=== PATIENT | female | born 1945 | race Caucasian/White ===

== ENCOUNTER 2020-04-05 12:11 | Outpatient (REF) | payer MEDICARE, SELFPAY ==
--- NOTE | 2020-04-05 12:19 | MM_ITS ---
EXAMINATION: MM SCREENING DIGITAL BREAST TOMOSYNTHESIS, BILATERAL CLINICAL INFORMATION: Screening. Asymptomatic. The lifetime risk of breast cancer based on the Tyrer-Cuzick Model is under 2%. COMPARISON: Mammography: 12/02/2018, 11/19/2017, 10/31/2016 TECHNIQUE: Digital breast tomosynthesis is performed in both the craniocaudal and mediolateral oblique views along with computer-aided detection (CAD). Synthesized 2D images are generated from the tomosynthesis. FINDINGS: There are scattered areas of fibroglandular density (ACR BI-RADS breast composition Category b). There are no significant masses, abnormal calcifications, or other abnormalities. Parenchymal pattern is similar to prior exams. The axilla and skin contours are unremarkable. MM/MM tomosynthesis screening BI IMPRESSION: No mammographic evidence of malignancy. ASSESSMENT: BI-RADS 1: Negative RECOMMENDATION: Routine annual mammography screening. This patient's information was entered into a reminder system with a target due date for their next mammogram.
== END 2020-04-05 12:12 | disposition home or self-care (01) ==
LOC: HO.MAMMO 12:11
PROVIDERS: Visit Provider Internal Medicine
DX: Z12.31 Encounter for screening mammogram for malignant neoplasm of breast (principal)
CPT/HCPCS: 77063; 77067

== ENCOUNTER 2021-04-10 08:57 | Outpatient (REF) | payer MEDICARE, SELFPAY ==
--- NOTE | ~2021-04-10 | MM_ITS ---
EXAMINATION: BONE DENSITOMETRY CLINICAL INDICATION: Osteopenia. COMPARISON: Previous BD dated 12/02/2018 and baseline BD dated 06/20/2010. TECHNIQUE: Using a [employer] DXA System (software version: 13.1) manufactured by [employer], dual-energy x-ray absorptiometry was performed of the lumbar spine and left hip. The images are of good technical quality. Summary results are attached. FINDINGS: AP SPINE L1-L3 (excluding L4): The data of L1-L4 has been changed to exclude the L4 vertebral body, because degenerative changes at this level may cause overestimation of lumbar spine density. Current: BMD 0.936 g/cm2, Z-score 0.3, T-score -1.9, osteopenia, 2.3% decrease from previous, 1.2% increase from baseline (<5% change is not significant). Prior: BMD 0.958 g/cm2. Baseline: BMD 0.925 g/cm2. LEFT FEMUR, NECK: Current: BMD 0.775 g/cm2, Z-score 0.4, T-score -1.9, osteopenia. Prior: BMD 0.808 g/cm2. Baseline: BMD 0.897 g/cm2. LEFT FEMUR, TOTAL: Current: BMD 0.759 g/cm2, Z-score 0.2, T-score -2.0, osteopenia, 9.0% decrease from previous, 16.1% decrease from baseline (<5% change is not significant). Prior: BMD 0.834 g/cm2. Baseline: BMD 0.905 g/cm2. IDENTIFIED RISK FACTORS: Early menopause, secondary osteoporosis, rheumatoid arthritis, glucocorticoids (chronic), thiazide. HISTORY OF FRACTURE: None listed. MEDICATIONS: Vitamin D, bisphosphonates. MM/XR DEXA axial skeleton IMPRESSION: 1. DIAGNOSIS: Osteopenia based on the lowest T-score value of -2.0 in the total femur applying World Health Organization criteria. 2. 10-YEAR FRACTURE RISK PREDICTION, FRAX: Major osteoporotic fracture (clinical spine, forearm, hip or shoulder) 24.4%. Hip fracture 8.6%. 3. Treatment Recommendations: NOF guidelines recommend consideration for treatment in postmenopausal women and men age 50 and older presenting with the following: -A hip or vertebral (clinical or morphometric) fracture. -T-score less than or equal to -2.5 at the femoral neck or spine after appropriate evaluation to exclude secondary causes. -Low bone mass at the hip or spine and a 10-year fracture probability by FRAX of greater than or equal to 3% for hip fracture or greater than or equal to 20% for major osteoporotic fracture based on the [place] adapted WHO algorithm. 4. Other Recommendations: All treatment decisions require clinical judgment and consideration of individual patient factors, including patient preferences, comorbidities, previous drug use, risk factors not captured in the FRAX model (e.g. frailty, falls, vitamin D deficiency, increased bone turnover, interval significant decline in bone density) and possible under or overestimation of fracture risk by FRAX. Additional medical evaluation for secondary cause of low bone mineral density may be appropriate. FUTURE SCAN RECOMMENDATION: People with diagnosed cases of osteoporosis or at high risk for fracture should have regular bone mineral density tests. For patients eligible for Medicare, routine testing is allowed once every 2 years. The testing frequency can be increased to one year for patients who have rapidly progressing disease, those who are receiving or discontinuing medical therapy to restore bone mass, or have additional risk factors.
--- NOTE | ~2021-04-10 | MM_ITS ---
EXAMINATION: MM SCREENING DIGITAL BREAST TOMOSYNTHESIS, BILATERAL CLINICAL INFORMATION: Screening. Asymptomatic. The lifetime risk of breast cancer based on the Tyrer-Cuzick Model is 1%. COMPARISON: Mammography: 04/05/2020, 12/02/2018, 11/19/2017 TECHNIQUE: Digital breast tomosynthesis is performed in both the craniocaudal and mediolateral oblique views along with computer-aided detection (CAD). Synthesized 2D images are generated from the tomosynthesis. FINDINGS: There are scattered areas of fibroglandular density (ACR BI-RADS breast composition Category b). There are no significant masses, abnormal calcifications, or other abnormalities. Parenchymal pattern is similar to prior studies. There is no developing density or architectural abnormality. The axilla and skin contours are unremarkable. No significant changes. MM/MM tomosynthesis screening BI IMPRESSION: No mammographic evidence of malignancy. ASSESSMENT: BI-RADS 1: Negative RECOMMENDATION: Routine annual mammography screening. This patient's information was entered into a reminder system with a target due date for their next mammogram.
== END 2021-04-10 08:58 | disposition home or self-care (01) ==
LOC: HO.MAMMO 08:57
PROVIDERS: Visit Provider Obstetrics & Gynecology
DX: Z12.31 Encounter for screening mammogram for malignant neoplasm of breast (principal); Z13.820 Encounter for screening for osteoporosis; M85.80 Other specified disorders of bone density and structure, unspecified site; Z78.0 Asymptomatic menopausal state; M06.9 Rheumatoid arthritis, unspecified; E27.49 Other adrenocortical insufficiency; Z79.899 Other long term (current) drug therapy
CPT/HCPCS: 77063; 77067; 77080

== ENCOUNTER 2022-04-14 08:55 | Outpatient (REF) | payer MEDICARE, SELFPAY ==
--- NOTE | ~2022-04-14 | MM_ITS ---
EXAMINATION: MM SCREENING DIGITAL BREAST TOMOSYNTHESIS, BILATERAL CLINICAL INFORMATION: Screening. Asymptomatic. The lifetime risk of breast cancer based on the Tyrer-Cuzick Model is 2%. COMPARISON: Mammography: 04/10/2021, 04/05/2020, 12/02/2018 TECHNIQUE: Digital breast tomosynthesis is performed in both the craniocaudal and mediolateral oblique views along with computer-aided detection (CAD). Synthesized 2D images are generated from the tomosynthesis. FINDINGS: There are scattered areas of fibroglandular density (ACR BI-RADS breast composition Category b). Breast tissue composition borders on predominantly fatty. Background stromal and fibroglandular densities are stable. There are no significant masses, abnormal calcifications, or other abnormalities. No architectural abnormality or developing density. The axilla are unremarkable. MM/MM tomosynthesis screening BI IMPRESSION: No mammographic evidence of malignancy. ASSESSMENT: BI-RADS 1: Negative RECOMMENDATION: Routine annual mammography screening. This patient's information was entered into a reminder system with a target due date for their next mammogram.
== END 2022-04-14 08:56 | disposition home or self-care (01) ==
LOC: HO.MAMMO 08:55
PROVIDERS: Absent Provider Obstetrics & Gynecology; PCP Internal Medicine; Visit Provider Internal Medicine
DX: Z12.31 Encounter for screening mammogram for malignant neoplasm of breast (principal)
CPT/HCPCS: 77063; 77067

== ENCOUNTER 2023-01-16 07:27 | Outpatient (AMB) | payer MEDICARE, SELFPAY ==
[2023-01-16 07:47] VITALS: BP 122/64; PULSE 67; O2SAT 98; BMI 20.5
--- NOTE | 2023-01-16 07:47 | A.OFFPC_ITS ---
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 Intake Note: Pt is here today as a New Patient, HTN and request PE Allergies codeine Adverse Reaction (Unknown, Verified 01/16/23 07:54) Hives sulfamethoxazole Adverse Reaction (Unknown, Verified 01/16/23 07:54) Unknown trimethoprim Adverse Reaction (Unknown, Verified 01/16/23 07:54) Unknown lisinopril Adverse Reaction (Unverified 01/16/23 07:54) cough Penicillins Adverse Reaction (Verified 01/16/23 07:54) rash Medication List - Last Reconciled 01/16/23 by Johanna Palencia MD alendronate 70 mg PO QWEEK cholecalciferol (vitamin D3) 50 mcg PO DAILY fluticasone propionate 50 mcg/actuation 1 spray intranasal DAILY losartan 25 mg PO DAILY simvastatin 20 mg PO BEDTIME triamterene-hydrochlorothiazid 37.5-25 mg 1 tab PO DAILY Tobacco use date assessed: 01/16/23 Fall risk assessment: No Falls in past year Last assessed Fall Risk: 01/16/23 Dental Screening Dental Screen Date: 01/16/23 Did you have a dental visit in the last 12 months?: Yes Did you have a dental problem in the last 6 months where you did not have access to dental care?: Yes Was dental information given to patient?: Patient has dentist HPI SENIOR PROJECT MANAGER/HTN /med/Req PE HPI Details Pt presents for SENIOR PROJECT MANAGER visit. Past medical history includes hypertension hyperlipidemia controlled current medications. Patient has been taking alendronate for urine a half for osteopenia. She has a history of osteoporosis and took alendronate in the past many years ago. Patient denies history of fracture PFSH Family History (Updated 01/16/23 @ 07:49 by Mary Beth Thompson CMA) Son Substance use disorder Social History (Updated 01/16/23 @ 08:10 by Johanna Palencia MD) Household Members Other:: , 6 adult sons, grandchildren in [place], [facility] Housing: House Patient Tobacco Use Status: Never used Tobacco e-Cigarette/Vaping Use: Never Used service: No Current occupational status: retired Cognitive needs: No Hearing needs: No Vision needs: Yes Questionnaire PHQ-9 Over the last 2 weeks, how often have you been bothered by any of the following problems? 1. Little interest or pleasure in doing things: not at all 2. Feeling down, depressed, or hopeless: not at all 3. Trouble falling or staying asleep, or sleeping too much: not at all 4. Feeling tired or having little energy: not at all 5. Poor appetite or overeating: not at all 6. Feeling bad about yourself - or that you are a failure or have let yourself or your family down: not at all 7. Trouble concentrating on things, such as reading the newspaper or watching television: not at all 8. Moving or speaking so slowly that other people could have noticed. Or the opposite - being so fidgety or restless that you have been moving around a lot more than usual: not at all 9. Thoughts that you would be better off or of hurting yourself in some way: not at all Total score: 0 Depression Screening Interpretation: Negative Depression Screening Done: Yes Source: Developed by Drs. Lowell Hinton, Annmarie Hooker, Nicola Ballard and colleagues, with an educational betty from [employer]. Thrive Questionnaire Date Thrive assessed: 01/16/23 I am a: Patient What is your living situation today?: I have a steady place to live Within the past 12 months, did the food you bought not last and you didn't have the money to get more?: Never true Within the past 12 months, did you worry whether your food would run out before you got money to buy more?: Never true Do you have trouble paying for medicines?: No Do you have trouble getting transportation to medical appointments?: No Do you have trouble paying your heating and electricity bill?: No Do you have trouble taking care of your child, family member or friend?: No Do you have trouble with day-to-day activities such as bathing, preparing meals, shopping, managing finances, etc.?: No Are you currently unemployed and looking for a job?: No Are you interested in more education?: No AUDIT C Alcohol Use Questionnaire (AUDIT-C) 1. How often do you have a drink containing alcohol?: Never Total Score: 0 STEPHANIE-7 AMB Questionnaire STEPHANIE-7 Date STEPHANIE - 7 assessed: 01/16/23 Feeling nervous, anxious, or on edge: 0 = Not at all Not being able to stop or control worryin = Not at all Worrying too much about different things: 0 = Not at all Trouble relaxin = Not at all Being so restless that it is hard to sit still: 0 = Not at all Becoming easily annoyed or irritable: 0 = Not at all Feeling afraid as if something awful might happen: 0 = Not at all Total STEPHANIE-7 score (0-4 normal; 5-9 mild; 10-14 moderate; 15-21 severe): 0 Source: Developed by Drs. Lowell Hinton, Annmarie Hooker, Nicola Ballard and colleagues, with an educational betty from [employer]. Review of Systems Const All systems reviewed & are unremarkable except as noted in HPI and below Reports no additional complaints Eyes Reports no additional complaints ENT Reports no additional complaints Card Reports no additional complaints Resp Reports no additional complaints GI Reports no additional complaints Reports no additional complaints Physical exam (Primary Care) Vital Signs: Last Vital Signs Pulse 67 01/16/23 07:47 BP 122/64 01/16/23 07:47 Pulse Ox 98 01/16/23 07:47 Oxygen Delivery Method Room Air 01/16/23 07:47 BMI result Body Mass Index 20.5 Tobacco/Smoking Status: Tobacco use Status Tobacco use date assessed 01/16/23 01/16/23 08:03 Patient Tobacco Use Status Never used Tobacco 01/16/23 08:10 e-Cigarette/Vaping Use Never Used 01/16/23 08:10 PHQ-9: PHQ-9 Score PHQ-9: Total score 0 01/16/23 08:10 Depression Screening Interpretation: Negative Thrive Assessment: Date of Thrive Assessment Date Thrive assessed 01/16/23 01/16/23 08:03 Const General: no acute distress HENMT Head: Yes normal to inspection Ears: hearing grossly normal bilaterally Face and sinus: Yes normal facial exam Throat: Yes posterior oropharynx normal Resp Effort & Inspection: normal respiratory effort Auscultation: clear to auscultation bilaterally Cardio Rhythm: regular rhythm Heart sounds: S1 normal heart sound present and S2 normal heart sound present GI Inspection: Yes normal to inspection Palpation (GI): Soft to palpation Percussion: Yes normal to percussion Assessment and Plan Assessment & Plan (1) Postmenopausal: Code(s): Z78.0 - Asymptomatic menopausal state Plan: Check DEXA continue alendronate and vitamin-D 3 (2) Annual physical exam: Code(s): Z00.00 - Encounter for general adult medical examination without abnormal findings Plan: Well-balanced diet and regular physical activity discussed with the patient (3) Hyperlipidemia: Code(s): E78.5 - Hyperlipidemia, unspecified Plan: Continue statin obtain fasting blood work (4) HTN (hypertension): Code(s): I10 - Essential (primary) hypertension Plan: Continue current medications, return in 6 months Orders: Orders MM screening mammo BI Today Z12.31 - Encounter for screening mammogram for malignant neoplasm of breast XR DEXA axial skeleton Today M85.80 - Other specified disorders of bone density and structure, unspecified site, Z00.00 - Encounter for general adult medical examination without abnormal findings, Z78.0 - Asymptomatic menopausal state Comprehensive [place]. Panel Fast Today E78.5 - Hyperlipidemia, unspecified, I10 - Essential (primary) hypertension Lipid Panel Today E78.5 - Hyperlipidemia, unspecified, I10 - Essential (primary) hypertension Complete Blood Count Auto Diff Today E78.5 - Hyperlipidemia, unspecified, I10 - Essential (primary) hypertension Vitamin D 25-OH Total Today E78.5 - Hyperlipidemia, unspecified, I10 - Essential (primary) hypertension Medications: New alendronate 70 mg PO QWEEK 14 tabs 3RF losartan 25 mg PO DAILY 90 tabs 3RF triamterene-hydrochlorothiazid 37.5-25 mg 1 tab PO DAILY 90 tabs 3RF simvastatin 20 mg PO BEDTIME 90 tabs 3RF Coding Level of Care Code New Pt Level 4 (65655) Diagnoses Postmenopausal Z78.0 Annual physical exam Z00.00 Hyperlipidemia E78.5 HTN (hypertension) I10
== END 2023-01-16 08:25 | disposition home or self-care (01) ==
PROVIDERS: PCP Internal Medicine; Visit Provider Internal Medicine
DX: Z78.0 Asymptomatic menopausal state (principal); Z00.00 Encounter for general adult medical examination without abnormal findings; E78.5 Hyperlipidemia, unspecified; I10 Essential (primary) hypertension
CPT/HCPCS: 99204

== ENCOUNTER 2023-01-16 08:27 | Outpatient (REF) | payer MEDICARE, SELFPAY ==
[2023-01-16 11:19] LABS: MANUAL DIFF FLAG NO
[2023-01-16 12:02] LABS: Basophils Absolute Auto 0.1 X10*3/uL (0.0-0.2); Basophils Percent Auto 1.1 % (0-2); Eosinophils Absolute Auto 0.2 X10*3/uL (0.0-0.4); Eosinophils Percent Auto 3.6 % (0-4); Hematocrit 36.6 % (37.0-47.0); Hemoglobin 12.8 g/dl (12.0-16.0); Imm Gran Abs Auto 0.02 X10*3/uL (0.00-0.03); Imm Gran Pct Auto 0.4 % (0.0-0.4); Lymphocytes Absolute Auto 1.1 X10*3/uL (1.2-4.9); Lymphocytes Percent Auto 22.6 % (20-40); Mean Corpuscular Hemoglobin 30.5 pg (27.0-33.0); Mean Corpuscular Volume 87.4 fL (80.0-98.0); Mean Platelet Volume 10.7 fL (9.4-12.3); Monocytes Absolute Auto 0.7 X10*3/uL (0.1-1.2); Monocytes Percent Auto 14.8 % (2-11); Neutrophils Absolute Auto 2.7 x10*3/uL (2.0-8.3); Neutrophils Percent Auto 57.5 % (45-73); Platelet Count 240 X10*3/uL (160-400); Red Blood Count 4.19 X10*6/uL (4.20-5.50); Red Cell Distribution Width 13.2 % (11.0-16.0); White Blood Count 4.7 X10*3/uL (4.8-10.8)
[2023-01-16 12:10] LABS: Alanine Aminotransferase 28 U/L (0-31); Albumin Level 4.7 g/dL (3.5-5.0); Alkaline Phosphatase 41 U/L (39-117); Anion Gap 13 (12-20); Aspartate Amino Transferase 25 U/L (5-31); Bilirubin Total 0.8 mg/dL (0.0-1.0); Blood Urea Nitrogen 13 mg/dL (9-16); Calcium 9.6 mg/dL (8.4-10.2); Carbon Dioxide 23 mmol/L (22-29); Chloride 102 mmol/L (96-108); Cholesterol 180 mg/dL (<200); Estimated Glomerular Filt Rate > 60; Glucose Fasting 99 mg/dL (60-99); HDL Cholesterol 70 mg/dL (>40); LDL Cholesterol Calculated 92 mg/dL (<100); Sodium 135 mmol/L (135-145); Triglycerides 94 mg/dL (<150); Vitamin D 25-OH Total 59.8 ng/mL (>30)
== END 2023-01-16 08:28 | disposition home or self-care (01) ==
LOC: HO.HMGCLDS 08:27
PROVIDERS: PCP Internal Medicine; Visit Provider Internal Medicine
DX: I10 Essential (primary) hypertension (principal); E78.5 Hyperlipidemia, unspecified
CPT/HCPCS: 36415; 80053; 80061; 82306; 85025

== ENCOUNTER 2023-01-28 09:27 | Outpatient (REF) | payer MEDICARE, SELFPAY ==
[2023-01-28 11:46] LABS: Potassium 3.8 mmol/L (3.3-5.1)
== END 2023-01-28 09:28 | disposition home or self-care (01) ==
LOC: HO.HMGCLDS 09:27
PROVIDERS: PCP Internal Medicine; Visit Provider Internal Medicine
DX: E87.6 Hypokalemia (principal)
CPT/HCPCS: 36415; 84132

== ENCOUNTER 2023-02-13 13:28 | Outpatient (AMB) | payer MEDICARE, SELFPAY ==
--- NOTE | 2023-02-13 13:35 | A.OFFPC_ITS ---
Vital Signs 02/13/23 13:36 Height 5 ft 2 in Weight 115 lb BMI 21.0 BP 134/68 Blood Pressure Location Rt brachial Position Sitting Pulse 79 Pulse Source Pulse Oximeter Pulse Oximetry (%) 98 Oxygen Delivery Method Room Air Intake Visit Reasons: LT Knee pain and back of knee Intake Note: Pt is here today c/o Rt knee pain and back of Rt knee Allergies codeine Adverse Reaction (Unknown, Verified 01/16/23 07:54) Hives sulfamethoxazole Adverse Reaction (Unknown, Verified 01/16/23 07:54) Unknown trimethoprim Adverse Reaction (Unknown, Verified 01/16/23 07:54) Unknown lisinopril Adverse Reaction (Unverified 01/16/23 07:54) cough Penicillins Adverse Reaction (Verified 01/16/23 07:54) rash Tobacco use date assessed: 02/13/23 Fall risk assessment: No Falls in past year Last assessed Fall Risk: 02/13/23 Dental Screening Did you have a dental visit in the last 12 months?: Yes Did you have a dental problem in the last 6 months where you did not have access to dental care?: No Was dental information given to patient?: Patient has dentist HPI LT Knee pain and back of knee HPI Details Pt c/o L knee pain and stiffness for 3 weeks worse when walking. Pt has a hx of PMR and took Prednisone for 9 months, completed a year ago. She follows up by rheumatology every 3 months and has an appointment in February. Patient reports blood pressure between 130 to 140/70 at home PFSH Family History Son Substance use disorder Social History Household Members Other:: , 6 adult sons, grandchildren in [place]/[facility] Housing: House Patient Tobacco Use Status: Never used Tobacco e-Cigarette/Vaping Use: Never Used service: No Current occupational status: retired Cognitive needs: No Hearing needs: No Vision needs: Yes Questionnaire Thrive Questionnaire Date Thrive assessed: 01/16/23 STEPHANIE-7 AMB Questionnaire STEPHANIE-7 Date STEPHANIE - 7 assessed: 01/16/23 Source: Developed by Drs. Lowell Hinton, Annmarie Hooker, Nicola Ballard and colleagues, with an educational betty from [employer]. Review of Systems Const All systems reviewed & are unremarkable except as noted in HPI and below Reports no additional complaints Eyes Reports no additional complaints Card Reports no additional complaints Resp Reports no additional complaints GI Reports no additional complaints Reports no additional complaints Physical exam (Primary Care) Vital Signs: Last Vital Signs Pulse 79 02/13/23 13:36 BP 134/68 02/13/23 13:36 Pulse Ox 98 02/13/23 13:36 Oxygen Delivery Method Room Air 02/13/23 13:36 BMI result Body Mass Index 21.0 Tobacco/Smoking Status: Tobacco use Status Tobacco use date assessed 02/13/23 02/13/23 13:38 Patient Tobacco Use Status Never used Tobacco 02/13/23 13:36 e-Cigarette/Vaping Use Never Used 02/13/23 13:36 Thrive Assessment: Date of Thrive Assessment Date Thrive assessed 01/16/23 02/13/23 13:36 Const General: no acute distress HENMT Face and sinus: Yes normal facial exam Resp Effort & Inspection: normal respiratory effort Auscultation: clear to auscultation bilaterally Cardio Rhythm: regular rhythm Heart sounds: S1 normal heart sound present and S2 normal heart sound present GI Inspection: Yes normal to inspection Palpation (GI): Soft to palpation Extrem Other: Left knee with crepitus and decreased range of motion, there is soft tissue swelling in the medial aspect no erythema or warmth Assessment and Plan Assessment & Plan (1) Knee pain, left: Code(s): M25.562 - Pain in left knee Plan: Check x-rays and sed rate with CRP. Prednisone 15 mg daily is prescribed for 1 week if sed rate is normal (2) PMR (polymyalgia rheumatica): Code(s): M35.3 - Polymyalgia rheumatica Plan: Check CRP and sed rate, start 15 mg of prednisone (3) HTN (hypertension): Code(s): I10 - Essential (primary) hypertension Plan: Continue 50 mg of losartan triamterene and follow-up in 3 weeks Orders: Orders Basic Metabolic Panel Today M25.562 - Pain in left knee Erythrocyte Sedimentation Rate Today M25.562 - Pain in left knee Magnesium Today M25.562 - Pain in left knee XR knee LT 2V Today I10 - Essential (primary) hypertension, M25.562 - Pain in left knee, M35.3 - Polymyalgia rheumatica C Reactive Protein Today M25.562 - Pain in left knee Medications: New prednisone 5 mg PO TID 60 tabs 0RF Coding Level of Care Code Est Pt Level 4 (40563) Diagnoses Knee pain, left M25.562 PMR (polymyalgia rheumatica) M35.3 HTN (hypertension) I10
[2023-02-13 13:36] VITALS: BP 134/68; PULSE 79; O2SAT 98; BMI 21.0
== END 2023-02-13 14:26 | disposition home or self-care (01) ==
PROVIDERS: PCP Internal Medicine; Visit Provider Internal Medicine
DX: M25.562 Pain in left knee (principal); M35.3 Polymyalgia rheumatica; I10 Essential (primary) hypertension
CPT/HCPCS: 99214

== ENCOUNTER 2023-02-13 14:27 | Outpatient (REF) | payer MEDICARE, SELFPAY ==
--- NOTE | ~2023-02-13 | XR_ITS ---
EXAMINATION: XR KNEE, LEFT CLINICAL INFORMATION: Pain in left knee COMPARISON: None available. TECHNIQUE: Four views of the left knee. FINDINGS: No significant joint effusion. Bones are in normal anatomic alignment with no acute fracture or dislocation. Mild degenerative changes with small osteophyte formation.. Surrounding soft tissues unremarkable XR/XR knee LT 4V IMPRESSION: Normal left knee.
[2023-02-13 16:36] LABS: Anion Gap 10 (12-20); Blood Urea Nitrogen 11 mg/dL (9-16); C Reactive Protein < 0.04 mg/dL (< or = 0.50); Calcium 9.3 mg/dL (8.4-10.2); Carbon Dioxide 28 mmol/L (22-29); Chloride 107 mmol/L (96-108); Estimated Glomerular Filt Rate > 60; Glucose Random 75 mg/dL (60-115); Magnesium 2.1 mg/dL (1.6-2.6); Potassium 3.6 mmol/L (3.3-5.1); Sodium 141 mmol/L (135-145)
[2023-02-13 17:01] LABS: Erythrocyte Sedimentation Rate 5 MM/HR (0-20)
== END 2023-02-13 14:28 | disposition home or self-care (01) ==
LOC: HO.HMGCX 14:27
PROVIDERS: PCP Internal Medicine; Visit Provider Internal Medicine
DX: M25.562 Pain in left knee (principal)
CPT/HCPCS: 36415; 73564; 80048; 83735; 85652; 86140

== ENCOUNTER 2023-03-06 13:52 | Outpatient (AMB) | payer MEDICARE, SELFPAY ==
--- NOTE | 2023-03-06 13:53 | A.OFFPC_ITS ---
Vital Signs 03/06/23 13:54 Height 5 ft 2 in Weight 114 lb BMI 20.8 BP 138/72 Blood Pressure Location Lt brachial Position Sitting Pulse 79 Pulse Source Pulse Oximeter Pulse Oximetry (%) 96 Oxygen Delivery Method Room Air Intake Visit Reasons: 3 week fu Intake Note: Pt is here today for 3 weeks follow up visit. Allergies codeine Adverse Reaction (Unknown, Verified 03/06/23 13:59) Hives sulfamethoxazole Adverse Reaction (Unknown, Verified 03/06/23 13:59) Unknown trimethoprim Adverse Reaction (Unknown, Verified 03/06/23 13:59) Unknown lisinopril Adverse Reaction (Unverified 03/06/23 13:59) cough Penicillins Adverse Reaction (Verified 03/06/23 13:59) rash Medication List - Last Reconciled 03/06/23 by Johanna Palencia MD alendronate 70 mg PO QWEEK cholecalciferol (vitamin D3) 50 mcg PO DAILY fluticasone propionate 50 mcg/actuation 1 spray intranasal DAILY losartan 50 mg (2 x 25 mg) PO DAILY losartan 75 mg (3 x 25 mg) PO DAILY simvastatin 20 mg PO BEDTIME triamterene 50 mg PO DAILY Tobacco use date assessed: 02/13/23 HPI 3 week fu HPI Details PATIENT PRESENTS FOR THE FOLLOW-UP ON HYPERTENSION. She reports blood pressure elevated occasionally up to 150/90 at [facility]. Patient denies chest pain shortness of breath or palpitations. Left knee and left hip pain resolved after cortisone injection by trimming cutter machine. PFSH Family History Son Substance use disorder Social History Household Members Other:: , 6 adult sons, grandchildren in [place]/[facility] Housing: House Patient Tobacco Use Status: Never used Tobacco e-Cigarette/Vaping Use: Never Used service: No Current occupational status: retired Cognitive needs: No Hearing needs: No Vision needs: Yes Questionnaire Thrive Questionnaire Date Thrive assessed: 01/16/23 STEPAHNIE-7 AMB Questionnaire STEPHANIE-7 Date STEPHANIE - 7 assessed: 01/16/23 Source: Developed by Drs. Lowell Hinton, Annmarie Hooker, Nicola Ballard and colleagues, with an educational betty from [employer]. Physical exam (Primary Care) Vital Signs: Last Vital Signs Pulse 79 03/06/23 13:54 BP 138/72 03/06/23 13:54 Pulse Ox 96 03/06/23 13:54 Oxygen Delivery Method Room Air 03/06/23 13:54 BMI result Body Mass Index 20.8 Tobacco/Smoking Status: Tobacco use Status Tobacco use date assessed 02/13/23 03/06/23 13:54 Patient Tobacco Use Status Never used Tobacco 03/06/23 13:54 e-Cigarette/Vaping Use Never Used 03/06/23 13:54 Thrive Assessment: Date of Thrive Assessment Date Thrive assessed 01/16/23 03/06/23 13:54 Const General: no acute distress HENMT Throat: Yes posterior oropharynx normal Resp Effort & Inspection: normal respiratory effort Auscultation: clear to auscultation bilaterally Cardio Rhythm: regular rhythm Heart sounds: S1 normal heart sound present and S2 normal heart sound present Assessment and Plan Assessment & Plan (1) Hyperlipidemia: Code(s): E78.5 - Hyperlipidemia, unspecified Plan: Continue statin (2) HTN (hypertension): Code(s): I10 - Essential (primary) hypertension Plan: Increase losartan to 75 mg a day and continue triamterene. check BMP IN 2 WEEKS, F/U 6 WEEKS Orders: Orders Basic Metabolic Panel 2 Weeks I10 - Essential (primary) hypertension Medications: New losartan 75 mg (3 x 25 mg) PO DAILY 90 tabs 3RF Discontinued losartan Discontinued Reason: Doctor's Order 50 mg (2 x 25 mg) PO DAILY 180 tabs 3RF prednisone Discontinued Reason: Doctor's Order 5 mg PO TID 60 tabs 0RF Coding Level of Care Code Est Pt Level 3 (43639) Diagnoses Hyperlipidemia E78.5 HTN (hypertension) I10
[2023-03-06 13:54] VITALS: BP 138/72; PULSE 79; O2SAT 96; BMI 20.8
== END 2023-03-06 14:28 | disposition home or self-care (01) ==
PROVIDERS: PCP Internal Medicine; Visit Provider Internal Medicine
DX: E78.5 Hyperlipidemia, unspecified (principal); I10 Essential (primary) hypertension
CPT/HCPCS: 99213

== ENCOUNTER 2023-03-20 07:38 | Outpatient (REF) | payer MEDICARE, SELFPAY ==
[2023-03-20 11:41] LABS: Anion Gap 10 (12-20); Blood Urea Nitrogen 14 mg/dL (9-16); Calcium 9.2 mg/dL (8.4-10.2); Carbon Dioxide 29 mmol/L (22-29); Chloride 107 mmol/L (96-108); Estimated Glomerular Filt Rate > 60; Glucose Random 89 mg/dL (60-115); Potassium 4.1 mmol/L (3.3-5.1); Sodium 142 mmol/L (135-145)
== END 2023-03-20 07:39 | disposition home or self-care (01) ==
LOC: HO.HMGCLDS 07:38
PROVIDERS: PCP Internal Medicine; Visit Provider Internal Medicine
DX: I10 Essential (primary) hypertension (principal)
CPT/HCPCS: 36415; 80048

== ENCOUNTER 2023-04-13 10:53 | Outpatient (AMB) | payer MEDICARE, SELFPAY ==
[2023-04-13 11:04] VITALS: BP 144/80; PULSE 76; O2SAT 98; BMI 20.7
--- NOTE | 2023-04-13 11:04 | MHC.PC.OV ---
Vital Signs 04/13/23 11:04 Height 5 ft 2 in Weight 113 lb BMI 20.7 BP 144/80 H Blood Pressure Location Lt brachial Position Sitting Pulse 76 Pulse Source Pulse Oximeter Pulse Oximetry (%) 98 Oxygen Delivery Method Room Air Intake Visit Reasons: 6 Week F/U Intake Note: Pt is here today for 6 weeks follow up visit. Allergies codeine Adverse Reaction (Unknown, Verified 03/06/23 13:59) Hives sulfamethoxazole Adverse Reaction (Unknown, Verified 03/06/23 13:59) Unknown trimethoprim Adverse Reaction (Unknown, Verified 03/06/23 13:59) Unknown lisinopril Adverse Reaction (Unverified 03/06/23 13:59) cough Penicillins Adverse Reaction (Verified 03/06/23 13:59) rash Medication List - Last Reconciled 04/13/23 by Johanna Palencia MD alendronate 70 mg PO QWEEK cholecalciferol (vitamin D3) 50 mcg PO DAILY fluticasone propionate 50 mcg/actuation 1 spray intranasal DAILY losartan 75 mg (3 x 25 mg) PO DAILY simvastatin 20 mg PO BEDTIME triamterene 50 mg PO DAILY Tobacco use date assessed: 04/13/23 Fall risk assessment: No Falls in past year Last assessed Fall Risk: 04/13/23 Dental Screening Dental Screen Date: 04/13/23 Did you have a dental visit in the last 12 months?: Yes Did you have a dental problem in the last 6 months where you did not have access to dental care?: No Was dental information given to patient?: Patient has dentist HPI 6 Week F/U HPI Details Pt c/o chest pressure almost daily, not related to physical activity. Patient denies nausea vomiting radiation of the pain to jaw or shoulder back. Patient denies nocturnal symptoms. She has been under stress related to her 13-year-old grandson diagnosed with alopecia. Patient has alopecia for the last 40 years and thinks that she gave it to him . Patient reports her home blood pressure readings elevated up to 150/75 and she reports intermittent headache at night. [facility] Family History Son Substance use disorder Father No problems noted. Mother Hypertension Social History Household Members Other:: , 6 adult sons, grandchildren in [place], [facility] Housing: House Patient Tobacco Use Status: Never used Tobacco e-Cigarette/Vaping Use: Never Used service: No Current occupational status: retired Cognitive needs: No Hearing needs: No Vision needs: Yes Questionnaire PHQ-9 Over the last 2 weeks, how often have you been bothered by any of the following problems? 1. Little interest or pleasure in doing things: not at all 2. Feeling down, depressed, or hopeless: not at all 3. Trouble falling or staying asleep, or sleeping too much: not at all 4. Feeling tired or having little energy: not at all 5. Poor appetite or overeating: not at all 6. Feeling bad about yourself - or that you are a failure or have let yourself or your family down: not at all 7. Trouble concentrating on things, such as reading the newspaper or watching television: not at all 8. Moving or speaking so slowly that other people could have noticed. Or the opposite - being so fidgety or restless that you have been moving around a lot more than usual: not at all 9. Thoughts that you would be better off or of hurting yourself in some way: not at all Total score: 0 Depression Screening Interpretation: Negative Depression Screening Done: Yes Source: Developed by Drs. Lowell Hinton, Annmarie Hooker, Nicola Ballard and colleagues, with an educational betty from [employer]. Thrive Questionnaire Date Thrive assessed: 04/13/23 I am a: Patient What is your living situation today?: I have a steady place to live Within the past 12 months, did the food you bought not last and you didn't have the money to get more?: Never true Within the past 12 months, did you worry whether your food would run out before you got money to buy more?: Never true Do you have trouble paying for medicines?: No Do you have trouble getting transportation to medical appointments?: No Do you have trouble paying your heating and electricity bill?: No Do you have trouble taking care of your child, family member or friend?: No Do you have trouble with day-to-day activities such as bathing, preparing meals, shopping, managing finances, etc.?: No Are you currently unemployed and looking for a job?: No Are you interested in more education?: No Please select the resources that you would like help with: None AUDIT C Alcohol Use Questionnaire (AUDIT-C) 1. How often do you have a drink containing alcohol?: Never 3. How often do you have six or more drinks on one occasion?: Never Total Score: 0 STEPHANIE-7 AMB Questionnaire STEPHANIE-7 Date STEPHANIE - 7 assessed: 04/13/23 Feeling nervous, anxious, or on edge: 1 = Several days Not being able to stop or control worryin = Several days Worrying too much about different things: 1 = Several days Trouble relaxin = Several days Being so restless that it is hard to sit still: 0 = Not at all Becoming easily annoyed or irritable: 0 = Not at all Feeling afraid as if something awful might happen: 1 = Several days Total STEPHANIE-7 score (0-4 normal; 5-9 mild; 10-14 moderate; 15-21 severe): 5 Source: Developed by Drs. Lowell Hinton, Annmarie Hooker, Nicola Ballard and colleagues, with an educational betty from [employer]. Review of Systems Const All systems reviewed & are unremarkable except as noted in HPI and below Reports no additional complaints Eyes Reports no additional complaints ENT Reports no additional complaints Card Reports no additional complaints Resp Reports no additional complaints GI Reports no additional complaints Reports no additional complaints Physical exam (Primary Care) Vital Signs: Last Vital Signs Pulse 76 04/13/23 11:04 BP 144/80 H 04/13/23 11:04 Pulse Ox 98 04/13/23 11:04 Oxygen Delivery Method Room Air 04/13/23 11:04 BMI result Body Mass Index 20.7 Tobacco/Smoking Status: Tobacco use Status Tobacco use date assessed 04/13/23 04/13/23 11:16 Patient Tobacco Use Status Never used Tobacco 04/13/23 11:16 e-Cigarette/Vaping Use Never Used 04/13/23 11:04 PHQ-9: PHQ-9 Score PHQ-9: Total score 0 04/13/23 11:21 Depression Screening Interpretation: Negative Thrive Assessment: Date of Thrive Assessment Date Thrive assessed 04/13/23 04/13/23 11:21 Const General: no acute distress HENMT Head: Yes normal to inspection Ears: hearing grossly normal bilaterally Neck Neck: Yes supple Resp Effort & Inspection: normal respiratory effort Auscultation: clear to auscultation bilaterally Cardio Rhythm: regular rhythm Heart sounds: S1 normal heart sound present and S2 normal heart sound present GI Inspection: Yes normal to inspection Palpation (GI): Soft to palpation Percussion: Yes normal to percussion Assessment and Plan Assessment & Plan (1) Chest pain: Code(s): R07.9 - Chest pain, unspecified Plan: EKG showed normal sinus LVH no acute ST-T changes, obtain nuclear stress to rule out ischemia, patient was advised to stop taking Fosamax. DEXA next week (2) Alopecia: Code(s): L65.9 - Nonscarring hair loss, unspecified (3) HTN (hypertension): Code(s): I10 - Essential (primary) hypertension Plan: Patient will increase losartan to 100 mg from 75 and continue triamterene, follow-up in 1 month (4) Anxiety: Code(s): F41.9 - Anxiety disorder, unspecified Plan: Stress management discussed with the patient. She will start 12.5 mg of sertraline Orders: Orders CA stress test Today I10 - Essential (primary) hypertension, R07.9 - Chest pain, unspecified NM cardiolite stress test Today R07.9 - Chest pain, unspecified Medications: New sertraline 1/2 tabl QD 25 mg PO DAILY 30 tabs 1RF Coding Level of Care Code Est Pt Level 4 (33321) Diagnoses Chest pain R07.9 Alopecia L65.9 HTN (hypertension) I10 Anxiety F41.9
== END 2023-04-13 12:17 | disposition home or self-care (01) ==
PROVIDERS: PCP Internal Medicine; Visit Provider Internal Medicine
DX: R07.9 Chest pain, unspecified (principal); L65.9 Nonscarring hair loss, unspecified; I10 Essential (primary) hypertension; F41.9 Anxiety disorder, unspecified
CPT/HCPCS: 99214

== ENCOUNTER 2023-04-16 08:02 | Outpatient (REF) | payer MEDICARE, SELFPAY ==
--- NOTE | ~2023-04-16 | MM_ITS ---
EXAMINATION: BONE DENSITOMETRY CLINICAL INDICATION: Asymptomatic menopausal state. COMPARISON: Previous BD dated 04/10/2021 and baseline BD dated 06/20/2010. TECHNIQUE: Using a [employer] DXA System (software version: 13.1) manufactured by [employer], dual-energy x-ray absorptiometry was performed of the lumbar spine and left hip. The images are of good technical quality. Summary results are attached. FINDINGS: LEFT FEMUR, NECK: Current: BMD 0.698 g/cm2, Z-score 0.0, T-score -2.4, osteopenia. Prior: BMD 0.775 g/cm2. Baseline: BMD 0.897 g/cm2. LEFT FEMUR, TOTAL: Current: BMD 0.663 g/cm2, Z-score -0.4, T-score -2.7, osteoporosis, 12.6% decrease from previous, 26.7% decrease from baseline (<5% change is not significant). Prior: BMD 0.759 g/cm2. Baseline: BMD 0.905 g/cm2. AP SPINE L1-L3 (excluding L4): The data of L1-L4 has been changed to exclude the L4 vertebral body, because degenerative sclerosis at this level may cause overestimation of lumbar spine density. Current: BMD 0.890 g/cm2, Z-score 0.0, T-score -2.3, osteopenia, 4.9% decrease from previous, 3.8% decrease from baseline (<5% change is not significant). Prior: BMD 0.936 g/cm2. Baseline: BMD 0.925 g/cm2. IDENTIFIED RISK FACTORS: Early menopause, glucocorticoids (chronic), osteoporosis, secondary osteoporosis. HISTORY OF FRACTURE: None listed. MEDICATIONS: Vitamin D, bisphosphonate. MM/XR DEXA axial skeleton IMPRESSION: 1. DIAGNOSIS: Osteoporosis based on the lowest T-score value of -2.7 in the total femur applying World Health Organization criteria. 2. 10-YEAR FRACTURE RISK PREDICTION, FRAX: According to the guidelines, FRAX calculation should only be performed on patients in the osteopenia bone density category. Therefore, FRAX was not performed on this patient. 3. Treatment Recommendations: NOF guidelines recommend consideration for treatment in postmenopausal women and men age 50 and older presenting with the following: -A hip or vertebral (clinical or morphometric) fracture. -T-score less than or equal to -2.5 at the femoral neck or spine after appropriate evaluation to exclude secondary causes. -Low bone mass at the hip or spine and a 10-year fracture probability by FRAX of greater than or equal to 3% for hip fracture or greater than or equal to 20% for major osteoporotic fracture based on the [place] adapted WHO algorithm. 4. Other Recommendations: All treatment decisions require clinical judgment and consideration of individual patient factors, including patient preferences, comorbidities, previous drug use, risk factors not captured in the FRAX model (e.g. frailty, falls, vitamin D deficiency, increased bone turnover, interval significant decline in bone density) and possible under or overestimation of fracture risk by FRAX. Additional medical evaluation for secondary cause of low bone mineral density may be appropriate. FUTURE SCAN RECOMMENDATION: People with diagnosed cases of osteoporosis or at high risk for fracture should have regular bone mineral density tests. For patients eligible for Medicare, routine testing is allowed once every 2 years. The testing frequency can be increased to one year for patients who have rapidly progressing disease, those who are receiving or discontinuing medical therapy to restore bone mass, or have additional risk factors.
== END 2023-04-16 08:03 | disposition home or self-care (01) ==
LOC: HO.MAMMO 08:02
PROVIDERS: PCP Internal Medicine; Visit Provider Internal Medicine
DX: Z12.31 Encounter for screening mammogram for malignant neoplasm of breast (principal); Z13.820 Encounter for screening for osteoporosis; Z78.0 Asymptomatic menopausal state; M85.80 Other specified disorders of bone density and structure, unspecified site
CPT/HCPCS: 77063; 77067; 77080

== ENCOUNTER → 2023-04-16 08:30 | Outpatient (BNV) | payer MEDICARE, SELFPAY | PROVIDERS: PCP Internal Medicine; Visit Provider Radiology Diagnostic Radiology | DX: Z12.31 Encounter for screening mammogram for malignant neoplasm of breast (principal) | CPT/HCPCS: 77063; 77067 ==

== ENCOUNTER 2023-05-14 10:00 | Outpatient (AMB) | payer MEDICARE, SELFPAY ==
[2023-05-14 10:04] VITALS: BP 134/74; PULSE 76; O2SAT 95; BMI 20.7
--- NOTE | 2023-05-14 10:04 | MHC.PC.OV ---
Vital Signs 05/14/23 10:04 Height 5 ft 2 in Weight 113 lb BMI 20.7 BP 134/74 Blood Pressure Location Lt brachial Position Sitting Pulse 76 Pulse Source Pulse Oximeter Pulse Oximetry (%) 95 Oxygen Delivery Method Room Air Intake Visit Reasons: 4 Week F/U New Meds/BP Intake Note: Pt is here today for 4 weeks follow up on new med for BP. Allergies codeine Adverse Reaction (Unknown, Verified 05/14/23 10:07) Hives sulfamethoxazole Adverse Reaction (Unknown, Verified 05/14/23 10:07) Unknown trimethoprim Adverse Reaction (Unknown, Verified 05/14/23 10:07) Unknown lisinopril Adverse Reaction (Unverified 05/14/23 10:07) cough Penicillins Adverse Reaction (Verified 05/14/23 10:07) rash Medication List - Last Reconciled 05/14/23 by Johanna Palencia MD alendronate 70 mg PO QWEEK cholecalciferol (vitamin D3) 50 mcg PO DAILY fluticasone propionate 50 mcg/actuation 1 spray intranasal DAILY losartan 75 mg (3 x 25 mg) PO DAILY sertraline 12.5 mg (1/2 x 25 mg) PO DAILY simvastatin 20 mg PO BEDTIME triamterene 50 mg PO DAILY Tobacco use date assessed: 04/13/23 HPI 4 Week F/U New Meds/BP HPI Details Patient presents for the follow-up on hypertension better controlled on 100 mg of losartan and triamterene. Anxiety it has improved on half a tablet of sertraline. Patient still feels upset about her grandson diagnosed with alopecia but feels better and crying less. DEXA results discussed with the patient. it showed worsening T-score in total femur to 2.7 (12.6 % decrease in 2 years, despite patient taking Fosamax. [facility] Family History Son Substance use disorder Father No problems noted. Mother Hypertension Social History Household Members Other:: , 6 adult sons, grandchildren in [place], [facility] Housing: House Patient Tobacco Use Status: Never used Tobacco e-Cigarette/Vaping Use: Never Used service: No Current occupational status: retired Cognitive needs: No Hearing needs: No Vision needs: Yes Questionnaire Thrive Questionnaire Date Thrive assessed: 04/13/23 STEPHANIE-7 AMB Questionnaire STEPHANIE-7 Date STEPHANIE - 7 assessed: 04/13/23 Source: Developed by Drs. Lowell Hinton, Annmarie Hooker, Nicola Ballard and colleagues, with an educational betty from [employer]. Review of Systems Const All systems reviewed & are unremarkable except as noted in HPI and below Reports no additional complaints Eyes Reports no additional complaints ENT Reports no additional complaints Card Reports no additional complaints Resp Reports no additional complaints GI Reports no additional complaints Reports no additional complaints Physical exam (Primary Care) Vital Signs: Last Vital Signs Pulse 76 05/14/23 10:04 BP 134/74 05/14/23 10:04 Pulse Ox 95 05/14/23 10:04 Oxygen Delivery Method Room Air 05/14/23 10:04 BMI result Body Mass Index 20.7 Tobacco/Smoking Status: Tobacco use Status Tobacco use date assessed 04/13/23 05/14/23 10:04 Patient Tobacco Use Status Never used Tobacco 05/14/23 10:04 e-Cigarette/Vaping Use Never Used 05/14/23 10:04 Thrive Assessment: Date of Thrive Assessment Date Thrive assessed 04/13/23 05/14/23 10:04 Const General: no acute distress HENMT Head: Yes normal to inspection Eyes General: appearance normal, both eyes and all related structures Neck Neck: Yes no lymphadenopathy Resp Effort & Inspection: normal respiratory effort Auscultation: clear to auscultation bilaterally Cardio Rhythm: regular rhythm Heart sounds: S1 normal heart sound present and S2 normal heart sound present GI Inspection: Yes normal to inspection Assessment and Plan Assessment & Plan (1) HTN (hypertension): Code(s): I10 - Essential (primary) hypertension Plan: Continue current medications check comprehensive panel today (2) Vitamin D deficiency: Code(s): E55.9 - Vitamin D deficiency, unspecified Plan: Continue vitamin-D check the level (3) Osteopenia: Comment: DEXA 04/2023, T -score 2.7 total femur, (down by 12.6% from 2021 despite Fosamax Code(s): M85.80 - Other specified disorders of bone density and structure, unspecified site Plan: Patient agreed to have Reclast infusion but would like to wait until she is finished with her dental work, getting partial and teeth extractions, weight-bearing exercises discussed with the patient. Follow-up in (4) Anxiety: Code(s): F41.9 - Anxiety disorder, unspecified Plan: Increase Zoloft to 25 mg, mindfulness and stress management discussed with the patient. Follow-up in 2 months Orders: Orders Comprehensive Met. Panel Today E55.9 - Vitamin D deficiency, unspecified, I10 - Essential (primary) hypertension Vitamin D 25-OH Total Today E55.9 - Vitamin D deficiency, unspecified, I10 - Essential (primary) hypertension Medications: New losartan 100 mg PO DAILY 90 tabs 1RF Changed From sertraline 12.5 mg (1/2 x 25 mg) PO DAILY 15 tabs 1RF To sertraline 25 mg PO DAILY 90 tabs 1RF Discontinued losartan Discontinued Reason: Doctor's Order 75 mg (3 x 25 mg) PO DAILY 90 tabs 3RF On Hold alendronate Hold Comment: Doctor's Order 70 mg PO QWEEK 14 tabs 3RF Coding Level of Care Code Est Pt Level 4 (15124) Diagnoses HTN (hypertension) I10 Vitamin D deficiency E55.9 Osteopenia M85.80 Anxiety F41.9
== END 2023-05-14 11:08 | disposition home or self-care (01) ==
PROVIDERS: PCP Internal Medicine; Visit Provider Internal Medicine
DX: I10 Essential (primary) hypertension (principal); E55.9 Vitamin D deficiency, unspecified; M85.80 Other specified disorders of bone density and structure, unspecified site; F41.9 Anxiety disorder, unspecified
CPT/HCPCS: 99214

== ENCOUNTER 2023-05-14 10:46 | Outpatient (REF) | payer MEDICARE, SELFPAY ==
[2023-05-14 14:03] LABS: Alanine Aminotransferase 21 U/L (0-31); Albumin Level 4.6 g/dL (3.5-5.0); Alkaline Phosphatase 45 U/L (39-117); Anion Gap 12 (12-20); Aspartate Amino Transferase 23 U/L (5-31); Bilirubin Total 0.9 mg/dL (0.0-1.0); Blood Urea Nitrogen 12 mg/dL (9-16); Carbon Dioxide 27 mmol/L (22-29); Chloride 101 mmol/L (96-108); Estimated Glomerular Filt Rate > 60; Glucose Random 91 mg/dL (60-115); Potassium 4.1 mmol/L (3.3-5.1); Sodium 136 mmol/L (135-145); Total Protein 6.9 g/dL (6.5-8.0)
[2023-05-14 14:04] LABS: Vitamin D 25-OH Total 61.1 ng/mL (>30)
== END 2023-05-14 10:47 | disposition home or self-care (01) ==
LOC: HO.HMGCLDS 10:46
PROVIDERS: PCP Internal Medicine; Visit Provider Internal Medicine
DX: I10 Essential (primary) hypertension (principal); E55.9 Vitamin D deficiency, unspecified
CPT/HCPCS: 36415; 80053; 82306

== ENCOUNTER → 2023-06-02 08:21 | Outpatient (REF) | payer MEDICARE, SELFPAY ==
--- NOTE | ~2023-06-02 | NM_ITS ---
EXERCISE MYOCARDIAL PERFUSION STUDY INDICATION: Chest pain, assess for coronary disease and ischemia TECHNIQUE: The patient was brought in for an exercise perfusion study on 06/02/2023. Patient performed exercise as per Nam protocol and was injected 25 mCi of sestamibi once target heart rate was achieved. Images were obtained using the SPECT gamma camera interlaced with the gating device. Images were obtained in supine position. Resting perfusion study was performed on 06/03/2023. Patient was administered 25 mCi of sestamibi intravenously at rest. Images were then obtained in supine position. Images were processed with the software and compared side to side in short axis, horizontal long axis and vertical long axis views. Total DLP 72mGy-cm. FINDINGS: Raw images were reviewed. The stress perfusion study showed mildly diminished tracer uptake along the inferior wall. With CT attenuation correction, there is improvement suggestive of diaphragmatic attenuation artifact. The gated study shows normal LV systolic function with calculated LVEF of 60%. LV cavity is normal in size. The gated study shows normal wall thickening and contraction of segments. Resting study shows no significant perfusion abnormality. Gating at rest reveals normal wall motion with ejection fraction at 61%. The findings are consistent with no clear reversible or fixed perfusion defects. NM/NM cardiolite stress test IMPRESSION: 1. Myocardial perfusion imaging study shows likely normal myocardial perfusion. 2. Gated LVEF is 60% during stress and 61% during rest. 3. Transient ischemic dilatation not present. EKG component of the test reported separately.
--- NOTE | 2023-06-02 08:25 | CA_ITS ---
Acquisition Time: 2023-06-02 08:35:39 Total Exercise Time: 00:05:34 Test Indications: CP Medications: SEE H Protocol: GEORGIE Max HR: 148 BPM 104% of Pred: 141 BPM Max BP: 158/078 mmHG Max Work Load: 5.3 METS ERxercise stress test exercise 5 min 34 sec of Georgie protocol achieving 98% MPHR, without anginal symptoms, with isolated PVCs, and short run of atrail tach, with normotensive response to exercise, without EKG changes. Nuclear images pending., Test reviewed with Dr. Goodson. Referred By: Johanna Palencia Overread By: Cheyenne Peralta
== END ==
LOC: HO.CARD 08:21
PROVIDERS: PCP Internal Medicine; Visit Provider Internal Medicine
DX: R07.9 Chest pain, unspecified (principal); I10 Essential (primary) hypertension
CPT/HCPCS: 78452; 93017; A9500

== ENCOUNTER → 2023-06-02 08:25 | Outpatient (BNV) | payer MEDICARE, SELFPAY | PROVIDERS: PCP Internal Medicine; Visit Provider Nurse Practitioner | DX: R07.9 Chest pain, unspecified (principal); I49.3 Ventricular premature depolarization | CPT/HCPCS: 78452; 93016; 93018 ==

== ENCOUNTER 2023-07-20 09:50 | Outpatient (AMB) | payer MEDICARE, SELFPAY ==
--- NOTE | 2023-07-20 10:21 | MHC.PC.OV ---
Vital Signs 07/20/23 10:22 Height 5 ft 2 in Weight 114 lb BMI 20.8 BP 120/74 Blood Pressure Location Rt brachial Position Sitting Pulse 70 Pulse Source Pulse Oximeter Pulse Oximetry (%) 97 Oxygen Delivery Method Room Air Intake Visit Reasons: 6 month follow up Intake Note: Pt is here today for 6 months follow up visit. Allergies codeine Adverse Reaction (Unknown, Verified 07/20/23 10:22) Hives sulfamethoxazole Adverse Reaction (Unknown, Verified 07/20/23 10:22) Unknown trimethoprim Adverse Reaction (Unknown, Verified 07/20/23 10:22) Unknown lisinopril Adverse Reaction (Unverified 07/20/23 10:22) cough Penicillins Adverse Reaction (Verified 07/20/23 10:22) rash Medication List - Last Reconciled 07/20/23 by Johanna Palencia MD alendronate 70 mg PO QWEEK cholecalciferol (vitamin D3) 50 mcg PO DAILY fluticasone propionate 50 mcg/actuation 1 spray intranasal DAILY losartan 100 mg PO DAILY sertraline 25 mg PO DAILY simvastatin 20 mg PO BEDTIME triamterene 50 mg PO DAILY Tobacco use date assessed: 07/20/23 Dental Screening Dental Screen Date: 04/13/23 HPI 6 month follow up HPI Details Pt presents for f/u HTN and hyperlipid stable on meds. Pt c/o intermittent watery diarrhea generally after meals up to 4 times a week for the last 6 months. Patient did noticed any relationship to type of food that she has been eating. Patient denies hematochezia melena weight loss abdominal pain nausea vomiting. Anxiety is better on sertraline and patient would like to taper down the medication. She reports elevated blood pressure at home with the readings up to 140 over 80. She denies headache chest pain palpitations or shortness of breath. [facility] Surgical History History of bunionectomy Hx of appendectomy Family History Son Substance use disorder Father No problems noted. Mother Hypertension Social History Household Members Other:: , 6 adult sons, grandchildren in [place], [employer] Housing: House Patient Tobacco Use Status: Never used Tobacco e-Cigarette/Vaping Use: Never Used service: No Current occupational status: retired Cognitive needs: No Hearing needs: No Vision needs: Yes Questionnaire Thrive Questionnaire Date Thrive assessed: 04/13/23 STEPHANIE-7 AMB Questionnaire STEPHANIE-7 Date STEPHANIE - 7 assessed: 04/13/23 Source: Developed by Drs. Lowell Hinton, Annmarie Hooker, Nicola Ballard and colleagues, with an educational betty from [employer]. Review of Systems Const All systems reviewed & are unremarkable except as noted in HPI and below Eyes Reports no additional complaints Card Reports no additional complaints Resp Reports no additional complaints GI Reports no additional complaints Reports no additional complaints Physical exam (Primary Care) Vital Signs: Last Vital Signs Pulse 70 07/20/23 10:22 BP 120/74 07/20/23 10:22 Pulse Ox 97 07/20/23 10:22 Oxygen Delivery Method Room Air 07/20/23 10:22 BMI result Body Mass Index 20.8 Tobacco/Smoking Status: Tobacco use Status Tobacco use date assessed 07/20/23 07/20/23 10:23 Patient Tobacco Use Status Never used Tobacco 07/20/23 10:23 e-Cigarette/Vaping Use Never Used 07/20/23 10:23 Thrive Assessment: Date of Thrive Assessment Date Thrive assessed 04/13/23 07/20/23 10:23 Const General: no acute distress HENMT Head: Yes normal to inspection Face and sinus: Yes normal facial exam Eyes General: appearance normal, both eyes and all related structures Resp Effort & Inspection: normal respiratory effort Auscultation: clear to auscultation bilaterally Cardio Rhythm: regular rhythm Heart sounds: S1 normal heart sound present and S2 normal heart sound present GI Inspection: Yes normal to inspection Palpation (GI): Soft to palpation Percussion: Yes normal to percussion Auscultation: normal bowel sounds Assessment and Plan Assessment & Plan (1) HTN (hypertension): Code(s): I10 - Essential (primary) hypertension Plan: Continue current medications. Patient will return in 1 month and bring her blood pressure cuff to compare the readings (2) Hyperlipidemia: Code(s): E78.5 - Hyperlipidemia, unspecified Plan: Continue statin (3) Diarrhea: Code(s): R19.7 - Diarrhea, unspecified Plan: For chronic intermittent diarrhea stool studies will be obtained. Patient was advised to start Citrucel daily, stop eating fresh vegetables of fruits and dairy for 1 week and then slowly introduce recording in food diary. (4) Anxiety: Code(s): F41.9 - Anxiety disorder, unspecified Plan: Patient will start half a tablet of sertraline and monitor for anxiety symptoms Orders: Orders H pylori Ag Stool Today E78.5 - Hyperlipidemia, unspecified, I10 - Essential (primary) hypertension, R19.7 - Diarrhea, unspecified GI Panel Today E78.5 - Hyperlipidemia, unspecified, I10 - Essential (primary) hypertension, R19.7 - Diarrhea, unspecified Complete Blood Count Man Dif Today E78.5 - Hyperlipidemia, unspecified, I10 - Essential (primary) hypertension, R19.7 - Diarrhea, unspecified Comprehensive Met. Panel Today E78.5 - Hyperlipidemia, unspecified, I10 - Essential (primary) hypertension, R19.7 - Diarrhea, unspecified Leukocytes Stool Qualitative Today E78.5 - Hyperlipidemia, unspecified, I10 - Essential (primary) hypertension, R19.7 - Diarrhea, unspecified Referrals Cologuard Test Z12.11 - Encounter for screening for malignant neoplasm of colon, Z12.12 - Encounter for screening for malignant neoplasm of rectum Coding Level of Care Code Est Pt Level 4 (21523) Diagnoses HTN (hypertension) I10 Hyperlipidemia E78.5 Diarrhea R19.7 Anxiety F41.9
[2023-07-20 10:22] VITALS: BP 120/74; PULSE 70; O2SAT 97; BMI 20.8
== END 2023-07-20 11:07 | disposition home or self-care (01) ==
PROVIDERS: PCP Internal Medicine; Visit Provider Internal Medicine
DX: I10 Essential (primary) hypertension (principal); E78.5 Hyperlipidemia, unspecified; R19.7 Diarrhea, unspecified; F41.9 Anxiety disorder, unspecified
CPT/HCPCS: 99214

== ENCOUNTER 2023-07-20 10:56 | Outpatient (REF) | payer MEDICARE, SELFPAY ==
[2023-07-20 14:01] LABS: Baso%MD 0.8 %; Eos%MD 2.5 %; Hematocrit 40.2 % (37.0-47.0); Hemoglobin 13.5 g/dl (12.0-16.0); IG%MD 0.2 %; Lymph%MD 25.2 %; Mean Corpuscular HGB Conc 33.6 g/dl (31.0-35.0); Mean Corpuscular Hemoglobin 30.3 pg (27.0-33.0); Mean Corpuscular Volume 90.3 fL (80.0-98.0); Mean Platelet Volume 11.3 fL (9.4-12.3); Mono%MD 12.3 %; Platelet Count 189 X10*3/uL (160-400); Red Blood Count 4.45 X10*6/uL (4.20-5.50); Red Cell Distribution Width 12.7 % (11.0-16.0); White Blood Count 5.2 X10*3/uL (4.8-10.8)
[2023-07-20 14:13] LABS: Alanine Aminotransferase 21 U/L (0-31); Albumin Level 4.7 g/dL (3.5-5.0); Alkaline Phosphatase 49 U/L (39-117); Anion Gap 12 (12-20); Aspartate Amino Transferase 23 U/L (5-31); Bilirubin Total 0.8 mg/dL (0.0-1.0); Blood Urea Nitrogen 13 mg/dL (9-16); Calcium 9.8 mg/dL (8.4-10.2); Carbon Dioxide 26 mmol/L (22-29); Chloride 107 mmol/L (96-108); Estimated Glomerular Filt Rate > 60; Glucose Random 94 mg/dL (60-115); Sodium 141 mmol/L (135-145); Total Protein 7.1 g/dL (6.5-8.0)
[2023-07-20 14:48] LABS: Basophils Abs Manual 0.1 X10*3/uL (0.0-0.2); Basophils Percent Manual 1 % (0-2); Eosinophils Absolute Manual 0.1 X10*3/uL (0.0-0.4); Eosinophils Percent Manual 1 % (0-4); Lymphocytes Absolute Manual 1.3 X10*3/uL (1.2-4.9); Lymphocytes Percent Manual 25 % (20-40); Monocytes Absolute Manual 0.5 X10*3/uL (0.1-1.2); Monocytes Percent Manual 10 % (2-11); Neutrophils Percent Manual 63 % (45-73)
[2023-07-20 14:49] LABS: Band Neutrophils Percent 0 % (3-5); Neutrophils Absolute Manual 3.3 X10*3/uL (2.0-8.3); Platelet Estimate NORMAL (NORMAL); Platelet Morphology Comment NORMAL; RBC Morphology NORMAL
[2023-07-20 17:56] LABS: Leukocytes Stool Qualitative NEGATIVE (NEGATIVE)
[2023-07-21 10:46] LABS: Adenovirus F 40/41 Not Detected (Not Detect.); Astrovirus Not Detected (Not Detect.); Campylobacter Not Detected (Not Detect.); Cryptosporidium Not Detected (Not Detect.); Cyclospora cayetanensis Not Detected (Not Detect.); E. coli EAEC Not Detected (Not Detect.); E. coli EPEC Not Detected (Not Detect.); E. coli ETEC Not Detected (Not Detect.); E. coli STEC Not Detected (Not Detect.); Entamoeba histolytica Not Detected (Not Detect.); Giardia lamblia Not Detected (Not Detect.); Norovirus GI/GII Not Detected (Not Detect.); Plesiomonas shigelloides Not Detected (Not Detect.); Rotavirus A Not Detected (Not Detect.); Salmonella Not Detected (Not Detect.); Sapovirus Not Detected (Not Detect.); Shigella sp./EIEC Not Detected (Not Detect.); Vibrio Not Detected (Not Detect.); Vibrio Cholerae Not Detected (Not Detect.); Yersinia enterocolitica Not Detected (Not Detect.)
== END 2023-07-20 10:57 | disposition home or self-care (01) ==
LOC: HO.HMGCLDS 10:56
PROVIDERS: PCP Internal Medicine; Visit Provider Internal Medicine
DX: R19.7 Diarrhea, unspecified (principal); I10 Essential (primary) hypertension; E78.5 Hyperlipidemia, unspecified
CPT/HCPCS: 36415; 80053; 85007; 85027; 87338; 87507; 89055

== ENCOUNTER 2023-08-19 11:03 | Outpatient (AMB) | payer MEDICARE, SELFPAY ==
[2023-08-19 11:15] VITALS: BP 124/78; PULSE 64; O2SAT 95; BMI 20.7
--- NOTE | 2023-08-19 11:15 | MHC.PC.OV ---
Vital Signs 08/19/23 11:15 Height 5 ft 2 in Weight 113 lb BMI 20.7 BP 124/78 Blood Pressure Location Lt brachial Position Sitting Pulse 64 Pulse Source Pulse Oximeter Pulse Oximetry (%) 95 Oxygen Delivery Method Room Air Intake Visit Reasons: 1 month follow up Intake Note: Pt is here today for 1 month follow up visit. Allergies codeine Adverse Reaction (Unknown, Verified 08/19/23 11:30) Hives sulfamethoxazole Adverse Reaction (Unknown, Verified 08/19/23 11:30) Unknown trimethoprim Adverse Reaction (Unknown, Verified 08/19/23 11:30) Unknown lisinopril Adverse Reaction (Unverified 08/19/23 11:30) cough Penicillins Adverse Reaction (Verified 08/19/23 11:30) rash Medication List - Last Reconciled 08/19/23 by Johanna Palencia MD alendronate 70 mg PO QWEEK cholecalciferol (vitamin D3) 50 mcg PO DAILY fluticasone propionate 50 mcg/actuation 1 spray intranasal DAILY losartan 100 mg PO DAILY simvastatin 20 mg PO BEDTIME triamterene 50 mg PO DAILY Tobacco use date assessed: 08/19/23 Dental Screening Dental Screen Date: 08/19/23 Did you have a dental visit in the last 12 months?: Yes Did you have a dental problem in the last 6 months where you did not have access to dental care?: No Was dental information given to patient?: Patient has dentist HPI 1 month follow up HPI Details Pt presents for f/u HTN, hyperlipid, stable on meds. WORKUP for chronic diarrhea was negative and her symptoms are most likely related to IBS. [facility] Surgical History History of bunionectomy Hx of appendectomy Family History Son Substance use disorder Father No problems noted. Mother Hypertension Social History Household Members Other:: , 6 adult sons, grandchildren in [place], [facility] Housing: House Patient Tobacco Use Status: Never used Tobacco e-Cigarette/Vaping Use: Never Used service: No Current occupational status: retired Cognitive needs: No Hearing needs: No Vision needs: Yes Questionnaire Thrive Questionnaire Date Thrive assessed: 04/13/23 STEPHANIE-7 AMB Questionnaire STEPHANIE-7 Date STEPHANIE - 7 assessed: 04/13/23 Source: Developed by Drs. Lowell Hinton, Annmarie Hooker, Nicola Ballard and colleagues, with an educational betty from [employer]. Review of Systems Const All systems reviewed & are unremarkable except as noted in HPI and below Eyes Reports no additional complaints ENT Reports no additional complaints Card Reports no additional complaints Resp Reports no additional complaints GI Reports no additional complaints Reports no additional complaints Physical exam (Primary Care) Vital Signs: Last Vital Signs Pulse 64 08/19/23 11:15 BP 124/78 08/19/23 11:15 Pulse Ox 95 08/19/23 11:15 Oxygen Delivery Method Room Air 08/19/23 11:15 BMI result Body Mass Index 20.7 Tobacco/Smoking Status: Tobacco use Status Tobacco use date assessed 08/19/23 08/19/23 11:31 Patient Tobacco Use Status Never used Tobacco 08/19/23 11:31 e-Cigarette/Vaping Use Never Used 08/19/23 11:16 Thrive Assessment: Date of Thrive Assessment Date Thrive assessed 04/13/23 08/19/23 11:16 Const General: no acute distress HENMT Head: Yes normal to inspection Face and sinus: Yes normal facial exam Throat: Yes posterior oropharynx normal Eyes General: appearance normal, both eyes and all related structures Neck Neck: Yes supple Resp Effort & Inspection: normal respiratory effort Auscultation: clear to auscultation bilaterally Cardio Rhythm: regular rhythm Heart sounds: S1 normal heart sound present and S2 normal heart sound present GI Inspection: Yes normal to inspection Palpation (GI): Soft to palpation Percussion: Yes normal to percussion Auscultation: normal bowel sounds Assessment and Plan Assessment & Plan (1) Diarrhea: Comment: IBS, normal stool studies, no better with fiber supplement Code(s): R19.7 - Diarrhea, unspecified Plan: Patient will try dicyclomine (2) Hyperlipidemia: Code(s): E78.5 - Hyperlipidemia, unspecified Plan: Continue statin (3) HTN (hypertension): Code(s): I10 - Essential (primary) hypertension Plan: Continue current medications (4) PMR (polymyalgia rheumatica): Comment: f/u with rheumatology Code(s): M35.3 - Polymyalgia rheumatica Plan: In remission follow-up with rheumatology Medications: New zoledronic ldpq-ztkahsnv-kwzhc 5 mg/100 mL (Reclast) 1 ea IV ONCE 100 mL 0RF zoledronic sjwy-ihwttnte-lvfmw 5 mg/100 mL (Reclast) 1 ea IV ONCE 100 mL 0RF dicyclomine 10 mg PO TID 90 caps 0RF Discontinued alendronate Discontinued Reason: Doctor's Order 70 mg PO QWEEK 14 tabs 3RF sertraline Discontinued Reason: Doctor's Order 25 mg PO DAILY 90 tabs 1RF Coding Level of Care Code Est Pt Level 4 (24449) Diagnoses Diarrhea R19.7 Hyperlipidemia E78.5 HTN (hypertension) I10 PMR (polymyalgia rheumatica) M35.3
== END 2023-08-19 12:30 | disposition home or self-care (01) ==
PROVIDERS: PCP Internal Medicine; Visit Provider Internal Medicine
DX: R19.7 Diarrhea, unspecified (principal); E78.5 Hyperlipidemia, unspecified; I10 Essential (primary) hypertension; M35.3 Polymyalgia rheumatica
CPT/HCPCS: 99214

== ENCOUNTER 2024-01-07 12:32 | Outpatient (AMB) | payer MEDICARE, SELFPAY ==
[2024-01-07 12:50] VITALS: BP 126/80; PULSE 78; O2SAT 98; BMI 21.4
--- NOTE | 2024-01-07 12:50 | A.OFFPC_ITS ---
Vital Signs 01/07/24 12:50 Height 5 ft 2 in Weight 117 lb BMI 21.4 BP 126/80 Blood Pressure Location Lt brachial Position Sitting Pulse 78 Pulse Source Pulse Oximeter Pulse Oximetry (%) 98 Oxygen Delivery Method Room Air Intake Visit Reasons: Back Pain Intake Note: Pt is here today for a sick visit. Pt c/o back pain.Pt states that she has not received the Reclast as of yet. Allergies codeine Adverse Reaction (Unknown, Verified 01/07/24 13:00) Hives sulfamethoxazole Adverse Reaction (Unknown, Verified 01/07/24 13:00) Unknown trimethoprim Adverse Reaction (Unknown, Verified 01/07/24 13:00) Unknown lisinopril Adverse Reaction (Unverified 01/07/24 13:00) cough Penicillins Adverse Reaction (Verified 01/07/24 13:00) rash Medication List - Last Reconciled 01/07/24 by Johanna Palencia MD cholecalciferol (vitamin D3) 50 mcg PO DAILY dicyclomine 10 mg PO TID fluticasone propionate 50 mcg/actuation 1 spray intranasal DAILY losartan 100 mg PO DAILY simvastatin 20 mg PO BEDTIME triamterene 50 mg PO DAILY zoledronic mwam-mcbcwhlk-nfgtd 5 mg/100 mL (Reclast) 1 ea IV ONCE Tobacco use date assessed: 01/07/24 Dental Screening Dental Screen Date: 08/19/23 HPI Back Pain HPI Details Pt presents for f/u HTN, hyperlipid. Patient complains of lower back pain radiating to both lower extremities worse when sitting for long time on and off getting worse over last month. She denies weakness or numbness in extremities , change in bowel or bladder function. Patient took Fosamax for 2 years for osteoporosis with worsening DEXA. She has been taking vitamin-D regularly. [facility] Surgical History History of bunionectomy Hx of appendectomy Family History Son Substance use disorder Father No problems noted. Mother Hypertension Social History Household Members Other:: , 6 adult sons, grandchildren in [place], [facility] Housing: House Patient Tobacco Use Status: Never used Tobacco e-Cigarette/Vaping Use: Never Used service: No Current occupational status: retired Cognitive needs: No Hearing needs: No Vision needs: Yes Questionnaire PHQ-9 Over the last 2 weeks, how often have you been bothered by any of the following problems? 1. Little interest or pleasure in doing things: nearly every day 2. Feeling down, depressed, or hopeless: nearly every day 3. Trouble falling or staying asleep, or sleeping too much: nearly every day 4. Feeling tired or having little energy: nearly every day 5. Poor appetite or overeating: not at all 6. Feeling bad about yourself - or that you are a failure or have let yourself or your family down: not at all 7. Trouble concentrating on things, such as reading the newspaper or watching television: not at all 8. Moving or speaking so slowly that other people could have noticed. Or the opposite - being so fidgety or restless that you have been moving around a lot more than usual: not at all 9. Thoughts that you would be better off or of hurting yourself in some way: not at all Total score: 12 Depression Screening Interpretation: Negative Depression Screening Done: Yes [id number] - PHQ-9 Billing: Yes Source: Developed by Drs. Lowell Hinton, Annmarie Hooker, Nicola Ballard and colleagues, with an educational betty from [employer]. Thrive Questionnaire Date Thrive assessed: 12/31/23 I am a: Patient What is your living situation today?: I have a steady place to live Within the past 12 months, did the food you bought not last and you didn't have the money to get more?: Never true Within the past 12 months, did you worry whether your food would run out before you got money to buy more?: Never true Do you have trouble getting transportation to medical appointments?: No Do you have trouble paying your heating and electricity bill?: No Do you have trouble with day-to-day activities such as bathing, preparing meals, shopping, managing finances, etc.?: No Are you interested in more education?: No Please select the resources that you would like help with: None Currently or been in a relationship where the following occur: No concerns reported THRIVE Score: 0 AUDIT C Alcohol Use Questionnaire (AUDIT-C) 1. How often do you have a drink containing alcohol?: Never Total Score: 0 STEPHANIE-7 AMB Questionnaire STEPHANIE-7 Date STEPHANIE - 7 assessed: 04/13/23 Feeling nervous, anxious, or on edge: 0 = Not at all Not being able to stop or control worryin = Not at all Worrying too much about different things: 0 = Not at all Trouble relaxin = Not at all Being so restless that it is hard to sit still: 0 = Not at all Becoming easily annoyed or irritable: 0 = Not at all Feeling afraid as if something awful might happen: 0 = Not at all Total STEPHANIE-7 score (0-4 normal; 5-9 mild; 10-14 moderate; 15-21 severe): 0 Source: Developed by Drs. Lowell Hinton, Annmarie Hooker, Nicola Ballard and colleagues, with an educational betty from [employer]. Review of Systems Const All systems reviewed & are unremarkable except as noted in HPI and below Eyes Reports no additional complaints ENT Reports no additional complaints Reports no additional complaints Physical exam (Primary Care) Vital Signs: Last Vital Signs Pulse 78 01/07/24 12:50 BP 126/80 01/07/24 12:50 Pulse Ox 98 01/07/24 12:50 Oxygen Delivery Method Room Air 01/07/24 12:50 BMI result Body Mass Index 21.4 Tobacco/Smoking Status: Tobacco use Status Tobacco use date assessed 01/07/24 01/07/24 13:04 Patient Tobacco Use Status Never used Tobacco 01/07/24 13:04 e-Cigarette/Vaping Use Never Used 01/07/24 12:51 PHQ-9: PHQ-9 Score PHQ-9: Total score 12 01/07/24 12:51 Depression Screening Interpretation: Negative Thrive Assessment: Date of Thrive Assessment Date Thrive assessed 12/31/23 01/07/24 12:51 Currently or been in a relationship where the following occur: No concerns reported Const General: no acute distress HENMT Throat: Yes posterior oropharynx normal Resp Effort & Inspection: normal respiratory effort Auscultation: clear to auscultation bilaterally Cardio Rhythm: regular rhythm Heart sounds: S1 normal heart sound present and S2 normal heart sound present GI Palpation (GI): Soft to palpation Percussion: Yes normal to percussion Back/Spine/Pelvis Other: There is decreased range of motion lumbar spine paraspinal tenderness in lower lumbar region, straight leg rising 90 degrees bilaterally. Deep tendon reflexes 2+ bilaterally motor strength 5/5 bilaterally Coding Level of Care Code Est Pt Level 4 (41572) Diagnoses HTN (hypertension) I10 Hyperlipidemia E78.5 Vitamin D deficiency E55.9 Osteoporosis M81.0 Chronic low back pain with bilateral sciatica M54.41; M54.42; G89.29 Assessment & Plan Assessment & Plan (1) HTN (hypertension): Code(s): I10 - Essential (primary) hypertension Category: Medical Plan: Continue losartan (2) Hyperlipidemia: Code(s): E78.5 - Hyperlipidemia, unspecified Category: Medical Plan: Continue statin (3) Vitamin D deficiency: Code(s): E55.9 - Vitamin D deficiency, unspecified Category: Medical Plan: Continue vitamin-D check the level (4) Osteoporosis: Comment: Worsened after 2 years of Fosamax, Prolia started 12/2023 Code(s): M81.0 - Age-related osteoporosis without current pathological fracture Category: Medical Plan: Start Prolia injections for 2 years then repeat DEXA. Continue weight-bearing exercises and vitamin-D supplement (5) Chronic low back pain with bilateral sciatica: Code(s): M54.41 - Lumbago with sciatica, right side; M54.42 - Lumbago with sciatica, left side; G89.29 - Other chronic pain Category: Medical Plan: Check x-ray of lumbar spine referred to physical therapy baclofen for 10 days is prescribed Orders: Orders Comprehensive [place]. Panel Fast Today E55.9 - Vitamin D deficiency, unspecified, E78.5 - Hyperlipidemia, unspecified, I10 - Essential (primary) hypertension Vitamin D 25-OH Total Today E55.9 - Vitamin D deficiency, unspecified, E78.5 - Hyperlipidemia, unspecified, I10 - Essential (primary) hypertension Complete Blood Count Auto Diff Today E55.9 - Vitamin D deficiency, unspecified, E78.5 - Hyperlipidemia, unspecified, I10 - Essential (primary) hypertension XR lumbar spine 2-3V Today E55.9 - Vitamin D deficiency, unspecified, E78.5 - Hyperlipidemia, unspecified, I10 - Essential (primary) hypertension PT Evaluation and Treatment Today E55.9 - Vitamin D deficiency, unspecified, E78.5 - Hyperlipidemia, unspecified, I10 - Essential (primary) hypertension Medications: New Prolia (denosumab) 60 mg subcut [id number] 1 mL 1RF NS baclofen 10 mg PO BEDTIME 10 tabs 0RF
== END 2024-01-07 13:32 | disposition home or self-care (01) ==
PROVIDERS: PCP Internal Medicine; Visit Provider Internal Medicine
DX: I10 Essential (primary) hypertension (principal); E78.5 Hyperlipidemia, unspecified; E55.9 Vitamin D deficiency, unspecified; M81.0 Age-related osteoporosis without current pathological fracture; M54.41 Lumbago with sciatica, right side; M54.42 Lumbago with sciatica, left side; G89.29 Other chronic pain

== ENCOUNTER → 2024-01-07 12:32 | Outpatient (BNVA) | payer MEDICARE, SELFPAY | PROVIDERS: PCP Internal Medicine; Visit Provider Internal Medicine ==

== ENCOUNTER 2024-01-07 13:28 | Outpatient (REF) | payer MEDICARE, SELFPAY ==
--- NOTE | ~2024-01-07 | XR_ITS ---
EXAMINATION: XR LUMBAR SPINE 3 VIEWS CLINICAL INFORMATION: Essential (primary) hypertension, PT states arthritis I10. COMPARISON: None available. TECHNIQUE: Three views of the lumbosacral spine. FINDINGS: There is mild to moderate anterolisthesis of L3 on L4 and mild anterolisthesis of L4 on L5. Alignment is otherwise unremarkable. Lumbar vertebral body heights are maintained. There is moderate to severe narrowing of the L4/5 and L5/S1 disc space heights. There are degenerative changes of the posterior elements of the lower lumbar spine. Vascular calcifications noted. Calcified densities in the right upper abdomen are most suggestive of gallstones. XR/XR lumbar spine 2-3V IMPRESSION: Moderate to severe degenerative changes of the lower lumbar spine. No compression deformity. Electronically signed by: Ramakrishna Collins MD 03/15/2024 01:23 PM JAKOB PATTERSON
== END 2024-01-07 13:29 | disposition home or self-care (01) ==
LOC: HO.HMGCX 13:28
PROVIDERS: PCP Internal Medicine; Visit Provider Internal Medicine
DX: I10 Essential (primary) hypertension (principal); E78.5 Hyperlipidemia, unspecified; E55.9 Vitamin D deficiency, unspecified
CPT/HCPCS: 72100; 99212

== ENCOUNTER 2024-01-08 08:50 | Outpatient (REF) | payer MEDICARE, SELFPAY ==
[2024-01-08 10:15] LABS: MANUAL DIFF FLAG NO
[2024-01-08 10:28] LABS: Basophils Absolute Auto 0.1 X10*3/uL (0.0-0.2); Basophils Percent Auto 1.1 % (0-2); Eosinophils Absolute Auto 0.3 X10*3/uL (0.0-0.4); Eosinophils Percent Auto 6.3 % (0-4); Hematocrit 37.4 % (37.0-47.0); Hemoglobin 12.4 g/dl (12.0-16.0); Imm Gran Abs Auto 0.02 X10*3/uL (0.00-0.03); Imm Gran Pct Auto 0.5 % (0.0-0.4); Lymphocytes Absolute Auto 1.1 X10*3/uL (1.2-4.9); Lymphocytes Percent Auto 25.1 % (20-40); Mean Corpuscular HGB Conc 33.2 g/dl (31.0-35.0); Mean Corpuscular Hemoglobin 30.5 pg (27.0-33.0); Mean Corpuscular Volume 92.1 fL (80.0-98.0); Mean Platelet Volume 10.9 fL (9.4-12.3); Monocytes Absolute Auto 0.5 X10*3/uL (0.1-1.2); Monocytes Percent Auto 12.2 % (2-11); Neutrophils Absolute Auto 2.4 x10*3/uL (2.0-8.3); Neutrophils Percent Auto 54.8 % (45-73); Platelet Count 194 X10*3/uL (160-400); Red Blood Count 4.06 X10*6/uL (4.20-5.50); Red Cell Distribution Width 13.8 % (11.0-16.0); White Blood Count 4.4 X10*3/uL (4.8-10.8)
[2024-01-08 11:16] LABS: Alanine Aminotransferase 19 U/L (0-31); Albumin Level 4.6 g/dL (3.5-5.0); Alkaline Phosphatase 63 U/L (39-117); Anion Gap 12 (12-20); Aspartate Amino Transferase 20 U/L (5-31); Bilirubin Total 0.7 mg/dL (0.0-1.0); Blood Urea Nitrogen 20 mg/dL (9-16); Carbon Dioxide 27 mmol/L (22-29); Chloride 108 mmol/L (96-108); Estimated Glomerular Filt Rate > 60; Glucose Fasting 93 mg/dL (60-99); Potassium 4.1 mmol/L (3.3-5.1); Sodium 143 mmol/L (135-145); Total Protein 6.7 g/dL (6.5-8.0)
== END 2024-01-08 08:51 | disposition home or self-care (01) ==
LOC: HO.HMGCLDS 08:50
PROVIDERS: PCP Internal Medicine; Visit Provider Internal Medicine
DX: I10 Essential (primary) hypertension (principal); E55.9 Vitamin D deficiency, unspecified; E78.5 Hyperlipidemia, unspecified
CPT/HCPCS: 36415; 80053; 82306; 85025

== ENCOUNTER 2024-02-02 11:20 | Outpatient (AMB) | payer MEDICARE, SELFPAY ==
--- NOTE | 2024-02-02 11:42 | MHC.PC.OV ---
Vital Signs 02/02/24 11:43 Height 5 ft 2 in Weight 115 lb BMI 21.0 BP 122/78 Blood Pressure Location Lt brachial Position Sitting Pulse 83 Pulse Source Pulse Oximeter Pulse Oximetry (%) 95 Oxygen Delivery Method Room Air Intake Visit Reasons: Annual PE Intake Note: Pt is here today for PE. Pt states that she would like to get a referral to Pain clinic. Allergies codeine Adverse Reaction (Unknown, Verified 02/02/24 11:45) Hives sulfamethoxazole Adverse Reaction (Unknown, Verified 02/02/24 11:45) Unknown trimethoprim Adverse Reaction (Unknown, Verified 02/02/24 11:45) Unknown lisinopril Adverse Reaction (Unverified 02/02/24 11:45) cough Penicillins Adverse Reaction (Verified 02/02/24 11:45) rash Medication List - Last Reconciled 02/02/24 by Johanna Palencia MD cholecalciferol (vitamin D3) 50 mcg PO DAILY dicyclomine 10 mg PO TID fluticasone propionate 50 mcg/actuation 1 spray intranasal DAILY losartan 100 mg PO DAILY Prolia (denosumab) 60 mg subcut [id number] NS simvastatin 20 mg PO BEDTIME triamterene 50 mg PO DAILY Tobacco use date assessed: 02/02/24 Dental Screening Dental Screen Date: 08/19/23 HPI Annual PE HPI Details Pt presents for PE. Patient decided not to take Prolia because she read about side effects. She will continue vitamin-D supplement and regular exercises [facility] Surgical History History of bunionectomy Hx of appendectomy Family History Son Substance use disorder Father No problems noted. Mother Hypertension Social History Household Members Other:: , 6 adult sons, grandchildren in [place], [facility] Housing: House Patient Tobacco Use Status: Never used Tobacco e-Cigarette/Vaping Use: Never Used service: No Current occupational status: retired Cognitive needs: No Hearing needs: No Vision needs: Yes Questionnaire Thrive Questionnaire Date Thrive assessed: 12/31/23 I am a: Patient What is your living situation today?: I have a steady place to live Within the past 12 months, did the food you bought not last and you didn't have the money to get more?: Never true Within the past 12 months, did you worry whether your food would run out before you got money to buy more?: Never true Do you have trouble paying for medicines?: No Do you have trouble getting transportation to medical appointments?: No Do you have trouble paying your heating and electricity bill?: No Do you have trouble taking care of your child, family member or friend?: No Do you have trouble with day-to-day activities such as bathing, preparing meals, shopping, managing finances, etc.?: No Are you currently unemployed and looking for a job?: No Are you interested in more education?: No Please select the resources that you would like help with: None Currently or been in a relationship where the following occur: No concerns reported THRIVE Score: 0 STEPHANIE-7 AMB Questionnaire STEPHANIE-7 Date STEPHANIE - 7 assessed: 04/13/23 Source: Developed by Drs. Lowell Hinton, Annmarie Hooker, Nicola Ballard and colleagues, with an educational betty from [employer]. Review of Systems Const All systems reviewed & are unremarkable except as noted in HPI and below Reports no additional complaints Eyes Reports no additional complaints ENT Reports no additional complaints Card Reports no additional complaints Resp Reports no additional complaints GI Reports no additional complaints Reports no additional complaints Physical exam (Primary Care) Vital Signs: Last Vital Signs Pulse 83 02/02/24 11:43 BP 122/78 02/02/24 11:43 Pulse Ox 95 02/02/24 11:43 Oxygen Delivery Method Room Air 02/02/24 11:43 BMI result Body Mass Index 21.0 Tobacco/Smoking Status: Tobacco use Status Tobacco use date assessed 02/02/24 02/02/24 11:47 Patient Tobacco Use Status Never used Tobacco 02/02/24 11:47 e-Cigarette/Vaping Use Never Used 02/02/24 11:47 Thrive Assessment: Date of Thrive Assessment Date Thrive assessed 12/31/23 02/02/24 11:47 Currently or been in a relationship where the following occur: No concerns reported Const General: no acute distress HENMT Head: Yes normal to inspection Ears: hearing grossly normal bilaterally Face and sinus: Yes normal facial exam Eyes General: appearance normal, both eyes and all related structures Neck Neck: Yes no lymphadenopathy and Yes supple Resp Effort & Inspection: normal respiratory effort Auscultation: clear to auscultation bilaterally Cardio Rhythm: regular rhythm Heart sounds: S1 normal heart sound present and S2 normal heart sound present GI Inspection: Yes normal to inspection Palpation (GI): Soft to palpation Percussion: Yes normal to percussion Auscultation: normal bowel sounds Coding Level of Care Code Est Pt Prev Care >65y(50125) Diagnoses Chronic low back pain with bilateral sciatica M54.41; M54.42; G89.29 Osteoporosis M81.0 Hyperlipidemia E78.5 Annual physical exam Z00.00 HTN (hypertension) I10 Assessment & Plan Assessment & Plan (1) Chronic low back pain with bilateral sciatica: Code(s): M54.41 - Lumbago with sciatica, right side; M54.42 - Lumbago with sciatica, left side; G89.29 - Other chronic pain Category: Medical Plan: Referred to physical therapy (2) Osteoporosis: Comment: Worsened after 2 years of Fosamax, patient has stopped Fosamax 2023, she declined taking Prolia, she will continue vitamin-D and regular exercise Code(s): M81.0 - Age-related osteoporosis without current pathological fracture Category: Medical Plan: Continue vitamin-D and weight-bearing exercises (3) Hyperlipidemia: Code(s): E78.5 - Hyperlipidemia, unspecified Category: Medical Plan: Continue statin (4) Annual physical exam: Code(s): Z00.00 - Encounter for general adult medical examination without abnormal findings Category: Medical Plan: Well-balanced diet regular physical activity discussed with the patient (5) HTN (hypertension): Code(s): I10 - Essential (primary) hypertension Category: Medical Plan: Continue current medications and follow-up in 6 months Medications: Discontinued Prolia (denosumab) Discontinued Reason: Doctor's Order 60 mg subcut [id number] 1 mL 1RF NS
[2024-02-02 11:43] VITALS: BP 122/78; PULSE 83; O2SAT 95; BMI 21.0
== END 2024-02-02 13:01 | disposition home or self-care (01) ==
LOC: HO.HMCC 11:21
PROVIDERS: PCP Internal Medicine; Visit Provider Internal Medicine
DX: M54.41 Lumbago with sciatica, right side (principal); M54.42 Lumbago with sciatica, left side; G89.29 Other chronic pain; M81.0 Age-related osteoporosis without current pathological fracture; E78.5 Hyperlipidemia, unspecified; Z00.00 Encounter for general adult medical examination without abnormal findings; I10 Essential (primary) hypertension

== ENCOUNTER → 2024-02-02 11:20 | Outpatient (BNVA) | payer MEDICARE, SELFPAY | PROVIDERS: PCP Internal Medicine; Visit Provider Internal Medicine | DX: Z00.00 Encounter for general adult medical examination without abnormal findings (principal); M54.41 Lumbago with sciatica, right side; M54.42 Lumbago with sciatica, left side; G89.29 Other chronic pain; M81.0 Age-related osteoporosis without current pathological fracture; E78.5 Hyperlipidemia, unspecified; I10 Essential (primary) hypertension | CPT/HCPCS: 99397 ==

== ENCOUNTER 2024-04-21 08:12 | Outpatient (REF) | payer MEDICARE, SELFPAY | END 2024-04-21 08:13 | disposition home or self-care (01) | LOC: HO.MAMMO 08:12 | PROVIDERS: PCP Internal Medicine; Visit Provider Internal Medicine | DX: Z12.31 Encounter for screening mammogram for malignant neoplasm of breast (principal) | CPT/HCPCS: 77063; 77067 ==

== ENCOUNTER → 2024-04-21 08:30 | Outpatient (BNV) | payer MEDICARE, SELFPAY | PROVIDERS: PCP Internal Medicine; Visit Provider Internal Medicine | DX: Z12.31 Encounter for screening mammogram for malignant neoplasm of breast (principal) | CPT/HCPCS: 77063; 77067 ==

== ENCOUNTER 2024-06-23 09:11 | Outpatient (REF) | payer MEDICARE, SELFPAY ==
--- NOTE | ~2024-06-23 | XR_ITS ---
EXAMINATION: XR BILATERAL HIPS WITH AP PELVIS CLINICAL INFORMATION: M53.3 - Sacrococcygeal disorders, not elsewhere classified COMPARISON: None available. TECHNIQUE: AP view of the pelvis and single views of each hip were obtained. FINDINGS: Bony pelvis is intact. Sclerosis and the sacroiliac joints, bilaterally. Spondylosis L4-5 and L5-S1. No acute cortical disruption or malalignment in either hip. No lytic or blastic lesions. Osteopenia versus osteoporosis. XR/XR hip BI w PEL1V IMPRESSION: No acute fracture or dislocation. Osteopenia versus osteoporosis. Multilevel lower lumbar spondylosis. Electronically signed by: Orlin Villatoro MD 06/23/2024 12:33 PM EDT
--- NOTE | ~2024-06-23 | XR_ITS ---
EXAMINATION: XR SACRUM AND COCCYX CLINICAL INFORMATION: M81.0 - Age-related osteoporosis without current pathological fracture COMPARISON: Correlation made with lumbar spine x-ray 01/07/2024. TECHNIQUE: 2 views of the sacrum and 2 views of the coccyx were obtained. FINDINGS: There is a cortical step-off seen at the S5 level, just above the coccyx, suggestive of fracture. This may be acute. No additional fractures seen. Normal-appearing coccyx. Extensive degenerative changes of the lower lumbar spine with partial sacralization of the L5 vertebral body. Moderate arthritis seen in both SI joints. Sacral arches appear intact. Mild hip joint arthritis noted bilaterally. Soft tissues appear normal aside from vascular calcifications. XR/XR sacrum coccyx min 2V IMPRESSION: 1. Possibly acute mildly displaced fracture at the S5 level, just above the coccyx. 2. Chronic degenerative changes as discussed. Electronically signed by: Fan Peralta MD 06/23/2024 03:03 PM EDT
== END 2024-06-23 09:12 | disposition home or self-care (01) ==
LOC: HO.XRAY 09:11
PROVIDERS: PCP Internal Medicine; Referring Provider Internal Medicine; Visit Provider Nurse Practitioner Family
DX: M81.0 Age-related osteoporosis without current pathological fracture (principal); M53.3 Sacrococcygeal disorders, not elsewhere classified; M54.41 Lumbago with sciatica, right side; M54.42 Lumbago with sciatica, left side; G89.29 Other chronic pain; M43.16 Spondylolisthesis, lumbar region; M51.369 Other intervertebral disc degeneration, lumbar region without mention of lumbar back pain or lower extremity pain; M25.562 Pain in left knee
CPT/HCPCS: 72220; 73521; 99202

== ENCOUNTER 2024-06-23 09:11 | Outpatient (AMB) | payer MEDICARE, SELFPAY ==
--- NOTE | 2024-06-23 09:15 | A.OFFVIS_ITS ---
Vital Signs 06/23/24 09:21 06/23/24 10:04 Height 5 ft 2 in Weight 117 lb 2 oz BMI 21.4 BP 194/90 H 164/75 H Blood Pressure Location Rt brachial Rt brachial Position Sitting Sitting Pulse 79 Pulse Source Pulse Oximeter Pulse Oximetry (%) 99 Oxygen Delivery Method Room Air Intake Visit Reasons: Lumbago with sciatica, right side Custom Wood Stair Builder Required: No Accompanied by: Self / Same As Patient Allergies codeine Adverse Reaction (Unknown, Verified 06/23/24 09:22) Hives sulfamethoxazole Adverse Reaction (Unknown, Verified 06/23/24 09:22) Unknown trimethoprim Adverse Reaction (Unknown, Verified 06/23/24 09:22) Unknown lisinopril Adverse Reaction (Verified 06/23/24 09:22) cough Penicillins Adverse Reaction (Verified 06/23/24 09:22) rash Medication List - Last Reconciled 06/23/24 by JACK Ventura acetaminophen ER 1,300 mg PO Q12H cholecalciferol (vitamin D3) 50 mcg PO DAILY dicyclomine 10 mg PO TID fluticasone propionate 50 mcg/actuation 1 spray intranasal DAILY losartan 100 mg PO DAILY simvastatin 20 mg PO BEDTIME triamterene 50 mg PO DAILY HPI HPI Lumbago with sciatica, right side: Details: The patient is a very pleasant 79-year-old female presenting with chronic lower back and bilateral buttock pain. Denies any trauma, injury or falls. The pain has been persistent for several years, primarily localized in the lower back and medial buttocks. This discomfort intensifies with prolonged standing or walking, necessitating the use of cushioning support for pain mitigation. Her condition is complicated by osteoporosis, which contributes to the ongoing pain issues and limits the use of cortisone injections for back and joint pain. She was on Fosamax for 2 years and recently was prescribed Prolia injections which patient declined due to potential side effects. Patient reports she takes Vitamin D3, performs regular home exercise and eats daily yogurt but is interested to trial another medication for osteoporosis with minimal side effects. Will consider Endocrinology evaluation for further management of osteoporosis. Patient reports yolanda was diagnosed with Polymyalgia Rheumatica in 2020 and underwent prednisone treatment for eight months. Despite discontinuation of Fosamax and Prolia injections, osteoporosis persists, prominently affecting her left hip with prior imaging indicating significant bone density reduction. Her osteoarthritis and a history of knee bursitis have required cortisone interventions, especially on the left side, which has provided transient pain relief. Patient is interested in gel injections and plans to follow up with her provider at [facility] for this. - Onset: Several years ago, starting around 2020 - Location: Chronic lower back and bilateral buttocks pain, predominantly left - Radiation: Occasionally to the left calf, rarely to heel or toes - Quality: Sharp, burning, tingling, aching, dull, heavy, sore, pulling - Severity: Significant, worsens with standing, walking, climbing stairs and incline exercises like squats - Aggravating Factors: Prolonged standing, sitting on hard surfaces, walking, squatting exercises, climbing stairs - Alleviating Factors: Using a cushioning support pillow while sitting, gel inj ections planned for knee pain relief - Interference: Daily living activities, especially sitting or sustained physical exertion like standing in line or maintaining exercise routines. Affects her sleep when changing positioning from side to side. - Affect: Pain impacts mood, sleep, ADLs, causing distress when engaging in physical activity or sitting - Analgesia: Currently using Tylenol 650 mg as needed; pain remains significant when performing activities - Adverse Effects: None reported from current regimen. - Activities of Daily Living: Pain mainly inhibits lengthy standing, sitting, walking, and squat exercises; uses cushion for sitting - Aberrant Drug Related Behaviors: None reported [facility] Medical History (Updated 06/23/24 @ 10:54 by JACK Ventura) Lumbar degenerative disc disease Surgical History History of bunionectomy Hx of appendectomy Family History Son Substance use disorder Father No problems noted. Mother Hypertension Social History Household Members Other:: , 6 adult sons, [place] in [place], [facility] Housing: House Patient Tobacco Use Status: Never used Tobacco e-Cigarette/Vaping Use: Never Used service: No Current occupational status: retired Cognitive needs: No Hearing needs: No Vision needs: Yes Review of Systems Const Details: - Musculoskeletal: Reports bilateral buttock pain, left-sided knee pain - Neurological: Denies any falls, reports history of ulnar neuropathy, left - Genitourinary: Denies bladder pain, bladder or bowel dysfunction or saddle anesthesia. All systems reviewed & are unremarkable except as noted in HPI and below Physical Exam Vital Signs: Last Vital Signs Pulse 79 06/23/24 09:21 BP 194/90 H 06/23/24 09:21 Pulse Ox 99 06/23/24 09:21 Oxygen Delivery Method Room Air 06/23/24 09:21 BMI result Body Mass Index 21.4 General: Appears afebrile. Alert and oriented. Mood and affect appropriate. Follows and participates in conversation appropriately. Respiratory effort is unlabored. No cough. Able to transition from sit to stand unassisted. Denies gait disturbance or instability. Ambulates with bilaterally normal heel strike and toe off. General: Yes no CVA tenderness Back/Spine/Pelvis Other: Limited lumbar ROM due to pain. Lumbar extension and flexion forward reproduce mild to moderate pain. Demonstrates 5/5 strength of quadriceps bilaterally as well as flexion/dorsiflexion of bilateral feet against resistance. 2+ pedal pulses bilaterally. Straight leg rise with dorsiflexion negative bilaterally. Diminished patellar and achilles reflexes bilaterally. Facet loading test positive bilaterally. Jhony sign, Ramakrishna?s, Pelvic compression and Stinchfield tests are negative bilaterally. No groin pain with I/E hip rotations. Valsalva maneuver negative. Back: no CVA tenderness Cervical Spine: cervical ROM normal, loss of normal cervical lordosis and No Cervical spine tenderness Thoracic/Lumbar Spine: thoracic and lumbar spine normal to inspection, No Thoracic/lumbar spine scar(s), Lasegue's sign negative, straight leg raise negative bilaterally, pain with thoraco-lumbar ROM, No thoracic spinal tenderness and No lumbar spinal tenderness Pelvis: buttock tenderness bilaterally Sacroiliac joints: bilaterally nontender Sacrum: tenderness bilaterally Coccyx: no tenderness Results Reviewed Results Reviewed: XR LUMBAR SPINE 3 VIEWS 01/07/24 CLINICAL INFORMATION: Essential (primary) hypertension, PT states arthritis I10. FINDINGS: There is mild to moderate anterolisthesis of L3 on L4 and mild anterolisthesis of L4 on L5. Alignment is otherwise unremarkable. Lumbar vertebral body heights are maintained. There is moderate to severe narrowing of the L4/5 and L5/S1 disc space heights. There are degenerative changes of the posterior elements of the lower lumbar spine. Vascular calcifications noted. Calcified densities in the right upper abdomen are most suggestive of gallstones. IMPRESSION: Moderate to severe degenerative changes of the lower lumbar spine. No compression deformity. DEXA axial skeleton 04/16/23 IMPRESSION: 1. DIAGNOSIS: Osteoporosis based on the lowest T-score value of -2.7 in the total femur applying World Health Organization criteria. Assessment & Plan Assessment & Plan (1) Osteoporosis: Comment: Worsened after 2 years of Fosamax, patient has stopped Fosamax 2023, she declined taking Prolia, she will continue vitamin-D and regular exercise Code(s): M81.0 - Age-related osteoporosis without current pathological fracture Category: Medical (2) Coccydynia: Code(s): M53.3 - Sacrococcygeal disorders, not elsewhere classified Category: Medical (3) Osteoporosis: Comment: Worsened after 2 years of Fosamax, patient has stopped Fosamax 2023, she declined taking Prolia, she will continue vitamin-D and regular exercise Code(s): M81.0 - Age-related osteoporosis without current pathological fracture Category: Medical (4) Chronic low back pain with bilateral sciatica: Code(s): M54.41 - Lumbago with sciatica, right side; M54.42 - Lumbago with sciatica, left side; G89.29 - Other chronic pain Category: Medical (5) Spondylolisthesis, lumbar region: Code(s): M43.16 - Spondylolisthesis, lumbar region Category: Medical (6) Lumbar degenerative disc disease: Code(s): M51.369 - Other intervertebral disc degeneration, lumbar region without mention of lumbar back pain or lower extremity pain Category: Medical (7) Knee pain, left: Code(s): M25.562 - Pain in left knee Category: Medical Plan The patient's chronic lower back and buttock pain will be managed with non- invasive interventions to mitigate the risk associated with her osteoporosis. X- rays of the pelvis and coccyx will be obtained to rule out any fractures or dislocations and degenerative changes. Gel knee injections have been recommended to alleviate arthritic left knee pain since cortisone poses potential adverse effects. Referral to endocrinology will be facilitated for a comprehensive osteoporosis management plan. It is imperative to maintain adherence to cushion support for consistent pain relief during daily activities and re-evaluate pain modulation techniques in follow-up appointments. All questions and concerns have been answered and patient agreed with the treatment plan. Follow up for x-ray results and sooner as needed. Patient was informed and verbally consented to the use of an ambient scribe for clinic note documentation during this visit. Orders: Orders XR sacrum coccyx min 2V Today M53.3 - Sacrococcygeal disorders, not elsewhere classified, M81.0 - Age-related osteoporosis without current pathological fracture XR hip BI w PEL1V Today M53.3 - Sacrococcygeal disorders, not elsewhere classified, M81.0 - Age-related osteoporosis without current pathological fracture Referrals Endocrinology Referral M81.0 - Age-related osteoporosis without current pathological fracture Patient Instructions: I discussed with the patient the risks and benefits of different pain management strategies, particularly focusing on gel injections for her left knee instead of cortisone and diagnostic nerve blocks for potential radiofrequency ablation or Sprint PNS trial as a long-term relief option if initial nerve block effectiveness is demonstrated. Patient has declined any temporary or permanent implantable devices. We collectively concluded that a referral to an Director Of Teaching And Learning for expertise in osteoporosis treatment with newer medication options is optimal. I detailed the importance of continued use with supportive cushioning to reduce pain during her activities, emphasized the benefits and consented to the plan, acknowledging that all options align with her preferences and insurance constraints. - Obtain x-rays of the pelvis and coccyx to assess for fractures, dislocation, and degenerative changes - Schedule a follow-up appointment for gel knee injections, patient prefers to discuss this with provider at [facility] - Use supportive cushioning for sitting to alleviate pain - Ensure referral follow-up with Endocrinology for osteoporosis management - Monitor blood pressure at home due to potential stress impacts - Stay hydrated and maintain a balanced diet with adequate vitamin D and calcium through dietary intake - Return to the clinic or hospital if severe pain develops or any unusual symptoms arise Coding Level of Care Code New Pt Level 4 (36665) Complex EM visit Add On G2211 Diagnoses Osteoporosis M81.0 Coccydynia M53.3 Chronic low back pain with bilateral sciatica M54.41; M54.42; G89.29 Spondylolisthesis, lumbar region M43.16 Lumbar degenerative disc disease M51.369 Knee pain, left M25.562
[2024-06-23 09:21] VITALS: BP 194/90; PULSE 79; O2SAT 99; BMI 21.4
[2024-06-23 10:04] VITALS: BP 164/75
--- OUTSIDE RECORDS SUMMARY | 2024-06-23 10:46 | XMS_ITS ---
Author Organization [facility] Address [address] [place] [address] Care Team Providers Care Manager Of Investigations Name Role Phone Johanna Palencia MD Primary Care Provider UnavailMichaela Melendez [phone] Encounters Encounter Location Date Provider Diagnosis [facility] [address] [place] [address] 06/20/2024 Michaela Acosta Plan Of Treatment Next Appt Details Provider Name:Michaela Acosta , 09/19/2024 08:00:00 AM, [address] [place], [address], Progress Notes * RHIANNALUNAVinod Julissa PDOB:[birth year] (79 yo F)Acc No.[id number]:06/20/2024 Progress Note Patient:?Julissa BLACKMAN Provider:?Michaela Acosta DPM :1945???Age:79 Y???Sex:Female D ate:06/20/2024 Address:[address] [place] Pcp:Johanna Palencia MD Subjective: * Chief Complaints: * ??? * Medical History:? Objective: * Vitals:? Assessment: Plan: * Treatment: * Images: * The named appointment provid er may or may not be the originator of this progress note, and it is not deemed complete until electronically signed by the appointment provider. Sign off status: Pending * Provider:?Michaela Acosta DPM Date:?2024 Generated for Sera hi/Lucas/Yancismitting on:?06/23/2024 10:46 AM EDT
--- OUTSIDE RECORDS SUMMARY | 2024-06-23 10:46 | XMS_ITS ---
Author Organization [facility] Address [address] [place] [address] Care Team Providers Care Electromechanical Technologist Name Role Phone Johanna Palencia MD Primary Care Provider Unavaila Michaela Buenrostro Unavailable [phone] Allergies Allergen (clinical drug ingredient) Drug/Non Drug Allergy documented on EMR Reaction Allergy Type Onset Date Status codeine Codeine Unknown Drug Allergy Active Penicillin rash Drug Allergy Active REASON FOR VISIT Painful nail(s) aggravated by shoes causing difficulty standing/walking, Skin Problem Medications Medication SIG (Take, Route, Frequency, Duration) Notes Start Date End Date Status Ciclopirox Olamine 0.77 % 1 application Externally Once a day for 30 days 12/16/2021 Not-Taking Triamterene-HCTZ 37.5-25 MG TAKE ONE TABLET BY MOUTH EVERY MORNING Oral for 90 Not-Taking Vitamin D3 50 MCG (1999 UT) 1 capsule Orally Once a day for 30 day(s) Active Ciclopirox 8 % 1 application Externally Once a day for 30 10/22/2023 Active Ciclopirox Olamine 0.77 % 1 application Externally Twice a day for 30 days Active Fluticasone Propionate 50 MCG/ACT Nasal for 30 Active Fish Oil Active Simvastatin 20 MG Oral for 90 Active Losartan Potassium 25 MG Oral for 90 Active Acetaminophen PRN Active Social History Tobacco Use: Social History Observation Description Date Details (start date - stop date) Never Smoker NA - NA Tobacco Use/Smoking Question Answer Notes Are you a: nonsmoker Additional Findings: Tobacco Non-User Current no n-smoker Alcohol Screen Question Answer Notes Did you have a drink containing alcohol in the p ast year? No Points 0 Interpretation Negative Tobacco use other than smoking: Question Answer Notes Are you an other tobacco user? No Vital Signs Height 5ft 2'' in 02/22/2024 Weight 115 lbs 02/22/2024 BMI 21.03 kg/m2 02/22/2024 Blood pressure systolic 138 mm Hg 02/22/20 24 Blood pressure diastolic 70 mm Hg 024 Procedures Procedure Date Ordered Date Performed Result Body Sit e 27086-LFLUGUH NAIL, 6 OR MORE 02/22/2024 N/A Encounters Encounter Location Date Provider Diagnosis [facility] [place] [address] [place] [address] 02/22/2024 Michaela Acosta Tinea unguium B35.1 ; Pain in right toe(s) M79.674 ; Pain in left toe(s) M79.675 and Tinea pedis of both feet B35.3 Assessments Encounter Date Diagnosis (ICD Code) Assessment Notes Treatment Notes Treatment Clinical Notes Section Notes 02/22/2024 Tinea unguium (ICD-10 - B35.1) 02/22/2024 Pain in right toe(s) (ICD-10 - M79.674) 02/22/2024 Pain in left toe(s) (ICD-10 - M79.675) 02/22/2024 Tinea pedis of both feet (ICD-10 - B35.3) Plan Of Treatment Pending Test Test Name Order Date 88538-BJULROS NAIL, 6 OR MORE 02/22/2024 Next Appt Details Follow Up: prn, Reason: Provider Name:Michaela Acosta , 09/19/2024 08:00:00 AM, [address] [place], [address], Procedure Notes * Category Sub-Category Detail Notes Debride Nail 6-10 Nail debridement Performance o f this nail treatment by a nonprofessional would put this patients foot and overall health at risk. Therefore, debridement to affected nail(s), as described in exam, was performed extensively to reduce/remove overall nail length, girth, thickness, subungual debris, and necrotic tissue, by manual and/or electrical means through the use of a nail nipper and/or dremel-type grinder and honer operator automatic, to a more viable healthy nail plate or bed tissue 6-10 nails in total. Silver nitrate was used for any petechial bleeding as necessary. Definitive antifungal treatment options, both pharmaceutical and surgical, have been reviewed and discussed with the patient. The patient solely prefers the use of intermittent/as needed professional debridement services for their nail condition and understands the need for additional periodic treatments to maintain effectiveness in symptomatic relief - 85317 Progress Notes * Julissa BLACKMAN PDOB:[birth year] (78 yo F)Acc No.[id number]:02/22/2024 Progress Note Patient:?Julissa BLACKMAN Provider:?Michaela Acosta DPM :1945???Age:78 Y???Sex:Female D ate:02/22/2024 Address:[address] [place], [place] [address] [place], [place] Pcp:Johanna Palencia MD Subjective: * Chief Complaints: * ???Painful nail(s) aggravate d by shoes causing difficulty standing/walkingSkin Problem * HPI: ???Painful Nails:?Pt States Last PCP Visit:?Date:?01/20/2024 ?Treatments:?Ciclopirox topical gel, relates non-adherence to recom tx.?Skin problems:?Nature:?scaling , redness.?Location:?B/L .?Duration:?, several months.?Course:?improved, at _90 %.?Treatments:?Medication (Ciclopirox Olamine 0.77 Cream), states adherence to recommended treatment application.? * ROS:?General/Constitutional:?Nausea?denies.?Vomiting?denies.?Hunger Thirst?denies.?Loss appetite?denies, denies.?Chills?denies, denies.?Fatigue?denies.?Fever?denies, denies.?Night Sweats?denies.?Unexplained weight loss?denies.?Unexplained weight gain?denies.?Ophthalmologic:?Blurred vision?denies.?Red eye?denies.?HEENTM:?Dentures?denies.?Dizziness?denies.?Glasses/contacts?denies.?Retinopathy?de nies.?Blurred/double vision?denies.?TMJ?denies.?Discharge/drainage?denies.?Implants?denies.?Sore throat?denies.?Dental implants?denies.?Hard of hearing ?denies.?Difficulty chewing/swallowing/speaking?denies.?Nose bleeds?denies.?Sore mouth?denies, denies.?Swollen glands?denies.?Respiratory:?On Oxygen?denies.?Pneumonia/pleurisy?denies.?Bronchitis?denies.?Emphysema?denies.?C oughing?denies, denies.?Cough blood?denies.?Shortness of breath?denies, denies.?Wheezing?denies, denies.?Cardiovascular:?Pacemaker?denies.?MVP?denies.?WPW?denies.?CHF?denies.?Heart attack?denies.?Septal defect?denies.?Rapid beat?denies.?Chest pain ?denies, denies.?Atrial Fib.?denies, denies.?Murmur/Palpitations?denies.?Gastrointestinal:?Hemorrhoids?denies.?Stomach/Abdominal pain?denies, denies.?Dark blood stool?denies.?Irritable bowel ?denies.?Constipation?denies.?Diarrhea?denies, denies.?Vomiting?denies.?Hematology:?Swelling?denies.?Clots?denies.?Varicose Veins?admits.?Bruising?denies.?Bleeding problem?denies.?Genitourinary:?Blood urine?denies, denies.?Frequent/Painfu/urination/bladder control?denies, denies.?Kidney stones?denies.?Infection (UTI)?denies.?Nephropathy?denies.?sex trans dis (STD)?denies.?Prostate?denies.?Musculoskeletal:?Hammertoes?denies.?Bunions?admits.?Back Pain?admits.?Muscle Cramps/ Resting?denies.?Muscle cramps / walking?denies.?Generalized aches and pains?denies.?Painful joints?denies.?Swollen joints?denies.?Weakness?denies.?Podiatric:?Comments?See HPI for comments.?Integ.:?Bhandari?denies.?Scars?denies.?Corns/calluses?denies.?Ingrown nails?denies.?Painful nails?,admits.?Open Sores?denies.?Itching?denies.?Rashes?denies, denies.?Neurologic:?Difficulty sleeping?denies.?Brain disorder?denies.?Numbness?denies.?Balance trouble?denies.?Confusion?denies, denies.?Fainting/blackouts?denies.?Headache?denies.?Tingling?denies.?Tremors?den ies.? * Medical History:? * Surgical History:?bunsushil 03/04/2021 * Hospitalization/Major Diagno stic Procedure:?Denies Past Hospitalization * Family History:?Mother: dece ased, cancer, diagnosed with Unspecified essential hypertension.?Father: .? * Social History:?Tobacco Use:?Tobacco Use/Smoking?Are you a:?nonsmoker ?Additional Findings: Tobacco Non-User?Current non-smoker ?Tobacco use other than smoking?Are you an other tobacco user??No ???Drugs/Alcohol:?Drugs?Have you used drugs other than those for medical reasons in the past 12 months??No ?Alcohol Screen?Did you have a drink containing alcohol in the past year??No ?Points?0 ?Interpretation?Negative ???Miscellaneous:?Caffeine: yes, frequency:, 2-3 decaff tea cups per day. ?Children: yes, 6. ?Exercise: yes, walking, stationary bike. ?Marital status: . ?Occupation: Retired. * Medications:?TakingAcetamino phen , Notes to Pharmacist: PRNFish Oil Fluticasone Propionate 50 MCG/ACT Suspension Nasal Losartan Potassium 25 MG Tablet Oral Simvastatin 20 MG Tablet Oral Vitamin D3 50 MCG (1999 UT) Capsule 1 capsule Orally Once a day Ciclopirox Olamine 0.77 % Cream 1 application Externally Twice a day Ciclopirox 8 % Solution 1 application Externally Once a day Taking Acetaminophen , Notes to Pharmacist: PRNTaking Fish Oil Taking Fluticasone Propionate 50 MCG/ACT Suspension Nasal Taking Losartan Potassium 25 MG Tablet Oral Taking Simvastatin 20 MG Tablet Oral Taking Vitamin D3 50 MCG (1999 UT) Capsule 1 capsule Orally Once a day Taking Ciclopirox Olamine 0.77 % Cream 1 application Externally Twice a day Taking Ciclopirox 8 % Solution 1 application Externally Once a day Not-Taking/PRNTriamterene-HCTZ 37.5-25 MG Tablet TAKE ONE TABLET BY MOUTH EVERY MORNING Oral Ciclopirox Olamine 0.77 % Cream 1 application Externally Once a day Medication List reviewed and reconciled with the patientNot-Taking/PRN Triamterene-HCTZ 37.5-25 MG Tablet TAKE ONE TABLET BY MOUTH EVERY MORNING Oral Not-Taking/PRN Ciclopirox Olamine 0.77 % Cream 1 application Externally Once a day Medication List reviewed and reconciled with the patient * Allergies:?Penicillin: rash - AllergyCodeine: Allergyyes[Allergies Verified] Objective: * Vitals:?Ht: 5ft 2'', Wt: 115 , BMI: 21.03, Shoe size: 9-9.5, BP: 138/70 mm Hg, Wt-k.16 kg. * Examination: ???General Examination: ?GENERAL APPEARANCE:?Reveals a pleasant, alert, well nourished, well- developed, well hydrated individual, who demonstrates proper attention to hygiene/body habitus, and is in no acute distress, Pt serves as own historian for office visit today.?ORIENTED:?person, place, and time.?Nails: ?NAILS are:?Elongated, overgrown, dystrophic, lytic, greater than 3mm thick, discolored and friable with crumbly malodorous subungual debris, with pain on palpation , 1-5 Right foot , TA , T1.?Dermatologic: ?SKIN FINDINGS:? Skin shows sign(s) of, erythema, scaling, in a moccasin fashion, no fissure(s) present, B/L, approximately 90_ percent LESS.?Neurological: ?SENSORY:?Neurological exam reveals intact sensorium, pain sensation normal, vibration sensation intact, pinprick sensation is normal in the lower extremities, Pt denies, anesthesia, burning, paresthesia, tingling, B/L.?TINEL'S COMPRESSION:?Negative tarsal tunnel, valeria pedis, and medial calcaneal nerves.?Vascular: ?DP PULSES(B):?2/4, B/L.?PT PULSES(B):?2/4, B/L.?CAPILLARY FILL TIME:?immediate, all digits, B/L.?TROPHIC CONDITION-TEXTURE/ELASTICITY/TURGOR/HAIR GROWTH(B):?normal, B/L.?TEMPERTURE GRADIENT(C):?normal, warm to cool, proximal to distal, B/L, B/L.? Assessment: * Assessment: 1.?Tinea unguium - B35.1 (Pr imary)???2.?Pain in right toe(s) - M79.674???3.?Pain in left toe(s) - M79.675???4.?Tinea pedis of both feet - B35.3???Specify :Acute problem, Uncomplicated (3),Rx drug management (4)??? Plan: * Treatment: * Procedures:?Debride Nail 6-10:?Nail debridement?Performance of this nail treatment by a nonprofessional would put this patients foot and overall health at risk. Therefore, debridement to affected nail(s), as described in exam, was performed extensively to reduce/remove overall nail length, girth, thickness, subungual debris, and necrotic tissue, by manual and/or electrical means through the use of a nail nipper and/or dremel-type grinder and honer operator automatic, to a more viable healthy nail plate or bed tissue 6-10 nails in total. Silver nitrate was used for any petechial bleeding as necessary. Definitive antifungal treatment options, both pharmaceutical and surgical, have been reviewed and discussed with the patient. The patient solely prefers the use of intermittent/as needed professional debridement services for their nail condition and understands the need for additional periodic treatments to maintain effectiveness in symptomatic relief - 20169.? * Procedure Codes:?18931 DEBRI DE NAIL, 6 OR MORE, Modifiers: XS * Preventive Medicine:? ??Counseling:?Discussion:?-12: Office or other outpatient visit for the evaluation and management of an established patient, which required a medically appropriate history and/or examination and STRAIGHTFORWARD level of MEDICAL DECISION MAKING, 1 SELF-LIMITED OR MINOR PROBLEM, MINIMAL- NO AMOUNT/COMPLEXITY OF DATA TO BE REVIEWED/ANALYZED, AND MINIMAL RISK OF COMPLICATION/MORBIDITY. The visit on the day of the encounter encompassed interpreting the data and educating the patient as to the nature of their condition, treatment options available according to their individual PMH, meds, allergies, and overall health/living conditions, as well as any potential risks or complications that may occur from a failure to adhere to, and participate in, the recommended course of therapy. The discussion included a complete verbal, and/or written explanation of the examination results, any x-rays taken, the proposed diagnosis, and outline of the treatment plan. A schedule for future care needs was also explained. The patient verbalized an understanding of the instructions at this time and agreed to be an active participant in their treatment. If the patient should think of any questions or concerns after the visit, I have encouraged the patient to call the office.?Tinea Pedis:?Given recent successful results to treatment, The patient is to cont the rx cream as directed, PREVENTIVE STRATEGIES were reviewed with the patient to avoid recurrent issues ..? * Follow Up:?prn * Images: * Sign off status: Completed true * Provider:?Michaela Acosta DPM Date:?2023 Generated for Sera ih/Lucas/Mac on:?06/23/2024 10:46 AM EDT History and Physical Notes * HPI (History of Present Illness) Category Sub-Category Detail Notes Category Not es Painful Nails Treatments: Ciclopirox topic al gel, relates non-adherence to recom tx Pt States Last PCP Visit: Date:: 01/20/2024 Skin problems Nature: scaling , redness Location: B/L Duration: , several months Course: improved, at _90 % Treatments: Medication (Ciclopir ox Olamine 0.77 Cream), states adherence to recommended treatment application Examination Category Sub-Category Detail Notes Category Not es Neurological SENSORY: Neurological exa m reveals intact sensorium, pain sensation normal, vibration sensation intact, pinprick sensation is normal in the lower extremities, Pt denies, anesthesia, burning, paresthesia, tingling, B/L TINEL'S COMPRESSION: Negative tarsal dorene nori, valeria pedis, and medial calcaneal nerves Dermatologic SKIN FINDINGS: Skin shows sign( s) of, erythema, scaling, in a moccasin fashion, no fissure(s) present, B/L, approximately 90_ percent LESS General Examination GENERAL APPEARANCE: Reveals a pleasant, alert, well nourished, well-developed, well hydrated individual, who demonstrates proper attention to hygiene/body habitus, and is in no acute distress, Pt serves as own historian for office visit today ORIENTED: person, place, and t colin Vascular DP PULSES (B): 2/4, B/L PT PULSES (B): 2/4, B/L CAPILLARY FILL TIME: immediate, all digi ts, B/L TEMPERTURE GRADIENT (C): normal, warm to cool, proximal to distal, B/L, B/L TROPHIC CONDITION-TEXTURE/ELASTICITY/TURGOR/HAIR GROWTH (B): normal, B/L Nails NAILS are: Elongated, overg rown, dystrophic, lytic, greater than 3mm thick, discolored and friable with crumbly malodorous subungual debris, with pain on palpation , 1-5 Right foot , TA , T1
--- OUTSIDE RECORDS SUMMARY | 2024-06-23 10:46 | XMS_ITS | Patient Health Record ---
Author Organization [facility] Address [address] [place] [address] Care Team Providers Care Cnc Set Up Operator Name Role Phone Johanna Palencia MD Primary Care Provider Unavaila Michaela Buenrostro Unavailable [phone] Allergies Allergen (clinical drug ingredient) Drug/Non Drug Allergy documented on EMR Reaction Allergy Type Onset Date Status codeine Codeine Unknown Drug Allergy Active Penicillin rash Drug Allergy Active Reason For Referral Diagnosis 1 Hallux valgus (acqui red), right foot (M20.11) Diagnosis 2 Hallux valgus (acqui red), left foot (M20.12) Diagnosis 3 Primary osteoarthrit is, left ankle and foot (M19.072) Diagnosis 4 Pain in left toe(s) (M79.675) Diagnosis 5 Neuralgia and neurit is, unspecified (M79.2) Diagnosis 6 Pain in right toe(s) (M79.674) Diagnosis 7 Tinea unguium (B35.1 ) Referring Provider First Name Johanna Referring Provider Last Name Talha Vazquez [facility] Kayode Referred Provider Michaela Acosta Referred Address [address] [facility],[place], [place],[address], Referred Provider Specialty Podiatry Referral Priority Routine Medications Medication SIG (Take, Route, Frequency, Duration) Notes Start Date End Date Status Fluticasone Propionate 50 MCG/ACT Nasal for 30 Active Fish Oil Active Simvastatin 20 MG Oral for 90 Active Losartan Potassium 25 MG Oral for 90 Active Ciclopirox Olamine 0.77 % 1 application Externally Once a day for 30 days 12/16/2021 Not-Taking Triamterene-HCTZ 37.5-25 MG TAKE ONE TABLET BY MOUTH EVERY MORNING Oral for 90 Not-Taking Acetaminophen PRN Active Vitamin D3 50 MCG (2000 UT) 1 capsule Orally Once a day for 30 day(s) Active Ciclopirox 8 % 1 application Externally Once a day for 30 10/22/2023 Active Ciclopirox Olamine 0.77 % 1 application Externally Twice a day for 30 days Active Social History Tobacco Use: Social History [...] Are you an other tobacco user? No Problems Problem Type SNOMED Code ICD Code Onset Dates Problem Status W/U Status Risk Notes Problem Acquired hallux valgus (82397891) Hallux valgus (acquired), left foot (M20.12) Active confirmed Problem Localized, primary osteoarthritis of the ankle and/or foot (456532651) Primary osteoarthrit is, left ankle and foot (M19.072) Active confirmed Problem Acquired hallux valgus (66961449) Hallux valgus (acquired), right foot (M20.11) Active confirmed Vital Signs Blood pressure diastolic 70 mm Hg 02/22/2024 Height 5ft 2'' in 02/22/2024 Blood pressure systolic 138 mm Hg 02/22/2024 Weight 115 lbs 02/22/2024 BMI 21.03 kg/m2 02/22/2024 Procedures Procedure Date Ordered Date Performed Result Body Sit e 98517-YTKQHWP NAIL, 6 OR MORE 10/22/2023 N/A 71506- Removal of Foreign Body, Subcut 10/22/2023 N/A 65288-SYODMEU NAIL, 6 OR MORE 02/22/2024 N/A Encounters Encounter Location Date Provider Diagnosis [facility] [place] [address] [place] [address] 10/22/2023 Michaela Black Tinea unguium B35.1 ; Puncture wound with foreign body of left great toe without damage to nail, initial encounter S91.142A ; Pain in right toe(s) M79.674 ; Pain in left toe(s) M79.675 and Tinea pedis of both feet B35.3 [facility] [place] [address] [place] [address] 02/22/2024 Michaela Acosta Tinea unguium B35.1 ; Pain in right toe(s) M79.674 ; Pain in left toe(s) M79.675 and Tinea pedis of both feet B35.3 Assessments Encounter Date Diagnosis (ICD Code) Assessment Notes Treatment Notes Treatment Clinical Notes Section Notes 10/22/2023 Puncture wound with foreign body of left great toe without damage to nail, initial encounter (ICD-10 - S91.142A) 10/22/2023 Tinea unguium (ICD-10 - B35.1) 02/22/2024 Tinea unguium (ICD-10 - B35.1) 02/22/2024 Pain in right toe(s) (ICD-10 - M79.674) 02/22/2024 Pain in left toe(s) (ICD-10 - M79.675) 10/22/2023 Pain in right toe(s) (ICD-10 - M79.674) 10/22/2023 Pain in left toe(s) (ICD-10 - M79.675) 02/22/2024 Tinea pedis of both feet (ICD-10 - B35.3) 10/22/2023 Tinea pedis of both feet (ICD-10 - B35.3) Plan Of Treatment Pending Test Test Name Order Date [id number]-PNLHWDS NAIL, 6 OR MORE 12/16/2021 36147-YQSTOOL NAIL, 6 OR MORE 10/22/2023 70693-SNPDBFB NAIL, 6 OR MORE 02/22/2024 12407, [id number]-LBSWW/INJECT, JOINT/BURSA 1 05/06/2022 24614- Removal of Foreign Body, Subcut 0 10/22/2023 Next Appt Details Provider Name:Michaela Acosta , 09/19/2024 08:00:00 AM, [address] [place], [address], Insurance Providers Payer Name Payer Address Payer Phone Subscriber Number Group Number Insured Name Patient Relationship to Insured Coverage Start Date Coverage End Date [facility] [address] [place]ris [phone] [id number] Julissa Blackman Self - patient is the insured 2 Medical (General) History Medical History History ICD Code Arthritis Back,Hip,and Knee pain High blood pressure Osteoporosis Chicken pox Joint implants/screws Surgical History Surgery Date(Month/Year) bunion 03/04/2021
--- OUTSIDE RECORDS SUMMARY | 2024-06-23 10:46 | XMS_ITS | Patient Health Record ---
Author Organization [facility] Address [address] [facility] [address] [facility] [place] [address] Care Team Providers Care Purse Seiner Name Role Phone Maddy Suazo Primary Care Provider Unavailabl e Allergies Allergen (clinical drug ingredient) Drug/Non Drug Allergy documented on EMR Reaction Allergy Type Onset Date Status sulfamethoxazole / trimethoprim Bactrim nausea and vomiting Drug Allergy Active penicillin G Penicillin G Potassium hives Drug Allergy Active codeine Codeine nausea and vomiting Drug Allergy Active lisinopril Lisinopril Cough Drug Allergy Activ e sulfamethoxazole Sulfamethoxazole Unknown Drug Allergy Active trimethoprim Trimethoprim Unknown Drug Allergy A ctive Reason For Referral No Information Medications Medication SIG (Take, Route, Frequency, Duration) Notes Start Date End Date Status Triamterene-HCTZ 37.5-25 MG 1 tablet in the morning Orally Once a day Active Vitamin D (Cholecalciferol) Take 1 tablet by mouth daily Active Zocor 20 MG 1 tablet in the evening Orally Once a day Not-Taking Lidocaine 5 % 1 patch remove after 12 hours Externally Once a day for 30 days 05/09/2021 Active Acetaminophen 500 MG 1 tablet as needed Orally every 4 hrs for 30 days 03/01/2021 Not-Taking hydrOXYzine HCl 25 MG 1 tablet as needed Orally every 8 hrs for nausea/itching for 10 days 03/01/2021 Not-Taking Lidocaine 5 % as directed Externally Three times a day for 30 days 05/09/2021 Active Simvastatin 20 MG 1 tablet in the evening Orally Once a day Active Fosamax Not-Taking traMADol HCl 50 MG 1 tablet as needed Orally every 6 hours for 6 days 03/01/2021 Not-Taking predniSONE 2.5 MG 1 tablet Orally BID 3mg Active Cozaar 25 MG 1 tablet Orally Once a day Not-Taking Losartan Potassium 25 MG 1 tablet Orally Once a day Active Fish Oil 1 Cap daily Not-Taki ng Ibuprofen 600 MG 1 tablet with food or milk as needed Orally every 6 hrs for 30 days 03/01/2021 Not-Taking Maxzide-25 37.5-25 MG 1 tablet in the morning Orally Once a day Not-Taking Problems Problem Type SNOMED Code ICD Code Onset Dates Problem Status W/U Status Risk Notes Problem [id number] Hallux valgus (acquired), right foot (M20.11) Active confirmed Problem [id number] Hallux valgus (acquired), left foot (M20.12) Active confirmed Problem [id number] Neuritis of left foot (G57.92) Active confirmed Plan Of Treatment Pending Test Test Name Order Date X ray : Foot, left 3v 12/31/2020 X ray : Foot, left 3v 04/08/2021 X ray : Foot, left 3v 05/09/2021 X ray : Foot, left 3v 05/30/2021 X ray : Foot, right 3v 12/31/2020 Insurance Providers Payer Name Payer Address Payer Phone Subscriber Number Group Number Insured Name Patient Relationship to Insured Coverage Start Date Coverage End Date [facility] [address] [place] [address] [id number] Julissa Blackman Self - patient is the insured Medical (General) History Medical History History ICD Code History of actinic keratoses Cervical Spondylosis Ulnar neuropathy CTS (carpal tunnel syndrome) Bunion Onychomycosis GERD Actinic keratosis nodular thyroid hypertension hypercholesterolemia osteopenia occlusion and stenosis of carotid atery varicose veins Surgical History Surgery Date(Month/Year) Colonoscopy stoma Dx including collj spe c spx Historical colonoscopy mammogram removal of appendix
--- OUTSIDE RECORDS SUMMARY | 2024-06-23 10:47 | XMS_ITS | Data Portability ---
Author Organization [place] [facility], Allergy Address [address] [place] [id number] Care Team Providers Care Distribution Engineering Technologist Name Role Phone AVIVA CHAVEZ Primary Care Provider Assessment No assessment recorded. Plan of Treatment Reminders Order Date Submit Date Provider Last Modified By Organization Details Last Modified Time Details Appointments Establish ed 15 2024 10:00A M JUS CASANOVA MD Not available Not available Not available Lab None recorded. Referral None recorded. Procedures None recorded. Surgeries None recorded. Imaging None recorded. Medication Orders ipratropi um bromide 21 mcg (0.03 %) nasal spray 2023 024 [id number], [address], [place], [address], 01/15/2024 16:26:57 Patient TargetsNo targets recorded. Patient InstructionsNo instructions recorded. Reason for Referral None Reported. Problems Name Problem SNOMED Code Status Onset Date Resolution Date Notes Provider Name and Address Organization Details Recorded Time Generali zed enlarged lymph nodes 386179825 Active 2021 Lymphade nopathy NOS; Note: Date Diagnose d: 12:44 PM (R59.1) Not Available [facility] 4 02:36:15 Chronic cough 59608732 Completed 202110/30/2023 Chronic cough; Note: Date Diagnose d: 08/05/2021 9:43 AM (R05.3) Not Available [facility] 4 02:36:10 Non-toxi c uninodul ar goiter 009953056 Active 2021 Nontoxic single thyroid nodule; Note: Date Diagnose d: 08/05/2021 9:43 AM (E04.1) Not Available [facility] 4 02:36:15 Chronic rhinitis 39349224 Active 2021 Chronic rhinitis ; Note: Date Diagnose d: 08/05/2021 9:43 AM (J30.89) Not Available [facility] 4 02:36:07 Thyroid nodule 114589867 Active 2023 JUS CASANOVA MD [address] [place] [address], [place] [place], [address] , [place] [facility] 14:02:16 Problem Notes None recorded. Procedures Surgical History Date Name Laterality Status Provider Name and Address Organization Details Recorded Time Appendectomy completed Sarah Pinon [place] [facility] 01/15/2024 16:00:00 excision of bunion completed Sarah Pinon [place] [facility] 01/15/2024 16:00:05 Imaging Results None recorded. Procedure Notes None recorded. Medical Equipment None Reported. Allergies Allergen ID Allergen Name Allergen Category Reaction Reaction Severity Criticality Documentation Date Start Date Code Code System Note Provider Name and Address Organization Details Recorded Time 05058 Product containin g penicilli n (product) medicatio n other Not available Not available 08/11/2023 32131 8001 SNOMED React ion: other react ion, Unkno wn; Not Available [facility] 4 00:58:45 74885 lisinopri l medicatio n other Not available Not available 08/11/2023 46913 RxNorm React ion: other react ion, Unkno wn; Not Available [facility] 4 00:58:52 71815 codeine medicatio n other Not available Not available 08/11/2023 2670 RxNorm React ion: other react ion, Unkno wn; Not Available [facility] 4 00:58:53 Medications Name Sig Start Date Stop Date Status Note LastModified by Organization Details LastModified Time alendrona te 70 mg tablet TAKE 1 TABLET BY MOUTH ONCE EVERY WEEK 01/14 completed Not Available Not Available Not Available prednison e 5 mg tablet TAKE ONE TABLET BY MOUTH THREE TIMES A DAY 01/14 completed Not Available Not Available Not Available clindamyc in HCl 150 mg capsule TAKE 1 CAPSULE BY MOUTH EVERY 8 HOURS UNTIL FINISHED 01/14 completed Not Available Not Available Not Available ciclopiro x 8 % topical solution APPLY TOPICALL Y ONCE DAILY active Not Available Not Available No t Available baclofen 10 mg tablet TAKE ONE TABLET BY MOUTH DAILY AT BEDTIME active Not Available Not Available No t Available simvastat in 20 mg tablet TAKE ONE TABLET BY MOUTH AT BEDTIME active Not Available Not Available No t Available prednison e 50 mg tablet TAKE ONE TABLET BY MOUTH EVERY DAY FOR 5 DAYS 01/14 completed Not Available Not Available Not Available naproxen 500 mg tablet,de layed release TAKE ONE TABLET BY MOUTH TWICE A DAY FOR 10 DAYS active Not Available Not Available No t Available losartan 25 mg tablet TAKE THREE TABLETS 75MG) BY MOUTH EVERY DAY 01/14 completed Not Available Not Available Not Available triamtere ne 50 mg capsule TAKE ONE CAPSULE BY MOUTH EVERY DAY active Not Available Not Available No t Available sertralin e 25 mg tablet TAKE ONE TABLET BY MOUTH EVERY DAY 01/14 completed Not Available Not Available Not Available triamtere ne 37.5 mg-hydroc hlorothia zide 25 mg tablet 01/14 completed Medicati on ID: [id number] B rand Name: triamter darshana-hydr ochlorot hiazid S end Method: E-Prescr ibed Sub s Allowed: subs OK Speci al Instruct ion: TAKE ONE TABLET BY MOUTH EVERY DAY Medi cationGe nericNam e: triamter darshana-hydr ochlorot hiazid Not Available Not Available Not Available losartan 100 mg tablet TAKE ONE TABLET BY MOUTH EVERY DAY active Not Available Not Available No t Available fluticaso ne propionat e 50 mcg/actua tion nasal spray,batsheva pension 2 puff 2021 active Medicati on ID: [id number] D uration Value: 30 Prescri bed By Name: Jus davial MD Brand Name: fluticas one propiona te Send Method: E-Prescr ibed Sub s Allowed: subs OK Medic ationGen ericName : fluticas one propiona te Not Available Not Available Not Available dicyclomi ne 10 mg capsule TAKE ONE CAPSULE BY MOUTH THREE TIMES A DAY 01/14 completed Not Available Not Available Not Available ipratropi um bromide 21 mcg (0.03 %) nasal spray INSTILL TWO SPRAYS IN THE NOSTRIL TWO TIMES A DAY active Not Available Not Available No t Available neomycin 3.5 mg/g-poly myxin B 10,000 unit/g-de xameth 0.1 % eye oint APPLY ALONG THE LOWER EYELIDS OF BOTH EYES AT BEDTIME EVERY OTHER NIGHT 01/14 completed Not Available Not Available Not Available ciclopiro x 0.77 % topical cream APPLY TOPICALL Y TWICE A DAY 01/14 completed Not Available Not Available Not Available Vitals Date Recorded Body height Body weight Provider Name and Address Organization Details Last Updated DateTime 01/15/2024 157.48 cm 46973.16 g Sarah Pinon [place] [facility] 01/15/2024 15:58:42 Social History None recorded. Functional Status None recorded. Mental Status None recorded. Family History Nothing Reported. Medical History Condition Response Hypertension Y High Cholesterol Y Gynecological HistoryNo gynecological history recorded. Obstetrics History GPAL:G 0 P 0 0 0 0 Past Encounters Encounter ID Performer Location Encounter Start Date Encounter Closed Date Diagnosis/Indication Diagnosis SNOMED-CT Code Diagnosis ICD10 Code Diagnosis Note [id number] JUS CASANOVA MD [facility] [address] [address] 01/15/2024 15:43:20 01/15/2024 16:31:45 Chronic rhinitis 97167358 J31.0 Ipratropiu m has been renewed. For the dryness, I recommende d some saline gel to the anterior nares at bedtime and saline as needed. Non-toxic uninodular goiter [id number] E04.1 We reviewed ultrasound findings. Follow-up in a year. Health Concerns Section Related Observation LastModified by Organization Detai ls LastModified Time None Recorded Concern Status LastModified by Organization Details LastModified Time None Recorded Advance Directives Directive None Recorded Payers Encounter Date Sequence Insurance Name Policy Number Policy Baer Covered Member ID Baer Member ID Guarantor Name 01/15/2024 1 [facility] (O) Julissa Blackman [id number] Julissa Blackman Notes Date Note Type Note Provider Name and Address Organization Details Recorded Time 01/15/2024 text/html 78-year-old femayden le here for routine follow-up. She has chronic rhinitis for which she uses ipratropium which has been helpful. She feels that her nose has been dry lately.She gets routine ultrasounds for multiple nodules. Most recent thyroid ultrasound in August showed right upper lobe nodule 0.8 cm TR 5, right isthmus nodule 0.6 cm TR 5, and 1.3 cm left mid lobe TR 4. These are all fairly stable JUS CASANOVA MD [address] [place] [address], [place], [address], [place] [facility] 01/16/2024 07:17:16 OBGyn Episode No OBEpisode recorded.
--- OUTSIDE RECORDS SUMMARY | 2024-06-23 10:48 | XMS_ITS ---
Author Organization [facility] Address [address] [place] [address] Care Team Providers Care Housing Counselor Name Role Phone Johanna Palencia MD Primary Care Provider Unavaila Michaela Buenrostro Unavailable [phone] Allergies Allergen (clinical drug ingredient) Drug/Non Drug Allergy documented on EMR Reaction Allergy Type Onset Date Status codeine Codeine Unknown Drug Allergy Active Penicillin rash Drug Allergy Active REASON FOR VISIT Painful nail(s) aggravated by shoes causing difficulty standing/walking, Skin Problem, ? Foreign body Medications Medication SIG (Take, Route, Frequency, Duration) Notes Start Date End Date Status Acetaminophen PRN Active Fish Oil Active Ciclopirox Olamine 0.77 % 1 application Externally Twice a day for 30 days Active Fluticasone Propionate 50 MCG/ACT Nasal for 30 Active Ciclopirox Olamine 0.77 % 1 application Externally Once a day for 30 days 12/16/2021 Not-Taking Simvastatin 20 MG Oral for 90 Active Ciclopirox 8 % 1 application Externally Once a day for 30 10/22/2023 Active Triamterene-HCTZ 37.5-25 MG TAKE ONE TABLET BY MOUTH EVERY MORNING Oral for 90 Not-Taking Losartan Potassium 25 MG Oral for 90 Active Vitamin D3 50 MCG (1999 UT) 1 capsule Orally Once a day for 30 day(s) Active Social History Tobacco Use: Social History [...] No Vital Signs Height 5ft 2'' in 10/22/2023 Weight 115 lbs 10/22/2023 BMI 21.03 kg/m2 10/22/2023 Blood pressure systolic 145 mm Hg 10/22/19 24 Blood pressure diastolic 70 mm Hg 024 Procedures Procedure Date Ordered Date Performed Result Body Sit e 62982-DLZKJDG NAIL, 6 OR MORE 10/22/2023 N/A 77957- Removal of Foreign Body, Subcut 10/22/2023 N/A Encounters Encounter Location Date Provider Diagnosis [facility] [place] [address] [place] [address] 10/22/2023 Michaela Acosta Tinea unguium B35.1 ; Puncture wound with foreign body of left great toe without damage to nail, initial encounter S91.142A ; Pain in right toe(s) M79.674 ; Pain in left toe(s) M79.675 and Tinea pedis of both feet B35.3 Assessments Encounter Date Diagnosis (ICD Code) Assessment Notes Treatment Notes Treatment Clinical Notes Section Notes 10/22/2023 Tinea unguium (ICD-10 - B35.1) 10/22/2023 Puncture wound with foreign body of left great toe without damage to nail, initial encounter (ICD-10 - S91.142A) 10/22/2023 Pain in right toe(s) (ICD-10 - M79.674) 10/22/2023 Pain in left toe(s) (ICD-10 - M79.675) 10/22/2023 Tinea pedis of both feet (ICD-10 - B35.3) Plan Of Treatment Medication Medication Name Sig Start Date Stop Date Notes Ciclopirox Olamine 0.77 % 1 application Externally Twice a day for 30 days Ciclopirox 8 % 1 application Trade Marker ally Once a day for 30 10/22/2023 Pending Test Test Name Order Date [id number]-GPWMSOE NAIL, 6 OR MORE 10/22/2023 62491- Removal of Foreign Body, Subcut 0 10/22/2023 Next Appt Details Follow Up: 2 Weeks, Reason: Provider Name:Michaela Ebony Dave , 09/19/2024 08:00:00 AM, [address] [place], [address], Procedure Notes * Category Sub-Category Detail Notes Foreign Body Removal Anesthesia 3 cc of 1 p ercent Lidocaine Plain local anesthesic utilizing aseptic technique Procedure The wound was explor ed and the foreign body ( 10mm nylon/prolene suture form surgery 3 years ago ) was removed along with devitalized tissue, thru skin and subcutaneous tissue, using sterile 15 blade sharp dissection. A sterile antibiotic ointment dressing was applied and wound care instructions were discussed and dispensed, Patient tolerated procedure well (62218) Location of foreign body As per exam Skin area prepped with al cohol or betadine , procedure performed under aseptic conditions Debride Nail 6-10 Nail debridement Nail debridem ent performed extensively to reduce/remove overall nail length, girth, thickness, subungual debris, and necrotic tissue, by manual and electrical means through the use of a nail nipper and/or dremel, to more viable healthy nail plate or bed tissue 1-5. Silver nitrate used for any petechial bleeding as necessary. Patient chooses, no pharmaceutical tx (90471) Progress Notes * Julissa BLACKMAN PDOB:[birth year] (78 yo F)Acc No.[id number]:10/22/2023 Progress Note Patient:?Julissa Blackman Provider:?Michaela Acosta DPM :1945???Age:78 Y???Sex:Female D ate:10/22/2023 Address:[address] [place] [address] [address] [id number] Pcp:Johanna Palencia MD Subjective: * Chief Complaints: * ???Painful nail(s) aggravate d by shoes causing difficulty standing/walkingSkin Problem? Foreign body * HPI: ???Painful Nails:?Pt States Last PCP Visit:?Date:?03/31/2023 ???Skin problems:?Nature:?scaling , redness.?Location:?B/L .?Duration:?several days.?Course:?worse.? * Medical History:? * Surgical History:?bunion 03/04/2021 * Hospitalization/Major Diagno stic Procedure:?Denies Past [...] . ?Occupation: Retired. * Medications:?TakingAcetamino phen , Notes: PRNFish Oil Fluticasone Propionate 50 MCG/ACT Suspension Nasal Losartan Potassium 25 MG Tablet Oral Simvastatin 20 MG Tablet Oral Vitamin D3 50 MCG (2000 UT) Capsule 1 capsule Orally Once a dayTaking Acetaminophen , Notes: PRNTaking Fish Oil Taking Fluticasone Propionate 50 MCG/ACT Suspension Nasal Taking Losartan Potassium 25 MG Tablet Oral Taking Simvastatin 20 MG Tablet Oral Taking Vitamin D3 50 MCG (2000 UT) Capsule 1 capsule Orally Once a dayNot-Taking/PRNTriamterene-HCTZ 37.5-25 MG Tablet TAKE ONE TABLET BY MOUTH EVERY MORNING Oral Ciclopirox Olamine 0.77 % Cream 1 application Externally Once a dayMedication List reviewed and reconciled with the patientNot-Taking/PRN Triamterene-HCTZ 37.5-25 MG Tablet TAKE ONE TABLET BY MOUTH EVERY MORNING Oral Not-Taking/PRN Ciclopirox Olamine 0.77 % Cream 1 application Externally Once a dayMedication List reviewed and reconciled with the patient * Allergies:?Penicillin: rash - AllergyCodeine: Allergyyes[Allergies Verified] Objective: * Vitals:?Ht: 5ft 2'', Wt: 115 , BMI: 21.03, Shoe size: 9-9.5, BP: 145/70 mm Hg, Wt-k.16 kg. * Examination: ???Nails: ?NAILS are:?Elongated, overgrown, dystrophic, lytic, greater than 3mm thick, discolored and friable with crumbly malodorous subungual debris, with pain on palpation , 1-5 Right foot , TA , T1.?Dermatologic: ?SKIN FINDINGS:? Skin shows sign(s) of, erythema, scaling, in a moccasin fashion, no fissure(s) present, B/L , Skin shows sign(s) of, Puncture Wound extending into the Sub Q WITH evidence of FOREIGN BODY, but without any sign(s) of infection, dorsal left foot 1st mtpj?.? Assessment: * Assessment: 1.?Puncture wound with forei gn body of left great toe without damage to nail, initial encounter - S91.142A (Primary)?2.?Tinea unguium - B35.1?3.?Pain in right toe(s) - M79.674?4.?Pain in left toe(s) - M79.675?5.?Tinea pedis of both feet - B35.3, Acute problem, Uncomplicated (3),Rx drug management (4)? Plan: * Treatment: 2.?Tinea unguium? Start Ciclopirox Solution, 8 %, 1 application, Externally, Once a day, 30, 6.6 Milliliter, Refills 3.?Procedure: 26712-[id number] NAIL, 6 OR MORE 3.?Tinea pedis of both feet? Start Ciclopirox Olamine Cream, 0.77 %, 1 application, Externally, Twice a day, 30 days, 60, Refills 2.?? * Procedures:?Debride Nail 6-10:?Nail debridement?Nail debridement performed extensively to reduce/remove overall nail length, girth, thickness, subungual debris, and necrotic tissue, by manual and electrical means through the use of a nail nipper and/or dremel, to more viable healthy nail plate or bed tissue 1-5. Silver nitrate used for any petechial bleeding as necessary. Patient chooses, no pharmaceutical tx (36374).?Foreign Body Removal:?Anesthesia?3 cc of 1 percent Lidocaine Plain local anesthesic utilizing aseptic technique.?Skin?area prepped with alcohol or betadine , procedure performed under aseptic conditions.?Location of foreign body?As per exam.?Procedure?The wound was explored and the foreign body ( 10mm nylon/prolene suture form surgery 3 years ago?) was removed along with devitalized tissue, thru skin and subcutaneous tissue, using sterile 15 blade sharp dissection. A sterile antibiotic ointment dressing was applied and wound care instructions were discussed and dispensed, Patient tolerated procedure well (98740).? * Procedure Codes:?99064 DEBRI DE NAIL, 6 OR MORE, Modifiers: XS 70833 REMOVAL OF FOOT FOREIGN BODY, Modifiers: XS * Preventive Medicine:? ??Counseling:?Discussion:?-13: Office or other outpatient visit for the evaluation and management of an established patient, which required a medically appropriate history and/or examination and LOW level of DECISION MAKING for: 1 STABLE ACUTE UNCOMPLICATED PROBLEM, 2 OR MORE MINOR PROBLEMS, OR 1 STABLE CHRONIC PROBLEM, THAT POSE(S) A LOW RISK FOR MORBIDITY/MORTALITY. The visit on the day of the [...] encouraged the patient to call the office.?Tinea Pedis:?The patient was counseled on the diagnosis, potential etiologies, and treatment options for their skin condition. We discussed the risks and benefits of each option from performing no treatment, to utilizing OTC topical skin creams, prescription topical creams, customized compounded topical medications, and, if necessary, to utilize oral antifungal therapy. We discussed the advantages and disadvantages of each possible treatment and importance for adherence to all the recommended therapies for optimum success and avoid potential complications such as open sore/infection/possible hospitalization. We discussed the potential effectiveness of each topical preparation as well as each ones possible side effects and/or patient medication interactions if oral therapy is selected. Patient questions re: the advantages and disadvantages of each treatment choice, medication use/dosage, successful outcomes, and application consistency were reviewed and the patient verbalized that all answers were clearly understood. The patient was told they can help alleviate symptoms by utilizing moisture absorbant innersoles with activated charcoal and baking soda, applying antifungal sprays daily, aerating toe web spaces at night by putting cotton or lambs wool between the toes, alternating shoe gear daily if possible so they can dry out, changing socks at least once during the day, wearing well-ventilated shoes or sandals. The patient has decided to apply antifungal skin creams to their feet as directed. Rx was sent to their pharmacy at the time of visit.? * Follow Up:?2 Weeks * Images: * Sign off status: Completed true * Provider:?Michaela Acosta DPM Date:?2023 Generated for Sera hi/Lucas/Mac on:?06/23/2024 10:47 AM EDT History and Physical Notes * HPI (History of Present Illness) Category Sub-Category Detail Notes Category Not es Painful Nails Pt States Last PCP Visit: Date:: 03/31/2023 Skin problems Nature: scaling , redness Location: B/L Duration: several days Course: worse Examination Category Sub-Category Detail Notes Category Not es Dermatologic SKIN FINDINGS: Skin shows sign( s) of, erythema, scaling, in a moccasin fashion, no fissure(s) present, B/L , Skin shows sign(s) of, Puncture Wound extending into the Sub Q WITH evidence of FOREIGN BODY, but without any sign(s) of infection, dorsal left foot 1st mtpj Nails NAILS are: Elongated, overg rown, dystrophic, lytic, greater than 3mm thick, discolored and friable with crumbly malodorous subungual debris, with pain on palpation , 1-5 Right foot , TA , T1
== END 2024-06-23 10:06 | disposition home or self-care (01) ==
LOC: HO.PMC 09:11
PROVIDERS: PCP Internal Medicine; Referring Provider Internal Medicine; Visit Provider Nurse Practitioner Family
DX: M81.0 Age-related osteoporosis without current pathological fracture (principal); M53.3 Sacrococcygeal disorders, not elsewhere classified; M54.41 Lumbago with sciatica, right side; M54.42 Lumbago with sciatica, left side; G89.29 Other chronic pain; M43.16 Spondylolisthesis, lumbar region; M51.369 Other intervertebral disc degeneration, lumbar region without mention of lumbar back pain or lower extremity pain; M25.562 Pain in left knee
CPT/HCPCS: 99204; G2211

== ENCOUNTER → 2024-06-23 10:21 | Outpatient (BNV) | payer MEDICARE, SELFPAY | PROVIDERS: PCP Internal Medicine; Referring Provider Internal Medicine; Visit Provider Radiology Diagnostic Radiology | DX: M53.3 Sacrococcygeal disorders, not elsewhere classified (principal); M81.0 Age-related osteoporosis without current pathological fracture | CPT/HCPCS: 72220; 73521 ==

== ENCOUNTER 2024-07-10 09:40 | Outpatient (REF) | payer MEDICARE, SELFPAY ==
--- NOTE | ~2024-07-10 | MR_ITS ---
CLINICAL HISTORY: M53.3 - Sacrococcygeal disorders, not elsewhere classified Examination: MRI pelvis without intravenous contrast Comparison: None Findings: Incidental Tarlov cysts S2 measuring 3 x 2.3 cm. Mild degenerative spondylolisthesis grade 1 L4-5 suspect a rudimentary S1 /2 disc. No bone marrow edema or bony destructive processes. No sacroiliitis or ankylosis. No avascular necrosis. Normal congruence E of the femoroacetabular joints. Symphysis pubis and pubic rami intact. Postmenopausal uterine atrophy cyst with a equivocal septations left ovary measuring 2.8 x 2.6 x 2.0 cm. No endometrial thickening. Normal distention of the urinary bladder. Impression: 1. SI joints and sacrococcygeal joint intact 2. Tarlov cyst S2 on the right]. Degenerative spondylo listhesis L4-5. Significant spinal stenosis at this level correlate with a dedicated MRI lumbar spine. Suspect rudimentary disc S1-S2 3. Cyst with probable septations right ovary correlate with pelvic sonogram in a postmenopausal female This document has been electronically signed by: Pato Vargas MD on 07/10/2024 10:46:25
== END 2024-07-10 09:41 | disposition home or self-care (01) ==
LOC: HO.MRI 09:40
PROVIDERS: PCP Internal Medicine; Visit Provider Nurse Practitioner Family
DX: M53.3 Sacrococcygeal disorders, not elsewhere classified (principal); S32.10XA Unspecified fracture of sacrum, initial encounter for closed fracture; S32.2XXA Fracture of coccyx, initial encounter for closed fracture
CPT/HCPCS: 72195

== ENCOUNTER → 2024-07-10 09:47 | Outpatient (BNV) | payer MEDICARE, SELFPAY | PROVIDERS: PCP Internal Medicine; Visit Provider Radiology Diagnostic Radiology | DX: G96.191 Perineural cyst (principal); M43.16 Spondylolisthesis, lumbar region; M53.3 Sacrococcygeal disorders, not elsewhere classified | CPT/HCPCS: 72195 ==

== ENCOUNTER 2024-08-03 08:34 | Outpatient (AMB) | payer MEDICARE, SELFPAY ==
--- NOTE | 2024-08-03 08:43 | A.OFFPC_ITS ---
Vital Signs 08/03/24 08:44 Height 5 ft 2 in Weight 118 lb BMI 21.6 BP 130/80 Blood Pressure Location Lt brachial Position Sitting Respiration 20 Pulse 83 Pulse Source Pulse Oximeter Temp 98.0 F Temp Source Oral Pulse Oximetry (%) 96 Oxygen Delivery Method Room Air Intake Visit Reasons: 6m follow up Intake Note: Pt is here today for 6 months follow up visit. Allergies codeine Adverse Reaction (Unknown, Verified 08/03/24 08:44) Hives sulfamethoxazole Adverse Reaction (Unknown, Verified 08/03/24 08:44) Unknown trimethoprim Adverse Reaction (Unknown, Verified 08/03/24 08:44) Unknown lisinopril Adverse Reaction (Verified 08/03/24 08:44) cough Penicillins Adverse Reaction (Verified 08/03/24 08:44) rash Medication List - Last Reconciled 08/03/24 by Johanna Palencia MD acetaminophen ER 1,300 mg PO Q12H cholecalciferol (vitamin D3) 50 mcg PO DAILY dicyclomine 10 mg PO TID fluticasone propionate 50 mcg/actuation 1 spray intranasal DAILY losartan 100 mg PO DAILY simvastatin 20 mg PO BEDTIME triamterene 50 mg PO DAILY Tobacco use date assessed: 08/03/24 Fall risk assessment: No Falls in past year Last assessed Fall Risk: 08/03/24 Dental Screening Dental Screen Date: 08/03/24 Did you have a dental visit in the last 12 months?: Yes Did you have a dental problem in the last 6 months where you did not have access to dental care?: No Was dental information given to patient?: Patient has dentist HPI 6m follow up HPI Details Patient presents for the follow-up of hypertension hyperlipidemia stable on current medications. She complains of persistent left buttock pain radiating to left posterior leg for 6 months, worse when sitting for awhile and starting to walk. Patient denies any weakness or numbness in extremities, change in bowel or bladder function. The pain is improved when lying down. Patient had x-ray and MRI of lumbar spine consistent with spinal stenosis. She was referred to physical therapy but but does not want to have physical therapy. Patient has been seen by pain management and was referred to spinal surgeon. [facility] Medical History (Updated 08/03/24 @ 09:51 by Johanna Palencia MD) Left ovarian cyst PMR (polymyalgia rheumatica) Osteoporosis HTN (hypertension) Hyperlipidemia Lumbar spinal stenosis Piriformis syndrome of left side Lumbar degenerative disc disease Surgical History History of bunionectomy Hx of appendectomy Family History Son Substance use disorder Father No problems noted. Mother Hypertension Social History Household Members Other:: , 6 adult sons, grandchildren in [place], [facility] Housing: House Patient Tobacco Use Status: Never used Tobacco e-Cigarette/Vaping Use: Never Used service: No Current occupational status: retired Cognitive needs: No Hearing needs: No Vision needs: Yes Questionnaire PHQ-9 Over the last 2 weeks, how often have you been bothered by any of the following problems? 1. Little interest or pleasure in doing things: nearly every day 2. Feeling down, depressed, or hopeless: not at all 3. Trouble falling or staying asleep, or sleeping too much: not at all 4. Feeling tired or having little energy: not at all 5. Poor appetite or overeating: not at all 6. Feeling bad about yourself - or that you are a failure or have let yourself or your family down: not at all 7. Trouble concentrating on things, such as reading the newspaper or watching television: not at all 8. Moving or speaking so slowly that other people could have noticed. Or the opposite - being so fidgety or restless that you have been moving around a lot more than usual: not at all 9. Thoughts that you would be better off or of hurting yourself in some way: not at all Total score: 3 Depression Screening Interpretation: Negative Depression Screening Done: Yes 08783 - PHQ-9 Billing: Yes Source: Developed by Drs. Lowell Hinton, Annmarie Hooker, Nicola Ballard and colleagues, with an educational betty from [employer]. Thrive Questionnaire Date Thrive assessed: 08/03/24 I am a: Patient What is your living situation today?: I have a steady place to live Within the past 12 months, did the food you bought not last and you didn't have the money to get more?: Never true Within the past 12 months, did you worry whether your food would run out before you got money to buy more?: Never true Do you have trouble paying for medicines?: No Do you have trouble getting transportation to medical appointments?: No Do you have trouble paying your heating and electricity bill?: No Do you have trouble taking care of your child, family member or friend?: No Do you have trouble with day-to-day activities such as bathing, preparing meals, shopping, managing finances, etc.?: No Are you currently unemployed and looking for a job?: No Are you interested in more education?: No Please select the resources that you would like help with: None Currently or been in a relationship where the following occur: No concerns reported THRIVE Score: 0 AUDIT C Alcohol Use Questionnaire (AUDIT-C) 1. How often do you have a drink containing alcohol?: Never 3. How often do you have six or more drinks on one occasion?: Never Total Score: 0 STEPHANIE-7 AMB Questionnaire STEPHANIE-7 Date STEPHANIE - 7 assessed: 08/03/24 Feeling nervous, anxious, or on edge: 0 = Not at all Not being able to stop or control worryin = Not at all Worrying too much about different things: 0 = Not at all Trouble relaxin = Not at all Being so restless that it is hard to sit still: 0 = Not at all Becoming easily annoyed or irritable: 0 = Not at all Feeling afraid as if something awful might happen: 0 = Not at all Total STEPHANIE-7 score (0-4 normal; 5-9 mild; 10-14 moderate; 15-21 severe): 0 Source: Developed by Drs. Lowell Hinton, Annmarie Hooker, Nicola Ballard and colleagues, with an educational betty from [employer]. STEPHANIE-7 Assessment Billing STEPHANIE-7 Assessment Tool: STEPHANIE-7 Assessment 91983 Review of Systems Const All systems reviewed & are unremarkable except as noted in HPI and below Eyes Reports no additional complaints ENT Reports no additional complaints Card Reports no additional complaints Resp Reports no additional complaints GI Reports no additional complaints Physical exam (Primary Care) Vital Signs: Last Vital Signs Temp 98.0 F 08/03/24 08:44 Pulse 83 08/03/24 08:44 Resp 20 08/03/24 08:44 BP 130/80 08/03/24 08:44 Pulse Ox 96 08/03/24 08:44 Oxygen Delivery Method Room Air 08/03/24 08:44 BMI result Body Mass Index 21.6 Tobacco/Smoking Status: Tobacco use Status Tobacco use date assessed 08/03/24 08/03/24 08:46 Patient Tobacco Use Status Never used Tobacco 08/03/24 08:46 e-Cigarette/Vaping Use Never Used 08/03/24 08:46 PHQ-9: PHQ-9 Score PHQ-9: Total score 3 08/03/24 08:53 Depression Screening Interpretation: Negative Thrive Assessment: Date of Thrive Assessment Date Thrive assessed 08/03/24 08/03/24 08:53 Currently or been in a relationship where the following occur: No concerns reported Const General: no acute distress HENMT Head: Yes normal to inspection Neck Neck: Yes supple Resp Effort & Inspection: normal respiratory effort Auscultation: clear to auscultation bilaterally Cardio Rhythm: regular rhythm Heart sounds: S1 normal heart sound present and S2 normal heart sound present GI Inspection: Yes normal to inspection Palpation (GI): Soft to palpation Back/Spine/Pelvis Other: There is a tenderness over left SI joint, straight leg rising 90 degrees bilaterally. There is the reproducible tenderness in left posterior buttock. Deep tendon reflexes are 1+ bilaterally, motor strength 5/5 bilaterally Coding Level of Care Code Est Pt Level 4 (93316) Diagnoses Osteoporosis M81.0 HTN (hypertension) I10 Hyperlipidemia E78.5 Lumbar spinal stenosis M48.061 Left ovarian cyst N83.202 Piriformis syndrome of left side G57.02 Additional Codes STEPHANIE-7 Assessment Billing - STEPHANIE-7 Assessment Tool: STEPHANIE-7 Assessment 95123 ([id number]) PHQ-9 - 77193 - PHQ-9 Billing: Yes ([id number]) Assessment & Plan Assessment & Plan (1) Osteoporosis: Comment: DEXA 03/2023, total femur T score -2.7 worsened(12.6 %) after 2 years of Fosamax, patient stopped Fosamax 12/2023, Reclast was prescribed but patient's insurance did not cover it, she declined taking Prolia because of possible side of effects, referred to Endo Code(s): M81.0 - Age-related osteoporosis without current pathological fracture Category: Medical Plan: Continue vitamin-D weight-bearing exercises and patient is waiting for an ap pointment with services rep to discuss the treatment of osteoporosis (2) HTN (hypertension): Code(s): I10 - Essential (primary) hypertension Category: Medical Plan: Continue current medications (3) Hyperlipidemia: Code(s): E78.5 - Hyperlipidemia, unspecified Category: Medical Plan: Continue statin (4) Lumbar spinal stenosis: Comment: L spine XR 12/2023 consistent with lumbar spinal and pelvic MRI 05/2024 normal SI joints degenerative spondylolisthesis at the L4-5 level, established with [facility] pain management and referred to spinal surgeon 07/2024 Code(s): M48.061 - Spinal stenosis, lumbar region without neurogenic claudication Category: Medical Plan: Follow-up with pain management and spinal surgeon (5) Left ovarian cyst: Comment: MR pelvis 2.8x2.6x2.0 cm 06/2024, chronic, pt is aware Code(s): N83.202 - Unspecified ovarian cyst, left side Category: Medical Plan: Patient declined obtaining pelvic ultrasound (6) Piriformis syndrome of left side: Code(s): G57.02 - Lesion of sciatic nerve, left lower limb Category: Medical Plan: Left-sided piriformis syndrome patient was advised to have physical therapy but she declined. Baclofen 10 mg p.r.n. is prescribed Orders: Orders Complete Blood Count Auto Diff 6 Months E55.9 - Vitamin D deficiency, unspecified, E78.5 - Hyperlipidemia, unspecified, I10 - Essential (primary) hypertension Vitamin D 25-OH Total 6 Months E55.9 - Vitamin D deficiency, unspecified, E78.5 - Hyperlipidemia, unspecified, G57.02 - Lesion of sciatic nerve, left lower limb, I10 - Essential (primary) hypertension Lipid Panel 6 Months E55.9 - Vitamin D deficiency, unspecified, E78.5 - Hyperlipidemia, unspecified, I10 - Essential (primary) hypertension Comprehensive Maidens. Panel Fast 6 Months E55.9 - Vitamin D deficiency, unspecified, E78.5 - Hyperlipidemia, unspecified, I10 - Essential (primary) hypertension Referrals Endocrinology Referral M81.0 - Age-related osteoporosis without current pathological fracture Medications: New baclofen 10 mg PO BEDTIME 10 tabs 0RF Discontinued dicyclomine Discontinued Reason: Doctor's Order 10 mg PO TID 90 caps 0RF
[2024-08-03 08:44] VITALS: BP 130/80; PULSE 83; RESP 20; TEMP 36.7; O2SAT 96; BMI 21.6
--- OUTSIDE RECORDS SUMMARY | 2024-08-03 08:51 | XMS_ITS | Encounter Summary ---
Author Organization [facility] Address [address] [place] [address] Care Team Providers Care Application Design Engineer Name Role Phone Maddy Suazo MD Primary Care Provider [phone] [facility], Pcp Primary Care Provider Unavailabl e Encounter Details Date Type Department Care Team Description 03/26/2012 Senior Ux Designer Report Medical Records [address] [place] [id number] Sheng Kate Social History Tobacco Use Types Packs/Day Years Used Date Smoking Tobacco: Never Smokeless Tobacco: Never Alcohol Use Standard Drinks/Week Comments No 0 (1 standard drink = 0.6 oz pur e alcohol) Sex Assigned at Date Recorded Not on file Job Start Date Occupation Industry Not on file Not on file Not on file documented as of this encounter Plan of Treatment Not on file documented as of this encounter Visit Diagnoses Not on filedocumented in this encounter Care Teams Application Design Engineer Relationship Specialty Start Date End Date Maddy Suazo MD [address] [place] [address] [phone] PCP - General 10/19/00 08/01/21 [facility], Pcp [address] [place] [phone] PCP - General Internal Medicine 08/02/21 documented as of this encounter
--- OUTSIDE RECORDS SUMMARY | 2024-08-03 08:51 | XMS_ITS | Encounter Summary ---
Author Organization [facility] Address [address] [place] [address] Care Team Providers Care Auditor Tax Name Role Phone Maddy Suazo MD Primary Care Provider [phone] [facility], Pcp Primary Care Provider Unavailabl e Reason for Referral * Non WENDY (Urgent) - Authorized/Booked Specialty Diagnoses / Procedures Referred By Contac t Referred To Contact Rheumatology Diagnoses PMR (polymyalgia rheumatica) (HCC) Procedures REFERRAL TO RHEUMATOLOGY Fiona Araujo PA-C [address] [place] [id number] Joseph Dumont MD [address] [place] [phone] Referral ID Status Reason Start Date Expiration Date V isits Requested Visits Authorized [id number] Authorized/ Booked 12/10/2020 12/10/2021 12 12 Encounter Details Date Type Department Care Team Description 12/07/2020 Orders Only Adult Medicine [address] [address] Fiona Araujo PA-C [address] [place] [id number] PMR (polymyalgia rheumatica) (HCC) (Primary Dx) Social History Tobacco Use Types Packs/Day Years Used Date Smoking Tobacco: Never Smokeless Tobacco: Never Alcohol Use Standard Drinks/Week Comments No 0 (1 standard drink = 0.6 oz pur e alcohol) Sex Assigned at Date Recorded Not on file Job Start Date Occupation Industry Not on file Not on file Not on file COVID-19 Exposure Response Date Recorded In the last month, have you been in contact with someone who was confirmed or suspected to have Coronavirus / COVID-19? No / Unsure 12/06/2020 2:09 PM EDT documented as of this encounter Plan of Treatment Not on file documented as of this encounter Visit Diagnoses Diagnosis PMR (polymyalgia rheumatica) ([facility])- Primary Polymyalgia rheumatica documented in this encounter Care Teams Auditor Tax Relationship Specialty Start Date End Date Maddy Suazo MD [address] [place] [phone] PCP - General 10/19/00 08/01/21 [facility], Pcp [address] [place] [phone] PCP - General Internal Medicine 08/02/21 documented as of this encounter
--- OUTSIDE RECORDS SUMMARY | 2024-08-03 08:51 | XMS_ITS | Encounter Summary ---
Author Organization [facility] Address [address] [place] [address] Care Team Providers Care Claim Trainee Name Role Phone Maddy Suazo MD Primary Care Provider [phone] [facility], Pcp Primary Care Provider Unavailabl e Encounter Details Date Type Department Care Team Description 04/08/2021 Electrician Apprentice Powerhouse Report Medical Records [address] [place] [phone] Judith Wheeler DPM Social History Tobacco Use Types Packs/Day Years [...] on filedocumented in this encounter Care Teams Claim Trainee Relationship Specialty Start Date End Date Maddy Suazo MD [address] [place] [address] [phone] PCP - General 10/19/00 08/01/21 [facility], Pcp [address] [place] [phone] PCP - General Internal Medicine 08/02/21 documented as of this encounter
--- OUTSIDE RECORDS SUMMARY | 2024-08-03 08:51 | XMS_ITS | Encounter Summary ---
Author Organization [facility] Address [address] [place] [address] Care Team Providers Care Pickling Drum Operator Name Role Phone Maddy Suazo MD Primary Care Provider [phone] [facility], Pcp Primary Care Provider Unavailabl e Encounter Details Date Type Department Care Team Description 09/01/2018 Heel Reducer Report Medical Records [address] [place] [id number] Stanislaw Estrada MD Social History Tobacco Use Types Packs/Day Years [...] on filedocumented in this encounter Care Teams Pickling Drum Operator Relationship Specialty Start Date End Date Maddy Suazo MD [address] [place] [address] [phone] PCP - General 10/19/00 08/01/21 [facility], Pcp [address] [place] [phone] PCP - General Internal Medicine 08/02/21 documented as of this encounter
--- OUTSIDE RECORDS SUMMARY | 2024-08-03 08:51 | XMS_ITS | Encounter Summary ---
Author Organization [facility] Address [address] [place] [address] Care Team Providers Care Mandarin Teacher Name Role Phone Maddy Suazo MD Primary Care Provider [phone] [facility], Pcp Primary Care Provider Unavailabl e Reason for Visit * Reason Comments E-prescribe Rx Request Encounter Details Date Type Department Care Team Description 02/11/2016 Refill Adult Medicine [facility] [address] [place] [address] [phone] Maddy Suazo MD [address] [place] [address] [phone] E-prescribe Rx Request Social History Tobacco Use Types Packs/Day Years Used Date Smoking Tobacco: Never Smokeless Tobacco: Never Alcohol Use Standard Drinks/Week Comments No 0 (1 standard drink = 0.6 oz pur e alcohol) Sex Assigned at Date Recorded Not on file Job Start Date Occupation Industry Not on file Not on file Not on file documented as of this encounter Miscellaneous Notes * Telephone Encounter - Hemanth Wolf - 02/11/2016 12:12 PM EST Patient would like script to be: E-PRESCRIBED/FAXED TO PHARMACY WHEN WAS THE PATIENT'S LAST APPOINTMENT IN ADULT MEDICINE? 16 WHEN WAS THE LAST TIME THE PATIENT SAW THEIR PCP? Same as above Does patient have an upcoming appointment? Yes 17.16 (THE MEDICATION REQUESTED IS ON THE MED LIST ABOVE) All of the medications requested were on the CURRENT MEDS list Did you check the Pharmacy information above?: YES Patient wants: 30 -day supply Is this a mail order prescription request ? NO Patients current insurance carrier is: Payor: [employer] / Plan: [employer] $10/$15 BETHEL/ Product Type: OTHER documented in this encounter Plan of Treatment Not on file documented as of this encounter Visit Diagnoses Not on filedocumented in this encounter Care Teams Mandarin Teacher Relationship Specialty Start Date End Date Maddy Suazo MD [address] [place] [phone] PCP - General 10/19/00 08/01/[address] [address] PCP - General Internal Medicine 08/02/21 documented as of this encounter
--- OUTSIDE RECORDS SUMMARY | 2024-08-03 08:51 | XMS_ITS | Encounter Summary ---
Author Organization [facility] Address [address] [place] [address] Care Team Providers Care County Assessor Name Role Phone Maddy Suazo MD Primary Care Provider [phone] [facility], Pcp Primary Care Provider Unavailabl e Encounter Details Date Type Department Care Team Description 01/02/2014 Orders Only Adult Medicine [facility] [address] [place] [address] [phone] Maddy Suazo MD [address] [place] [address] [phone] HYPERCHOLESTEROLEMIA; HYPERTENSION Social History Tobacco Use Types Packs/Day Years [...] on file documented as of this encounter Results * (ABNORMAL) BASIC METABOLIC PANEL (01/02/2014 9:53 AM EDT) [facility] GLUCOSE 102(H) 70 - 100 mg/dL 01/02/2014 11:15 AM EDT [facility] Comment: Reference range applicable to fasting specimens only Based on recommendations from the ADA and AACE, the fasting glucose reference range has been changed to 70-100 mg/dL. ??This change is effective August 13, 2009 BUN 11 5 - 25 mg/dL 01/02/2014 11:15 AM EDT [facility] CREAT 0.9 0.7 - 1.5 mg/dL 01/02/2014 11:15 AM EDT [facility] GFR > 60 >60 01/02/2014 11:15 AM EDT [facility] Comment: If patient is -Citizen Of The [place], multiply result by 1.21 Chronic Kidney Disease: < 60 ml/min/1.73 square meters Kidney Failure: < 15 ml/min/1.73 square meters Sodium 142 133 - 145 mEq/L 01/02/2014 11:15 AM EDT [facility] Potassium 4.6 3.5 - 5.2 mEq/L 01/02/2014 11:15 AM EDT [facility] Chloride 102 96 - 108 mEq/L 01/02/2014 11:15 AM EDT [facility] CO2 26.6 21.0 - 32.0 mEq/L 01/02/2014 11:15 AM EDT [facility] CALCIUM 10.0 8.5 - 10.5 mg/dL 01/02/2014 11:15 AM EDT [facility] 01/02/2014 9:53 AM EDT 01/02/2014 9:53 AM EDT Maddy Suazo MD LAB Performing Organization Address [facility] Co de Phone Number [address] * TRANSAMINASE (SGPT)(ALT) UV- (01/02/2014 9:53 AM EDT) ALT( SGPT) 15 10 - 60 U/L 01/02/2014 11:15 AM EDT [facility] 01/02/2014 9:53 AM EDT 01/02/2014 9:53 AM EDT Maddy Suazo MD LAB Performing Organization Address [facility] de Phone Number [address] * TRANSAMINASE (SGOT)(AST) UV- (01/02/2014 9:53 AM EDT) AST (SGOT) 18 10 - 42 U/L 01/02/2014 11:15 AM EDT [facility] 01/02/2014 9:53 AM EDT 01/02/2014 9:53 AM EDT Maddy Suazo MD LAB Performing Organization Address [facility] Co de Phone Number [address] * LIPID PROFILE (01/02/2014 9:53 AM EDT) Cholesterol 164 0 - 200 mg/dL 01/02/2014 11:15 AM EDT [facility] TRIGLYCERIDES 81 0 - 150 mg/dL 01/02/2014 11:15 AM EDT [facility] HDL CHOLESTEROL 59 >40 mg/dL 4 11:15 AM EDT [facility] LDL CALCULATED 89 0 - 100 mg/dL 01/02/2014 11:15 AM EDT [facility] TC-HDLC RATIO 3 0.0 - 4.4 mg/dL 01/02/2014 11:15 AM EDT [facility] 01/02/2014 9:53 AM EDT 01/02/2014 9:53 AM EDT Maddy Suazo MD LAB Performing Organization Address [facility] Co de Phone Number [address] documented in this encounter Visit Diagnoses Diagnosis HYPERCHOLESTEROLEMIA Pure hypercholesterolemia HYPERTENSION Essential hypertension, benign documented in this encounter Care Teams County Assessor Relationship Specialty Start Date End Date Maddy Suazo MD [address] [place] [phone] PCP - General 10/19/00 08/01/21 [facility], Pcp [address] [place] [phone] PCP - General Internal Medicine 08/02/21 documented as of this encounter
--- OUTSIDE RECORDS SUMMARY | 2024-08-03 08:51 | XMS_ITS | Patient Health Record ---
Author Organization [facility] Address [address] [place] [address] Care Team Providers Care Charity Fundraiser Name Role Phone Johanna Palencia MD Primary Care Provider Unavaila Michaela Buenrostro Unavailable [phone] Allergies Allergen (clinical drug ingredient) Drug/Non Drug [...] Johanna Referring Provider Last Name Talha Vazquez [facility] Kayode Referred Provider Michaela Acosta Referred Address [address] [facility],[place],[address], Referred Provider Specialty Podiatry Referral Priority Routine [...] Status Risk Notes Problem Acquired hallux valgus (87159837) Hallux valgus (acquired), left foot (M20.12) Active confirmed Problem Localized, primary osteoarthritis of the ankle and/or foot (454748728) Primary osteoarthrit is, left ankle and foot (M19.072) Active confirmed Problem Acquired hallux valgus (92152772) Hallux valgus (acquired), right foot (M20.11) Active confirmed Vital Signs Blood pressure diastolic 70 mm Hg 02/22/2024 Height 5ft 2'' in 02/22/2024 Blood pressure systolic 138 mm Hg 02/22/2024 Weight 115 lbs 02/22/2024 BMI 21.03 kg/m2 02/22/2024 Procedures Procedure Date Ordered Date Performed Result Body Sit e [id number] NAIL, 6 OR MORE 10/22/2023 N/A 55965- Removal of Foreign Body, Subcut 10/22/2023 N/A [id number] NAIL, 6 OR MORE 02/22/2024 N/A Encounters Encounter Location Date Provider Diagnosis [facility] [place] [address] 10/22/2023 Michaela Black Tinea unguium B35.1 ; Puncture wound with foreign body of left great toe without damage to nail, initial encounter S91.142A ; Pain in right toe(s) M79.674 ; Pain in left toe(s) M79.675 and Tinea pedis of both feet B35.3 [facility] [address] [place] [address] 02/22/2024 Michaela Acosta Tinea unguium B35.1 ; [...] Treatment Pending Test Test Name Order Date [id number] NAIL, 6 OR MORE 12/16/2021 86402-VEROPMD NAIL, 6 OR MORE 10/22/2023 [id number] NAIL, 6 OR MORE 02/22/2024 97284, [id number]-TVMUH/INJECT, JOINT/BURSA 1 05/06/2022 08273- Removal of Foreign Body, Subcut 0 10/22/2023 Next Appt Details Provider Name:Michaela Acosta , 09/19/2024 08:00:00 AM, [address] [place], [address], Insurance Providers Payer Name Payer Address Payer Phone Subscriber Number Group Number Insured Name Patient Relationship to Insured Coverage Start Date Coverage End Date [facility] [address] Maria [place] burris [phone] [id number] Julissa Blackman Self - patient is the insured 2 Medical (General) History Medical History History ICD Code Arthritis Back,Hip,and Knee pain High blood pressure Osteoporosis Chicken pox Joint implants/screws Surgical History Surgery Date(Month/Year) bunion 03/04/2021
--- OUTSIDE RECORDS SUMMARY | 2024-08-03 08:51 | XMS_ITS | Encounter Summary ---
Author Organization [facility] Address [address] [facility] [place] [address] Care Team Providers Care Payroll And Benefits Assistant Name Role Phone Maddy Suazo MD Primary Care Provider [phone] [facility], Pcp Primary Care Provider Unavailabl e Encounter Details Date Type Department Care Team Description 06/03/2019 Pt. Referral Request [facility] MyChart [address] [place] [address] Md Candice Social History Tobacco Use Types Packs/Day Years [...] on filedocumented in this encounter Care Teams Payroll And Benefits Assistant Relationship Specialty Start Date End Date Maddy Suazo MD [address] [place] [address] [phone] PCP - General 10/19/00 08/01/21 [facility], Pcp [address] [place] [address] PCP - General Internal Medicine 08/02/21 documented as of this encounter
--- OUTSIDE RECORDS SUMMARY | 2024-08-03 08:51 | XMS_ITS | Encounter Summary ---
Author Organization [facility] Address [address] [place] [address] Care Team Providers Care Boring Machine Set Up Operator Name Role Phone Community, Pcp Primary Care Provider Unavailabl e Encounter Details Date Type Department Care Team Description 03/19/2022 Textile Slitting Machine Operator Report Medical Records [address] [place] [address] Judith Wheeler DPM Social History Tobacco Use [...] on filedocumented in this encounter Care Teams Boring Machine Set Up Operator Relationship Specialty Start Date End Date Community, Pcp PCP - General Internal Medicine 08/02/21 documented as of this encounter
--- OUTSIDE RECORDS SUMMARY | 2024-08-03 08:51 | XMS_ITS | Patient Health Record ---
Author Organization [facility] Address [address] [facility] [address] [facility] [place] [address] Care Team Providers Care Solar Photovoltaic Crew Lead Name Role Phone Maddy Suazo Primary Care [...] Problem Status W/U Status Risk Notes Problem [id number] Hallux valgus (acquired), right foot (M20.11) Active confirmed Problem [id number] Hallux valgus (acquired), left foot (M20.12) Active confirmed Problem [id number] Neuritis of left foot (G57.92) Active confirmed [...] Insured Coverage Start Date Coverage End Date [facility] [address] [place] [address] [id number] Julissa Blackman Self - patient is the [...]
--- OUTSIDE RECORDS SUMMARY | 2024-08-03 08:51 | XMS_ITS | Encounter Summary ---
Author Organization [facility] Address [address] [place] [address] Care Team Providers Care Drapery Estimator Name Role Phone Maddy Suazo MD Primary Care Provider [phone] [facility], Pcp Primary Care Provider Unavailabl e Encounter Details Date Type Department Care Team Description 11/07/2016 Orders Only Adult Medicine [address] [phone] Maddy Suazo MD [address] [place] [address] [phone] osteopenia Social History Tobacco Use Types Packs/Day Years [...] on file documented as of this encounter Procedures Procedure Name Priority Date/Time Associated Diagnosis Comments DXA BONE DENSITY STUDY 1+ SI TS AXIAL SKEL Routine 10/31/2016 osteopenia documented in this encounter Results * DXA BONE DENSITY STUDY 1+ SITS AXIAL SKEL (10/31/2016) Maddy Suazo MD DEXA documented in this encounter Visit Diagnoses Diagnosis osteopenia Disorder of bone and cartilage, unspecified documented in this encounter Care Teams Drapery Estimator Relationship Specialty Start Date End Date Maddy Suazo MD [address] [place] [address] PCP - General 10/19/00 08/01/21 [facility], Pcp [address] [place] [address] PCP - General Internal Medicine 08/02/21 documented as of this encounter
--- OUTSIDE RECORDS SUMMARY | 2024-08-03 08:51 | XMS_ITS | Encounter Summary ---
Author Organization [facility] Address [address] [facility] [place] [address] Care Team Providers Care Ice Cream Dispenser Name Role Phone Maddy Suazo MD Primary Care Provider [phone] [facility], Pcp Primary Care Provider Unavailabl e Encounter Details Date Type Department Care Team Description 02/20/2021 Director Clinical Information Services Report Medical Records [address] [place] [address] Judith Wheeler DPM Social History Tobacco Use [...] have Coronavirus / COVID-19? No / Unsure 02/19/2021 9:53 AM EST documented as of this encounter Plan of Treatment Not on file documented as of this encounter Visit Diagnoses Not on filedocumented in this encounter Care Teams Ice Cream Dispenser Relationship Specialty Start Date End Date Maddy Suazo MD [address] [place] [address] PCP - General 10/19/00 08/01/21 [facility], Pcp [address] [place] [address] PCP - General Internal Medicine 08/02/21 documented as of this encounter
--- OUTSIDE RECORDS SUMMARY | 2024-08-03 08:51 | XMS_ITS | Clinical Summary ---
Author Organization [facility] Address [address] [facility] [place] [address] Care Team Providers Care Pail Bailer Name Role Phone Community, Pcp Primary Care Provider Unavailabl e Allergies Active Allergy Reactions Severity Noted Date Comments Sulfamethoxazole W/Trimethoprim Nausea and Vomiting 07/06/2014 Codeine 12/17/2005 nausea Lisinopril 01/18/2007 cough Penicillin G Potassium Hives/Urticaria 12/18/19 06 Medications Medication Sig Dispensed Refills Start Date End Date Status FISH OIL 1 Cap daily. 0 Active VITAMIN D, CHOLECALCIFEROL, OR Take 1 tablet by mouth daily. 0 Active triamterene-hydroch lorothiazide (MAXZIDE-25) 37.5-25 MG per tablet Take 1 tablet by mouth daily. 90 tablet 1 01/24/2021 Active predniSONE (DELTASONE) 2.5 MG tablet Take 2 tab in the morning and 1 tab in the afternoon (lunchtime) for 1 month, then take 1 tab twice daily for 1 month. 150 tablet 1 01/24/2021 Active losartan (COZAAR) 25 MG tablet Take 1 tablet by mouth daily. 90 tablet 1 02/19/2021 Active simvastatin (ZOCOR) 20 MG tablet Take 1 tablet by mouth at bedtime. 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 Overview: 09/15 left CTS (carpal tunnel syndrome) 09/01/2018 Overview: 09/15 left Bunion 06/29/2013 Onychomycosis 06/29/2013 GERD (gastroesophageal reflux disease) 0 11/28/2010 Actinic keratosis 07/14/2008 NODULAR THYROID 09/09/2006 HYPERTENSION 09/08/2006 HYPERCHOLESTEROLEMIA 12/17/2005 osteopenia 12/17/2005 Overview: T-1.9 spine, -1.6 hip 12/03 9.09 T score spine -1.0 hip -0.7 08/09 T score spine -1.6 hip -1.2 FRAX score 9.6% 10 year fracture risk 10/11 T score spine -1.7 hip -1.5 FRAX score 10% 10 year fracture risk Occlusion and stenosis of carotid artery 12/17/2005 Overview: doppler <50 % bilat 09/01 left bruit Carotid usn normal bilaterally 2006 No significant stenosis 2014 VARICOSE VEINS 12/17/2005 Immunizations Name Administration Dates Next Due COVID-19 (Pfizer) Pt Reported 12/26/2020, 021,05/06/2020 Hepatitis-A (>19YRS) 08/17/2017 Influenza (> 6 Months) 12/10/2012,2011,12/27/2010,12/13,03/10/2009,12/30/2007 Influenza Flu (PT Reported) 12/30/2013 Influenza H1N1 Pandemic Flu Vaccine 04/04/2009 Influenza vaccine high dose age 65 and over 11/22/2020,12/07/2019,12/13/2017,01/18,12/10/2015,12/08/2014 Pneumoccoccal(Adult) Polysac charide PPSV23 2019,07/14/2008 Pneumococcal Conjugate PCV-13 07/06/2014 Shingrix (Recombinant zoster vaccine) 2019 ,04/15/2019 TD (STATE SUPPLIED FOR ADULT S AND CHILDREN) 12/17/2005 Tdap 2011 Zostavax (Patient Reported) 07/08/2012 Family History Medical History Relation Name Comments Cancer of the Breast Brother yes, br east with lung metastases Emphysema Father cardiac tumor Mother 59 Drug Abuse Son Relation Name Status Comments Brother Father Mother Son Social History Tobacco Use Types Packs/Day Years Used Date Smoking Tobacco: Never Smokeless Tobacco: Never Alcohol Use Standard Drinks/Week Comments No 0 (1 standard drink = 0.6 oz pur e alcohol) Sex Assigned at Date Recorded Not on file Job Start Date Occupation Industry Not on file Not on file Not on file Last Filed Vital Signs Vital Sign Reading Time Taken Comments Blood Pressure 122/72 02/19/2021 9:57 AM EST Pulse 68 02/19/2021 9:57 AM EST Temperature 36.6 ??C (97.9 ??F) 02/19/2021 9:57 AM ES T Respiratory Rate 14 02/19/2021 9:57 AM EST Oxygen Saturation 95% 12/30/2019 10:03 AM EDT Inhaled Oxygen Concentration - - Weight 52.2 kg (115 lb) 02/19/2021 9:57 AM EST Height 157.5 cm (5' 2 ) 02/19/2021 9:57 AM EST Body Mass Index 21.03 02/19/2021 9:57 AM EST Plan of Treatment Health Maintenance Due Date Last Done Comments BONE DENSITY SCREENING 12/02/2020 9, 10/31/2016, 10/05/2014, Additional history exists MAMMOGRAM 04/05/2021 04/05/2020, 07/2018, 11/19/2017, Additional history exists DTAP/TDAP/TD (2 - Td or Tdap) 06/15/2021 2011, 12/17/2005 DIABETES/HEART DISEASE: KHURRAM AL CHOLESTEROL (LDL) 12/06/2021 12/06/2020, 04/02/2020, 02/18/2019, Additional history exists Covid-19 Vaccine (2022-04 4 season) 2023 12/26/2020, 05/29/2020, 05/06/2020 INFLUENZA (Season Ended) 2024 021, 12/07/2019, 12/31/2018, Additional history exists PNEUMOCOCCAL VACCINE Completed 2019, 07/06/2014, 07/14/2008 SHINGLES VACCINE Completed 2019, , 07/08/2012 Insurance Payer Benefit Plan / Group Subscriber ID Effective Dates Phone Address Type AGUEDA HARRELL $01/16 KINA [id number] 2016-Brandyn montiel [facility] CLAIMS DEPT [address] [place] [id number] OTHER Care Teams Pail Bailer Relationship Specialty Start Date End Date Community, Pcp PCP - General Internal Medicine 08/02/21
--- OUTSIDE RECORDS SUMMARY | 2024-08-03 08:51 | XMS_ITS | Encounter Summary ---
Author Organization [facility] Address [address] [place] [address] Care Team Providers Care Coal Tower Operator Name Role Phone Maddy Suazo MD Primary Care Provider [phone] [facility], Pcp Primary Care Provider Unavailabl e Encounter Details Date Type Department Care Team Description 05/09/2021 Market Research Lead Report Medical Records [address] [place] [address] Judith Wheeler DPM Social History Tobacco Use [...] on filedocumented in this encounter Care Teams Coal Tower Operator Relationship Specialty Start Date End Date Maddy Suazo MD [address] [place] [address] [phone] PCP - General 10/19/00 08/01/21 [facility], [address] [address] PCP - General Internal Medicine 08/02/21 documented as of this encounter
--- OUTSIDE RECORDS SUMMARY | 2024-08-03 08:51 | XMS_ITS | Encounter Summary ---
Author Organization [facility] Address [address] [place] [address] Care Team Providers Care Sound Controller Name Role Phone Maddy Suazo MD Primary Care Provider [phone] [facility], Pcp Primary Care Provider Unavailabl e Reason for Visit * Reason Onset Date Comments Pre-op Needed 12/31/2020 Encounter Details Date Type Department Care Team Description 12/31/2020 Telephone Adult Medicine [facility] [address] [place] [address] [phone] Maddy Suazo MD [address] [place] [address] [phone] Pre-op Needed Social History Tobacco Use Types Packs/Day Years [...] have Coronavirus / COVID-19? No / Unsure 12/14/2020 9:48 AM EDT documented as of this encounter Miscellaneous Notes * Telephone Encounter - Rosmery Pollard - 12/31/2020 1:36 PM EDT Date of surgery:03/04/21 What surgery is patient having (gall bladder, cataract, appendix, etc...)?: Left foot chevron atkins buniectomy Surgeon's name: Judith Wheeler Office phone number of surgeon: [phone] Fax # for surgeons office: [phone] (Required) Where is surgery being performed? [facility] Diagnosis/problem for surgery: bunnion Is an EKG required for the pre-op workup? YES and a cbc and a lard mixer PCP: Maddy Suazo Did you verify that the insurance below is correct? YES Patients insurance: Payor: CHORD / Plan: CHORD $10/20 KINA / Product Type: OTHER documented in this encounter Plan of Treatment Not on file documented as of this encounter Visit Diagnoses Not on filedocumented in this encounter Care Teams Sound Controller Relationship Specialty Start Date End Date Maddy Suazo MD [address] [place] [address] PCP - General 10/19/00 08/01/21 [facility], Pcp [address] [place] [address] PCP - General Internal Medicine 08/02/21 documented as of this encounter
--- OUTSIDE RECORDS SUMMARY | 2024-08-03 08:51 | XMS_ITS | Encounter Summary ---
Author Organization [facility] Address [address] [place] [address] Care Team Providers Care Circular Knitter Name Role Phone Maddy Suazo MD Primary Care Provider [phone] [facility], Pcp Primary Care Provider Unavailabl e Encounter Details Date Type Department Care Team Description 08/02/2018 Building Code Administrator Report Medical Records [address] [place] [address] Stanislaw Estrada MD Social History Tobacco Use [...] on filedocumented in this encounter Care Teams Circular Knitter Relationship Specialty Start Date End Date Maddy Suazo MD [address] [place] [address] [phone] PCP - General 10/19/00 08/01/21 [facility], Pcp [address] [place] [address] PCP - General Internal Medicine 08/02/21 documented as of this encounter
--- OUTSIDE RECORDS SUMMARY | 2024-08-03 08:51 | XMS_ITS | Encounter Summary ---
Author Organization [facility] Address [address] [place] [address] Care Team Providers Care Graphic Design Assistant Name Role Phone Maddy Suazo MD Primary Care Provider [facility], [facility], Pcp Primary Care Provider Unavailabl e Encounter Details Date Type Department Care Team Description 05/30/2021 Perfect Binder Feeder Offbearer Report Medical Records [address] [place] [address] Judith Wheeler DPM Social History Tobacco Use [...] on filedocumented in this encounter Care Teams Graphic Design Assistant Relationship Specialty Start Date End Date Maddy Suazo MD [address] [place] [address] [phone] PCP - General 10/19/00 08/01/21 [facility], [facility], [address] [address] PCP - General Internal Medicine 08/02/21 documented as of this encounter
--- OUTSIDE RECORDS SUMMARY | 2024-08-03 08:51 | XMS_ITS | Encounter Summary ---
Author Organization [facility] Address [address] [facility] [place] [address] Care Team Providers Care Line Maintainer Section Name Role Phone Maddy Suazo MD Primary Care Provider [phone] [facility], Pcp Primary Care Provider Unavailabl e Encounter Details Date Type Department Care Team Description 09/09/2013 Transfer Records Medical Records [address] [place] [address] Abstract, Provider Social History Tobacco Use Types Packs/Day Years [...] on filedocumented in this encounter Care Teams Line Maintainer Section Relationship Specialty Start Date End Date Maddy Suazo MD [address] [place] [address] [phone] PCP - General 10/19/00 08/01/21 [facility], Pcp [address] [place] [phone] PCP - General Internal Medicine 08/02/21 documented as of this encounter
--- OUTSIDE RECORDS SUMMARY | 2024-08-03 08:51 | XMS_ITS | Encounter Summary ---
Author Organization [facility] Address [address] [place] [address] Care Team Providers Care Medical Records Field Technician Name Role Phone Maddy Suazo MD Primary Care Provider [phone] [facility], Pcp Primary Care Provider Unavailabl e Reason for Visit * Reason Onset Date Comments Information Needed 02/26/2021 Encounter Details Date Type Department Care Team Description 02/26/2021 Telephone Adult Medicine [address] [phone] Maddy Suazo MD [address] [place] [address] [phone] Information Needed Social History Tobacco Use Types Packs/Day [...] AM EST documented as of this encounter Miscellaneous Notes * Telephone Encounter - Vicky Chin - 02/26/2021 9:31 AM EST Letha from [facility] pre op evaluation called Requesting the recently labs, and the note from the EKG that was performed on 02/19/21, please advise she would like it faxed over to [phone] documented in this encounter Plan of Treatment Not on file documented as of this encounter Visit Diagnoses Not on filedocumented in this encounter Care Teams Medical Records Field Technician Relationship Specialty Start Date End Date Maddy Suazo MD [address] [place] [address] PCP - General 10/19/00 08/01/21 [facility], Pcp [address] [place] [address] PCP - General Internal Medicine 08/02/21 documented as of this encounter
--- OUTSIDE RECORDS SUMMARY | 2024-08-03 08:51 | XMS_ITS | Encounter Summary ---
Author Organization [facility] Address [address] [facility] [place] [address] Care Team Providers Care Corporate Administrative Assistant Name Role Phone Maddy Suazo MD Primary Care Provider [phone] Replaced By [facility], Pcp [facility] Encounter Details Date Type Department Care Team Description 08/03/2018 Release of Information Medical Records [address] [place] [address] Abstract, Provider Social History Tobacco Use Types [...] on filedocumented in this encounter Care Teams Corporate Administrative Assistant Relationship Specialty Start Date End Date Maddy Suazo MD [address] [place] [address] PCP - General 10/19/00 08/01/21 Replaced By [facility], Pcp [address] [place] [phone] PCP - General Internal Medicine 08/02/21 documented as of this encounter
--- OUTSIDE RECORDS SUMMARY | 2024-08-03 08:52 | XMS_ITS | Data Portability ---
Author Organization [place] - [facility], Allergy Address [address] [place] [address] Care Team Providers Care Wellfield Technician Name Role Phone AVIVA CHAVEZ Primary Care Provider [phone] Assessment No assessment recorded. Plan of Treatment [...] mcg (0.03 %) nasal spray 2023 024 [employer] [id number], [id number] [facility], [place], [address], 01/15/2024 16:26:57 Patient TargetsNo targets recorded. Patient InstructionsNo instructions recorded. Reason for Referral None Reported. Problems Name Problem SNOMED Code Status Onset Date Resolution Date Notes Provider Name and Address Organization Details Recorded Time Generali zed enlarged lymph nodes 740333020 Active 2021 Lymphade nopathy NOS; Note: Date Diagnose d: 12:44 PM (R59.1) Not Available [facility] 4 02:36:15 Chronic cough 33522657 Completed 202110/30/2023 Chronic cough; Note: Date Diagnose d: 08/05/2021 9:43 AM (R05.3) Not Available [facility] 4 02:36:10 Non-toxi c uninodul ar goiter 787074551 Active 2021 Nontoxic single thyroid nodule; Note: Date Diagnose d: 08/05/2021 9:43 AM (E04.1) Not Available [facility] 4 02:36:15 Chronic rhinitis 39665913 Active 2021 Chronic rhinitis ; Note: Date Diagnose d: 08/05/2021 9:43 AM (J30.89) Not Available [facility] 4 02:36:07 Thyroid nodule 246365497 Active 2023 JUS CASANOVA MD [address] [place] [address], [facility] [place], [address] , [place] - [facility] 14:02:16 Problem Notes None recorded. Procedures Surgical History Date Name Laterality Status Provider Name and Address Organization Details Recorded Time Appendectomy completed Sarah Pinon [place] - [facility] 01/15/2024 16:00:00 excision of bunion completed Sarah Pinon [place] - [facility] 01/15/2024 16:00:05 Imaging Results None recorded. Procedure Notes None recorded. Medical Equipment None Reported. Allergies Allergen ID Allergen Name Allergen Category Reaction Reaction Severity Criticality Documentation Date Start Date Code Code System Note Provider Name and Address Organization Details Recorded Time 96862 Product containin g penicilli n (product) medicatio n other Not available Not available 08/11/2023 38090 8001 SNOMED React ion: other react ion, Unkno wn; Not Available [facility] 4 00:58:45 96509 lisinopri l medicatio n other Not available Not available 08/11/2023 42171 RxNorm React ion: other react ion, Unkno wn; Not Available [facility] 4 00:58:52 02910 codeine medicatio n other Not available Not available 08/11/2023 2670 RxNorm React ion: other react ion, Unkno wn; Not Available [facility] 4 00:58:53 Medications Name Sig Start Date [...] mg tablet 01/14 completed Medicati on ID: [id number] B rand Name: triamter darshana-hydr ochlorot hiazid [...] 2 puff 2021 active Medicati on ID: [id number] D uration Value: 30 Prescri bed By Name: Jus davila MD Brand Name: fluticas one propiona te [...] Details Last Updated DateTime 01/15/2024 157.48 cm 82778.16 g Sarah Pinon [place] - [facility] [place] 01/15/2024 15:58:42 Social History None recorded. Functional Status None recorded. Mental Status None recorded. Family History Nothing Reported. Medical History Condition Response High Cholesterol Y Hypertension Y Gynecological HistoryNo gynecological history recorded. Obstetrics History GPAL:G 0 P 0 0 0 0 Past Encounters Encounter ID Performer Location Encounter Start Date Encounter Closed Date Diagnosis/Indication Diagnosis SNOMED-CT Code Diagnosis ICD10 Code Diagnosis Note [id number] JUS CASANOVA MD [facility] [address] [address] 01/15/2024 15:43:20 01/15/2024 16:31:45 Chronic rhinitis 97103016 J31.0 Ipratropiu m has been renewed. For the dryness, I recommende d some saline gel to the anterior nares at bedtime and saline as needed. Non-toxic uninodular goiter 730937606 E04.1 We reviewed ultrasound findings. Follow-up in a year. Health Concerns Section Related Observation LastModified by Organization Detai ls LastModified Time None Recorded Concern Status LastModified by Organization Details LastModified Time None Recorded Advance Directives Directive None Recorded Payers Insurance Date Sequence Insurance Name Policy Number Policy Baer Covered Member ID Baer Member ID Guarantor Name 01/15/2024 1 [facility] [id number] Julissa Theroux 01/15/2024 1 [facility] (O) Julissa Therlunax [id number] Julissa Theroux Notes Date Note Type Note Provider Name and Address Organization Details Recorded Time 01/15/2024 text/html 78-year-old fema le here for routine follow-up. She has [...] are all fairly stable JUS CASANOVA MD [address] [place] [address], [place], [address], [facility] - [facility] 01/16/2024 07:17:16 OBGyn Episode No OBEpisode recorded.
--- OUTSIDE RECORDS SUMMARY | 2024-08-03 08:52 | XMS_ITS | Encounter Summary ---
Author Organization [facility] Address [address] [place] [address] Care Team Providers Care Toll Bridge Attendant Name Role Phone Maddy Suazo MD Primary Care Provider [phone] [facility], Pcp Primary Care Provider [facility] Encounter Details Date Type Department Care Team Description 08/15/2010 Pt. Non Urgent Medical Question Adult Medicine [address] [phone] Maddy Suazo MD [address] [place] [address] Social History Tobacco Use Types Packs/Day Years Used Date Smoking Tobacco: Never Alcohol Use Standard Drinks/Week Comments No 0 (1 standard drink = 0.6 oz pur e alcohol) Sex Assigned at Date Recorded Not on file Job Start Date Occupation Industry Not on file Not on file Not on file documented as of this encounter Progress Notes * Coretta Hagen Lpn - 08/16/2010 8:44 AM EDTFrom: JULISSA BLACKMAN To: Maddy Suazo Sent: Peyton August 15, 2010 7:38 PM Subject: High Cholesterol I am a little concerned about the increase in my cholesterol and my LDL. Since last January my cholesterol has gone up 26pts. to 202. Do you have any suggestions? Thank you documented in this encounter Plan of Treatment Not on file documented as of this encounter Visit Diagnoses Not on filedocumented in this encounter Care Teams Toll Bridge Attendant Relationship Specialty Start Date End Date Maddy Suazo MD [address] [place] [address] PCP - General 10/19/00 08/01/21 [facility], Pcp [address] [place] [address] PCP - General Internal Medicine 08/02/21 documented as of this encounter
--- OUTSIDE RECORDS SUMMARY | 2024-08-03 08:52 | XMS_ITS ---
Author Organization [facility] Address [address] [facility] [place] [address] Care Team Providers Care Syruper Name Role Phone Johanna Palencia MD Primary Care Provider Unavaila Michaela Buenrostro Unavailable [phone] Allergies Allergen (clinical drug ingredient) Drug/Non Drug [...] Ordered Date Performed Result Body Sit e 70453-WIUZDOM NAIL, 6 OR MORE 10/22/2023 N/A 05838- Removal of Foreign Body, Subcut 10/22/2023 N/A Encounters Encounter Location Date Provider Diagnosis [facility] [address] [place] [address] 10/22/2023 Michaela Acosta Tinea unguium B35.1 ; [...] 30 days Ciclopirox 8 % 1 application Bottom Bleacher ally Once a day for 30 10/22/2023 Pending Test Test Name Order Date 34684-[id number] NAIL, 6 OR MORE 10/22/2023 55855- Removal of Foreign Body, Subcut 0 10/22/2023 Next Appt Details Follow Up: 2 Weeks, Reason: Provider Name:Michaela Ebony Dave , 09/19/2024 08:00:00 AM, [address] [place], [address], Procedure Notes * Category Sub-Category Detail Notes [...] discussed and dispensed, Patient tolerated procedure well (72167) Location of foreign body As per exam [...] as necessary. Patient chooses, no pharmaceutical tx (49238) Progress Notes * Julissa BLACKMAN PDOB:[birth year] (78 yo F)Acc No.[id number]:10/22/2023 Progress Note Patient:?Julissa Blackman Provider:?Michaela Acosta DPM :1945???Age:78 Y???Sex:Female D ate:10/22/2023 Address:[address] [place] [address] [facility] Pcp:Johanna Palencia MD Subjective: * Chief Complaints: [...] a day, 30, 6.6 Milliliter, Refills 3.?Procedure: 56091-OMLBNHZ NAIL, 6 OR MORE 3.?Tinea pedis of [...] as necessary. Patient chooses, no pharmaceutical tx (66837).?Foreign Body Removal:?Anesthesia?3 cc of 1 percent Lidocaine [...] discussed and dispensed, Patient tolerated procedure well (24038).? * Procedure Codes:?01092 DEBRI DE NAIL, 6 OR MORE, Modifiers: XS 02144 REMOVAL OF FOOT FOREIGN BODY, Modifiers: XS [...] Acosta DPM Date:?2023 Generated for Sera hi/Lucas/Mac on:?08/03/2024 08:51 AM EDT History and Physical Notes * [...]
--- OUTSIDE RECORDS SUMMARY | 2024-08-03 08:52 | XMS_ITS ---
Author Organization [facility] Address [address] [place] [address] Care Team Providers Care Web Site Designer Name Role Phone Johanna Palencia MD Primary Care Provider UnavailMichaela Melendez [phone] Encounters Encounter Location Date Provider Diagnosis [facility] [address] [place] [address] 06/20/2024 Michaela Acosta Plan Of Treatment Next Appt Details Provider Name:Michaela Acosta , 09/19/2024 08:00:00 AM, [address] [place], [address], Progress Notes * RHIANNALUNAVinod Julissa PDOB:[birth year] (79 yo F)Acc No.[id number]:06/20/2024 Progress Note Patient:?Julissa BLACKMAN Provider:?Michaela Acosta DPM :1945???Age:79 Y???Sex:Female D ate:06/20/2024 Address:[place] Pcp:Johanna Palencia MD Subjective: * Chief Complaints: [...] Acosta DPM Date:?2024 Generated for Sera hi/Lucas/Yancismitting on:?08/03/2024 08:52 AM EDT
--- OUTSIDE RECORDS SUMMARY | 2024-08-03 08:52 | XMS_ITS ---
Author Organization [facility] Address [address] [facility] [place] [address] Care Team Providers Care High School Principal Name Role Phone Johanna Palencia MD Primary Care Provider Unavaila Michaela Buenrostro Unavailable [phone] Allergies Allergen (clinical drug ingredient) Drug/Non Drug [...] for 90 Not-Taking Vitamin D3 50 MCG (2000 UT) 1 [...] Ordered Date Performed Result Body Sit e 48310-NNCTYNR NAIL, 6 OR MORE 02/22/2024 N/A Encounters Encounter Location Date Provider Diagnosis [facility] [place] [address] [place] [address] 02/22/2024 Michaela Acosta Tinea unguium B35.1 ; [...] Treatment Pending Test Test Name Order Date [id number] NAIL, 6 OR MORE 02/22/2024 Next Appt Details Follow Up: prn, Reason: Provider Name:Michaela Acosta , 09/19/2024 08:00:00 AM, [address] [place], [address], Procedure Notes * Category Sub-Category Detail Notes [...] use of a nail nipper and/or dremel-type level vial inside grinder, to a more viable healthy nail plate [...] to maintain effectiveness in symptomatic relief - 08932 Progress Notes * Julissa BLACKMAN PDOB:[birth year] (78 yo F)Acc No.[id number]:02/22/2024 Progress Note Patient:?Julissa BLACKMAN Provider:?Michaela Acosta DPM :1945???Age:78 Y???Sex:Female D ate:02/22/2024 Address:[address] [place], [place] [address] Pcp:Johanna Palencia MD Subjective: * Chief Complaints: [...] use of a nail nipper and/or dremel-type level vial inside grinder, to a more viable healthy nail plate [...] to maintain effectiveness in symptomatic relief - 92792.? * Procedure Codes:?71018 DEBRI DE NAIL, 6 OR MORE, Modifiers: [...] DPM Date:?2023 Generated for Sera hi/Lucas/Mac on:?08/03/2024 08:52 AM EDT History and Physical Notes * [...]
--- OUTSIDE RECORDS SUMMARY | 2024-08-03 08:52 | XMS_ITS | Encounter Summary ---
Author Organization [facility] Address [address] [facility] [place] [address] Care Team Providers Care Computer Systems Engineer Name Role Phone Maddy Suazo MD Primary Care Provider [phone] [facility], Pcp Primary Care Provider Unavailabl e Encounter Details Date Type Department Care Team Description 07/19/2015 Hospital Medical Records [address] [place] [address] Felton Huitron MD Social History Tobacco Use Types Packs/Day [...] on filedocumented in this encounter Care Teams Computer Systems Engineer Relationship Specialty Start Date End Date Maddy Suazo MD [address] [place] [address] PCP - General 10/19/00 08/01/21 [facility], Pcp [address] [place] [address] PCP - General Internal Medicine 08/02/21 documented as of this encounter
== END 2024-08-03 09:31 | disposition home or self-care (01) ==
LOC: HO.HMCC 08:34
PROVIDERS: PCP Internal Medicine; Visit Provider Internal Medicine
DX: M81.0 Age-related osteoporosis without current pathological fracture (principal); I10 Essential (primary) hypertension; E78.5 Hyperlipidemia, unspecified; M48.061 Spinal stenosis, lumbar region without neurogenic claudication; N83.202 Unspecified ovarian cyst, left side; G57.02 Lesion of sciatic nerve, left lower limb

== ENCOUNTER → 2024-08-03 08:34 | Outpatient (BNVA) | payer MEDICARE, SELFPAY | PROVIDERS: PCP Internal Medicine; Visit Provider Internal Medicine | DX: I10 Essential (primary) hypertension (principal); E78.5 Hyperlipidemia, unspecified; M81.0 Age-related osteoporosis without current pathological fracture; M48.061 Spinal stenosis, lumbar region without neurogenic claudication; N83.202 Unspecified ovarian cyst, left side; G57.02 Lesion of sciatic nerve, left lower limb; E55.9 Vitamin D deficiency, unspecified; Z79.899 Other long term (current) drug therapy | CPT/HCPCS: 96127; 99212 ==

== ENCOUNTER 2024-08-05 09:22 | Outpatient (AMB) | payer MEDICARE, SELFPAY ==
--- NOTE | 2024-08-05 09:24 | HO.SPINEOV ---
Vital Signs 08/05/24 09:38 Height 5 ft 2 in Weight 116 lb BMI 21.2 Intake Visit Reasons: LBP Intake Note: Mrs. Blackman is here today c/o low back pain. Product Manager Medical Device Required: No Allergies codeine Adverse Reaction (Unknown, Verified 08/05/24 09:39) Hives sulfamethoxazole Adverse Reaction (Unknown, Verified 08/05/24 09:39) Unknown trimethoprim Adverse Reaction (Unknown, Verified 08/05/24 09:39) Unknown lisinopril Adverse Reaction (Verified 08/05/24 09:39) cough Penicillins Adverse Reaction (Verified 08/05/24 09:39) rash Physical Exam Vital Signs: BMI result Body Mass Index 21.2 Assessment & Plan Assessment & Plan (1) Chronic SI joint pain: Code(s): M53.3 - Sacrococcygeal disorders, not elsewhere classified; G89.29 - Other chronic pain Category: Medical Plan Dear Cadence, Thank you for referring Mrs Blackman to our office today. She is a very nice 79-year-old female with advanced osteoporosis, presents for evaluation of a left buttock pain which radiates into her posterior thigh. She has had it now for a number of years, steadily getting worse over the last few years. It is present in all positions. It is aggravated when she is standing and walking but does not go away when she sits down. She has to sit on a very soft thick cushion in order to get any relief. She does not have any centralized back pain. No tingling numbness or lightening like sensation shooting down the leg. The pain aggravates her at night as well when she is turning over. Also bothers her when she is getting in and out of a car when she has to lift her leg and move it laterally out to get up to stand. It is not responded to Tylenol. She did a brief trial of a few doses of alleve but that did not do much. 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 She was referred to us today for an evaluation. PMH: She is reasonably healthy for her age, she has history of high cholesterol, hypertension, advanced osteoporosis with T-scores in some of her readings into the-3 range. Remote history of polymyalgia rheumatica, was on steroids a number of years ago. History of appendectomy in 195, bunionectomy in 2020. Social hx: She has not smoke, drink use any recreational drugs Medications: Tylenol, triamterene, simvastatin, losartan, fluticasone, multivitamin Allergies: Please see the unbound technologies list Physical exam: Frail-appearing elderly woman, able to stand up on her own but very hard time getting into a straight up and down vertical posture. Slightly kyphotic natural resting position, her strength and reflexes are normal. When I tried to lay her down flat on examining table, it would give her intense pain in the left buttock into the posterior thigh. Any attempts to manipulate her left leg would aggravate the pain. I would not consider FREEDOM testing necessarily positive because she was in quite a bit of discomfort just trying to lie flat, but it did seem to aggravate it slightly. 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 I can see there is also a Tarlov cyst at L5 as well. No bone remodeling in this level though. Lumbar x-rays again show the grade 1-2 spondylolisthesis at L3-4. There is sclerotic bilateral SI joints. Impression: 79-year-old female presents for evaluation of a left buttock pain going into her left posterior thigh. 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 They are just an incidental anatomical variant and I can see from some of the bone scalloping that these have been with her for probably decades. They generally do not cause pain, she has no neurological complaints related to them and do not need any specific follow-up at her age. She also has a spondylolisthesis at L3-4 but has no centralized back pain. There is stenosis in this region as well, but she does not have classic stenosis pain that is aggravated by walking and better when she sits down. It sounds to me like this is a SI joint inflammation based on the pain with standing and sitting and turning over at night. These are fairly classic. She also had 6 vaginal deliveries, and is well-known that SI joint dysfunction can be associated with multiple pregnancies. Her x-rays also show significant sclerosis in the SI joints. It might be worth doing something like a lateral branch block just to see if this is where the pain is coming from. I do not think she would be a candidate ultimately for SI joint fusion because of the poor bone quality. Maybe she could get some kind of neurostimulator over the SI joint if the injection helps her. I will leave this up to you. I did recommend she talk with her PCP also about considering Celebrex. Thank you for allowing us to care for your patient. The total time spent with this visit with this patient was 45 minutes reviewing history, physical exam, pelvic imaging review, and implementation of treatment plan or further diagnostic testing Regan Love MD,PhD [facility] Coding Level of Care Code New Pt Level 4 (98918) Diagnoses Chronic SI joint pain M53.3; G89.29
[2024-08-05 09:38] VITALS: BMI 21.2
--- OUTSIDE RECORDS SUMMARY | 2024-08-05 09:39 | XMS_ITS | Encounter Summary ---
Author Organization [facility] Address [address] [place] [address] Care Team Providers Care Pump Technician Name Role Phone Maddy Suazo MD Primary Care Provider [phone] [facility], Pcp Primary Care Provider [facility] Encounter Details Date Type Department Care Team Description 01/02/2011 Pt. Non Urgent Medic al Question Adult Medicine [address] [address] Gunner Sanchez MD Social History Tobacco Use Types Packs/Day Years Used Date Smoking Tobacco: Never Alcohol Use Standard Drinks/Week Comments No 0 (1 standard drink = 0.6 oz pur e alcohol) Sex Assigned at Date Recorded Not on file Job Start Date Occupation Industry Not on file Not on file Not on file documented as of this encounter Progress Notes * Yana Oseguera M.A. - 01/03/2011 8:12 AM EDTFrom: JULISSA BLACKMAN To: Gunner Sanchez Sent: Peyton Jan 02, 2011 9:00 PM Subject: Thyroid Ultrasound I received my results of the ultrasound today.Can't really understand the letter as to what it is telling me. Is everything o.k.? Thank You Julissa Blackman documented in this encounter Plan of Treatment Not on file documented as of this encounter Visit Diagnoses Not on filedocumented in this encounter Care Teams Pump Technician Relationship Specialty Start Date End Date Maddy Suazo MD [address] [place] [address] PCP - General 10/19/00 08/01/21 [facility], Pcp [address] [place] [address] PCP - General Internal Medicine 08/02/21 documented as of this encounter
--- OUTSIDE RECORDS SUMMARY | 2024-08-05 09:39 | XMS_ITS | Encounter Summary ---
Author Organization [facility] Address [address] [place] [address] Care Team Providers Care Certified Indoor Environmentalist Name Role Phone Maddy Hobbs MD Primary Care Provider [phone] [facility], Pcp Primary Care Provider Unavailabl e Reason for Visit * Reason Onset Date Comments Urinary Frequency/Urgency/Burning 07/12/2015 Encounter Details Date Type Department Care Team Description 07/12/2015 Telephone Adult Medicine [facility] [address] [place] [address] [phone] Maddy Hobbs MD [address] [place] [address] [phone] Urinary Frequency/Urgency/Burn ing Social History Tobacco Use Types Packs/Day Years [...] encounter Miscellaneous Notes * Telephone Encounter - Belen Muller R.N. - 07/16/2015 11:45 AM EDT Pt feels terrible she is dizzy and has a cough , sh has vomtied x2 and had 2 loose sttols in the past 24 hours, she is not eating well and has lost weitht However she is taking the macrobid and has no dysurai or other urianry symtoms, Pt has no chest pain or SOB, has O nausea now and is taking po, hs vomtied x 2 and has had 2 stoolsin the past 24 hours . Denies any grossly bloody stools, has No abd pain , Has had abd bloating , denies any fever, . Pt is able to take po, denies any dizziness when standing, is voiding QS, does not C/O excessive thirst , pt has no loss of bowel control, Denies any recent change in diet or in medi cation , has been on antibioitcs for UTI , no travel outside the country, no other family members with diarrhea Advised home care following the diarrhea Protocol. RN reinforced telephone consultation and advice.Reviewed with the patient the signs and symptoms to watch for that would require immediate attention. If symptoms change, worsen or increase in intensity, to call back immediately. pt to see dr hobbs 07/17 and will call if she has new or worseniong symtoms, message to abhishek BENAVIDESFORMERLY [facility] * Telephone Encounter - William Salmeron L.P.N. - 07/12/2015 4:20 PM EDT Patient C/O of UTI symptoms for 3 weeks Strong urine smell freq urgency Pressure when voiding Used OC AZO with some relief denies mental status changes no temp no chest pain no SOB No swellin g in Legs or hands Nurse triage protocols By Dora Son [phone] edition Page :[phone] Triage problem:smitha urination Appt 07/12 with Abhishek BENAVIDES at 11 Reinforced phone consultation and advice Reviewed with the patient S/S to watch for that would require immediate attention If symptoms worsen patient can call the triage nurseor go to the ER if needed can call 911 Patient states he/she is satisfied with information and homecare instructions he is able to verbalize the instructions given * Telephone Encounter - Beth Hardy - 07/12/2015 10:46 AM EDT Symptoms patient is presenting: the pt has symptoms of uti for 3 weeks If pain or injury related was it due to an accident at work or from a motor vehicle accident? NO If yes, gather 3rd constitution party insurance information Date of accident/Injury: How long has patient had these symptoms?: PCP: Maddy Hobbs Payor: AGUEDA HARRELL / Plan: AGUEDA HARRELL $10/$15 [place] / Product Type: OTHER documented in this encounter Plan of Treatment Not on file documented as of this encounter Visit Diagnoses Not on filedocumented in this encounter Care Teams Certified Indoor Environmentalist Relationship Specialty Start Date End Date Maddy Hobbs MD [address] [place] [address] PCP - General 10/19/00 08/01/21 [facility], Pcp [address] [place] [address] PCP - General Internal Medicine 08/02/21 documented as of this encounter
--- OUTSIDE RECORDS SUMMARY | 2024-08-05 09:39 | XMS_ITS | Encounter Summary ---
Author Organization [facility] Address [address] [place] [address] Care Team Providers Care Electrophysiology Technician Name Role Phone Maddy Suazo MD Primary Care Provider [facility], Pcp Primary Care Provider Unavailabl e Encounter Details Date Type Department Care Team Description 12/05/2014 SCAN Medical Records [address] [place] [address] 77[address] Abstract, Provider Social History Tobacco Use Types [...] on filedocumented in this encounter Care Teams Electrophysiology Technician Relationship Specialty Start Date End Date Maddy Suazo MD [address] [place] [address] [phone] PCP - General 10/19/00 08/01/21 [facility], Pcp [address] [place] [address]884 PCP - General Internal Medicine 08/02/21 documented as of this encounter
--- OUTSIDE RECORDS SUMMARY | 2024-08-05 09:39 | XMS_ITS | Patient Health Record ---
Author Organization [facility] Address [address] [place] [address] Care Team Providers Care Clinical Fellow Name Role Phone Johanna Palencia MD Primary Care Provider Unavaila Michaela Buenrostro Unavailable [phone] Allergies Allergen (clinical drug ingredient) Drug/Non Drug [...] Johanna Referring Provider Last Name Talha Vazquez [facility] Referred Provider Michaela Acosta Referred Address [address],[place], [place],[address], Referred Provider Specialty Podiatry Referral Priority Routine [...] Status Risk Notes Problem Acquired hallux valgus (57215731) Hallux valgus (acquired), left foot (M20.12) Active confirmed Problem Localized, primary osteoarthritis of the ankle and/or foot (956073785) Primary osteoarthrit is, left ankle and foot (M19.072) Active confirmed Problem Acquired hallux valgus (85884104) Hallux valgus (acquired), right foot (M20.11) Active confirmed Vital Signs Blood pressure diastolic 70 mm Hg 02/22/2024 Height 5ft 2'' in 02/22/2024 Blood pressure systolic 138 mm Hg 02/22/2024 Weight 115 lbs 02/22/2024 BMI 21.03 kg/m2 02/22/2024 Procedures Procedure Date Ordered Date Performed Result Body Sit e 35820-TSHMNSS NAIL, 6 OR MORE 10/22/2023 N/A 64311- Removal of Foreign Body, Subcut 10/22/2023 N/A 14491-FOOJIMJ NAIL, 6 OR MORE 02/22/2024 N/A Encounters Encounter Location Date Provider Diagnosis [facility] [address] [place] [address] 10/22/2023 Michaela Black Tinea unguium B35.1 ; Puncture wound with foreign body of left great toe without damage to nail, initial encounter S91.142A ; Pain in right toe(s) M79.674 ; Pain in left toe(s) M79.675 and Tinea pedis of both feet B35.3 [facility] [address] [place] [address] 02/22/2024 Michaela Acosta Tinea unguium B35.1 ; [...] Treatment Pending Test Test Name Order Date 26821-VEYHXOC NAIL, 6 OR MORE 12/16/2021 15149-ZFPTRDP NAIL, 6 OR MORE 10/22/2023 15843-[id number] NAIL, 6 OR MORE 02/22/2024 63453, H1083-AXHHA/INJECT, JOINT/BURSA 1 05/06/2022 23188- Removal of Foreign Body, Subcut 0 10/22/2023 Next Appt Details Provider Name:Michaela Acosta , 09/19/2024 08:00:00 AM, [address] [place], [address], Insurance Providers Payer Name Payer Address Payer Phone Subscriber Number Group Number Insured Name Patient Relationship to Insured Coverage Start Date Coverage End Date [facility] [address] Maria EBRUCE burris [phone] [id number] Julissa lBackman Self - patient is the insured 2 Medical (General) History Medical History History ICD Code Arthritis Back,Hip,and Knee pain High blood pressure Osteoporosis Chicken pox Joint implants/screws Surgical History Surgery Date(Month/Year) bunion 03/04/2021
--- OUTSIDE RECORDS SUMMARY | 2024-08-05 09:39 | XMS_ITS | Patient Health Record ---
Author Organization [facility] Address [address] [facility] [address] [facility] [place] [address] Care Team Providers Care Floor Installer Name Role Phone Maddy Suazo Primary Care [...] Problem Status W/U Status Risk Notes Problem [id number] Hallux valgus (acquired), right foot (M20.11) Active confirmed Problem [id number] Hallux valgus (acquired), left foot (M20.12) Active confirmed Problem [id number] Neuritis of left foot (G57.92) Active confirmed [...] Insured Coverage Start Date Coverage End Date [facility] [address] [place] [address] [id number] Julissa Blackman Self - patient is the [...]
--- OUTSIDE RECORDS SUMMARY | 2024-08-05 09:39 | XMS_ITS | Encounter Summary ---
Author Organization [facility] Address [address] [place] [address] Care Team Providers Care Foiling Machine Adjuster Name Role Phone Maddy Suazo MD Primary Care Provider [phone] [facility], Pcp Primary Care Provider Unavailabl e Reason for Visit * Reason Onset Date Comments Pre-op Needed 12/31/2020 Encounter Details Date Type Department Care Team Description 12/31/[address] [facility] [address] [place] [address] [phone] Maddy Suazo MD [address] [place] [address] [phone] Pre-op Needed Social History Tobacco Use Types [...] Judith Wheeler Office phone number of surgeon: [phone] Fax # for surgeons office: [phone] (Required) Where is surgery being performed? [facility] Diagnosis/problem for surgery: bunnion Is an EKG required for the pre-op workup? YES and a cbc and a slab stripper PCP: Maddy Suazo Did you verify that the insurance below is correct? YES Patients insurance: Payor: [employer] / Plan: [employer] Pay $10/20 KINA / Product Type: OTHER documented in this encounter Plan of Treatment Not on file documented as of this encounter Visit Diagnoses Not on filedocumented in this encounter Care Teams Foiling Machine Adjuster Relationship Specialty Start Date End Date Maddy Suazo MD [address] [place] [address] PCP - General 10/19/00 08/01/21 [facility], Pcp [address] [place] [address] 66[address] PCP - General Internal Medicine 08/02/21 documented as of this encounter
--- OUTSIDE RECORDS SUMMARY | 2024-08-05 09:39 | XMS_ITS | Encounter Summary ---
Author Organization [facility] Address [address] [facility] [place] [address] Care Team Providers Care Host And Hostess Name Role Phone Maddy Suazo MD Primary Care Provider [phone] [facility], Pcp Primary Care Provider Unavailabl e Encounter Details Date Type Department Care Team Description 07/10/2014 Business Doc Medical Records [address] [place] [address] Abstract, Provider Social History Tobacco Use Types [...] on filedocumented in this encounter Care Teams Host And Hostess Relationship Specialty Start Date End Date Maddy Suazo MD [address] [place] [address] PCP - General 10/19/00 08/01/21 [facility], Pcp [address] [place] [address] PCP - General Internal Medicine 08/02/21 documented as of this encounter
--- OUTSIDE RECORDS SUMMARY | 2024-08-05 09:39 | XMS_ITS | Encounter Summary ---
Author Organization [facility] Address [address] [place] [address] Care Team Providers Care Technical Applications Specialist Name Role Phone Maddy Suazo MD Primary Care Provider [phone] [facility], Pcp Primary Care Provider Unavailabl e Encounter Details Date Type Department Care Team Description 11/07/2016 Orders Only Adult Medicine [address] [phone] Maddy Suazo MD [address] [place] [address] [phone] osteopenia Social History Tobacco Use Types Packs/Day [...] unspecified documented in this encounter Care Teams Technical Applications Specialist Relationship Specialty Start Date End Date Maddy Suazo MD [address] [place] [address] PCP - General 10/19/00 08/01/21 [facility], Pcp [address] [place] [address] PCP - General Internal Medicine 08/02/21 documented as of this encounter
--- OUTSIDE RECORDS SUMMARY | 2024-08-05 09:39 | XMS_ITS | Encounter Summary ---
Author Organization [facility] Address [address] [place] [address] Care Team Providers Care Personnel Specialist Name Role Phone Maddy Suazo MD Primary Care Provider [phone] [facility], Pcp Primary Care Provider Unavailabl e Reason for Visit * Reason Comments E-prescribe Rx Request Encounter Details Date Type Department Care Team Description 02/11/2016 Refill Adult Medicine [facility] [address] [place] [address] [phone] Maddy Suazo MD [address] [place] [address] [phone] E-prescribe Rx Request Social History Tobacco Use [...] NO Patients current insurance carrier is: Payor: [employer] / Plan: [employer] $10/$15 LEBURN/ Product Type: OTHER documented in this encounter Plan of Treatment Not on file documented as of this encounter Visit Diagnoses Not on filedocumented in this encounter Care Teams Personnel Specialist Relationship Specialty Start Date End Date Maddy Suazo MD [address] [place] [address]651 PCP - General 10/19/00 08/01/[address] [address] PCP - General Internal Medicine 08/02/21 documented as of this encounter
--- OUTSIDE RECORDS SUMMARY | 2024-08-05 09:39 | XMS_ITS | Encounter Summary ---
Author Organization [facility] Address [address] [place] [address] Care Team Providers Care Hand Candle Dipper Name Role Phone Maddy Suazo MD Primary Care Provider [phone] [facility], Pcp Primary Care Provider Unavailabl e Reason for Visit * Reason Onset Date Comments Watch Hairspring Assembler Feedback 01/21/2021 Encounter Details Date Type Department Care Team Description 01/21/2021 Telephone Adult Medicine [address] [phone] Maddy Suazo MD [address] [place] [address] [phone] Watch Hairspring Assembler Feedback Social History Tobacco Use Types Packs/Day Years [...] have Coronavirus / COVID-19? No / Unsure 01/24/2021 10:28 AM EDT documented as of this encounter Miscellaneous Notes * Telephone Encounter - Echo Morales - 01/22/2021 9:14 AM EDT Authorization Number [id number] Primary Diagnosis Unspecified macular degeneration (H35.30) Requesting Provider MADDY SUAZO Service 1 Procedure UNLISTED PREVENTIVE SERVICE (25341) Service Type PCP Referral Servicing Provider STU SALGADO Status Pending Units 6 Unit Type Visits Start Date 01/22/2021 End Date 01/22/2022 Member's applied eligibility MEDICARE HMO * Telephone Encounter - Sanjeev Reyes - 01/21/2021 3:24 PM EDT [address] zip code * Telephone Encounter - Sanjeev Reyes - 01/21/2021 3:21 PM EDT What insurance does the patient have today? Payor: [employer] / Plan: [employer] $10/20 KINA/ Product Type: OTHER Effective 12/28/08: BCBS will not retro referral requests over 90 days. If request is for this please instruct patient to call the 800# on their insurance card to appeal. Do not submit a request. Referrals cannot be processed if the insurance is not accurate. If the insurance listed above in red is NO BILLING INFORMATION FOUND FOR THIS ENCOUTNER The patients correct insurance must be obtained and registered in [facility] or their referral can not be processed. Is this a retro request? YES. If yes for what date of service do you need the retro referral? 01/22/21 Who is calling to request this referral? Patient If the caller is not the patient, what is their name? N/A Ask the patient WHO referred them to this specialty: Patient self referred FIRST and LAST NAME of SPECIALIST PATIENT is seeing: Dr. Chato Salgado What specialty is this? [facility] DIAGNOSIS Patient is being seen for (Not a body part or a procedure): Arturo Hahn Digeneration Test Have you seen this SPECIALIST for this PROBLEM/DX before?NO If YES, when: Have you checked REVIEW or the APPT DESK to see if this referral has already been done or has visits left? YES Is this visit:Initial Visit Address of Specialist: [address] [place] [address] , Phone # of Specialist: [phone] Fax #: (if applicable): Does patient have an appointment scheduled?: YES Date of appointment- (including a retro-request): 01/22/21 Is this appointment related to: Not MVA, WC or Surgery related documented in this encounter Plan of Treatment Not on file documented as of this encounter Visit Diagnoses Not on filedocumented in this encounter Care Teams Hand Candle Dipper Relationship Specialty Start Date End Date Maddy Suazo MD [address] [place] [address] PCP - General 10/19/00 08/01/21 [facility], [address] [address] PCP - General Internal Medicine 08/02/21 documented as of this encounter
--- OUTSIDE RECORDS SUMMARY | 2024-08-05 09:39 | XMS_ITS | Encounter Summary ---
Author Organization [facility] Address [address] [place] [address] Care Team Providers Care Game Agent Name Role Phone Maddy Suazo MD Primary Care Provider [phone] [facility], Pcp Primary Care Provider [facility]ailformerly [facility] e Encounter Details Date Type Department Care Team Description 06/06/2016 Pt. Non Urgent Medical Question Adult Medicine [address] [phone] Maddy Suazo MD [address] [place] [address] Social History Tobacco Use Types Packs/Day Years [...] Progress Notes * Yana Oseguera M.A. - 06/06/2016 9:42 AM ESTFrom: Julissa Blackman To: Maddy Suazo MD Sent: 06/06/2016 9:23 AM EST Subject: Blood Pressure I was at Dr. Wheeler Thursday for my foot appointment. She took my blood pressure and it was 106/70. She said I should let you know. I take it every day at home and it has been running low for a while. Should I stop taking my losartan for a while? documented in this encounter Plan of Treatment Not on file documented as of this encounter Visit Diagnoses Not on filedocumented in this encounter Care Teams Game Agent Relationship Specialty Start Date End Date Maddy Suazo MD [address] [place] [address] PCP - General 10/19/00 08/01/21 [facility], Pcp [address] [place] [address]686 PCP - General Internal Medicine 08/02/21 documented as of this encounter
--- OUTSIDE RECORDS SUMMARY | 2024-08-05 09:39 | XMS_ITS | Encounter Summary ---
Author Organization [facility] Address [address] [facility] [place] [address] Care Team Providers Care Instrument Inspector Name Role Phone Maddy Suazo MD Primary Care Provider [phone] [facility], Pcp Primary Care Provider Unavailabl e Encounter Details Date Type Department Care Team Description 07/31/2017 Pt. Non Urgent Medical Question Adult Medicine [address] [address] Maddy Suazo MD [address] [place] [address] [phone] Social History Tobacco Use Types Packs/Day Years [...] on filedocumented in this encounter Care Teams Instrument Inspector Relationship Specialty Start Date End Date Maddy Suazo MD [address] [place] [address] 15580 PCP - General 10/19/00 08/01/21 [facility], Pcp [address] [place] [address] PCP - General Internal Medicine 08/02/21 documented as of this encounter
--- OUTSIDE RECORDS SUMMARY | 2024-08-05 09:39 | XMS_ITS | Encounter Summary ---
Author Organization [facility] Address [address] [facility] [place] [address] Care Team Providers Care Dispensing Lead Name Role Phone aMddy Suazo MD Primary Care Provider [phone] [facility], Pcp Primary Care Provider Unavailabl e Encounter Details Date Type Department Care Team Description 09/01/2018 Sales Utility Representative Report Medical Records [address] [place] [address] Stanislaw Estrada MD Social History Tobacco Use [...] on filedocumented in this encounter Care Teams Dispensing Lead Relationship Specialty Start Date End Date Maddy Suazo MD [address] [place] [address] [phone] PCP - General 10/19/00 08/01/21 [facility], Pcp [address] [place] [address] PCP - General Internal Medicine 08/02/21 documented as of this encounter
--- OUTSIDE RECORDS SUMMARY | 2024-08-05 09:39 | XMS_ITS | Encounter Summary ---
Author Organization [facility] Address [address] [facility] [place] [address] Care Team Providers Care Children'S Service Supervisor Name Role Phone Maddy Suazo MD Primary Care Provider [phone] [facility], Pcp Primary Care Provider Unavailabl e Encounter Details Date Type Department Care Team Description 04/08/2021 Senior Courtroom Clerk Report Medical Records [address] [place] [address] Judith Wheeler DPM Social History Tobacco Use [...] on filedocumented in this encounter Care Teams Children'S Service Supervisor Relationship Specialty Start Date End Date Maddy Suazo MD [address] [place] [address] [phone] PCP - General 10/19/00 08/01/21 [facility], Pcp [address] [place] [address] PCP - General Internal Medicine 08/02/21 documented as of this encounter
--- OUTSIDE RECORDS SUMMARY | 2024-08-05 09:39 | XMS_ITS | Encounter Summary ---
Author Organization [facility] Address [address] [facility] [place] [address] Care Team Providers Care Real Estate Transaction Coordinator Name Role Phone Maddy Suazo MD Primary Care Provider [phone] [facility], Pcp Primary Care Provider Unavailabl e Encounter Details Date Type Department Care Team Description 03/20/2021 Tie Up Worker Report Medical Records [address] [place] [address] Mikal Fermin MD Social History Tobacco Use Types Packs/Day [...] on filedocumented in this encounter Care Teams Real Estate Transaction Coordinator Relationship Specialty Start Date End Date Maddy Suazo MD [address] [place] [address] PCP - General 10/19/00 08/01/21 [facility], Pcp [address] [place] [address] PCP - General Internal Medicine 08/02/21 documented as of this encounter
--- OUTSIDE RECORDS SUMMARY | 2024-08-05 09:39 | XMS_ITS | Encounter Summary ---
Author Organization [facility] Address [address] [place] [address] Care Team Providers Care Event Marketing Representative Name Role Phone Maddy Suazo MD Primary Care Provider [phone] [facility], Pcp [facility] Encounter Details Date Type Department Care Team Description 08/03/2014 Freelance Recruiter Report Medical Records [address] [place] [address] Sheng Kate Social History Tobacco Use Types [...] on filedocumented in this encounter Care Teams Event Marketing Representative Relationship Specialty Start Date End Date Maddy Suazo MD [address] [place] [address] [phone] PCP - General 10/19/00 08/01/21 [facility], Pcp [address] [place] [address] PCP - General Internal Medicine 08/02/21 documented as of this encounter
--- OUTSIDE RECORDS SUMMARY | 2024-08-05 09:40 | XMS_ITS | Encounter Summary ---
Author Organization [facility] Address [address] [facility] [place] [address] Care Team Providers Care Chemical Research Worker Name Role Phone Maddy Suazo MD Primary Care Provider [phone] [facility], Pcp Primary Care Provider Unavailabl e Encounter Details Date Type Department Care Team Description 09/09/2013 Transfer Records Medical Records [address] [place] [address] Abstract, Provider Social History Tobacco Use Types [...] on filedocumented in this encounter Care Teams Chemical Research Worker Relationship Specialty Start Date End Date Maddy Suazo MD [address] [place] [address] [phone] PCP - General 10/19/00 08/01/21 [facility], Pcp [address] [place] [address] PCP - General Internal Medicine 08/02/21 documented as of this encounter
--- OUTSIDE RECORDS SUMMARY | 2024-08-05 09:40 | XMS_ITS | Encounter Summary ---
Author Organization [facility] Address [address] [facility] [place] [address] Care Team Providers Care It Audit Manager Name Role Phone Mdady Suazo MD Primary Care Provider [phone] [facility], Pcp Primary Care Provider Unavailabl e Encounter Details Date Type Department Care Team Description 06/03/2019 Pt. Referral Request [facility] MyChart [address] [place] [address] Md Candice Social History Tobacco Use Types [...] on filedocumented in this encounter Care Teams It Audit Manager Relationship Specialty Start Date End Date Maddy Suazo MD [address] [place] [address] [phone] PCP - General 10/19/00 08/01/21 [facility], Pcp [address] [place] [address] PCP - General Internal Medicine 08/02/21 documented as of this encounter
--- OUTSIDE RECORDS SUMMARY | 2024-08-05 09:40 | XMS_ITS | Encounter Summary ---
Author Organization [facility] Address [address] [facility] [place] [address] Care Team Providers Care Die Press Operator Name Role Phone Maddy Suazo MD Primary Care Provider [phone] [facility], Pcp Primary Care Provider Unavailabl e Encounter Details Date Type Department Care Team Description 07/23/2015 Refill Adult Medicine [address] [phone] Maddy Suazo MD [address] [place] [address] [phone] Social History Tobacco Use Types Packs/Day Years [...] on filedocumented in this encounter Care Teams Die Press Operator Relationship Specialty Start Date End Date Maddy Suazo MD [address] [place] [address] [phone] PCP - General 10/19/00 08/01/21 [facility], Pcp [address] [place] [address] PCP - General Internal Medicine 08/02/21 documented as of this encounter
--- OUTSIDE RECORDS SUMMARY | 2024-08-05 09:40 | XMS_ITS | Clinical Summary ---
Author Organization [facility] Address [address] [facility] [place] [address] Care Team Providers Care Salvage Engineering Technician Name Role Phone [facility], Pcp Primary Care [...] Phone Address Type AGUEDA HARRELL $01/16 KINA [id number] 2016-Brandyn montiel [facility] CLAIMS DEPT [address] [place] [address] OTHER Care Teams Salvage Engineering Technician Relationship Specialty Start Date End Date [facility], Pcp PCP - General Internal Medicine 08/02/21
--- OUTSIDE RECORDS SUMMARY | 2024-08-05 09:40 | XMS_ITS | Encounter Summary ---
Author Organization [facility] Address [address] [place] [address] Care Team Providers Care Quick Service Technician Name Role Phone Maddy Suazo MD Primary Care Provider [phone] [facility], Pcp Primary [facility] Encounter Details Date Type Department Care Team Description 08/05/2013 Ship Harbor Pilot Report Medical Records [address] [place] [address] Sheng Kate Social History Tobacco Use Types [...] on filedocumented in this encounter Care Teams Quick Service Technician Relationship Specialty Start Date End Date Maddy Suazo MD [address] [place] [address] [phone] PCP - General 10/19/00 08/01/21 [facility], Pcp [address] [place] [address] PCP - General Internal Medicine 08/02/21 documented as of this encounter
--- OUTSIDE RECORDS SUMMARY | 2024-08-05 09:40 | XMS_ITS ---
Author Organization [facility] Address [address] [facility] [place] [address] Care Team Providers Care Nib Assembler Name Role Phone Johanna Palencia MD Primary Care Provider Unavaila Michaela Buenrostro Unavailable [phone] Allergies Allergen (clinical drug ingredient) Drug/Non Drug [...] Ordered Date Performed Result Body Sit e 80769-SLFOXJY NAIL, 6 OR MORE 10/22/2023 N/A 68194- Removal of Foreign Body, Subcut 10/22/2023 N/A Encounters Encounter Location Date Provider Diagnosis [facility] [address] [place] [address] 10/22/2023 Michaela Acosta Tinea unguium B35.1 ; [...] 30 days Ciclopirox 8 % 1 application Manager Music ally Once a day for 30 10/22/2023 Pending Test Test Name Order Date [id number] NAIL, 6 OR MORE 10/22/2023 53126- Removal of Foreign Body, Subcut 0 10/22/2023 Next Appt Details Follow Up: 2 Weeks, Reason: Provider Name:Michaela Ebony Dave , 09/19/2024 08:00:00 AM, [address] [place], [address], Procedure Notes * Category Sub-Category Detail Notes [...] discussed and dispensed, Patient tolerated procedure well (82956) Location of foreign body As per exam [...] as necessary. Patient chooses, no pharmaceutical tx (62550) Progress Notes * Julissa BLACKMAN PDOB:[birth year] (78 yo F)Acc No.[id number]:10/22/2023 Progress Note Patient:?Julissa Blackman Provider:?Michaela Acosta DPM :1945???Age:78 Y???Sex:Female D ate:10/22/2023 Address:[address] [place] [address] lisbet [id number] Pcp:Johanna Palencia MD Subjective: * Chief Complaints: [...] a day, 30, 6.6 Milliliter, Refills 3.?Procedure: 32733-GUJYQVT NAIL, 6 OR MORE 3.?Tinea pedis of [...] as necessary. Patient chooses, no pharmaceutical tx (01870).?Foreign Body Removal:?Anesthesia?3 cc of 1 percent Lidocaine [...] discussed and dispensed, Patient tolerated procedure well (68494).? * Procedure Codes:?93588 DEBRI DE NAIL, 6 OR MORE, Modifiers: XS 07772 REMOVAL OF FOOT FOREIGN BODY, Modifiers: XS [...] Acosta DPM Date:?2023 Generated for Sera hi/Lucas/Mac on:?08/05/2024 09:39 AM EDT History and Physical Notes * [...]
--- OUTSIDE RECORDS SUMMARY | 2024-08-05 09:40 | XMS_ITS ---
Author Organization [facility] Address [address] [facility] [place] [address] Care Team Providers Care Internet Systems Administrator Name Role Phone Johanna Palencia MD Primary Care Provider Unavaila Michaela Buenrostro Unavailable [phone] Allergies Allergen (clinical drug ingredient) Drug/Non Drug [...] Ordered Date Performed Result Body Sit e 81456-YYNPYFU NAIL, 6 OR MORE 02/22/2024 N/A Encounters Encounter Location Date Provider Diagnosis [facility] [address] [place] [address] 02/22/2024 Michaela Acosta Tinea unguium B35.1 ; [...] Treatment Pending Test Test Name Order Date [id number]-[id number] NAIL, 6 OR MORE 02/22/2024 Next Appt Details Follow Up: prn, Reason: Provider Name:Michaela Acosta , 09/19/2024 08:00:00 AM, [address] [place], [address], Procedure Notes * Category Sub-Category Detail Notes [...] use of a nail nipper and/or dremel-type rubber grinder, to a more viable healthy nail [...] to maintain effectiveness in symptomatic relief - 51114 Progress Notes * Julissa BLACKMAN PDOB:[birth year] (78 yo F)Acc No.[id number]:02/22/2024 Progress Note Patient:?Julissa BLACKMAN Provider:?Michaela Acosta DPM :1945???Age:78 Y???Sex:Female D ate:02/22/2024 Address:[address] [place], [place] [id number] Pcp:Johanna Palencia MD Subjective: * Chief Complaints: [...] use of a nail nipper and/or dremel-type rubber grinder, to a more viable healthy nail [...] to maintain effectiveness in symptomatic relief - 64050.? * Procedure Codes:?30668 DEBRI DE NAIL, 6 OR MORE, Modifiers: [...] DPM Date:?2023 Generated for Sera hi/Lucas/Mac on:?08/05/2024 09:40 AM EDT History and Physical Notes * [...]
--- OUTSIDE RECORDS SUMMARY | 2024-08-05 09:40 | XMS_ITS | Encounter Summary ---
Author Organization [facility] Address [address] [facility] [place] [id number] Care Team Providers Care Marketing Operations Manager Name Role Phone Maddy Suazo MD Primary Care Provider [facility], [facility], Pcp Primary Care Provider Unavailabl e Encounter Details Date Type Department Care Team Description 02/14/2014 Transfer Records Medical Records [address] [place] [id number] Abstract, Provider Social History Tobacco Use Types [...] on filedocumented in this encounter Care Teams Marketing Operations Manager Relationship Specialty Start Date End Date Maddy Suazo MD [address] [place] [address] [id number] PCP - General 10/19/00 08/01/21 [facility], [facility], Pcp [address] [place] [address] PCP - General Internal Medicine 08/02/21 documented as of this encounter
--- OUTSIDE RECORDS SUMMARY | 2024-08-05 09:40 | XMS_ITS | Data Portability ---
Author Organization [facility] Address [address] [place] [address] Care Team Providers Care Cap Maker Name Role Phone AVIVA CHAVEZ Primary Care [...] mcg (0.03 %) nasal spray 2023 024 [id number], [id number] [facility], [place], [address], 01/15/2024 16:26:57 Patient TargetsNo targets recorded. Patient InstructionsNo instructions recorded. Reason for Referral None Reported. Problems Name Problem SNOMED Code Status Onset Date Resolution Date Notes Provider Name and Address Organization Details Recorded Time Generali zed enlarged lymph nodes 597313292 Active 2021 Lymphade nopathy NOS; Note: Date Diagnose d: 12:44 PM (R59.1) Not Available [facility] 4 02:36:15 Chronic cough 65408867 Completed 202110/30/2023 Chronic cough; Note: Date Diagnose d: 08/05/2021 9:43 AM (R05.3) Not Available [facility] 4 02:36:10 Non-toxi c uninodul ar goiter 655622684 Active 2021 Nontoxic single thyroid nodule; Note: Date Diagnose d: 08/05/2021 9:43 AM (E04.1) Not Available [facility] 4 02:36:15 Chronic rhinitis 91917314 Active 2021 Chronic rhinitis ; Note: Date Diagnose d: 08/05/2021 9:43 AM (J30.89) Not Available [facility] 4 02:36:07 Thyroid nodule 304878311 Active 2023 JUS CASANOVA MD [address] [place] [address], [place], [address] , [place] [facility] 14:02:16 Problem Notes None recorded. Procedures Surgical History Date Name Laterality Status Provider Name and Address Organization Details Recorded Time Appendectomy completed Sarah Pinon [facility] 01/15/2024 16:00:00 excision of bunion completed Sarah Pinon [facility] 01/15/2024 16:00:05 Imaging Results None recorded. Procedure Notes None recorded. Medical Equipment None Reported. Allergies Allergen ID Allergen Name Allergen Category Reaction Reaction Severity Criticality Documentation Date Start Date Code Code System Note Provider Name and Address Organization Details Recorded Time 66309 Product containin g penicilli n (product) medicatio n other Not available Not available 08/11/2023 79085 8001 SNOMED React ion: other react ion, Unkno wn; Not Available [facility] 4 00:58:45 13271 lisinopri l medicatio n other Not available Not available 08/11/2023 02335 RxNorm React ion: other react ion, Unkno wn; Not Available [facility] 4 00:58:52 44037 codeine medicatio n other Not available Not [...] mg tablet 01/14 completed Medicati on ID: [id number] B rand Name: triamter darshana-hydr ochlorot hiazid [...] 2 puff 2021 active Medicati on ID: [id number] D uration Value: 30 Prescri bed By [...] Details Last Updated DateTime 01/15/2024 157.48 cm 47235.16 g Sarah Pinon [place] [facility] 01/15/2024 15:58:42 Social History None recorded. Functional Status None recorded. Mental Status None recorded. Family History Nothing Reported. Medical History Condition Response Hypertension Y High Cholesterol Y Gynecological HistoryNo gynecological history recorded. Obstetrics History GPAL:G 0 P 0 0 0 0 Past Encounters Encounter ID Performer Location Encounter Start Date Encounter Closed Date Diagnosis/Indication Diagnosis SNOMED-CT Code Diagnosis ICD10 Code Diagnosis Note [id number] JUS CASANOVA MD [facility] [address] [address] 01/15/2024 15:43:20 01/15/2024 16:31:45 Chronic rhinitis 50269074 J31.0 Ipratropiu m has been renewed. For the dryness, I recommende d some saline gel to the anterior nares at bedtime and saline as needed. Non-toxic uninodular goiter 298999318 E04.1 We reviewed ultrasound findings. Follow-up in a year. Health Concerns Section Related Observation LastModified by Organization Detai ls LastModified Time None Recorded Concern Status LastModified by Organization Details LastModified Time None Recorded Advance Directives Directive None Recorded Payers Insurance Date Sequence Insurance Name Policy Number Policy Baer Covered Member ID Baer Member ID Guarantor Name 01/15/2024 1 [facility] [id number] Julissa Theroux 01/15/2024 1 [facility] (O) Julissa Therlunax [id number] Julissa Theroux Notes Date Note Type Note [...] are all fairly stable JUS CASANOVA MD [address] [place] [address], [place], [address], [facility] 01/16/2024 07:17:16 OBGyn Episode No OBEpisode recorded.
--- OUTSIDE RECORDS SUMMARY | 2024-08-05 09:40 | XMS_ITS ---
Author Organization [facility] Address [address] [place] [address] Care Team Providers Care Nursing Project Coordinator Name Role Phone Johanna Palencia MD Primary Care Provider UnavailMichaela Melendez [phone] Encounters Encounter Location Date Provider Diagnosis [facility] [address] [place] [address] 06/20/2024 Michaela Acosta Plan Of Treatment Next Appt Details Provider Name:Michaela Acosta , 09/19/2024 08:00:00 AM, [address] [place], [address], Progress Notes * RHIANNALUNAVinod Julissa PDOB:[birth year] (79 yo F)Acc No.[id number]:06/20/2024 Progress Note Patient:?Julissa BLACKMAN Provider:?Michaela Acosta DPM :1945???Age:79 Y???Sex:Female D ate:06/20/2024 Address:[place] Pcp:Johanna Palencia MD Subjective: * Chief Complaints: * ??? * Medical History:? Objective: * Vitals:? Assessment: Plan: * Treatment: * Images: * The named appointment provid er may or may not be the originator of this progress note, and it is not deemed complete until electronically signed by the appointment provider. Sign off status: Pending * Provider:?Michaela Acosta DPM Date:?2024 Generated for Sera hi/Lucas/Codiitting on:?08/05/2024 09:40 AM EDT
--- OUTSIDE RECORDS SUMMARY | 2024-08-05 09:40 | XMS_ITS | Encounter Summary ---
Author Organization [facility] Address [address] [facility] [place] [address] Care Team Providers Care Consulting Systems Engineer Name Role Phone Maddy Suazo MD Primary Care Provider [facility], Pcp Primary Care Provider Unavailabl e Encounter Details Date Type Department Care Team Description 07/18/2015 Hospital Medical Records [address] [place] [id number] Felton Huirton MD Social History Tobacco Use Types Packs/Day [...] on filedocumented in this encounter Care Teams Consulting Systems Engineer Relationship Specialty Start Date End Date Maddy Suazo MD [address] [place] [address] PCP - General 10/19/00 08/01/21 [facility], Pcp [address] [place] [address] PCP - General Internal Medicine 08/02/21 documented as of this encounter
== END 2024-08-05 10:01 | disposition home or self-care (01) ==
LOC: HO.HNS 09:23
PROVIDERS: PCP Internal Medicine; Referring Provider Nurse Practitioner Family; Visit Provider Physician Assistant
DX: M53.3 Sacrococcygeal disorders, not elsewhere classified (principal); G89.29 Other chronic pain
CPT/HCPCS: 99204

== ENCOUNTER → 2024-08-05 09:22 | Outpatient (BNVA) | payer MEDICARE, SELFPAY | PROVIDERS: PCP Internal Medicine; Referring Provider Nurse Practitioner Family; Visit Provider Physician Assistant | DX: M54.50 Low back pain, unspecified (principal); M53.3 Sacrococcygeal disorders, not elsewhere classified; G89.29 Other chronic pain | CPT/HCPCS: 99202 ==

== ENCOUNTER 2024-08-18 11:04 | Outpatient (AMB) | payer MEDICARE, SELFPAY ==
--- NOTE | 2024-08-18 11:06 | A.OFFVIS_ITS ---
Vital Signs 08/18/24 11:11 Height 5 ft 2 in Weight 116 lb BMI 21.2 BP 175/78 H Blood Pressure Location Lt brachial Position Sitting Pulse 65 Pulse Source Pulse Oximeter Pulse Oximetry (%) 97 Oxygen Delivery Method Room Air Intake Visit Reasons: Possible Inj/stimulator discussion Intake Note: Pain today 11/06 Cardiology Tech Required: No Accompanied by: Self / Same As Patient Allergies codeine Adverse Reaction (Unknown, Verified 08/18/24 11:12) Hives sulfamethoxazole Adverse Reaction (Unknown, Verified 08/18/24 11:12) Unknown trimethoprim Adverse Reaction (Unknown, Verified 08/18/24 11:12) Unknown lisinopril Adverse Reaction (Verified 08/18/24 11:12) cough Penicillins Adverse Reaction (Verified 08/18/24 11:12) rash HPI Comments Details: The patient is an 79-year-old female presenting with sacroiliac joint dysfunc tion. She experiences persistent pain, primarily in the left buttock, which is aggravated by prolonged standing and walking. The pain is characterized as sharp and debilitating, severely impacting her daily activities, as transitioning positions significantly increases her discomfort. Historically, the patient delivered six children vaginally, which may have contributed to her SI joint dysfunction. Additionally, she is diagnosed with osteoporosis, limiting her treatment options, as she was declared not a surgical candidate due to poor bone quality. Despite being on medications like Celebrex and Aleve, the patient continues to experience significant pain, affecting her overall quality of life. [facility] evaluation Regan Rodrigez PA-C 08/05/24: Impression: 79-year-old female presents for evaluation of a left buttock pain going into her left posterior thigh. 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 They are just an incidental anatomical variant and I can see from some of the bone scalloping that these have been with her for probably decades. They generally do not cause pain, she has no neurological complaints related to them and do not need any specific follow-up at her age. She also has a spondylolisthesis at L3-4 but has no centralized back pain. There is stenosis in this region as well, but she does not have classic stenosis pain that is aggravated by walking and better when she sits down. It sounds to me like this is a SI joint inflammation based on the pain with standing and sitting and turning over at night. These are fairly classic. She also had 6 vaginal deliveries, and is well-known that SI joint dysfunction can be associated with multiple pregnancies. Her x-rays also show significant sclerosis in the SI joints. It might be worth doing something like a lateral branch block just to see if this is where the pain is coming from. I do not think she would be a candidate ultimately for SI joint fusion because of the poor bone quality. Maybe she could get some kind of neurostimulator over the SI joint if the injection helps her. I will leave this up to you. I did recommend she talk with her PCP also about considering Celebrex. PRIOR: The patient is a very pleasant 79-year-old female presenting with chronic lower back and bilateral buttock pain. Denies any trauma, injury or falls. The pain has been persistent for several years, primarily localized in the lower back and medial buttocks. This discomfort intensifies with prolonged standing or walking, necessitating the use of cushioning support for pain mitigation. Her condition is complicated by osteoporosis, which contributes to the ongoing pain issues and limits the use of cortisone injections for back and joint pain. She was on Fosamax for 2 years and recently was prescribed Prolia injections which patient declined due to potential side effects. Patient reports she takes Vitamin D3, performs regular home exercise and eats daily yogurt but is interested to trial another medication for osteoporosis with minimal side effects. Will consider Endocrinology evaluation for further management of osteoporosis. Patient reports yolanda was diagnosed with Polymyalgia Rheumatica in 2020 and underwent prednisone treatment for eight months. Despite discontinuation of Fosamax and Prolia injections, osteoporosis persists, prominently affecting her left hip with prior imaging indicating significant bone density reduction. Her osteoarthritis and a history of knee bursitis have required cortisone interventions, especially on the left side, which has provided transient pain relief. Patient is interested in gel injections and plans to follow up with her provider at [facility] for this. - Onset: Several years ago, starting around 2020 - Location: Chronic lower back and bilateral buttocks pain, predominantly left - Radiation: Occasionally to the left calf, rarely to heel or toes - Quality: Sharp, burning, tingling, aching, dull, heavy, sore, pulling - Severity: Significant, worsens with standing, walking, climbing stairs and incline exercises like squats - Aggravating Factors: Prolonged standing, sitting on hard surfaces, walking, squatting exercises, climbing stairs - Alleviating Factors: Using a cushioning support pillow while sitting, gel injections planned for knee pain relief - Interference: Daily living activities, especially sitting or sustained physical exertion like standing in line or maintaining exercise routines. Affects her sleep when changing positioning from side to side. - Affect: Pain impacts mood, sleep, ADLs, causing distress when engaging in physical activity or sitting - Analgesia: Currently using Tylenol 650 mg as needed; pain remains significant when performing activities - Adverse Effects: None reported from current regimen. - Activities of Daily Living: Pain mainly inhibits lengthy standing, sitting, walking, and squat exercises; uses cushion for sitting - Aberrant Drug Related Behaviors: None reported PFSH Medical History (Updated 08/18/24 @ 20:59 by JACK Ventura) Left ovarian cyst PMR (polymyalgia rheumatica) Osteoporosis HTN (hypertension) Hyperlipidemia Lumbar spinal stenosis Piriformis syndrome of left side Lumbar degenerative disc disease Surgical History History of bunionectomy Hx of appendectomy Family History Son Substance use disorder Father No problems noted. Mother Hypertension Social History Household Members Other:: , 6 adult sons, grandchildren in [facility] Housing: House Patient Tobacco Use Status: Never used Tobacco e-Cigarette/Vaping Use: Never Used service: No Current occupational status: retired Cognitive needs: No Hearing needs: No Vision needs: Yes Review of Systems Const Details: - Musculoskeletal: Reports left buttock pain, denies back pain as primary concern - Neurological: Denies any change in sensation or weakness, bladder or bowel dysfunction or saddle anesthesia - Cardiovascular: Denies use of blood thinners, fish oil, or aspirin All systems reviewed & are unremarkable except as noted in HPI and below Physical Exam Vital Signs: Last Vital Signs Pulse 65 08/18/24 11:11 BP 175/78 H 08/18/24 11:11 Pulse Ox 97 08/18/24 11:11 Oxygen Delivery Method Room Air 08/18/24 11:11 BMI result Body Mass Index 21.2 General: Appears afebrile. Alert and oriented. Mood and affect appropriate. Follows and participates in conversation appropriately. Respiratory effort is unlabored. No cough. Able to transition from sit to stand unassisted. Denies gait disturbance or instability. Ambulates with bilaterally normal heel strike and toe off. General: Yes no CVA tenderness Back/Spine/Pelvis Other: Limited lumbar ROM due to pain. Lumbar extension and flexion forward reproduce moderate pain. Demonstrates 5/5 strength of quadriceps bilaterally as well as flexion/dorsiflexion of bilateral feet against resistance. 2+ pedal pulses bilat erally. Straight leg rise with dorsiflexion negative bilaterally. Diminished patellar and achilles reflexes bilaterally. Facet loading test positive bilaterally. Jhony sign, Ramakrishna?s, Pelvic compression and Stinchfield tests are positive on the left, equivocal on the right. No groin pain with I/E hip rotations. Valsalva maneuver negative. Back: no CVA tenderness Cervical Spine: cervical ROM normal, loss of normal cervical lordosis and No Cervical spine tenderness Thoracic/Lumbar Spine: thoracic and lumbar spine normal to inspection, No Thoracic/lumbar spine scar(s), Lasegue's sign negative, straight leg raise negative bilaterally, pain with thoraco-lumbar ROM, No thoracic spinal tenderness and No lumbar spinal tenderness Pelvis: buttock tenderness on the left Sacroiliac joints: bilaterally (left>right) tender to palpation Sacrum: tenderness bilaterally Coccyx: no tenderness Extrem General: Yes capillary refill normal, Yes no clubbing, cyanosis or edema and Yes no calf tenderness Results Reviewed Results Reviewed: XR LUMBAR SPINE 3 VIEWS 01/07/24 CLINICAL INFORMATION: Essential (primary) hypertension, PT states arthritis I10. FINDINGS: There is mild to moderate anterolisthesis of L3 on L4 and mild anterolisthesis of L4 on L5. Alignment is otherwise unremarkable. Lumbar vertebral body heights are maintained. There is moderate to severe narrowing of the L4/5 and L5/S1 disc space heights. There are degenerative changes of the posterior elements of the lower lumbar spine. Vascular calcifications noted. Calcified densities in the right upper abdomen are most suggestive of gallstones. IMPRESSION: Moderate to severe degenerative changes of the lower lumbar spine. No compression deformity. DEXA axial skeleton 04/16/23 IMPRESSION: 1. DIAGNOSIS: Osteoporosis based on the lowest T-score value of -2.7 in the total femur applying World Health Organization criteria. XR BILATERAL HIPS WITH AP PELVIS 06/23/24 FINDINGS: Bony pelvis is intact. Sclerosis and the sacroiliac joints, bilaterally. Spondylosis L4-5 and L5-S1. No acute cortical disruption or malalignment in either hip. No lytic or blastic lesions. Osteopenia versus osteoporosis. IMPRESSION: No acute fracture or dislocation. Osteopenia versus osteoporosis. Multilevel lower lumbar spondylosis. XR SACRUM AND COCCYX 06/23/24 CLINICAL INFORMATION: M81.0 - Age-related osteoporosis without current pathological fracture COMPARISON: Correlation made with lumbar spine x-ray 01/07/2024. TECHNIQUE: 2 views of the sacrum and 2 views of the coccyx were obtained. FINDINGS: There is a cortical step-off seen at the S5 level, just above the coccyx, suggestive of fracture. This may be acute. No additional fractures seen. Normal-appearing coccyx. Extensive degenerative changes of the lower lumbar spine with partial sacralization of the L5 vertebral body. Moderate arthritis seen in both SI joints. Sacral arches appear intact. Mild hip joint arthritis noted bilaterally. Soft tissues appear normal aside from vascular calcifications. IMPRESSION: 1. Possibly acute mildly displaced fracture at the S5 level, just above the coccyx. 2. Chronic degenerative changes as discussed. MR pelvis wo con 07/10/24 CLINICAL HISTORY: M53.3 - Sacrococcygeal disorders, not elsewhere classified Examination: MRI pelvis without intravenous contrast Comparison: None Findings: Incidental Tarlov cysts S2 measuring 3 x 2.3 cm. Mild degenerative spondylolisthesis grade 1 L4-5 suspect a rudimentary S1 /2 disc. No bone marrow edema or bony destructive processes. No sacroiliitis or ankylosis. No avascular necrosis. Normal congruence E of the femoroacetabular joints. Symphysis pubis and pubic rami intact. Postmenopausal uterine atrophy cyst with a equivocal septations left ovary measuring 2.8 x 2.6 x 2.0 cm. No endometrial thickening. Normal distention of the urinary bladder. Impression: 1. SI joints and sacrococcygeal joint intact 2. Tarlov cyst S2 on the right]. Degenerative spondylo listhesis L4-5. Significant spinal stenosis at this level correlate with a dedicated MRI lumbar spine. Suspect rudimentary disc S1-S2 3. Cyst with probable septations right ovary correlate with pelvic sonogram in a postmenopausal female Assessment & Plan Assessment & Plan (1) Lumbar degenerative disc disease: Code(s): M51.369 - Other intervertebral disc degeneration, lumbar region without mention of lumbar back pain or lower extremity pain Category: Medical (2) Chronic SI joint pain: Code(s): M53.3 - Sacrococcygeal disorders, not elsewhere classified; G89.29 - Other chronic pain Category: Medical (3) Osteoporosis: Comment: DEXA 03/2023, total femur T score -2.7 worsened(12.6 %) after 2 years of Fosamax, patient stopped Fosamax 12/2023, Reclast was prescribed but patient's insurance did not cover it, she declined taking Prolia because of possible side of effects, referred to Endo Code(s): M81.0 - Age-related osteoporosis without current pathological fracture Category: Medical (4) Lumbar spondylosis: Code(s): M47.816 - Spondylosis without myelopathy or radiculopathy, lumbar region Category: Medical Plan The patient's sacroiliac joint dysfunction will be managed with a diagnostic injection. If successful, further options like a neural stimulator will be explored. The patient will continue her osteoporosis management to improve bone quality and avoid surgery. She will stop taking Aleve and start Celebrex, and continue low-impact exercises. Future options depend on the response to the diagnostic injection and osteoporosis treatment. Schedule Left Diagnostic SI joint injection with local and fluoroscopy. If no relief, will proceed with left L3-L4 DR L5 MBB. Expectations, risks and benefits were reviewed. Patient is aware she will be contacted to schedule this procedure. We reviewed Sprint PNS vs RFA procedures if positive responses to diagnostic injections. Informational pamphlets were provided to patient. All questions and concerns have been answered and patient agreed with the plan. Follow up after injections and sooner as needed. Patient was informed and verbally consented to the use of an ambient scribe for clinic note documentation during this visit. Medications: New celecoxib (Celebrex) Take it with food and full glass of water. Avoid Aleve while taking this. 100 mg PO BID PRN 60 caps 0RF pain G89.29 - Other chronic pain, M51.369 - Other intervertebral disc degeneration, lumbar region without mention of lumbar back pain or lower extremity pain, M53.3 - Sacrococcygeal disorders, not elsewhere classified Patient Instructions: - Prepare for the diagnostic left SI joint injection appointment. - Stop taking Aleve and begin Celebrex as prescribed, with food and water. - Use heating pads for temporary pain relief as needed. - Avoid heavy lifting and consult the cyber security engineer for osteoporosis management. - Continue low-impact exercises as tolerated, through Silver Sneakers exercises. - Report any increase in pain or side effects from medication as needed. Coding Level of Care Code Est Pt Level 4 (68812) Complex EM visit Add On G2211 Diagnoses Lumbar degenerative disc disease M51.369 Chronic SI joint pain M53.3; G89.29 Osteoporosis M81.0 Lumbar spondylosis M47.816
[2024-08-18 11:11] VITALS: BP 175/78; PULSE 65; O2SAT 97; BMI 21.2
--- OUTSIDE RECORDS SUMMARY | 2024-08-18 11:44 | XMS_ITS | Patient Health Record ---
Author Organization [facility] Address [address] [place] [address] Care Team Providers Care Chlorine Cell Tender Name Role Phone Johanna Palencia MD Primary Care Provider Unavaila Michaela Buenrostro Unavailable [phone] Allergies Allergen (clinical drug ingredient) Drug/Non Drug [...] Johanna Referring Provider Last Name Talha Vazquez [facility] Kayode Referred Provider Michaela Acosta Referred Address [address] [facility],[place], [place],[address], Referred Provider Specialty Podiatry Referral Priority Routine [...] Status Risk Notes Problem Acquired hallux valgus (73462563) Hallux valgus (acquired), left foot (M20.12) Active confirmed Problem Localized, primary osteoarthritis of the ankle and/or foot (577575673) Primary osteoarthrit is, left ankle and foot (M19.072) Active confirmed Problem Acquired hallux valgus (83235929) Hallux valgus (acquired), right foot (M20.11) Active confirmed Vital Signs Blood pressure diastolic 70 mm Hg 02/22/2024 Height 5ft 2'' in 02/22/2024 Blood pressure systolic 138 mm Hg 02/22/2024 Weight 115 lbs 02/22/2024 BMI 21.03 kg/m2 02/22/2024 Procedures Procedure Date Ordered Date Performed Result Body Sit e 62844-TZINMWR NAIL, 6 OR MORE 10/22/2023 N/A 52601- Removal of Foreign Body, Subcut 10/22/2023 N/A 76033-NEXUYPN NAIL, 6 OR MORE 02/22/2024 N/A Encounters Encounter Location Date Provider Diagnosis [facility] [place] [address] [place] [address] 10/22/2023 Michaela Black Tinea unguium B35.1 ; Puncture wound with foreign body of left great toe without damage to nail, initial encounter S91.142A ; Pain in right toe(s) M79.674 ; Pain in left toe(s) M79.675 and Tinea pedis of both feet B35.3 [facility] [place] [address] [place] [address] 02/22/2024 Michaela Acosta Tinea unguium B35.1 ; [...] Treatment Pending Test Test Name Order Date 20745-LQHMIYM NAIL, 6 OR MORE 12/16/2021 24619-KXEGJAH NAIL, 6 OR MORE 10/22/2023 52787-QIIYGBE NAIL, 6 OR MORE 02/22/2024 78786, L1802-EZWUN/INJECT, JOINT/BURSA 1 05/06/2022 98392- Removal of Foreign Body, Subcut 0 10/22/2023 Next Appt Details Provider Name:Michaela Acosta , 09/19/2024 08:00:00 AM, [address] [place], [address], Insurance Providers Payer Name Payer Address Payer Phone Subscriber Number Group Number Insured Name Patient Relationship to Insured Coverage Start Date Coverage End Date [facility] [address] Maria EBRUCE burris [phone] [id number] Julissa Blackman Self - patient is the insured 2 Medical (General) History Medical History History ICD Code Arthritis Back,Hip,and Knee pain High blood pressure Osteoporosis Chicken pox Joint implants/screws Surgical History Surgery Date(Month/Year) bunion 03/04/2021
--- OUTSIDE RECORDS SUMMARY | 2024-08-18 11:44 | XMS_ITS ---
Author Organization [facility] Address [address] [place] [address] Care Team Providers Care Bi Data Architect Name Role Phone Johanna Palencia MD Primary Care Provider UnavailMichaela Melendez [phone] Encounters Encounter Location Date Provider Diagnosis [facility] [address] [place] [address] 06/20/2024 Michaela Acosta Plan Of Treatment Next Appt Details Provider Name:Michaela Acosta , 09/19/2024 08:00:00 AM, [address] [place], [address], Progress Notes * RHIANNAMIO Julissa PDOB:[birth year] (79 yo F)Acc No.[id number]:06/20/2024 Progress Note Patient:?Julissa BLACKMAN Provider:?Michaela Acosta DPM :1945???Age:79 Y???Sex:Female D ate:06/20/2024 Address:[address] [id number] Pcp:Johanna Palencia MD Subjective: * Chief Complaints: [...] Acosta DPM Date:?2024 Generated for Sera hi/Lucas/Codiitting on:?08/18/2024 11:43 AM EDT
--- OUTSIDE RECORDS SUMMARY | 2024-08-18 11:44 | XMS_ITS | Data Portability ---
Author Organization [place] [facility], Allergy Address [address] [place] [address] Care Team Providers Care Turn Machine Operator Name Role Phone AVIVA CHAVEZ Primary Care [...] mcg (0.03 %) nasal spray 2023 024 ID [employer] [id number], [id number] [facility], [place], [address], 01/15/2024 16:26:57 Patient TargetsNo targets recorded. Patient InstructionsNo instructions recorded. Reason for Referral None Reported. Problems Name Problem SNOMED Code Status Onset Date Resolution Date Notes Provider Name and Address Organization Details Recorded Time Generali zed enlarged lymph nodes 176439549 Active 2021 Lymphade nopathy NOS; Note: Date Diagnose d: 12:44 PM (R59.1) Not Available [facility] 4 02:36:15 Chronic cough 18782218 Completed 202110/30/2023 Chronic cough; Note: Date Diagnose d: 08/05/2021 9:43 AM (R05.3) Not Available [facility] 4 02:36:10 Non-toxi c uninodul ar goiter 619210983 Active 2021 Nontoxic single thyroid nodule; Note: Date Diagnose d: 08/05/2021 9:43 AM (E04.1) Not Available [facility] 4 02:36:15 Chronic rhinitis 74439497 Active 2021 Chronic rhinitis ; Note: Date Diagnose d: 08/05/2021 9:43 AM (J30.89) Not Available [facility] 4 02:36:07 Thyroid nodule 202883041 Active 2023 JUS CASANOVA MD [address] [place] [address], [place], [address] , [place] - [facility] 14:02:16 Problem Notes None recorded. Procedures Surgical History Date Name Laterality Status Provider Name and Address Organization Details Recorded Time Appendectomy completed Sarah Pinon [place] - [facility] 01/15/2024 16:00:00 excision of bunion completed Sarah Pinon [place] - [facility] 01/15/2024 16:00:05 Imaging Results None recorded. Procedure Notes None recorded. Medical Equipment None Reported. Allergies Allergen ID Allergen Name Allergen Category Reaction Reaction Severity Criticality Documentation Date Start Date Code Code System Note Provider Name and Address Organization Details Recorded Time 83529 Product containin g penicilli n (product) medicatio n other Not available Not available 08/11/2023 56032 8001 SNOMED React ion: other react ion, Unkno wn; Not Available [facility] 4 00:58:45 98930 lisinopri l medicatio n other Not available Not available 08/11/2023 97919 RxNorm React ion: other react ion, Unkno wn; Not Available [facility] 4 00:58:52 52443 codeine medicatio n other Not available Not available 08/11/2023 2670 RxNorm React ion: other react ion, Unkno wn; Not Available [facility] 4 00:58:53 Medications Name Sig Start [...] mg tablet 01/14 completed Medicati on ID: [id number] B rand Name: triamter darshana-hydr ochlorot hiazid [...] 2 puff 2021 active Medicati on ID: [id number] D uration Value: 30 Prescri bed By [...] Details Last Updated DateTime 01/15/2024 157.48 cm 31332.16 g Sarah Pinon [place] [facility] 01/15/2024 15:58:42 Social History None recorded. Functional Status None recorded. Mental Status None recorded. Family History Nothing Reported. Medical History Condition Response Hypertension Y High Cholesterol Y Gynecological HistoryNo gynecological history recorded. Obstetrics History GPAL:G 0 P 0 0 0 0 Past Encounters Encounter ID Performer Location Encounter Start Date Encounter Closed Date Diagnosis/Indication Diagnosis SNOMED-CT Code Diagnosis ICD10 Code Diagnosis Note [id number] JUS CASANOVA MD [facility] [address] [address] 01/15/2024 15:43:20 01/15/2024 16:31:45 Chronic rhinitis 85264589 J31.0 Ipratropiu m has been renewed. For the dryness, I recommende d some saline gel to the anterior nares at bedtime and saline as needed. Non-toxic uninodular goiter 716430555 E04.1 We reviewed ultrasound findings. Follow-up in a year. Health Concerns Section Related Observation LastModified by Organization Detai ls LastModified Time None Recorded Concern Status LastModified by Organization Details LastModified Time None Recorded Advance Directives Directive None Recorded Payers Insurance Date Sequence Insurance Name Policy Number Policy Baer Covered Member ID Baer Member ID Guarantor Name 01/15/2024 1 [facility] [place] [id number] Julissa Theroux 01/15/2024 1 [facility] (O) Julissa Therlunax [id number] Julissa Theroux Notes Date Note Type Note [...] are all fairly stable JUS CASANOVA MD [address] [place] [address], [place], [address], [facility] - [facility] 01/16/2024 07:17:16 OBGyn Episode No OBEpisode recorded.
--- OUTSIDE RECORDS SUMMARY | 2024-08-18 11:44 | XMS_ITS ---
Author Organization [facility] Address [address] [place] [address] Care Team Providers Care Office Supervisor Name Role Phone Johanna Palencia MD Primary Care Provider Unavaila Michaela Buenrostro Unavailable [phone] Allergies Allergen (clinical drug ingredient) Drug/Non Drug [...] Ordered Date Performed Result Body Sit e 74494-JESXXKU NAIL, 6 OR MORE 10/22/2023 N/A 21902- Removal of Foreign Body, Subcut 10/22/2023 N/A Encounters Encounter Location Date Provider Diagnosis [facility] [place] [address] [place] [address] 10/22/2023 Michaela Acosta Tinea unguium B35.1 ; [...] 30 days Ciclopirox 8 % 1 application 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 Patient chooses, no pharmaceutical tx (25809) Progress Notes * Julissa BLACKMAN PDOB:[birth year] (78 yo F)Acc No.[id number]:10/22/2023 Progress Note Patient:?Julissa Blackman Provider:?Michaela Acosta DPM :1945???Age:78 Y???Sex:Female D ate:10/22/2023 Address:[address] [place] [address] [address] [facility] Pcp:Johanna Palencia MD Subjective: * Chief Complaints: [...] a day, 30, 6.6 Milliliter, Refills 3.?Procedure: 59658-LVRWVGZ NAIL, 6 OR MORE 3.?Tinea pedis of [...] as necessary. Patient chooses, no pharmaceutical tx (37019).?Foreign Body Removal:?Anesthesia?3 cc of 1 percent Lidocaine [...] discussed and dispensed, Patient tolerated procedure well (30775).? * Procedure Codes:?05281 DEBRI DE NAIL, 6 OR MORE, Modifiers: XS 59258 REMOVAL OF FOOT FOREIGN BODY, Modifiers: XS [...] Acosta DPM Date:?2023 Generated for Sera hi/Lucas/Mac on:?08/18/2024 11:44 AM EDT History and Physical Notes * [...]
--- OUTSIDE RECORDS SUMMARY | 2024-08-18 11:44 | XMS_ITS | Patient Health Record ---
Author Organization [facility] Address [address] [facility] [address] [facility] [place] [address] Care Team Providers Care Multiple Punch Press Operator Name Role Phone Maddy Suazo Primary Care [...] Problem Status W/U Status Risk Notes Problem [id number] Hallux valgus (acquired), right foot (M20.11) Active confirmed Problem [id number] Hallux valgus (acquired), left foot (M20.12) Active confirmed Problem [id number] Neuritis of left foot (G57.92) Active confirmed [...] Insured Coverage Start Date Coverage End Date [facility] [address] [place] [address] [id number] Julissa Blackman Self - patient is the [...]
--- OUTSIDE RECORDS SUMMARY | 2024-08-18 11:44 | XMS_ITS ---
Author Organization [facility] Address [address] [facility] [place] [address] Care Team Providers Care Geology Teacher Name Role Phone Johanna Palencia MD Primary Care Provider Unavaila Michaela Buenrostro Unavailable [phone] Allergies Allergen (clinical drug ingredient) Drug/Non Drug [...] Ordered Date Performed Result Body Sit e 42354-GVCNTWF NAIL, 6 OR MORE 02/22/2024 N/A Encounters Encounter Location Date Provider Diagnosis [facility] [place] [address] [place] [address] 02/22/2024 Michaela Acosta Tinea unguium B35.1 ; [...] Treatment Pending Test Test Name Order Date [id number] NAIL, 6 OR MORE 02/22/2024 Next Appt Details Follow Up: prn, Reason: Provider Name:Michaela Acosta , 09/19/2024 08:00:00 AM, [address] [place], [address], Procedure Notes * Category Sub-Category Detail Notes [...] use of a nail nipper and/or dremel-type jig grinder, to a more viable healthy nail [...] to maintain effectiveness in symptomatic relief - 79699 Progress Notes * Julissa BLACKMAN PDOB:[birth year] (78 yo F)Acc No.[id number]:02/22/2024 Progress Note Patient:?Julissa BLACKMAN Provider:?Michaela Acosta DPM :1945???Age:78 Y???Sex:Female D ate:02/22/2024 Address:[address] [place], [place] [address], [id number] Pcp:Johanna Palencia MD Subjective: * Chief Complaints: [...] use of a nail nipper and/or dremel-type jig grinder, to a more viable healthy nail [...] to maintain effectiveness in symptomatic relief - 54655.? * Procedure Codes:?92126 DEBRI DE NAIL, 6 OR MORE, Modifiers: [...] * Provider:?Michaela Acosta DPM Date:?2023 Generated for [employer]S kolton/Lucas/Mac on:?08/18/2024 11:43 AM EDT History and Physical Notes * [...]
== END 2024-08-18 11:39 | disposition home or self-care (01) ==
LOC: HO.PMC 11:04
PROVIDERS: PCP Internal Medicine; Visit Provider Nurse Practitioner Family
DX: M51.369 Other intervertebral disc degeneration, lumbar region without mention of lumbar back pain or lower extremity pain (principal); M53.3 Sacrococcygeal disorders, not elsewhere classified; G89.29 Other chronic pain; M81.0 Age-related osteoporosis without current pathological fracture; M47.816 Spondylosis without myelopathy or radiculopathy, lumbar region
CPT/HCPCS: 99214; G2211

== ENCOUNTER → 2024-08-18 11:04 | Outpatient (BNVA) | payer MEDICARE, SELFPAY | PROVIDERS: PCP Internal Medicine; Visit Provider Nurse Practitioner Family | DX: M51.369 Other intervertebral disc degeneration, lumbar region without mention of lumbar back pain or lower extremity pain (principal); M53.3 Sacrococcygeal disorders, not elsewhere classified; M81.0 Age-related osteoporosis without current pathological fracture; M47.816 Spondylosis without myelopathy or radiculopathy, lumbar region; G89.29 Other chronic pain | CPT/HCPCS: 99212 ==

== ENCOUNTER 2024-09-20 07:47 | Outpatient (AMB) | payer MEDICARE, SELFPAY ==
[2024-09-20 07:50] VITALS: BP 140/64; PULSE 73; O2SAT 97; BMI 21.8
--- NOTE | 2024-09-20 07:50 | MHC.OFFVIS ---
Vital Signs 09/20/24 07:50 Height 5 ft 2 in Weight 119 lb 0.794 oz BMI 21.8 BP 140/64 H Blood Pressure Location Lt brachial Position Sitting Pulse 73 Pulse Source Pulse Oximeter Pulse Oximetry (%) 97 Oxygen Delivery Method Room Air Intake Visit Reasons: Age-related osteoporosis without current patholo Intake Note: New patient present today for Age-related osteoporosis without current pathology. Insurance Solicitor Required: No Accompanied by: Spouse Allergies codeine Adverse Reaction (Unknown, Verified 09/20/24 07:54) Hives sulfamethoxazole Adverse Reaction (Unknown, Verified 09/20/24 07:54) Unknown trimethoprim Adverse Reaction (Unknown, Verified 09/20/24 07:54) Unknown lisinopril Adverse Reaction (Verified 09/20/24 07:54) cough Penicillins Adverse Reaction (Verified 09/20/24 07:54) rash Medication List - Last Reconciled 09/20/24 by Jazmín Sharp MD acetaminophen ER 1,300 mg PO Q12H baclofen 10 mg PO BEDTIME cholecalciferol (vitamin D3) 50 mcg PO DAILY fluticasone propionate 50 mcg/actuation 1 spray intranasal DAILY losartan 100 mg PO DAILY simvastatin 20 mg PO BEDTIME triamterene 50 mg PO DAILY HPI Comments Details: 79-year-old female here today for initial evaluation of osteoporosis. Here today with Jose. DEXA 04/16/2023, showed T-score of-2.3 at the lumbar spine L1-L3, L4 excluded due to degenerative disc disease, 4.9% decrease from previous bone density in 2021. Showed osteoporosis of the hip with T-score at the left total femur-2.7 with a 12.6% decreased from bone density in 2021. T-score-2.4 at the left femoral neck. Osteoporosis new pt evaluation Diagnosed many years ago in her 40s or 50s Fracture History: no fracture history. But S5 displacement noted on sacral x-ray from May 2024? Height loss:max height 5'2.5 , currently 5 ' 2 Back pain: does have sacroiliac joint pain, seeing pain management and also saw spine surgery. planning to get nerve block injection in September with maybe consideration of a neurostimulator Pharmacotherapeutic hx: Fosamax 1.5 years between 2022 and 2023 And then previously was also on Fosamax for 2-3 years in her 40s or 50s Family history: no known family history of osteoporosis Estrogen use: was on Ocps only for a short period of time in her reproductive age Menstrual hx:menarche: 11 years, regular periods, pregancies 4 , post menopausal at 38, was never on HRT , unclear why early, Secondary risk factors: Steroid use: used to be on prednisone for 8 months in for polymyalgia rheumatica, in remission now , some cortisone shots in knee here and there, last 8 to 9 months ago Hyperthyroidism: Neg Seizure medication use: None Chemo or Radiation use: Neg Heparin Use: Neg History of eating disorder: Negative local intermodal truck driver immobilization: Negative History of kidney stones or disease: negative PI Use: Negative Chronic inflammatory lung disease: Negative Chronic inflammatory bowel disease: Negative Daily calcium intake: no supplements, no milk, cheese: 1 serving in a week, yogurt: 3-4 times in a week Vitamin D intake:2000 units daily Exercise:not much with the SI pain Smoking history:never smoker Dental: Has regular dental cleaning, no issues Physical exam General: sitting comfortably in no acute distress HEENT: normocephalic/atraumatic, Neck: supple, symmetrical Cardiac: normal heart sounds Pulm: normal breath sounds B/L, no added breath sounds Abd: not distended, no tenderness Extremities: no edema, no signs of myxedema Neuro: AAO x3, Speech: normal, no facial droop, moving all 4 extremities Laboratory Tests 02/13/23 01/08/24 14:50 09:00 Hgb 12.4 Hct 37.4 Creatinine 0.77 Estimated GFR > 60 Calcium 10.0 Magnesium 2.1 Albumin 4.6 25-OH Vitamin D Total 61.0 BONE DENSITOMETRY 04/16/23 CLINICAL INDICATION: Asymptomatic menopausal state. COMPARISON: Previous BD dated 04/10/2021 and baseline BD dated 06/20/2010. TECHNIQUE: Using a [employer] DXA System (software version: 13.1) manufactured by [employer], dual-energy x-ray absorptiometry was performed of the lumbar spine and left hip. The images are of good technical quality. Summary results are attached. FINDINGS: LEFT FEMUR, NECK: Current: BMD 0.698 g/cm2, Z-score 0.0, T-score -2.4, osteopenia. Prior: BMD 0.775 g/cm2. Baseline: BMD 0.897 g/cm2. LEFT FEMUR, TOTAL: Current: BMD 0.663 g/cm2, Z-score -0.4, T-score -2.7, osteoporosis, 12.6% decrease from previous, 26.7% decrease from baseline (<5% change is not significant). Prior: BMD 0.759 g/cm2. Baseline: BMD 0.905 g/cm2. AP SPINE L1-L3 (excluding L4): The data of L1-L4 has been changed to exclude the L4 vertebral body, because degenerative sclerosis at this level may cause overestimation of lumbar spine density. Current: BMD 0.890 g/cm2, Z-score 0.0, T-score -2.3, osteopenia, 4.9% decrease from previous, 3.8% decrease from baseline (<5% change is not significant). Prior: BMD 0.936 g/cm2. Baseline: BMD 0.925 g/cm2. IDENTIFIED RISK FACTORS: Early menopause, glucocorticoids (chronic), osteoporosis, secondary osteoporosis. HISTORY OF FRACTURE: None listed. MEDICATIONS: Vitamin D, bisphosphonate. MM/XR DEXA axial skeleton IMPRESSION: 1. DIAGNOSIS: Osteoporosis based on the lowest T-score value of -2.7 in the total femur applying World Health Organization criteria. 2. 10-YEAR FRACTURE RISK PREDICTION, FRAX: According to the guidelines, FRAX calculation should only be performed on patients in the osteopenia bone density category. Therefore, FRAX was not performed on this patient. BONE DENSITOMETRY 04/10/21 CLINICAL INDICATION: Osteopenia. COMPARISON: Previous BD dated 12/02/2018 and baseline BD dated 06/20/2010. TECHNIQUE: Using a [employer] DXA System (software version: 13.1) manufactured by [employer], dual-energy x-ray absorptiometry was performed of the lumbar spine and left hip. The images are of good technical quality. Summary results are attached. FINDINGS: AP SPINE L1-L3 (excluding L4): The data of L1-L4 has been changed to exclude the L4 vertebral body, because degenerative changes at this level may cause overestimation of lumbar spine density. Current: BMD 0.936 g/cm2, Z-score 0.3, T-score -1.9, osteopenia, 2.3% decrease from previous, 1.2% increase from baseline (<5% change is not significant). Prior: BMD 0.958 g/cm2. Baseline: BMD 0.925 g/cm2. LEFT FEMUR, NECK: Current: BMD 0.775 g/cm2, Z-score 0.4, T-score -1.9, osteopenia. Prior: BMD 0.808 g/cm2. Baseline: BMD 0.897 g/cm2. LEFT FEMUR, TOTAL: Current: BMD 0.759 g/cm2, Z-score 0.2, T-score -2.0, osteopenia, 9.0% decrease from previous, 16.1% decrease from baseline (<5% change is not significant). Prior: BMD 0.834 g/cm2. Baseline: BMD 0.905 g/cm2. IDENTIFIED RISK FACTORS: Early menopause, secondary osteoporosis, rheumatoid arthritis, glucocorticoids (chronic), thiazide. HISTORY OF FRACTURE: None listed. MEDICATIONS: Vitamin D, bisphosphonates. MM/XR DEXA axial skeleton IMPRESSION: 1. DIAGNOSIS: Osteopenia based on the lowest T-score value of -2.0 in the total femur applying World Health Organization criteria. 2. 10-YEAR FRACTURE RISK PREDICTION, FRAX: Major osteoporotic fracture (clinical spine, forearm, hip or shoulder) 24.4%. Hip fracture 8.6%. [facility] Medical History (Updated 09/20/24 @ 08:38 by Jazmín Sharp MD) Left ovarian cyst PMR (polymyalgia rheumatica) Osteoporosis HTN (hypertension) Hyperlipidemia Lumbar spinal stenosis Piriformis syndrome of left side Lumbar degenerative disc disease Surgical History History of bunionectomy Hx of appendectomy Family History Son Substance use disorder Father No problems noted. Mother Hypertension Social History Household Members Other:: , 6 adult sons, grandchildren in [place], [facility] Housing: House Patient Tobacco Use Status: Never used Tobacco e-Cigarette/Vaping Use: Never Used service: No Current occupational status: retired Cognitive needs: No Hearing needs: No Vision needs: Yes Assessment & Plan Assessment & Plan (1) Osteoporosis: Comment: DEXA 03/2023, total femur T score -2.7 worsened(12.6 %) after 2 years of Fosamax, patient stopped Fosamax 12/2023, Reclast was prescribed but patient's insurance did not cover it, she declined taking Prolia because of possible side of effects, referred to Endo Code(s): M81.0 - Age-related osteoporosis without current pathological fracture Category: Medical Qualifiers: Osteoporosis type: age-related Presence of current pathological fracture: without current pathological fracture Qualified Code(s): M81.0 - Age-related osteoporosis without current pathological fracture Plan: 79-year-old female coming in today for initial evaluation of osteoporosis, diagnosed with osteoporosis in her 40s or 50s, based on bone density scan, her risk factors for osteoporosis include early menopause at the age of 38, with no HRT treatment, history of polymyalgia rheumatica, steroid use, petite physique, poor nutritional intake of calcium, and now her age as well. Most recent bone density scan 04/06/2023 showed T-score of-2.3 at the lumbar spine L1-L3, L4 excluded due to degenerative disc disease, 4.9% decrease from previous bone density in 2021. Showed osteoporosis of the hip with T-score at the left total femur-2.7 with a 12.6% decreased from bone density in 202. T-score-2.4 at the left femoral neck. Some areas of her hip are as low as-3.6. Around the trochanter region. However it is reassuring that she has not had any fractures. When I go over all of her bone densities in the imaging system, I think mostly she has had osteopenia in her earlier years when she had bone densities as early as 2008, however she had elevated FRAX scores because of her risk factors. She was on Fosamax for 2-3 years in her 40s or 50s and then apparently was taken off it due to improved bone density. And then she was on Fosamax for 1-1/2 years between 2022 and 2023, however she lost around 12% of bone in her hip despite being on Fosamax between 2021 and 2023 which is why Fosamax was then stopped? Apparently the plan was to put her on Reclast but insurance did not approve and then she was apprehensive of the side effects of Prolia so she is now here to discuss further treatment options. I discussed conservative measures including adequate calcium intake, adequate vitamin D levels as well as the role of weightbearing exercises in general being good for bone health. She has SI joint pain, currently following with pain management with plans for a nerve block plus neurostimulator. She also had an x-ray of her sacral spine in May 2024 which identified a possible S5 fracture/displacement which might have been acute. She saw the spine surgeon in July 2024 and apparently the issue was mostly thought to be her SI joint for her current pain. She is going to be following with pain management for this. She is on vitamin-D 2000 units daily. We will check her vitamin-D levels. She did have a poor nutritional intake of calcium and I have asked her to incorporate 1000 mg of calcium between her diet and start on supplement with the at least 600 mg daily in it. In addition to conservative management with calcium and vitamin D; I do believe she would benefit from antiresorptive therapy in terms of reducing future fracture risk. Today we discussed the options of Fosamax and Reclast. I also discussed the option of Prolia however given that some of her T-scores are as low as -3.6 in the hip I think she would be a better candidate for a potent agent like Prolia. I do not think we need to jump to anabolic given no history of fractures. But I did discuss briefly that option with her as well. I counseled regarding the mechanism of action, route of administration, common side effects as well as black box warnings particularly osteonecrosis of the jaw and atypical femur fracture. Prior to initiating therapy I would like her to complete work-up to get baseline bone turnover markers as well as rule out secondary causes of osteoporosis. Plan: -ordered secondary workup for osteoporosis including blood work and 24 hour urine calcium evaluation -ordered bone resorption markers -follow up in 5 weeks to discuss results and decide on therapy -continue vitamin-D 2000 units daily -incorporate 1000 mg of calcium between diet/supplement -fall precautions discussed -role of weight-bearing exercise/walking discussed Plan I spent 60 minutes in reviewing the record, seeing the patient and documenting in the medical record. Orders: Orders Alkaline Phosphatase Bone Today M81.0 - Age-related osteoporosis without current pathological fracture Albumin Level Today M81.0 - Age-related osteoporosis without current pathological fracture Calcium Today M81.0 - Age-related osteoporosis without current pathological fracture Phosphorus Today M81.0 - Age-related osteoporosis without current pathological fracture Vitamin D 25-OH Total Today M81.0 - Age-related osteoporosis without current pathological fracture TSH reflex Free T4 Today M81.0 - Age-related osteoporosis without current pathological fracture Protein Electrophoresis, Serum Today M81.0 - Age-related osteoporosis without current pathological fracture Collagen Type I C-Telopeptide Today M81.0 - Age-related osteoporosis without current pathological fracture Calcium, Ionized Today M81.0 - Age-related osteoporosis without current pathological fracture Calcium, 24 Hr Ur Today M81.0 - Age-related osteoporosis without current pathological fracture Creatinine, 24 Hr Group Today M81.0 - Age-related osteoporosis without current pathological fracture Creatinine Today M81.0 - Age-related osteoporosis without current pathological fracture Parathyroid Hormone Intact Today M81.0 - Age-related osteoporosis without current pathological fracture Immunofixation Pnl, Serum Today M81.0 - Age-related osteoporosis without current pathological fracture Magnesium Today M81.0 - Age-related osteoporosis without current pathological fracture Sodium, 24Hr Urine Group Today M81.0 - Age-related osteoporosis without current pathological fracture Patient Instructions: Continue vitamin D 2000 units daily Incorporate 1000 mg daily of calcium between diet and supplement, any over the counter brand is okay such as caltrate , nature made, one a day Fall precautions discussed Do 24 hr urine collection and the same day you hand in the urine do fasting blood work 24 hr urine collection instructions You have been asked to collect your urine for 24 hours to assess for calcium excretion. You must choose a 24 hour period of time when you will be home. The morning of the first day, DISCARD the FIRST morning void and then note the time. You will collect every single void from then on for 24 hours. For example, if you wake up at 6am and urinate, flush down that void. You will then collect every drop of urine all day and all night through 6am the following day. You will urinate one last time at 6am for the collection. The jug of urine must be kept in the refrigerator until you bring it to the lab. Follow up in 5 weeks to discuss results Think between Prolia (Denosumab) vs Reclast ( Zoledronic Acid ) so we decide next time Coding Level of Care Code New Pt Level 5 (03877) Diagnoses Age-related osteoporosis without current pathological fracture M81.0 Osteoporosis type: age-related Presence of current pathological fracture: without current pathological fracture Time Spent (min) 60
--- OUTSIDE RECORDS SUMMARY | 2024-09-20 07:50 | XMS_ITS | Clinical Summary ---
Author Organization [facility] [address] [place] [address] Address [address] [place], [place] Phone Care Team Providers Care Supervisor Diagnostic Name Role Phone Unavailable Primary Care Provider Unavailabl e Encounters Date Type Department Care Team Description 09/13/[address] [phone] Flynn Rust MD Referral from Last 3 Months Surgical History Surgery Date Site/Laterality Comments APPENDECTOMY 1950 PROCEDURE: NV APPENDECTOMY OTHER SURGICAL HISTORY 03/2020 PROCEDURE: MAMMOGRAM COLONOSCOPY 2002 PROCEDURE: NV COLONOSCOPY STOMA DX INCLUDING COLLJ SPEC SPX COLONOSCOPY 01/19/2013 PROCEDURE: HISTORICAL COLONOSCOPY; COMMENT: tics and hemorrhoids; would not repeat Medical History Medical History Date Comments Pure hypercholesterolemia 12/17/2005 DX:Pur e hypercholesterolemia Disorder of bone and cartila ge, unspecified 12/17/2005 DX:Disorder of bone and cart ilage, unspecified Occlusion and stenosis of ca rotid 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 12/17/2005 DX:Occlusion and stenosis of carotid 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; COMMENT: doppler <50 % bilat 09/01 left bruit Asymptomatic varicose veins 12/17/2005 DX:A symptomatic varicose veins Essential hypertension, benign 09/08/2006 D X:Essential hypertension, benign GERD (gastroesophageal reflux disease) 11/28/2010 DX:GERD (gastroesophageal reflux disease) Bunion 06/29/2013 DX:Bunion Onychomycosis 06/29/2013 DX:Onychomycosis 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 DX:Ulnar neurop athy; COMMENT: 09/15 left CTS (carpal tunnel syndrome) 09/01/2018 DX: CTS (carpal tunnel syndrome); COMMENT: 09/15 left Actinic keratosis, hx of DX:Acti main keratosis, hx of Family History Medical History Relation Name Comments Breast cancer Brother yes, breast wi th lung metastases Emphysema Father Other: cardiac tumor Mother 59 Drug abuse Son Relation Name Status Comments Brother Father Mother Son Social History Tobacco Use Types Packs/Day Years Used Date Smoking Tobacco: Never Smokeless Tobacco: Never Alcohol Use Standard Drinks/Week Comments No 0 (1 standard drink = 0.6 oz pur e alcohol) Comments Unknown Sex and Gender Information Value Date Recorded Sex Assigned at Not on file Legal Sex Female 8:08 AM EST Gender Identity Not on file Sexual Orientation Not on file Obstetrics History Plan of Treatment Health Maintenance Due Date Last Done Comments RSV Immunization Adult Patients (1 - 1-dose 75+ series) 06/15/2018 DTaP,Tdap,and Td Vaccines (3 - Td or Tdap) 06/15/2021 2011, 12/17/2005 Cholesterol Screening (Lipid Panel) 03/08/2022 Depression Screening 03/08/2022 Falls Risk Assessment 03/08/2022 Hypertension/CHF/CAD Annual BMP Blood Test 03/08/2022 Medicare Annual Wellness Visit 03/08/2022 Osteoporosis Screening (Bone Density Screening) 03/08/2022 Social Influencers of Health Screening 03/08/2022 COVID-19 Vaccine ( season) 2023 12/26/2020, 05/29/2020, 05/06/2020 Influenza Vaccine (Season Ended) 2024 11/22/2020, 12/07/2019, 12/13/2017, Additional history exists Hepatitis A Vaccines Aged Out 08/17/2017 No long er eligible based on patient's age to complete this topic Pneumococcal Vaccine: 50+ Years Completed 2019, 07/06/2014, 07/14/2008 Zoster Vaccines Completed 2019, 04/15/2019 HIB Vaccines Aged Out No longer eligi ble based on patient's age to complete this topic HPV Vaccines Aged Out No longer eligi ble based on patient's age to complete this topic Hepatitis B Vaccines Aged Out No long er eligible based on patient's age to complete this topic IPV Vaccines Aged Out No longer eligi ble based on patient's age to complete this topic MMR Vaccines Aged Out No longer eligi ble based on patient's age to complete this topic Meningococcal ACWY Vaccine Aged Out N o longer eligible based on patient's age to complete this topic Meningococcal B Vaccine Aged Out No l onger eligible based on patient's age to complete this topic RSV Immunization Patients Under 20 months Aged Out No longer eligible based on patient's age to complete this topic Varicella Vaccines Aged Out No longer eligible based on patient's age to complete this topic Insurance [employer]
== END 2024-09-20 08:48 | disposition home or self-care (01) ==
LOC: HO.ENCR 07:48
PROVIDERS: PCP Internal Medicine; Visit Provider Student in an Organized Health Care Education/Training Program
DX: M81.0 Age-related osteoporosis without current pathological fracture (principal)
CPT/HCPCS: 99205

== ENCOUNTER → 2024-09-20 07:47 | Outpatient (BNVA) | payer MEDICARE, SELFPAY | PROVIDERS: PCP Internal Medicine; Visit Provider Student in an Organized Health Care Education/Training Program | DX: M81.0 Age-related osteoporosis without current pathological fracture (principal) | CPT/HCPCS: 99202 ==

== ENCOUNTER 2024-09-22 08:33 | Outpatient (REF) | payer MEDICARE, SELFPAY ==
--- OUTSIDE RECORDS SUMMARY | 2024-09-22 08:58 | XMS_ITS | Patient Health Record ---
Author Organization [facility] remy [place] Address [address] [place] [address] Care Team Providers Care Metal Drill Press Operator Name Role Phone Johanna Palencia MD Primary Care Provider Unavaila Michaela Buenrostro Unavailable [phone] Allergies Allergen (clinical drug ingredient) Drug/Non Drug [...] Name Johanna Referring Provider Last Name Talha Referred Organization [facility] Kayode Referred Provider Michaela Acosta Referred Address [address] [facility], [place],[address], Referred Provider Specialty Podiatry Referral Priority Routine Medications Medication SIG (Take, Route, Frequency, Duration) Notes Start Date End Date Status Acetaminophen PRN Active Fluticasone Propionate 50 MCG/ACT Nasal; Duration: 30 Active Fish Oil Not-Taking Eucerin . as directed External ly Apply Twice a day to Feet; Duration: 30 days 09/19/2024 Active Ciclopirox Olamine 0.77 % 1 application Externally Once a day; Duration: 30 days 12/16/2021 Not-Taking Triamterene-HCTZ 37.5-25 MG TAKE ONE TABLET BY MOUTH EVERY MORNING Oral; Duration: 90 Not-Taking Ciclopirox 8 % 1 application Externally Once a day; Duration: 30 10/22/2023 Not-Taking Hydrocortisone 2.5 % 1 application Externally to affected areas of itching irritated skin on foot/feet Twice a day; Duration: 30 days Active Simvastatin 20 MG Oral; Duration: 90 Active Losartan Potassium 25 MG Oral; Duration: 90 Active Ciclopirox Olamine 0.77 % 1 application Externally Twice a day; Duration: 30 days Not-Takin g Vitamin D3 50 MCG (1999 UT) 1 capsule Orally Once a day; Duration: 30 day(s) Active Immunizations Vaccine Route Administration Date Status Comme nts Influenza Unknown 11/29/2023 Administered Social History Tobacco Use: Social History Observation [...] Problem Status W/U Status Risk Notes 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 Vital Signs Blood pressure diastolic 70 mm Hg 09/19/2024 Height 5ft 2'' in 09/19/2024 Blood pressure systolic 132 mm Hg 09/19/2024 Weight 116 lbs 09/19/2024 BMI 21.21 kg/m2 09/19/2024 Procedures Procedure Date Ordered Date Performed Result Body Sit e 84121-GUWHOMS NAIL, 6 OR MORE 10/22/2023 N/A 35821- Removal of Foreign Body, Subcut 10/22/2023 N/A [id number] NAIL, 6 OR MORE 02/22/2024 N/A [id number] NAIL, 6 OR MORE 09/19/2024 N/A Encounters Encounter Location Date Provider Diagnosis [facility] [address] [place] [address] 10/22/2023 Michaela Black Tinea unguium B35.1 ; Puncture wound with foreign body of left great toe without damage to nail, initial encounter S91.142A ; Pain in right toe(s) M79.674 ; Pain in left toe(s) M79.675 and Tinea pedis of both feet B35.3 [facility] [address] [address] 02/22/2024 Michaela Black Tinea unguium B35.1 ; Pain in right toe(s) M79.674 ; Pain in left toe(s) M79.675 and Tinea pedis of both feet B35.[address] [facility] [address] 09/19/2024 Michaela Black Tinea unguium B35.1 ; Metatarsalgia, right foot M77.41 ; Pain in right toe(s) M79.674 ; Pain in left toe(s) M79.675 ; Pain in right foot M79.671 ; Pain in right ankle and joints of right foot M25.571 ; Bursitis of intermetatarsal bursa of right foot M77.51 ; Dermatitis L30.9 ; 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 M21.6X1 and Fat pad atrophy of foot L90.9 Assessments Encounter Date Diagnosis (ICD Code) Assessment Notes Treatment Notes Treatment Clinical Notes Section Notes 10/22/2023 Puncture wound with foreign body of left great toe without damage to nail, initial encounter (ICD-10 - S91.142A) 10/22/2023 Tinea unguium (ICD-10 - B35.1) 02/22/2024 Tinea unguium (ICD-10 - B35.1) 02/22/2024 Pain in right toe(s) (ICD-10 - M79.674) 09/19/2024 Metatarsalgia, right foot (ICD-10 - M77.41) 09/19/2024 Tinea unguium (ICD-10 - B35.1) 02/22/2024 Pain in left toe(s) (ICD-10 - M79.675) 09/19/2024 Pain in right toe(s) (ICD-10 - M79.674) 10/22/2023 Pain in right toe(s) (ICD-10 - M79.674) 10/22/2023 Pain in left toe(s) (ICD-10 - M79.675) 02/22/2024 Tinea pedis of both feet (ICD-10 - B35.3) 09/19/2024 Pain in left toe(s) (ICD-10 - M79.675) 09/19/2024 Pain in right foot (ICD-10 - M79.671) 10/22/2023 Tinea pedis of both feet (ICD-10 - B35.3) 09/19/2024 Pain in right ankle and joints of right foot (ICD-10 - M25.571) 09/19/2024 Bursitis of intermetatarsal bursa of right foot (ICD-10 - M77.51) 09/19/2024 Dermatitis (ICD-10 - L30.9) 09/19/2024 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 (ICD-10 - M21.6X1) 09/19/2024 Fat pad atrophy of foot (ICD-10 - L90.9) Plan Of Treatment Pending Test Test Name Order Date [id number] NAIL, 6 OR MORE 12/16/2021 [id number] NAIL, 6 OR MORE 10/22/2023 [id number] NAIL, 6 OR MORE 02/22/2024 [id number] NAIL, 6 OR MORE 09/19/2024 22833, [id number]/INJECT, JOINT/BURSA 1 05/06/2022 78173- Removal of Foreign Body, Subcut 0 10/22/2023 Next Appt Details Provider Name:Michaela Acosta , 12/19/2024 08:30:00 AM, [address] [place] [address], [phone], Insurance Providers Payer Name Payer Address Payer Phone Subscriber Number Group Number Insured Name Patient Relationship to Insured Coverage Start Date Coverage End Date [facility] [address] [place] [phone] [id number] Julissa Blackman Self - patient is the insured 2 Medical (General) History Medical History History ICD Code Arthritis Back,Hip,and Knee pain High blood pressure Osteoporosis Chicken pox Joint implants/screws Hallux valgus (acquired), right foot M20 .11 Hallux valgus (acquired), left foot M20. 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
[2024-09-22 09:45] LABS: Albumin Level 4.6 g/dL (3.5-5.0); Calcium 9.3 mg/dL (8.4-10.2); Estimated Glomerular Filt Rate > 60; Phosphorus 3.8 mg/dL (2.7-4.5)
[2024-09-22 10:02] LABS: TSH reflex Free T4 1.35 uIU/mL (0.32-4.0)
[2024-09-22 10:15] LABS: Parathyroid Hormone Intact 66.2 pg/mL (8.7-77.1)
[2024-09-22 10:42] LABS: Total Volume 24 Hour Urine 2325 mL
[2024-09-22 10:50] LABS: Creatinine, 24Hr Urine 0.7 G/Day (1.0-2.0); Creatinine, mg/dL 29.77; Sodium 24 Hr Urine 97.7 mmol/Day (40-220)
[2024-09-23 15:34] LABS: Calcium, Ionized 5.2 mg/dL (4.7-5.5)
[2024-09-25 17:14] LABS: Calcium, 24 Hr Urine 172 mg/24 h; Calcium/Creatinine Ratio 218 mg/g creat (30-275); Creatinine 24Hr Urine 0.79 g/24 h (0.50-2.15)
[2024-09-25 19:04] LABS: Collagen Type I C-Telopeptide 338 pg/mL (see note)
[2024-09-26 21:08] LABS: Prot Elec - Albumin 4.4 g/dL (3.8-4.8); Prot Elec - Alpha1 0.2 g/dL (0.2-0.3); Prot Elec - Alpha2 0.7 g/dL (0.5-0.9); Prot Elec - Beta 1 0.3 g/dL (0.4-0.6); Prot Elec - Beta 2 0.2 g/dL (0.2-0.5); Prot Elec - Gamma 0.4 g/dL (0.8-1.7); Prot Elec - Total Protein 6.3 g/dL (6.1-8.1)
[2024-09-27 08:59] LABS: IgA 37 mg/dL (70-320); IgG 598 mg/dL (600-1540); IgM 23 mg/dL (50-300)
[2024-09-27 19:24] LABS: Alkaline Phosphatase Bone 11.5 mcg/L (see note)
== END 2024-09-22 08:34 | disposition home or self-care (01) ==
LOC: HO.LAB 08:33
PROVIDERS: PCP Internal Medicine; Visit Provider Student in an Organized Health Care Education/Training Program
DX: M81.0 Age-related osteoporosis without current pathological fracture (principal)
CPT/HCPCS: 36415; 82040; 82306; 82310; 82330; 82340; 82523; 82565; 82784; 83735; 83970; 84075; 84100; 84165; 84300; 84443; 86334

== ENCOUNTER 2024-10-20 06:19 | Outpatient (REF) | payer MEDICARE, SELFPAY ==
--- NOTE | ~2024-10-20 | FL_ITS ---
EXAMINATION: FL GUIDANCE ONLY HISTORY: M53.3 - Sacrococcygeal disorders, not elsewhere classified COMPARISON: None available. TECHNIQUE: Fluoroscopy time: Less than 0.1 minute. Cumulative Dose: 0.9, 0.9 mGy. DAP: 0.12610 mGym2 Images: 2. FINDINGS: Fluoroscopic spot films of the left hemipelvis demonstrate a needle in the region of the sacroiliac joint. FL/FL guidance in treatment room IMPRESSION: Fluoroscopy during procedure. Please see procedure report for additional information. Electronically signed by: Lowell Parish MD 10/20/2024 03:38 PM EDT
--- OUTSIDE RECORDS SUMMARY | 2024-10-20 06:21 | XMS_ITS | Data Portability ---
Author Organization [place] - [facility], Allergy Address [address] [address] Care Team Providers Care Boilermaker'S Assistant Name Role Phone AVIVA CHAVEZ Primary Care Provider [phone] Assessment No assessment recorded. Plan of Treatment [...] mcg (0.03 %) nasal spray 2023 024 [id number], [address] [facility] [address], [place], [address], 01/15/2024 16:26:57 Patient TargetsNo targets recorded. Patient InstructionsNo instructions recorded. Reason for Referral None Reported. Problems Name Problem SNOMED Code Status Onset Date Resolution Date Notes Provider Name and Address Organization Details Recorded Time Chronic cough 83572602 Completed 202110/30/2023 Chronic cough; Note: Date Diagnose d: 08/05/2021 9:43 AM (R05.3) Not Available [facility] 4 02:36:10 Non-toxi c uninodul ar goiter 221799624 Active 2021 Nontoxic single thyroid nodule; Note: Date Diagnose d: 08/05/2021 9:43 AM (E04.1) Not Available [facility] 4 02:36:15 Chronic rhinitis 06835868 Active 2021 Chronic rhinitis ; Note: Date Diagnose d: 08/05/2021 9:43 AM (J30.89) Not Available [facility] 4 02:36:07 Generali zed enlarged lymph nodes 690390639 Active 2021 Lymphade nopathy NOS; Note: Date Diagnose d: 2 12:44 PM (R59.1) Not Available [facility] 4 02:36:15 Thyroid nodule 250968246 Active 2023 JUS CASANOVA MD [address] [place] [address], [place], [address] , [place] - [facility] 4 14:02:16 Problem Notes None recorded. Procedures Surgical History Date Name Laterality Status Provider Name and Address Organization Details Recorded Time Appendectomy completed Sarah Pinon [place] - [facility] 01/15/2024 16:00:00 excision of bunion completed Sarah Pinon MA [facility] 01/15/2024 16:00:05 Imaging Results None recorded. Procedure Notes None recorded. Medical Equipment None Reported. Allergies Allergen ID Allergen Name Allergen Category Reaction Reaction Severity Criticality Documentation Date Start Date Code Code System Note Provider Name and Address Organization Details Recorded Time 80526 Product containin g penicilli n (product) medicatio n other Not available Not available 08/11/2023 46421 8001 SNOMED React ion: other react ion, Unkno wn; Not Available [facility] 4 00:58:45 48520 lisinopri l medicatio n other Not available Not available 08/11/2023 38689 RxNorm React ion: other react ion, Unkno wn; Not Available [facility] 4 00:58:52 59585 codeine medicatio n other Not available Not available 08/11/2023 2670 RxNorm React ion: other react ion, Unkno wn; Not Available [facility] 4 00:58:53 Medications Name Sig Start Date [...] mg tablet 01/14 completed Medicati on ID: 164321 B rand Name: triamter darshana-hydr ochlorot hiazid [...] 2 puff 2021 active Medicati on ID: 047217 D uration Value: 30 Prescri bed By [...] Details Last Updated DateTime 01/15/2024 157.48 cm 30814.16 g Sarah Pinon [place] - [facility] 01/15/2024 15:58:42 Social History None recorded. Functional Status None recorded. Mental Status None recorded. Family History Nothing Reported. Medical History Condition Response Hypertension Y High Cholesterol Y Gynecological HistoryNo gynecological history recorded. Obstetrics History GPAL:G 0 P 0 0 0 0 Past Encounters Encounter ID Performer Location Encounter Start Date Encounter Closed Date Diagnosis/Indication Diagnosis SNOMED-CT Code Diagnosis ICD10 Code Diagnosis Note [id number] JUS CASANOVA MD [facility] [address] [address] 01/15/2024 15:43:20 01/15/2024 16:31:45 Chronic rhinitis 21588217 J31.0 Ipratropiu m has been renewed. For the dryness, I recommende d some saline gel to the anterior nares at bedtime and saline as needed. Non-toxic uninodular goiter 247038313 E04.1 We reviewed ultrasound findings. Follow-up in a year. Health Concerns Section Related Observation LastModified by Organization Detai ls LastModified Time None Recorded Concern Status LastModified by Organization Details LastModified Time None Recorded Advance Directives Directive None Recorded Payers Insurance Date Sequence Insurance Name Policy Number Policy Baer Covered Member ID Baer Member ID Guarantor Name 01/15/2024 1 [facility] [id number] Julissa Theroux 01/15/2024 1 [facility] CARE [facility] (HMO) Julissa Blackman [id number] Julissa Blackman Notes Date Note Type Note [...] are all fairly stable JUS CASANOVA MD [address] [place] [address], [place], [address], [facility] - [facility] 01/16/2024 07:17:16 OBGyn Episode No OBEpisode recorded.
--- OUTSIDE RECORDS SUMMARY | 2024-10-20 06:21 | XMS_ITS | Clinical Summary ---
Author Organization [facility] Address [address] [place] [address] Phone Care Team Providers Care Multi Disciplined Language Analyst Name Role Phone Pcp, Unknown Primary Care Provider Unavailabl e Social History Tobacco Use Types Packs/Day Years Used Date Smoking Tobacco: Never Assessed Education Answer Date Recorded Are you interested in more education? Not on dante e 07/26/2022 Are you concerned about learning? Not on file 07/26/2022 No 07/26/2022 No 07/26/2022 Digital Access Answer Date Recorded No 08/26/2022 No 08/26/2022 Reliable internet access at home? Not on file 08/26/2022 Device with a working camera? Not on file Comments Unknown Sex and Gender Information Value Date Recorded Sex Assigned at Not on file Legal Sex Female 1:06 PM EDT Gender Identity Not on file Sexual Orientation Not on file Plan of Treatment Not on file Medical Devices Not on file [facility] [place] MEDICARE REPLACEMENT MEDICARE REPLACEMENT [place] [employer]PLAC[employer] [employer] RE[employer] MEDICARE REPLACEMENT MEDICARE REPLACEMENT MEDICARE REPLACEMENT [place] MED[employer]ARE REPLACEMENT Care Teams Multi Disciplined Language Analyst Relationship Specialty Start Date End Date Pcp, Unknown PCP - General 10/29/21 Additional Source Comments The information contained in this document represents components of the legal health record. It is not the complete legal health record.[facility]
--- OUTSIDE RECORDS SUMMARY | 2024-10-20 06:21 | XMS_ITS | Patient Health Record ---
Author Organization [facility] Address [address] [facility] [address] [facility] [place] [address] Care Team Providers Care Clinical Laboratory Assistant Name Role Phone Maddy Suazo Primary Care [...] Problem Status W/U Status Risk Notes Problem [id number] Hallux valgus (acquired), right foot (M20.11) Active confirmed Problem [id number] Hallux valgus (acquired), left foot (M20.12) Active confirmed Problem 936385082722992 Neuritis of left foot (G57.92) Active confirmed [...] Insured Coverage Start Date Coverage End Date [facility] [address] [place] [address] [phone] [id number] Julissa Blackman Self - patient is the [...]
--- OUTSIDE RECORDS SUMMARY | 2024-10-20 06:21 | XMS_ITS | Clinical Summary ---
Author Organization [facility] [address] [place] [address] Address [address] [place], [place] Phone Care Team Providers Care Informatica Name Role Phone Unavailable Primary Care Provider Unavailabl e Encounters Date Type Department Care Team Description 09/13/[address] [phone] Flynn Rust MD Referral from Last 3 Months Surgical History Surgery Date Site/Laterality Comments APPENDECTOMY 1950 PROCEDURE: IN APPENDECTOMY OTHER SURGICAL HISTORY 03/2020 PROCEDURE: MAMMOGRAM COLONOSCOPY 2002 PROCEDURE: IN COLONOSCOPY STOMA DX INCLUDING COLLJ SPEC SPX [...] 2011, 12/17/2005 Cholesterol Screening (Lipid Panel) 03/08/2022 Falls Risk Assessment 03/08/2022 Hypertension/CHF/CAD Annual BMP Blood Test 03/08/2022 Medicare Annual Wellness Visit 03/08/2022 Osteoporosis Screening (Bone Density Screening) 03/08/2022 Social Influencers of Health Screening 03/08/2022 COVID-19 Vaccine ( season) 2023 12/26/2020, 05/29/2020, 05/06/2020 Depression Screening 03/30/2024 Influenza Vaccine (#1) 2024 , 12/07/2019, 12/13/2017, Additional history exists Hepatitis A [...]
--- OUTSIDE RECORDS SUMMARY | 2024-10-20 06:21 | XMS_ITS | Patient Health Record ---
Author Organization [facility] remy Beccaria Address [address] [place] [address] Care Team Providers Care Lead Warehouse Associate Name Role Phone Johanna Palencia MD Primary Care Provider Unavaila Michaela Buenrostro Unavailable [phone] Allergies Allergen (clinical drug ingredient) Drug/Non Drug [...] Referring Provider Last Name Talha Referred Organization [facility] Kayode Referred Provider Michaela Acosta Referred Address [address] [facility],[place], [place],[address], Referred Provider Specialty Podiatry Referral Priority Routine [...] Ordered Date Performed Result Body Sit e 04952-EUQPFXR NAIL, 6 OR MORE 10/22/2023 N/A 58900- Removal of Foreign Body, Subcut 10/22/2023 N/A 27258-[id number] NAIL, 6 OR MORE 02/22/2024 N/A 35367-QSMVAGT NAIL, 6 OR MORE 09/19/2024 N/A Encounters Encounter Location Date Provider Diagnosis [facility] [address] [place] [address] 10/22/2023 Michaela Black Tinea unguium B35.1 ; Puncture wound with foreign body of left great toe without damage to nail, initial encounter S91.142A ; Pain in right toe(s) M79.674 ; Pain in left toe(s) M79.675 and Tinea pedis of both feet B35.3 [facility] [address] [address] 02/22/2024 Michaela Black Tinea unguium B35.1 ; Pain in right toe(s) M79.674 ; Pain in left toe(s) M79.675 and Tinea pedis of both feet B35.[address] [facility] [address] 09/19/2024 Michaela Black Tinea unguium B35.1 ; [...] Treatment Pending Test Test Name Order Date 15807-[id number] NAIL, 6 OR MORE 12/16/2021 50108-QPREUZK NAIL, 6 OR MORE 10/22/2023 49354-CRDRYNX NAIL, 6 OR MORE 02/22/2024 56654-XBCPRSV NAIL, 6 OR MORE 09/19/2024 65058, A4801-JDBCL/INJECT, JOINT/BURSA 1 05/06/2022 34936- Removal of Foreign Body, Subcut 0 10/22/2023 Next Appt Details Provider Name:Michaela Acosta , 12/19/2024 08:30:00 AM, [address] [place] [address], [phone], Insurance Providers Payer Name Payer Address Payer Phone Subscriber Number Group Number Insured Name Patient Relationship to Insured Coverage Start Date Coverage End Date [facility] [address] [place] [phone] [id number] Julissa Blackman Self - patient is the [...]
== END 2024-10-20 06:20 | disposition home or self-care (01) ==
LOC: CF 06:19
PROVIDERS: Visit Provider Internal Medicine
DX: M53.3 Sacrococcygeal disorders, not elsewhere classified (principal); G89.29 Other chronic pain
CPT/HCPCS: 27096; J2003; J2795

== ENCOUNTER 2024-10-20 09:48 | Outpatient (AMB) | payer MEDICARE, SELFPAY ==
[2024-10-20 10:32] VITALS: BP 127/75; PULSE 66; RESP 16; O2SAT 99; BMI 21.8
--- NOTE | 2024-10-20 10:32 | MHC.OFFVIS ---
Vital Signs 10/20/24 10:32 10/20/24 10:46 Height 5 ft 2 in 5 ft 2 in Weight 119 lb 119 lb BMI 21.8 21.8 BP 127/75 143/68 H Blood Pressure Location Lt brachial Lt brachial Position Sitting Sitting Respiration 16 16 Pulse 66 71 Pulse Source Pulse Oximeter Pulse Oximeter Pulse Oximetry (%) 99 98 Oxygen Delivery Method Room Air Room Air Intake Visit Reasons: LEFT DIAGNOSTIC SIJ INJECTION Allergies codeine Adverse Reaction (Unknown, Verified 09/20/24 07:54) Hives sulfamethoxazole Adverse Reaction (Unknown, Verified 09/20/24 07:54) Unknown trimethoprim Adverse Reaction (Unknown, Verified 09/20/24 07:54) Unknown lisinopril Adverse Reaction (Verified 09/20/24 07:54) cough Penicillins Adverse Reaction (Verified 09/20/24 07:54) rash HPI HPI LEFT DIAGNOSTIC SIJ INJECTION: Details: Patient presents for scheduled procedure. Denies any recent cough, cold, infection, fever or other significant changes in medical history since last office visit. [facility] Medical History (Updated 09/20/24 @ 08:38 by Jazmín Sharp MD) Left ovarian cyst PMR (polymyalgia rheumatica) Osteoporosis HTN (hypertension) Hyperlipidemia Lumbar spinal stenosis Piriformis syndrome of left side Lumbar degenerative disc disease Surgical History History of bunionectomy Hx of appendectomy Family History Son Substance use disorder Father No problems noted. Mother Hypertension Social History Household Members Other:: , 6 adult sons, grandchildren in [facility], [facility] Housing: House Patient Tobacco Use Status: Never used Tobacco e-Cigarette/Vaping Use: Never Used service: No Current occupational status: retired Cognitive needs: No Hearing needs: No Vision needs: Yes Physical Exam Vital Signs: Last Vital Signs Pulse 71 10/20/24 10:46 Resp 16 10/20/24 10:46 BP 143/68 H 10/20/24 10:46 Pulse Ox 98 10/20/24 10:46 Oxygen Delivery Method Room Air 10/20/24 10:46 BMI result Body Mass Index 21.8 Office Procedures AMB Joint Injection/Aspiration Joint Injection/Aspiration Details: Sacroiliac Joint Injection, Left The procedure, its benefits, and its risks were explained and written informed consent was obtained from the patient. Immediately prior to starting the procedure, a time-out safety check was conducted. The patient's identification, procedure name, procedure site, and procedure laterality were confirmed with the patient. ? Patient was placed prone on the fluoroscopy table and the lumbosacral area was prepped using ChloraPrep and draped with sterile draped in standard fashion. The C-arm was rotated in a contralateral oblique fashion until the medial border of the iliac crest no longer foreshadowed the posterior sacroiliac joint line. The skin and subcutaneous tissue was anesthetized using 1 mL of 0.75% plain lidocaine with 1.5-inch 25-gauge needle in the middle region of the joint line.? A 3.5-inch 22-gauge spinal needle with small bend on the tip was slowly advanced towards the joint line, coaxial to the x-ray beam. Once bony content was obtained, the needle was easily slid into the intra-articular space.? Intra-articular needle position was confirmed using lateral fluoroscopy.? A total volume of 2.5mL of solution containing 0.5% of ropivacaine was injected intra-articularly. The stylet was reinserted and needle was removed. The patient tolerated the procedure well. Patient denied any lower extremity weakness or numbness. Patient was observed for 30 min and was discharged after fulfilling the standard discharge criteria. Coding 02052 - Sacroiliac Procedure code (CPT) selection complete Assessment & Plan Assessment & Plan (1) Chronic SI joint pain: Code(s): M53.3 - Sacrococcygeal disorders, not elsewhere classified; G89.29 - Other chronic pain Category: Medical Plan Patient is status post left diagnostic SIJ injection. Patient tolerated procedure well and was discharged home in stable condition with discharge instructions. All questions were answered. We will follow-up via telephone or in clinic to assess response to therapy. A follow-up appointment was made during today's visit. Orders: Orders FL guidance in treatment room Today Letha De Jesus APRN, AUTOMATION CLERK G89.29 - Other chronic pain, M53.3 - Sacrococcygeal disorders, not elsewhere classified AMB Joint Injection/Aspiration Today Joe Doll MD G89.29 - Other chronic pain, M53.3 - Sacrococcygeal disorders, not elsewhere classified Coding Level of Care Code Procedure Only Diagnoses Chronic SI joint pain M53.3; G89.29 CPT Codes Coding - Joint 9: 55899 - Sacroiliac ([id number])
[2024-10-20 10:46] VITALS: BP 143/68; PULSE 71; RESP 16; O2SAT 98; BMI 21.8
== END 2024-10-20 11:12 | disposition home or self-care (01) ==
LOC: HO.PMCPRC 09:48
PROVIDERS: PCP Internal Medicine; Visit Provider Internal Medicine
DX: M53.3 Sacrococcygeal disorders, not elsewhere classified (principal); G89.29 Other chronic pain
CPT/HCPCS: 27096

== ENCOUNTER 2024-10-24 10:59 | Outpatient (AMB) | payer MEDICARE, SELFPAY ==
--- NOTE | 2024-10-24 11:06 | A.OFFVIS_ITS ---
Vital Signs 10/24/24 11:09 Height 5 ft 2 in Weight 117 lb 6 oz BMI 21.5 BP 149/69 H Blood Pressure Location Rt brachial Position Sitting Pulse 71 Pulse Source Pulse Oximeter Pulse Oximetry (%) 98 Oxygen Delivery Method Room Air Intake Visit Reasons: LEFT DIAGNOSTIC SIJ INJECTION Intake Note: Pain today 11/06 Overnight Caregiver Required: No Accompanied by: Family/Other Allergies codeine Adverse Reaction (Unknown, Verified 10/24/24 11:10) Hives sulfamethoxazole Adverse Reaction (Unknown, Verified 10/24/24 11:10) Unknown trimethoprim Adverse Reaction (Unknown, Verified 10/24/24 11:10) Unknown lisinopril Adverse Reaction (Verified 10/24/24 11:10) cough Penicillins Adverse Reaction (Verified 10/24/24 11:10) rash HPI Comments Details: The patient is an 79-year-old female presenting with follow-up after a left diagnostic sacroiliac joint injection. The injection was intended to relieve pain and confirm the source of pain, which was suspected to be from the sacroiliac joint. However, the patient reports injection did not provide relief. She continues to endorse left sided low back pain with radiation into her left buttock and left thigh with associated heaviness, burning and tingling. The patient has a history of arthritic back pain and significant spinal stenosis at L3-L4, which has been confirmed through imaging. The spinal stenosis is associated with a herniated disc and hypertrophied ligament, contributing to her symptoms. The patient experiences pain primarily in the buttock region and left leg, which is exacerbated by walking and relieved by leaning forward. The patient also has osteoporosis, which complicates her treatment options. We discussed a half-dose epidural steroid L3-L4 injection due to her osteoporosis. Additionally, the patient has Tarlov cysts, which are not believed to be the primary source of her pain. Denies any recent cough, cold, infection, fever or any significant changes in medical history since last office visit. Past Procedures: 10/20/24: Left Diagnostic SI joint injection-0% pain relief PRIOR: The patient is an 79-year-old female presenting with sacroiliac joint dysfunction. She experiences persistent pain, primarily in the left buttock, which is aggravated by prolonged standing and walking. The pain is characterized as sharp and debilitating, severely impacting her daily activities, as transitioning positions significantly increases her discomfort. Historically, the patient delivered six children vaginally, which may have contributed to her SI joint dysfunction. Additionally, she is diagnosed with osteoporosis, limiting her treatment options, as she was declared not a surgical candidate due to poor bone quality. Despite being on medications like Celebrex and Aleve, the patient continues to experience significant pain, affecting her overall quality of life. [facility] evaluation Regan Rodrigez PA-C 08/05/24: Impression: 79-year-old female presents for evaluation of a left buttock pain going into her left posterior thigh. 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 They are just an incidental anatomical variant and I can see from some of the bone scalloping that these have been with her for probably decades. They generally do not cause pain, she has no neurological complaints related to them and do not need any specific follow-up at her age. She also has a spondylolisthesis at L3-4 but has no centralized back pain. There is stenosis in this region as well, but she does not have classic stenosis pain that is aggravated by walking and better when she sits down. It sounds to me like this is a SI joint inflammation based on the pain with standing and sitting and turning over at night. These are fairly classic. She also had 6 vaginal deliveries, and is well-known that SI joint dysfunction can be associated with multiple pregnancies. Her x-rays also show significant sclerosis in the SI joints. It might be worth doing something like a lateral branch block just to see if this is where the pain is coming from. I do not think she would be a candidate ultimately for SI joint fusion because of the poor bone quality. Maybe she could get some kind of neurostimulator over the SI joint if the injection helps her. I will leave this up to you. I did recommend she talk with her PCP also about considering Celebrex. PRIOR: The patient is a very pleasant 79-year-old female presenting with chronic lower back and bilateral buttock pain. Denies any trauma, injury or falls. The pain has been persistent for several years, primarily localized in the lower back and medial buttocks. This discomfort intensifies with prolonged standing or walking, necessitating the use of cushioning support for pain mitigation. Her condition is complicated by osteoporosis, which contributes to the ongoing pain issues and limits the use of cortisone injections for back and joint pain. She was on Fosamax for 2 years and recently was prescribed Prolia injections which patient declined due to potential side effects. Patient reports she takes Vitamin D3, performs regular home exercise and eats daily yogurt but is interested to trial another medication for osteoporosis with minimal side effects. Will consider Endocrinology evaluation for further management of osteoporosis. Patient reports yolanda was diagnosed with Polymyalgia Rheumatica in 2020 and underwent prednisone treatment for eight months. Despite discontinuation of Fosamax and Prolia injections, osteoporosis persists, prominently affecting her left hip with prior imaging indicating significant bone density reduction. Her osteoarthritis and a history of knee bursitis have required cortisone interventions, especially on the left side, which has provided transient pain relief. Patient is interested in gel injections and plans to follow up with her provider at [facility] for this. - Onset: Several years ago, starting around 2020 - Location: Chronic lower back and bilateral buttocks pain, predominantly left - Radiation: Occasionally to the left calf, rarely to heel or toes - Quality: Sharp, burning, tingling, aching, dull, heavy, sore, pulling - Severity: Significant, worsens with standing, walking, climbing stairs and incline exercises like squats - Aggravating Factors: Prolonged standing, sitting on hard surfaces, walking, squatting exercises, climbing stairs - Alleviating Factors: Using a cushioning support pillow while sitting, gel injections planned for knee pain relief - Interference: Daily living activities, especially sitting or sustained phy sical exertion like standing in line or maintaining exercise routines. Affects her sleep when changing positioning from side to side. - Affect: Pain impacts mood, sleep, ADLs, causing distress when engaging in physical activity or sitting - Analgesia: Currently using Tylenol 650 mg as needed; pain remains significant when performing activities - Adverse Effects: None reported from current regimen. - Activities of Daily Living: Pain mainly inhibits lengthy standing, sitting, walking, and squat exercises; uses cushion for sitting - Aberrant Drug Related Behaviors: None reported PFSH Medical History Left ovarian cyst PMR (polymyalgia rheumatica) Osteoporosis HTN (hypertension) Hyperlipidemia Lumbar spinal stenosis Piriformis syndrome of left side Lumbar degenerative disc disease Surgical History History of bunionectomy Hx of appendectomy Family History Son Substance use disorder Father No problems noted. Mother Hypertension Social History Household Members Other:: , 6 adult sons, grandchildren in [place], [facility] Housing: House Patient Tobacco Use Status: Never used Tobacco e-Cigarette/Vaping Use: Never Used service: No Current occupational status: retired Cognitive needs: No Hearing needs: No Vision needs: Yes Review of Systems Const Details: - Musculoskeletal: Reports chronic pain in the buttock region, exacerbated by walking and relieved by leaning forward - Neurological: Denies numbness, bladder or bowel dysfunction or saddle anesthesia. All systems reviewed & are unremarkable except as noted in HPI and below Physical Exam Vital Signs: Last Vital Signs Pulse 71 10/24/24 11:09 BP 149/69 H 10/24/24 11:09 Pulse Ox 98 10/24/24 11:09 Oxygen Delivery Method Room Air 10/24/24 11:09 BMI result Body Mass Index 21.5 General: Appears afebrile. Alert and oriented. Mood and affect appropriate. Follows and participates in conversation appropriately. Respiratory effort is unlabored. No cough. Able to transition from sit to stand unassisted. Avoids sitting on hard surfaces. Ambulates with bilaterally normal heel strike and toe off, with pain increase in LLE. General: Yes no CVA tenderness Back/Spine/Pelvis Other: Limited lumbar ROM due to pain. Lumbar extension reproduce moderate pain and temporarily relieved by leaning forward. Demonstrates 5/5 right and 4/5 left strength of quadriceps bilaterally as well as flexion/dorsiflexion of bilateral feet against resistance. 2+ pedal pulses bilaterally. Straight leg rise with dorsiflexion positive on the left. Diminished patellar and achilles reflexes bilaterally. Facet loading test positive bilaterally. Jhony sign, Ramakrishna?s, Pelvic compression and Stinchfield tests are positive on the left. No groin pain with I/E hip rotations. Valsalva maneuver is positive. Back: no CVA tenderness Cervical Spine: cervical ROM normal, loss of normal cervical lordosis and No Cervical spine tenderness Thoracic/Lumbar Spine: thoracic and lumbar spine normal to inspection, No Thoracic/lumbar spine scar(s), Lasegue's sign positive on the left and localized, pain with thoraco-lumbar ROM, paraspinal muscle tenderness on the left greater than right, thoraco-lumbar ROM limited, No thoracic spinal tenderness and lumbar spinal tenderness at L3, at L4 and at L5 Pelvis: buttock tenderness on the left Sacroiliac joints: on the right nontender and on the left tender to palpation Extrem General: Yes capillary refill normal, Yes no clubbing, cyanosis or edema and Yes no calf tenderness Results Reviewed Results Reviewed: XR LUMBAR SPINE 3 VIEWS 01/07/24 CLINICAL INFORMATION: Essential (primary) hypertension, PT states arthritis I10. FINDINGS: There is mild to moderate anterolisthesis of L3 on L4 and mild anterolisthesis of L4 on L5. Alignment is otherwise unremarkable. Lumbar vertebral body heights are maintained. There is moderate to severe narrowing of the L4/5 and L5/S1 disc space heights. There are degenerative changes of the posterior elements of the lower lumbar spine. Vascular calcifications noted. Calcified densities in the right upper abdomen are most suggestive of gallstones. IMPRESSION: Moderate to severe degenerative changes of the lower lumbar spine. No compression deformity. DEXA axial skeleton 04/16/23 IMPRESSION: 1. DIAGNOSIS: Osteoporosis based on the lowest T-score value of -2.7 in the total femur applying World Health Organization criteria. XR BILATERAL HIPS WITH AP PELVIS 06/23/24 FINDINGS: Bony pelvis is intact. Sclerosis and the sacroiliac joints, bilaterally. Spondylosis L4-5 and L5-S1. No acute cortical disruption or malalignment in either hip. No lytic or blastic lesions. Osteopenia versus osteoporosis. IMPRESSION: No acute fracture or dislocation. Osteopenia versus osteoporosis. Multilevel lower lumbar spondylosis. XR SACRUM AND COCCYX 06/23/24 CLINICAL INFORMATION: M81.0 - Age-related osteoporosis without current pathological fracture COMPARISON: Correlation made with lumbar spine x-ray 01/07/2024. TECHNIQUE: 2 views of the sacrum and 2 views of the coccyx were obtained. FINDINGS: There is a cortical step-off seen at the S5 level, just above the coccyx, suggestive of fracture. This may be acute. No additional fractures seen. Normal-appearing coccyx. Extensive degenerative changes of the lower lumbar spine with partial sacralization of the L5 vertebral body. Moderate arthritis seen in both SI joints. Sacral arches appear intact. Mild hip joint arthritis noted bilaterally. Soft tissues appear normal aside from vascular calcifications. IMPRESSION: 1. Possibly acute mildly displaced fracture at the S5 level, just above the coccyx. 2. Chronic degenerative changes as discussed. MR pelvis wo con 07/10/24 CLINICAL HISTORY: M53.3 - Sacrococcygeal disorders, not elsewhere classified Examination: MRI pelvis without intravenous contrast Comparison: None Findings: Incidental Tarlov cysts S2 measuring 3 x 2.3 cm. Mild degenerative spondylolisthesis grade 1 L4-5 suspect a rudimentary S1 /2 disc. No bone marrow edema or bony destructive processes. No sacroiliitis or ankylosis. No avascular necrosis. Normal congruence E of the femoroacetabular joints. Symphysis pubis and pubic rami intact. Postmenopausal uterine atrophy cyst with a equivocal septations left ovary measuring 2.8 x 2.6 x 2.0 cm. No endometrial thickening. Normal distention of the urinary bladder. Impression: 1. SI joints and sacrococcygeal joint intact 2. Tarlov cyst S2 on the right]. Degenerative spondylo listhesis L4-5. Significant spinal stenosis at this level correlate with a dedicated MRI lumbar spine. Suspect rudimentary disc S1-S2 3. Cyst with probable septations right ovary correlate with pelvic sonogram in a postmenopausal female Assessment & Plan Assessment & Plan (1) Spondylolisthesis, lumbar region: Code(s): M43.16 - Spondylolisthesis, lumbar region Category: Medical (2) Lumbar degenerative disc disease: Code(s): M51.369 - Other intervertebral disc degeneration, lumbar region without mention of lumbar back pain or lower extremity pain Category: Medical (3) Tarlov cyst: Code(s): G96.191 - Perineural cyst Category: Medical (4) Lumbar spinal stenosis: Comment: L spine XR 12/2023 consistent with lumbar spinal and pelvic MRI 05/2024 normal SI joints degenerative spondylolisthesis at the L4-5 level, established with [facility] and referred to spinal surgeon 07/2024 Code(s): M48.061 - Spinal stenosis, lumbar region without neurogenic claudication Category: Medical (5) Lumbar spondylosis: Code(s): M47.816 - Spondylosis without myelopathy or radiculopathy, lumbar region Category: Medical Plan The plan includes scheduling an interlaminar left parasaggital epidural steroid injection at L3-L4 with local and fluoroscopy to address the spinal stenosis and associated pain. Due to the patient's osteoporosis, the injection will be administered at half the usual dose to minimize risk. Expectations, risks and benefits were reviewed. Patient is aware she will be contacted to schedule this procedure. Additionally, a dedicated MRI of the lumbar spine is recommended to further evaluate the extent of spinal stenosis with notable ligament hypertrophy. These findings correlate with her symptoms of left lower extremity pain and axial low back pain that has been interfering with her ability to ambulate, prolong stand or sit. We will plan for potential minimally invasive lumbar decompression if necessary. The risks, consequences, alternatives, and benefits of various treatment options were discussed with the patient and her family in great detail, including conservative management, injections and procedures. All questions and concerns have been answered and patient agreed with the plan. Follow up after MRI/injection and sooner as needed. Patient was informed and verbally consented to the use of an ambient scribe for clinic note documentation during this visit. Orders: Orders MR lumbar spine wo con Today G96.191 - Perineural cyst, M43.16 - Spondylolisthesis, lumbar region, M47.816 - Spondylosis without myelopathy or radiculopathy, lumbar region, M48.061 - Spinal stenosis, lumbar region without neurogenic claudication, M51.369 - Other intervertebral disc degeneration, lumbar region without mention of lumbar back pain or lower extremity pain Coding Level of Care Code Est Pt Level 4 (83500) Complex EM visit Add On G2211 Diagnoses Spondylolisthesis, lumbar region M43.16 Lumbar degenerative disc disease M51.369 Tarlov cyst G96.191 Lumbar spinal stenosis M48.061 Lumbar spondylosis M47.816
[2024-10-24 11:09] VITALS: BP 149/69; PULSE 71; O2SAT 98; BMI 21.5
--- OUTSIDE RECORDS SUMMARY | 2024-10-24 12:20 | XMS_ITS | Clinical Summary ---
Author Organization [facility] [address] [place] [address] Address [address], [place] Phone Care Team Providers Care Leadership Development Consultant Name Role Phone Unavailable Primary Care Provider Unavailabl e Encounters Date Type Department Care Team Description 09/13/[address] [phone] Flynn Rust MD Referral from Last 3 Months Surgical History Surgery Date Site/Laterality Comments APPENDECTOMY 1950 PROCEDURE: [place] APPENDECTOMY OTHER SURGICAL HISTORY 03/2020 PROCEDURE: MAMMOGRAM COLONOSCOPY 2002 PROCEDURE: [place] COLONOSCOPY STOMA DX INCLUDING COLLJ SPEC SPX [...]
--- OUTSIDE RECORDS SUMMARY | 2024-10-24 12:20 | XMS_ITS | Clinical Summary ---
Author Organization [facility] Address [address] [place] [phone] Phone Care Team Providers Care Coupon Clerk Name Role Phone Pcp, Unknown Primary Care [...] Medical Devices Not on file [place] [facility] [place] MEDICARE REPLACEMENT MEDICARE REPLACEMENT [place] MED[employer] REPLACEMENT [place] REPL[employer] MEDICARE REPLACEMENT MEDICARE REPLACEMENT MEDICARE REPLACEMENT [place] REPLACEMENT Care Teams Coupon Clerk Relationship Specialty Start Date End Date Pcp, Unknown PCP - General 10/29/21 Additional Source Comments The information contained in this document represents components of the legal health record. It is not the complete legal health record.[facility]
--- OUTSIDE RECORDS SUMMARY | 2024-10-24 12:20 | XMS_ITS | Patient Health Record ---
Author Organization [facility] Address [address] [facility] [address] [facility] [place] [address] Care Team Providers Care Speech Communication Professor Name Role Phone Maddy Suazo Primary Care [...] Problem Status W/U Status Risk Notes Problem [id number] Hallux valgus (acquired), right foot (M20.11) Active confirmed Problem [id number] Hallux valgus (acquired), left foot (M20.12) Active confirmed Problem [id number] Neuritis of left foot (G57.92) Active confirmed [...] Insured Coverage Start Date Coverage End Date [facility] [address] [place] [address] [id number] Julissa Blackman Self - patient is the [...]
--- OUTSIDE RECORDS SUMMARY | 2024-10-24 12:20 | XMS_ITS | Patient Health Record ---
[facility] [place] Address [address] [place] [address] Care Team Providers Care Retail Assistant Manager Name Role Phone Johanna Palencia MD Primary Care Provider Unavaila ble Michaela Acosta Unavailable [phone] Allergies Allergen (clinical drug ingredient) Drug/Non Drug [...] Referring Provider Last Name Talha Referred Organization [facility] [place] Referred Provider Michaela Acosta Referred Address [address] [facility],[place], [place],[address], Referred Provider Specialty Podiatry Referral Priority Routine [...] Ordered Date Performed Result Body Sit e 49451-VOBWCOV NAIL, 6 OR MORE 02/22/2024 N/A 39106-YNZXRDS NAIL, 6 OR MORE 09/19/2024 N/A Encounters Encounter Location Date [facility] [address] 02/22/2024 Michaela Black Tinea unguium B35.1 ; Pain in right toe(s) M79.674 ; Pain in left toe(s) M79.675 and Tinea pedis of both feet B35.3 [facility] [place] [address] [place] [address] 09/19/2024 Michaela Black Tinea unguium B35.1 ; [...] in right toe(s) (ICD-10 - M79.674) 02/22/2024 Tinea pedis of both feet (ICD-10 - B35.3) 09/19/2024 Pain in left toe(s) (ICD-10 - M79.675) 09/19/2024 Pain in right foot (ICD-10 - M79.671) 09/19/2024 Pain in right ankle and joints of right foot (ICD-10 - M25.571) 09/19/2024 Bursitis of intermetatarsal bursa of right foot (ICD-10 - M77.51) 09/19/2024 Dermatitis (ICD-10 - L30.9) 09/19/2024 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 (ICD-10 - M21.6X1) 09/19/2024 Fat pad atrophy of foot (ICD-10 - L90.9) Plan Of Treatment Pending Test Test Name Order Date 45064-EVOFSOP NAIL, 6 OR MORE 12/16/2021 23854-GPDWXFP NAIL, 6 OR MORE 10/22/2023 03180-RPMYMAL NAIL, 6 OR MORE 02/22/2024 38791-WKZGHIE NAIL, 6 OR MORE 09/19/2024 26523, [id number]-WOKVH/INJECT, JOINT/BURSA 1 05/06/2022 66040- Removal of Foreign Body, Subcut 0 10/22/2023 Next Appt Details Provider Name:Michaela Acosta , 12/19/2024 08:30:00 AM, [address] [place], [address], Insurance Providers Payer Name Payer Address Payer Phone Subscriber Number Group Number Insured Name Patient Relationship to Insured Coverage Start Date Coverage End Date [facility] [address] [place] [phone] [id number] Julissa Blackman Self - patient is the [...]
--- OUTSIDE RECORDS SUMMARY | 2024-10-24 12:20 | XMS_ITS | Data Portability ---
Author Organization [place] - [facility], Allergy Address [address] [address] Care Team Providers Care Business Applications Manager Name Role Phone AVIVA CHAVEZ Primary Care [...] mcg (0.03 %) nasal spray 2023 024 [id number], [address] [facility], [place], [address], 01/15/2024 16:26:57 Patient TargetsNo targets recorded. Patient InstructionsNo instructions recorded. Reason for Referral None Reported. Problems Name Problem SNOMED Code Status Onset Date Resolution Date Notes Provider Name and Address Organization Details Recorded Time Chronic cough 27942529 Completed 202110/30/2023 Chronic cough; Note: Date Diagnose d: 08/05/2021 9:43 AM (R05.3) Not Available [facility] 4 02:36:10 Non-toxi c uninodul ar goiter [id number] Active 2021 Nontoxic single thyroid nodule; Note: Date Diagnose d: 08/05/2021 9:43 AM (E04.1) Not Available [facility] 4 02:36:15 Chronic rhinitis 70524661 Active 2021 Chronic rhinitis ; Note: Date Diagnose d: 08/05/2021 9:43 AM (J30.89) Not Available [facility] 4 02:36:07 Generali zed enlarged lymph nodes 944395901 Active 2021 Lymphade nopathy NOS; Note: Date Diagnose d: 2 12:44 PM (R59.1) Not Available [facility] 4 02:36:15 Thyroid nodule 421124756 Active 2023 JUS CASANOVA MD [address] [place] [address], [place], [address] , [place] - [facility] 4 14:02:16 Problem Notes None recorded. Procedures Surgical History Date Name Laterality Status Provider Name and Address Organization Details Recorded Time Appendectomy completed Sarah Pinon [place] - [facility] 01/15/2024 16:00:00 excision of bunion completed Sarah Pinon MA [facility] 01/15/2024 16:00:05 Imaging Results None recorded. Procedure Notes None recorded. Medical Equipment None Reported. Allergies Allergen ID Allergen Name Allergen Category Reaction Reaction Severity Criticality Documentation Date Start Date Code Code System Note Provider Name and Address Organization Details Recorded Time 19591 Product containin g penicilli n (product) medicatio n other Not available Not available 08/11/2023 22481 8001 SNOMED React ion: other react ion, Unkno wn; Not Available [facility] 4 00:58:45 15633 lisinopri l medicatio n other Not available Not available 08/11/2023 08600 RxNorm React ion: other react ion, Unkno wn; Not Available [facility] 4 00:58:52 77923 codeine medicatio n other Not available Not available 08/11/2023 2670 RxNorm React ion: other react ion, Unkno wn; Not Available [facility] 4 00:58:53 Medications Name Sig Start [...] mg tablet 01/14 completed Medicati on ID: [id number] B rand Name: triamter darshana-hydr ochlorot hiazid [...] 2 puff 2021 active Medicati on ID: [id number] D uration Value: 30 Prescri bed By [...] Details Last Updated DateTime 01/15/2024 157.48 cm 51967.16 g Sarah Pinon [place] - [facility] 01/15/2024 15:58:42 Social History None recorded. Functional Status None recorded. Mental Status None recorded. Family History Nothing Reported. Medical History Condition Response Hypertension Y High Cholesterol Y Gynecological HistoryNo gynecological history recorded. Obstetrics History GPAL:G 0 P 0 0 0 0 Past Encounters Encounter ID Performer Location Encounter Start Date Encounter Closed Date Diagnosis/Indication Diagnosis SNOMED-CT Code Diagnosis ICD10 Code Diagnosis Note [id number] JUS CASANOVA MD [facility] [address] [address] 01/15/2024 15:43:20 01/15/2024 16:31:45 Chronic rhinitis 11968382 J31.0 Ipratropiu m has been renewed. For the dryness, I recommende d some saline gel to the anterior nares at bedtime and saline as needed. Non-toxic uninodular goiter [id number] E04.1 We reviewed ultrasound findings. Follow-up in a year. Health Concerns Section Related Observation LastModified by Organization Detai ls LastModified Time None Recorded Concern Status LastModified by Organization Details LastModified Time None Recorded Advance Directives Directive None Recorded Payers Insurance Date Sequence Insurance Name Policy Number Policy Baer Covered Member ID Baer Member ID Guarantor Name 01/15/2024 1 [facility] [id number] Julissa Blackamn 01/15/2024 1 [facility] CARE [facility] (O) Julissatiana Blackman [id number] Julissatiana Blackman OBGyn Episode No OBEpisode recorded.
== END 2024-10-24 11:43 | disposition home or self-care (01) ==
LOC: HO.PMC 11:00
PROVIDERS: PCP Internal Medicine; Visit Provider Nurse Practitioner Family
DX: M43.16 Spondylolisthesis, lumbar region (principal); M51.369 Other intervertebral disc degeneration, lumbar region without mention of lumbar back pain or lower extremity pain; G96.191 Perineural cyst; M48.061 Spinal stenosis, lumbar region without neurogenic claudication; M47.816 Spondylosis without myelopathy or radiculopathy, lumbar region
CPT/HCPCS: 99214; G2211

== ENCOUNTER → 2024-10-24 10:59 | Outpatient (BNVA) | payer MEDICARE, SELFPAY | PROVIDERS: PCP Internal Medicine; Visit Provider Nurse Practitioner Family | DX: M43.16 Spondylolisthesis, lumbar region (principal); M51.369 Other intervertebral disc degeneration, lumbar region without mention of lumbar back pain or lower extremity pain; G96.191 Perineural cyst; M48.061 Spinal stenosis, lumbar region without neurogenic claudication; M47.816 Spondylosis without myelopathy or radiculopathy, lumbar region | CPT/HCPCS: 99212 ==

== ENCOUNTER 2024-11-01 14:01 | Outpatient (AMB) | payer MEDICARE, SELFPAY ==
--- NOTE | 2024-11-01 14:06 | A.OFFVIS_ITS ---
Vital Signs 11/01/24 14:16 Height 5 ft 2 in Weight 117 lb BMI 21.4 BP 150/67 H Blood Pressure Location Lt brachial Position Sitting Pulse 71 Pulse Source Pulse Oximeter Pulse Oximetry (%) 98 Oxygen Delivery Method Room Air Intake Visit Reasons: Lumbar Spine MRI Review/ Discuss Inj Intake Note: Pain today 7.08/06 Adobe Block Maker Required: No Accompanied by: Other Relationship Allergies codeine Adverse Reaction (Unknown, Verified 11/01/24 14:17) Hives sulfamethoxazole Adverse Reaction (Unknown, Verified 11/01/24 14:17) Unknown trimethoprim Adverse Reaction (Unknown, Verified 11/01/24 14:17) Unknown lisinopril Adverse Reaction (Verified 11/01/24 14:17) cough Penicillins Adverse Reaction (Verified 11/01/24 14:17) rash HPI Comments Details: The patient is an 79-year-old female presenting with back and leg pain for fol low-up on lumbar spine MRI results. The MRI revealed a significant severe spinal stenosis at L4-L5 due to advanced facet joint arthritis. Additionally, there is anterolisthesis with moderate right and mild left foraminal narrowing at L4, with the right L4 nerve being abutted. The patient reports that the pain is present in the lower back and radiates to the left buttock and into left lateral and anterior thigh and slightly below the left knee laterally. She denies pain extending to the calf or toes and notes difficulty bending and lifting objects. The pain is exacerbated by bending and lifting, and she experiences significant discomfort after walking for about 10 minutes. The MRI also identified a sacral Tarlov cyst measuring 3 cm, causing chronic mild pressure and erosion of S2. - Onset: Chronic back and leg pain - Quality: Radiating pain to the left leg, particularly the front - Exacerbating factors: Bending, lifting, and walking for more than 10 minutes - Relieving factors: None mentioned - Interference: Difficulty bending, lifting, and standing for prolonged periods - Affect: Pain impacts daily activities and mobility - Analgesia: Epidural steroid injection planned - Adverse Effects: None reported - Activities of Daily Living: Limited by pain, especially walking and standing - Aberrant Drug Related Behaviors: None reported PRIOR: The patient is an 79-year-old female presenting with follow-up after a left diagnostic sacroiliac joint injection. The injection was intended to relieve pain and confirm the source of pain, which was suspected to be from the sacroiliac joint. However, the patient reports injection did not provide relief. She continues to endorse left sided low back pain with radiation into her left buttock and left thigh with associated heaviness, burning and tingling. The patient has a history of arthritic back pain and significant spinal stenosis at L3-L4, which has been confirmed through imaging. The spinal stenosis is associated with a herniated disc and hypertrophied ligament, contributing to her symptoms. The patient experiences pain primarily in the buttock region and left leg, which is exacerbated by walking and relieved by leaning forward. The patient also has osteoporosis, which complicates her treatment options. We discussed a half-dose epidural steroid L3-L4 injection due to her osteoporosis. Additionally, the patient has Tarlov cysts, which are not believed to be the primary source of her pain. Denies any recent cough, cold, infection, fever or any significant changes in medical history since last office visit. Past Procedures: 10/20/24: Left Diagnostic SI joint injection-0% pain relief PRIOR: The patient is an 79-year-old female presenting with sacroiliac joint dysfunction. She experiences persistent pain, primarily in the left buttock, which is aggravated by prolonged standing and walking. The pain is characterized as sharp and debilitating, severely impacting her daily activities, as transitioning positions significantly increases her discomfort. Historically, the patient delivered six children vaginally, which may have contributed to her SI joint dysfunction. Additionally, she is diagnosed with osteoporosis, limiting her treatment options, as she was declared not a surgical candidate due to poor bone quality. Despite being on medications like Celebrex and Aleve, the patient continues to experience significant pain, affecting her overall quality of life. [facility] evaluation Regan Rodrigez PA-C 08/05/24: Impression: 79-year-old female presents for evaluation of a left buttock pain going into her left posterior thigh. 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 They are just an incidental anatomical variant and I can see from some of the bone scalloping that these have been with her for probably decades. They generally do not cause pain, she has no neurological complaints related to them and do not need any specific follow-up at her age. She also has a spondylolisthesis at L3-4 but has no centralized back pain. There is stenosis in this region as well, but she does not have classic stenosis pain that is aggravated by walking and better when she sits down. It sounds to me like this is a SI joint inflammation based on the pain with standing and sitting and turning over at night. These are fairly classic. She also had 6 vaginal deliveries, and is well-known that SI joint dysfunction can be associated with multiple pregnancies. Her x-rays also show significant sclerosis in the SI joints. It might be worth doing something like a lateral branch block just to see if this is where the pain is coming from. I do not think she would be a candidate ultimately for SI joint fusion because of the poor bone quality. Maybe she could get some kind of neurostimulator over the SI joint if the injection helps her. I will leave this up to you. I did recommend she talk with her PCP also about considering Celebrex. PRIOR: The patient is a very pleasant 79-year-old female presenting with chronic lower back and bilateral buttock pain. Denies any trauma, injury or falls. The pain h as been persistent for several years, primarily localized in the lower back and medial buttocks. This discomfort intensifies with prolonged standing or walking, necessitating the use of cushioning support for pain mitigation. Her condition is complicated by osteoporosis, which contributes to the ongoing pain issues and limits the use of cortisone injections for back and joint pain. She was on Fosa max for 2 years and recently was prescribed Prolia injections which patient declined due to potential side effects. Patient reports she takes Vitamin D3, performs regular home exercise and eats daily yogurt but is interested to trial another medication for osteoporosis with minimal side effects. Will consider Endocrinology evaluation for further management of osteoporosis. Patient reports yolanda was diagnosed with Polymyalgia Rheumatica in 2020 and underwent prednisone treatment for eight months. Despite discontinuation of Fosamax and Prolia injections, osteoporosis persists, prominently affecting her left hip with prior imaging indicating significant bone density reduction. Her osteoarthritis and a history of knee bursitis have required cortisone interventions, especially on the left side, which has provided transient pain relief. Patient is interested in gel injections and plans to follow up with her provider at [facility] for this. - Onset: Several years ago, starting around 2020 - Location: Chronic lower back and bilateral buttocks pain, predominantly left - Radiation: Occasionally to the left calf, rarely to heel or toes - Quality: Sharp, burning, tingling, aching, dull, heavy, sore, pulling - Severity: Significant, worsens with standing, walking, climbing stairs and incline exercises like squats - Aggravating Factors: Prolonged standing, sitting on hard surfaces, walking, squatting exercises, climbing stairs - Alleviating Factors: Using a cushioning support pillow while sitting, gel injections planned for knee pain relief - Interference: Daily living activities, especially sitting or sustained physical exertion like standing in line or maintaining exercise routines. Affects her sleep when changing positioning from side to side. - Affect: Pain impacts mood, sleep, ADLs, causing distress when engaging in physical activity or sitting - Analgesia: Currently using Tylenol 650 mg as needed; pain remains significant when performing activities - Adverse Effects: None reported from current regimen. - Activities of Daily Living: Pain mainly inhibits lengthy standing, sitting, walking, and squat exercises; uses cushion for sitting - Aberrant Drug Related Behaviors: None reported PFSH Medical History Left ovarian cyst PMR (polymyalgia rheumatica) Osteoporosis HTN (hypertension) Hyperlipidemia Lumbar spinal stenosis Piriformis syndrome of left side Lumbar degenerative disc disease Surgical History History of bunionectomy Hx of appendectomy Family History Son Substance use disorder Father No problems noted. Mother Hypertension Social History Household Members Other:: , 6 adult sons, grandchildren in [facility] Housing: House Patient Tobacco Use Status: Never used Tobacco e-Cigarette/Vaping Use: Never Used service: No Current occupational status: retired Cognitive needs: No Hearing needs: No Vision needs: Yes Review of Systems Const Details: - Musculoskeletal: Reports chronic back pain radiating to the left leg - Neurological: Denies pain extending to the calf, guzman or toes. Reports numbness, tingling with intermittent heaviness of LLE. Denies bladder or bowel incontinence or saddle anesthesia. All systems reviewed & are unremarkable except as noted in HPI and below Physical Exam Vital Signs: Last Vital Signs Pulse 71 11/01/24 14:16 BP 150/67 H 11/01/24 14:16 Pulse Ox 98 11/01/24 14:16 Oxygen Delivery Method Room Air 11/01/24 14:16 BMI result Body Mass Index 21.4 General: Appears afebrile. Alert and oriented. Mood and affect appropriate. Follows and participates in conversation appropriately. Respiratory effort is unlabored. No cough. Able to transition from sit to stand unassisted. Ambulates with bilaterally normal heel strike and toe off, with pain increase in LLE. General: Yes no CVA tenderness Back/Spine/Pelvis Other: Limited lumbar ROM due to pain. Lumbar extension reproduce mild to moderate pain and bending and leaning forward reproduces moderate to severe pain. Demonstrates 5/5 right and 4/5 left strength of quadriceps bilaterally as well as flexion/dorsiflexion of bilateral feet against resistance. 2+ pedal pulses bilaterally. Straight leg rise with dorsiflexion positive on the left. Diminished patellar and achilles reflexes bilaterally. Facet loading test positive bilaterally. Jhony sign, Ramakrishna?s, Pelvic compression and Stinchfield tests are positive on the left. No groin pain with I/E hip rotations. Valsalva maneuver is positive. Back: no CVA tenderness Cervical Spine: cervical ROM normal, loss of normal cervical lordosis and No Cervical spine tenderness Thoracic/Lumbar Spine: thoracic and lumbar spine normal to inspection, No Thoracic/lumbar spine scar(s), Lasegue's sign positive on the left and localized, pain with thoraco-lumbar ROM, paraspinal muscle tenderness on the l eft greater than right, thoraco-lumbar ROM limited, No thoracic spinal tenderness and lumbar spinal tenderness at L3, at L4 and at L5 Pelvis: buttock tenderness on the left Sacroiliac joints: on the right nontender and on the left tender to palpation Extrem General: Yes capillary refill normal, Yes no clubbing, cyanosis or edema and Yes no calf tenderness Results Reviewed Results Reviewed: MRI LUMBAR SPINE WITHOUT CONTRAST at [facility] 10/26/24 CLINICAL INFORMATION: Spondylolisthesis, perineural cyst and spinal stenosis. Chronic low back and left gluteal pain. TECHNICAL INFORMATION: 1. Sagittal and axial T1. 2. Sagittal and axial T2. 3. Sagittal STIR. SEDATION: None. COMPARISON: No existing relevant imaging immediately accessible. INTERPRETATION: Conus shows normal tapering and intrinsic signal, termination at T11-12. No spinal canal masses. Transitional lumbosacral junction with partially lumbarized S1 the right. There is 5 mm degenerative anterolisthesis at L4-5 with localized Modic type I discogenic endplate reaction and to the left. Remainder of endplates intact, vertebral body heights preserved. Marrow signal mildly heterogeneous throughout column. Sharply circumscribed 3.0 x 2.4 x 1.7 cm Tarlov cyst seen in the sacral spinal canal to the right with mild, chronic pressure erosion of subjacent S2 segment. L5-S1: Disc height loss with partially mineralized disc, left facet joint overgrowth and ankylosis. No posterior disc contour abnormality or significant central canal narrowing. Neural foramina mildly stenotic. L4-5: Moderate disc degeneration with grade I anterolisthesis is due to advanced facet joint arthrosis. Severe trefoil spinal canal and moderate right/mild left biforaminal narrowing. Exiting right L4 nerve abutted. 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 L3-4 and L2-3: Mild disc degeneration with posterior bulges, ligamentous hypertrophy and minimal facet joint overgrowth. Mild spinal canal and neural foraminal stenoses at both levels. No evident neural impingement. L1-2 and T12-1: Mild disc degeneration. No posterior disc protrusion, significant spinal canal or foraminal narrowing. No prevertebral/paraspinous soft tissue masses or collections. Included pelvis intact and marrow signal normal. Superior portions of sacroiliac joints show no effusions, subarticular edema or sclerosis. Gallstones noted. CONCLUSION: 1. Transitional lumbosacral junction with L5-S1 segmental ankylosis. 2. L4-5, severe spinal stenosis due to advanced facet joint arthrosis anterolisthesis. Moderate right/mild left biforaminal narrowing with abutted ex iting right L4 nerve. 3. L2-3 and L3-4, mild spinal canal and biforaminal stenoses due to bulging discs and facet overgrowth. 4. 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 5. Gallstones. XR LUMBAR SPINE 3 VIEWS 01/07/24 CLINICAL INFORMATION: Essential (primary) hypertension, PT states arthritis I10. FINDINGS: There is mild to moderate anterolisthesis of L3 on L4 and mild anterolisthesis of L4 on L5. Alignment is otherwise unremarkable. Lumbar vertebral body heights are maintained. There is moderate to severe narrowing of the L4/5 and L5/S1 disc space heights. There are degenerative changes of the posterior elements of the lower lumbar spine. Vascular calcifications noted. Calcified densities in the right upper abdomen are most suggestive of gallstones. IMPRESSION: Moderate to severe degenerative changes of the lower lumbar spine. No compression deformity. DEXA axial skeleton 04/16/23 IMPRESSION: 1. DIAGNOSIS: Osteoporosis based on the lowest T-score value of -2.7 in the total femur applying World Health Organization criteria. XR BILATERAL HIPS WITH AP PELVIS 06/23/24 FINDINGS: Bony pelvis is intact. Sclerosis and the sacroiliac joints, bilaterally. Spondylosis L4-5 and L5-S1. No acute cortical disruption or malalignment in either hip. No lytic or blastic lesions. Osteopenia versus osteoporosis. IMPRESSION: No acute fracture or dislocation. Osteopenia versus osteoporosis. Multilevel lower lumbar spondylosis. XR SACRUM AND COCCYX 06/23/24 CLINICAL INFORMATION: M81.0 - Age-related osteoporosis without current pathological fracture COMPARISON: Correlation made with lumbar spine x-ray 01/07/2024. TECHNIQUE: 2 views of the sacrum and 2 views of the coccyx were obtained. FINDINGS: There is a cortical step-off seen at the S5 level, just above the coccyx, suggestive of fracture. This may be acute. No additional fractures seen. Normal-appearing coccyx. Extensive degenerative changes of the lower lumbar spine with partial sacralization of the L5 vertebral body. Moderate arthritis seen in both SI joints. Sacral arches appear intact. Mild hip joint arthritis noted bilaterally. Soft tissues appear normal aside from vascular calcifications. IMPRESSION: 1. Possibly acute mildly displaced fracture at the S5 level, just above the coccyx. 2. Chronic degenerative changes as discussed. MR pelvis wo con 07/10/24 CLINICAL HISTORY: M53.3 - Sacrococcygeal disorders, not elsewhere classified Examination: MRI pelvis without intravenous contrast Comparison: None Findings: Incidental Tarlov cysts S2 measuring 3 x 2.3 cm. Mild degenerative spondylolisthesis grade 1 L4-5 suspect a rudimentary S1 /2 disc. No bone marrow edema or bony destructive processes. No sacroiliitis or ankylosis. No avascular necrosis. Normal congruence E of the femoroacetabular joints. Symphysis pubis and pubic rami intact. Postmenopausal uterine atrophy cyst with a equivocal septations left ovary measuring 2.8 x 2.6 x 2.0 cm. No endometrial thickening. Normal distention of the urinary bladder. Impression: 1. SI joints and sacrococcygeal joint intact 2. Tarlov cyst S2 on the right]. Degenerative spondylo listhesis L4-5. Significant spinal stenosis at this level correlate with a dedicated MRI lumbar spine. Suspect rudimentary disc S1-S2 3. Cyst with probable septations right ovary correlate with pelvic sonogram in a postmenopausal female Assessment & Plan Assessment & Plan (1) Spondylolisthesis, lumbar region: Code(s): M43.16 - Spondylolisthesis, lumbar region Category: Medical (2) Lumbar degenerative disc disease: Code(s): M51.369 - Other intervertebral disc degeneration, lumbar region without mention of lumbar back pain or lower extremity pain Category: Medical (3) Tarlov cyst: Code(s): G96.191 - Perineural cyst Category: Medical (4) Lumbar spinal stenosis: Comment: L spine XR 12/2023 consistent with lumbar spinal and pelvic MRI 05/2024 normal SI joints degenerative spondylolisthesis at the L4-5 level, established with [place] pain management and referred to spinal surgeon 07/2024 Code(s): M48.061 - Spinal stenosis, lumbar region without neurogenic claudication Category: Medical (5) Lumbar spondylosis: Code(s): M47.816 - Spondylosis without myelopathy or radiculopathy, lumbar region Category: Medical Plan The plan includes scheduling an interlaminar left parasaggital epidural steroid injection at L4-L5 with local and fluoroscopy to address the spinal stenosis and associated pain consistent with recent lumbar MRI findings. Due to the patient's osteoporosis, the injection will be administered at half the usual dose to minimize risk. Expectations, risks and benefits were reviewed. Patient is aware she will be contacted to schedule this procedure. If the injection does not provide relief, a referral to Neurosurgery will be con sidered. The patient is advised to monitor symptoms and report any changes, particularly if the pain worsens or new symptoms develop. All questions and concerns have been answered and patient agreed with the plan. Follow up after injections and sooner as needed. Patient was informed and verbally consented to the use of an ambient scribe for clinic note documentation during this visit. Coding Level of Care Code Est Pt Level 4 (52550) Complex EM visit Add On G2211 Diagnoses Spondylolisthesis, lumbar region M43.16 Lumbar degenerative disc disease M51.369 Tarlov cyst G96.191 Lumbar spinal stenosis M48.061 Lumbar spondylosis M47.816
[2024-11-01 14:16] VITALS: BP 150/67; PULSE 71; O2SAT 98; BMI 21.4
--- OUTSIDE RECORDS SUMMARY | 2024-11-01 14:44 | XMS_ITS | Clinical Summary ---
Author Organization [facility] [address] [place] [address] Address [address] [place], [place] Phone Care Team Providers Care Grievance And Appeals Specialist Name Role Phone Unavailable Primary Care Provider Unavailabl e Encounters Date Type Department Care Team Description 09/13/[address] [phone] Flynn Rust MD Referral from Last 3 [...]
--- OUTSIDE RECORDS SUMMARY | 2024-11-01 14:44 | XMS_ITS | Clinical Summary ---
Author Organization [facility] Address [address] [place] [address] Phone Care Team Providers Care Painter Chassis Name Role Phone Pcp, Unknown Primary Care [...] Medical Devices Not on file Insurance [facility] [place] MEDICARE REPLACEMENT MEDICARE REPLACEMENT [place] RE[place]AC[place] MED[place] REPL[place] MEDICARE REPLACEMENT MEDICARE REPLACEMENT MEDICARE REPLACEMENT [place] MEDICARE REPLACEMENT Care Teams Painter Chassis Relationship Specialty Start Date End Date Pcp, Unknown PCP - General 10/29/21 Additional Source Comments The information contained in this document represents components of the legal health record. It is not the complete legal health record.[facility]
--- OUTSIDE RECORDS SUMMARY | 2024-11-01 14:44 | XMS_ITS | Patient Health Record ---
Author Organization [facility] Address [address] [facility] [address] [facility] [place] [address] Care Team Providers Care Government Service Executive Name Role Phone Maddy Suazo Primary Care [...] remove after 12 hours Externally Once a day; Duration: 30 days 05/09/2021 Active Acetaminophen 500 MG 1 tablet as needed Orally every 4 hrs; Duration: 30 days 03/01/2021 Not-Taking hydrOXYzine HCl 25 MG 1 tablet as needed Orally every 8 hrs for nausea/itching; Duration: 10 days 03/01/2021 Not-Taking Lidocaine 5 % as directed Externally Three times a day; Duration: 30 days 05/09/2021 Active Simvastatin 20 MG 1 tablet in the evening Orally Once a day Active Fosamax Not-Taking traMADol HCl 50 MG 1 tablet as needed Orally every 6 hours; Duration: 6 days 03/01/2021 Not-Taking predniSONE 2.5 MG 1 tablet Orally BID 3mg Active Cozaar 25 MG 1 tablet Orally Once a day Not-Taking Losartan Potassium 25 MG 1 tablet Orally Once a day Active Fish Oil 1 Cap daily Not-Taki ng Ibuprofen 600 MG 1 tablet with food or milk as needed Orally every 6 hrs; Duration: 30 days 03/01/2021 Not-Taking Maxzide-25 37.5-25 MG 1 tablet in the morning Orally Once a day Not-Taking Problems Problem Type SNOMED Code ICD Code Onset Dates Problem Status W/U Status Risk Notes Problem Acquired hallux valgus (40540943) Hallux valgus (acquired), right foot (M20.11) Active confirmed Problem Acquired hallux valgus (82877137) Hallux valgus (acquired), left foot (M20.12) Active confirmed Problem Mononeuropathy of lower limb (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
--- OUTSIDE RECORDS SUMMARY | 2024-11-01 14:44 | XMS_ITS | Patient Health Record ---
[facility] Address [address] [place] [address] Care Team Providers Care Semiconductor Manufacturing Technician Name Role Phone Johanna Palencia MD Primary Care Provider Unavaila Michaela Buenrostro Unavailable [phone] Allergies Allergen (clinical drug ingredient) Drug/Non Drug [...] Referring Provider Last Name Talha Referred Organization [facility] [place] Referred Provider Michaela Acosta Referred Address [address] [facility],[place], [place],[address], Referred Provider Specialty Podiatry Referral Priority Routine [...] Ordered Date Performed Result Body Sit e 49920-AIDNOYI NAIL, 6 OR MORE 02/22/2024 N/A 01475-PHCNHUV NAIL, 6 OR MORE 09/19/2024 N/A Encounters Encounter Location Date [facility] [address] 02/22/2024 Michaela Black Tinea unguium B35.1 ; Pain in right toe(s) M79.674 ; Pain in left toe(s) M79.675 and Tinea pedis of both feet B35.3 [facility] [place] [address] [place] [address] 09/19/2024 Michaela Black Tinea unguium B35.1 ; [...] Treatment Pending Test Test Name Order Date [id number] NAIL, 6 OR MORE 12/16/2021 [id number] NAIL, 6 OR MORE 10/22/2023 [id number] NAIL, 6 OR MORE 02/22/2024 [id number] NAIL, 6 OR MORE 09/19/2024 70698, [id number]/INJECT, JOINT/BURSA 1 05/06/2022 01225- Removal of Foreign Body, Subcut 0 10/22/2023 Next Appt Details Provider Name:Michaela Acosta , 12/19/2024 08:30:00 AM, [address] [place], [address], Insurance Providers Payer Name Payer Address Payer Phone Subscriber Number Group Number Insured Name Patient Relationship to Insured Coverage Start Date Coverage End Date [facility] [address] [place] [phone] [id number] Julissa Blackman Self - patient is the [...]
== END 2024-11-01 15:12 | disposition home or self-care (01) ==
LOC: HO.PMC 14:02
PROVIDERS: PCP Internal Medicine; Visit Provider Nurse Practitioner Family
DX: M43.16 Spondylolisthesis, lumbar region (principal); M51.369 Other intervertebral disc degeneration, lumbar region without mention of lumbar back pain or lower extremity pain; G96.191 Perineural cyst; M48.061 Spinal stenosis, lumbar region without neurogenic claudication; M47.816 Spondylosis without myelopathy or radiculopathy, lumbar region
CPT/HCPCS: 99214; G2211

== ENCOUNTER → 2024-11-01 14:01 | Outpatient (BNVA) | payer MEDICARE, SELFPAY | PROVIDERS: PCP Internal Medicine; Visit Provider Nurse Practitioner Family | DX: Z71.2 Person consulting for explanation of examination or test findings (principal); M43.16 Spondylolisthesis, lumbar region; M51.369 Other intervertebral disc degeneration, lumbar region without mention of lumbar back pain or lower extremity pain; M48.061 Spinal stenosis, lumbar region without neurogenic claudication; M47.816 Spondylosis without myelopathy or radiculopathy, lumbar region; G96.191 Perineural cyst | CPT/HCPCS: 99212 ==

== ENCOUNTER 2024-11-03 06:10 | Outpatient (REF) | payer MEDICARE, SELFPAY ==
--- NOTE | ~2024-11-03 | FL_ITS ---
EXAMINATION: FL GUIDANCE ONLY HISTORY: M51.369 - Other intervertebral disc degeneration, lumbar region without ... COMPARISON: None available. TECHNIQUE: Fluoroscopy time: 0.2 minutes. Cumulative Dose: 2.11 mGy. DAP: 0.0193 mGym2 Images: 2. FINDINGS: Fluoroscopic spot films of the lumbar spine demonstrate a needle and contrast material in place. FL/FL guidance in treatment room IMPRESSION: Fluoroscopy during procedure. Please see procedure report for additional information. Electronically signed by: Lowell Parish MD 11/03/2024 01:19 PM EDT
--- OUTSIDE RECORDS SUMMARY | 2024-11-03 06:13 | XMS_ITS | Clinical Summary ---
Author Organization [facility] Address [address] [place] [address] Phone Care Team Providers Care Baseball Sewer Hand Name Role Phone Pcp, Unknown Primary Care [...] Medical Devices Not on file [facility] [place] MEDICARE REPLACEMENT MEDICARE REPLACEMENT [place] MEDICARE REPLAC[place] MEDICARE REPL[place] MEDICARE REPLACEMENT MEDICARE REPLACEMENT MEDICARE REPLACEMENT [place] MEDICARE REPLACEMENT Care Teams Baseball Sewer Hand Relationship Specialty Start Date End Date Pcp, Unknown PCP - General 10/29/21 Additional Source Comments The information contained in this document represents components of the legal health record. It is not the complete legal health record.[facility]
--- OUTSIDE RECORDS SUMMARY | 2024-11-03 06:13 | XMS_ITS | Clinical Summary ---
Author Organization [facility] [address] [place] [address] Address [address] [place], [place] Phone Care Team Providers Care Continuous Process Machine Operator Name Role Phone Unavailable Primary Care Provider Unavailabl e Encounters Date Type Department Care Team Description 09/13/[address] [phone] Flynn Rust MD Referral from Last 3 Months Surgical History Surgery Date Site/Laterality Comments APPENDECTOMY 1950 PROCEDURE: SD APPENDECTOMY OTHER SURGICAL HISTORY 03/2020 PROCEDURE: MAMMOGRAM COLONOSCOPY 2002 PROCEDURE: SD COLONOSCOPY STOMA DX INCLUDING COLLJ SPEC SPX [...]
--- OUTSIDE RECORDS SUMMARY | 2024-11-03 06:13 | XMS_ITS | Patient Health Record ---
Author Organization [facility] Address [address] [facility] [address] [facility] [place] [address] Care Team Providers Care Spouting Installer Name Role Phone Maddy Suazo Primary [...] Status Risk Notes Problem Acquired hallux valgus (01211387) Hallux valgus (acquired), right foot (M20.11) Active confirmed Problem Acquired hallux valgus (35458333) Hallux valgus (acquired), left foot (M20.12) Active confirmed Problem Mononeuropathy of lower limb (852067392) Neuritis of left foot (G57.92) Active confirmed [...] Insured Coverage Start Date Coverage End Date [facility] [address] [place] [id number] Julissa Blackman Self - patient is the [...]
--- OUTSIDE RECORDS SUMMARY | 2024-11-03 06:13 | XMS_ITS | Patient Health Record ---
Author [facility] [place] Address [address] [place] [address] Care Team Providers Care Finish Molder Name Role Phone Johanna Palencia MD Primary Care Provider Unavaila Michaela Buenrostro Unavailable [phone] Allergies Allergen (clinical drug ingredient) Drug/Non Drug [...] Referring Provider Last Name Talha Referred Organization [facility] [place] Referred Provider Michaela Acosta Referred Address [address] [facility],[place],[address], Referred Provider Specialty Podiatry Referral Priority Routine [...] Ordered Date Performed Result Body Sit e 36443-LFZLLCW NAIL, 6 OR MORE 02/22/2024 N/A [id number] NAIL, 6 OR MORE 09/19/2024 N/A Encounters Encounter Location Date [facility] [address] 02/22/2024 Michaela Black Tinea unguium B35.1 ; Pain in right toe(s) M79.674 ; Pain in left toe(s) M79.675 and Tinea pedis of both feet B35.3 [facility] [place] [address] [place] [address] 09/19/2024 Michaela Black Tinea unguium B35.1 ; [...] Treatment Pending Test Test Name Order Date [id number] NAIL, 6 OR MORE 12/16/2021 [id number] NAIL, 6 OR MORE 10/22/2023 [id number] NAIL, 6 OR MORE 02/22/2024 [id number] NAIL, 6 OR MORE 09/19/2024 76159, H0394-WMTML/INJECT, JOINT/BURSA 1 05/06/2022 83058- Removal of Foreign Body, Subcut 0 10/22/2023 Next Appt Details Provider Name:Michaela Acosta , 12/19/2024 08:30:00 AM, [address] [place], [address], Insurance Providers Payer Name Payer Address Payer Phone Subscriber Number Group Number Insured Name Patient Relationship to Insured Coverage Start Date Coverage End Date [facility] [address] [place] [phone] [id number] Julissa Blackman Self - patient is the [...]
== END 2024-11-03 06:11 | disposition home or self-care (01) ==
LOC: CF 06:10
PROVIDERS: Visit Provider Internal Medicine
DX: M54.16 Radiculopathy, lumbar region (principal); M51.369 Other intervertebral disc degeneration, lumbar region without mention of lumbar back pain or lower extremity pain
CPT/HCPCS: 62323; J2003; J3301; Q9967

== ENCOUNTER 2024-11-03 10:01 | Outpatient (AMB) | payer MEDICARE, SELFPAY ==
[2024-11-03 10:05] VITALS: BP 137/67; PULSE 75; RESP 18; O2SAT 100; BMI 21.2
--- NOTE | 2024-11-03 10:05 | MHC.OFFVIS ---
Vital Signs 11/03/24 10:05 11/03/24 10:39 Height 5 ft 2 in Weight 116 lb BMI 21.2 BP 137/67 128/55 L Blood Pressure Location Lt brachial Lt brachial Position Sitting Sitting Respiration 18 Pulse 75 67 Pulse Source Pulse Oximeter Pulse Oximeter Pulse Oximetry (%) 100 100 Oxygen Delivery Method Room Air Room Air Intake Visit Reasons: Left L4-L5 parasagittal interlaminar HORACE Manuscript Reader Required: No Allergies codeine Adverse Reaction (Unknown, Verified 11/01/24 14:17) Hives sulfamethoxazole Adverse Reaction (Unknown, Verified 11/01/24 14:17) Unknown trimethoprim Adverse Reaction (Unknown, Verified 11/01/24 14:17) Unknown lisinopril Adverse Reaction (Verified 11/01/24 14:17) cough Penicillins Adverse Reaction (Verified 11/01/24 14:17) rash HPI HPI Left L4-L5 parasagittal interlaminar HORACE: Details: Patient presents for scheduled procedure. Denies any recent cough, cold, infection, fever or other significant changes in medical history since last office visit. [facility] Medical History Left ovarian cyst PMR (polymyalgia rheumatica) Osteoporosis HTN (hypertension) Hyperlipidemia Lumbar spinal stenosis Piriformis syndrome of left side Lumbar degenerative disc disease Surgical History History of bunionectomy Hx of appendectomy Family History Son Substance use disorder Father No problems noted. Mother Hypertension Social History Household Members Other:: , 6 adult sons, grandchildren in [facility] Housing: House Patient Tobacco Use Status: Never used Tobacco e-Cigarette/Vaping Use: Never Used service: No Current occupational status: retired Cognitive needs: No Hearing needs: No Vision needs: Yes Physical Exam Vital Signs: Last Vital Signs Pulse 75 11/03/24 10:05 Resp 18 11/03/24 10:05 BP 137/67 11/03/24 10:05 Pulse Ox 100 11/03/24 10:05 Oxygen Delivery Method Room Air 11/03/24 10:05 BMI result Body Mass Index 21.2 Office Procedures AMB Joint Injection/Aspiration Joint Injection/Aspiration Details: Interlaminar epidural steroid injection, L4/5, Left parasaggital After obtaining written consent, pre-procedure blood pressure and heart rate were stable and recorded in the nursing record. The patient was placed in the prone position. The lumbar area was widely prepped with chloraprep and draped in sterile fashion. Fluoroscopic guidance was used to identify the desired interlaminar space and for needle placement. Subcutaneous 0.5% lidocaine was used to anesthetize the skin overlying the target. A 20-gauge Briggs needle was advanced to the epidural space using loss of resistance to contrast technique under fluoroscopic AP and contralateral oblique views. There was no evidence of heme or CSF and no paresthesias were elicited with needle placement. Confirmation of epidural needle placement was performed with 1cc of omnipaque 180. Next 3 ml 0.5% lidocaine mixed with 80 mg triamcinilone was administered epidurally with no pain elicited on injection. The needle tract tubing was then cleared with 1 ml of 0.5% lidocaine. The needle was removed, skin cleansed and a sterile bandage was applied. The patient tolerated the procedure well and no complications were encountered. Following the procedure the patient's vital signs were stable. The patient was discharged home in good condition with post-procedural instructions. Time Out: Immediately prior to the procedure, the following was verbally confirmed that there is a signed consent form and that the correct patient, planned procedure, site and side are consistent with documentation and that necessary equipment and/or blood products are available prior to the start of the case. Complications: none EBL: <2 cc Coding 22540 - Caudal/Lumbar Epidural/Interlaminar with fluoroscopy Procedure code (CPT) selection complete Assessment & Plan Assessment & Plan (1) Lumbar radicular pain: Code(s): M54.16 - Radiculopathy, lumbar region Category: Medical Plan Patient is status post left parasagittal interlaminar L4/5 HORACE. Patient tolerated procedure well and was discharged home in stable condition with discharge instructions. All questions were answered. Significant ligament thickening at L4/5 with narrow interlaminar space. Orders: Orders FL guidance in treatment room Today M51.369 - Other intervertebral disc degeneration, lumbar region without mention of lumbar back pain or lower extremity pain AMB Joint Injection/Aspiration Today M54.16 - Radiculopathy, lumbar region Coding Level of Care Code Procedure Only Diagnoses Lumbar radicular pain M54.16 CPT Codes Coding - Joint 11: 21934 - Caudal/Lumbar Epidural/Interlaminar with fluoroscopy ([id number])
--- OUTSIDE RECORDS SUMMARY | 2024-11-03 10:30 | XMS_ITS | Encounter Summary ---
Author Organization [facility] Address [address] [place] [address] Care Team Providers Care Nutritionist Name Role Phone Maddy Suazo MD Primary Care Provider [phone] [facility], Pcp [facility] Encounter Details Date Type Department Care Team Description 06/06/2016 Pt. Non Urgent Medical Question Adult Medicine [address] [id number] Maddy Suazo MD [address] [place] [address] Social History Tobacco Use Types Packs/Day Years [...] on filedocumented in this encounter Care Teams Nutritionist Relationship Specialty Start Date End Date Maddy Suazo MD [address] [place] [address] PCP - General 10/19/00 08/01/21 [facility], Pcp [address] [place] [address] PCP - General Internal Medicine 08/02/21 documented as of this encounter
[2024-11-03 10:39] VITALS: BP 128/55; PULSE 67; O2SAT 100
== END 2024-11-03 10:40 | disposition home or self-care (01) ==
LOC: HO.PMCPRC 10:01
PROVIDERS: PCP Internal Medicine; Visit Provider Internal Medicine
DX: M54.16 Radiculopathy, lumbar region (principal)
CPT/HCPCS: 62323

== ENCOUNTER 2024-11-16 15:21 | Outpatient (AMB) | payer MEDICARE, SELFPAY ==
[2024-11-16 15:23] VITALS: BP 148/72; PULSE 67; O2SAT 96; BMI 21.7
--- NOTE | 2024-11-16 15:23 | MHC.OFFVIS ---
Vital Signs 11/16/24 15:23 Height 5 ft 2 in Weight 118 lb 9.739 oz BMI 21.7 BP 148/72 H Blood Pressure Location Lt brachial Position Sitting Pulse 67 Pulse Source Pulse Oximeter Pulse Oximetry (%) 96 Oxygen Delivery Method Room Air Intake Visit Reasons: Age-related osteoporosis without current patholo Intake Note: Patient present today for Age-related osteoporosis without current pathology. Bead Preparer Required: No Accompanied by: Spouse Allergies codeine Adverse Reaction (Unknown, Verified 11/16/24 15:26) Hives sulfamethoxazole Adverse Reaction (Unknown, Verified 11/16/24 15:26) Unknown trimethoprim Adverse Reaction (Unknown, Verified 11/16/24 15:26) Unknown lisinopril Adverse Reaction (Verified 11/16/24 15:26) cough Penicillins Adverse Reaction (Verified 11/16/24 15:) rash Medication List - Last Reconciled 11/16/24 by Jazmín Sharp MD acetaminophen ER 1,300 mg PO Q12H cholecalciferol (vitamin D3) 50 mcg PO DAILY fluticasone propionate 50 mcg/actuation 1 spray intranasal DAILY ipratropium bromide 2 sprays intranasal BID losartan 100 mg PO DAILY simvastatin 20 mg PO BEDTIME triamterene 50 mg PO DAILY HPI Comments Details: 79-year-old female here today for follow up of osteoporosis. Here today with Jose. DEXA 04/16/2023, showed T-score of-2.3 at the lumbar spine L1-L3, L4 excluded due to degenerative disc disease, 4.9% decrease from previous bone density in 2021. Showed osteoporosis of the hip with T-score at the left total femur-2.7 with a 12.6% decreased from bone density in 2021. T-score-2.4 at the left femoral neck. Osteoporosis new pt evaluation Diagnosed many years ago in her 40s or 50s Fracture History: no fracture history. But S5 displacement noted on sacral x-ray from May 2024? Height loss:max height 5'2.5 , currently 5 ' 2 Back pain: does have sacroiliac joint pain, seeing pain management and also saw spine surgery. planning to get nerve block injection in September with maybe consideration of a neurostimulator Pharmacotherapeutic hx: Fosamax 1.5 years between 2022 and 2023 And then previously was also on Fosamax for 2-3 years in her 40s or 50s Family history: no known family history of osteoporosis Estrogen use: was on Ocps only for a short period of time in her reproductive age Menstrual hx:menarche: 11 years, regular periods, pregancies 4 , post menopausal at 38, was never on HRT , unclear why early, Secondary risk factors: Steroid use: used to be on prednisone for 8 months in for polymyalgia rheumatica, in remission now , some cortisone shots in knee here and there, last 8 to 9 months ago Hyperthyroidism: Neg Seizure medication use: None Chemo or Radiation use: Neg Heparin Use: Neg History of eating disorder: Negative intermediate school teacher immobilization: Negative History of kidney stones or disease: negative PI Use: Negative Chronic inflammatory lung disease: Negative Chronic inflammatory bowel disease: Negative Daily calcium intake: no supplements, no milk, cheese: 1 serving in a week, yogurt: 3-4 times in a week Vitamin D intake:2000 units daily Exercise:not much with the SI pain Smoking history:never smoker Dental: Has regular dental cleaning, no issues Interval history Blood work from August 2024 showed normal secondary workup. CTX 338, BS ap 11.5. Low falls or fractures. Up-to-date with dental cleaning Vitamin-D: 2000 units daily Calcium: 1000 mg in supplements, plus Increased nutritional intake compared to last with more yogurt Physical exam General: sitting comfortably in no acute distress HEENT: normocephalic/atraumatic, Neck: supple, symmetrical Cardiac: normal heart sounds Pulm: normal breath sounds B/L, no added breath sounds Abd: not distended, no tenderness Extremities: no edema, no signs of myxedema Neuro: AAO x3, Speech: normal, no facial droop, moving all 4 extremities Laboratory Tests 02/13/23 01/08/24 14:50 09:00 Hgb 12.4 Hct 37.4 Creatinine 0.77 Estimated GFR > 60 Calcium 10.0 Magnesium 2.1 Albumin 4.6 25-OH Vitamin D Total 61.0 Laboratory Tests 09/22/24 09/22/24 06:00 08:50 Creatinine 0.72 Estimated GFR > 60 Calcium 9.3 D Ionized Calcium 5.2 Phosphorus 3.8 Magnesium 2.0 Alk Phos Bone Specific 11.5 Collgn I C-Telopeptide 338 25-OH Vitamin D Total 50.0 TSH 1.35 PTH Intact 66.2 Ur 24 Hour Volume 2325 Ur Creatinine 24 Hour 0.7 L Ur Sodium 24 Hour 97.7 Ur Calcium 24 Hr 172 Calcium/Creat 24 Hr 218 BONE DENSITOMETRY 04/16/23 CLINICAL INDICATION: Asymptomatic menopausal state. COMPARISON: Previous BD dated 04/10/2021 and baseline BD dated 06/20/2010. TECHNIQUE: Using a [employer] DXA System (software version: 13.1) manufactured by [employer], dual-energy x-ray absorptiometry was performed of the lumbar spine and left hip. The images are of good technical quality. Summary results are attached. FINDINGS: LEFT FEMUR, NECK: Current: BMD 0.698 g/cm2, Z-score 0.0, T-score -2.4, osteopenia. Prior: BMD 0.775 g/cm2. Baseline: BMD 0.897 g/cm2. LEFT FEMUR, TOTAL: Current: BMD 0.663 g/cm2, Z-score -0.4, T-score -2.7, osteoporosis, 12.6% decrease from previous, 26.7% decrease from baseline (<5% change is not significant). Prior: BMD 0.759 g/cm2. Baseline: BMD 0.905 g/cm2. AP SPINE L1-L3 (excluding L4): The data of L1-L4 has been changed to exclude the L4 vertebral body, because degenerative sclerosis at this level may cause overestimation of lumbar spine density. Current: BMD 0.890 g/cm2, Z-score 0.0, T-score -2.3, osteopenia, 4.9% decrease from previous, 3.8% decrease from baseline (<5% change is not significant). Prior: BMD 0.936 g/cm2. Baseline: BMD 0.925 g/cm2. IDENTIFIED RISK FACTORS: Early menopause, glucocorticoids (chronic), osteoporosis, secondary osteoporosis. HISTORY OF FRACTURE: None listed. MEDICATIONS: Vitamin D, bisphosphonate. MM/XR DEXA axial skeleton IMPRESSION: 1. DIAGNOSIS: Osteoporosis based on the lowest T-score value of -2.7 in the total femur applying World Health Organization criteria. 2. 10-YEAR FRACTURE RISK PREDICTION, FRAX: According to the guidelines, FRAX calculation should only be performed on patients in the osteopenia bone density category. Therefore, FRAX was not performed on this patient. BONE DENSITOMETRY 1/12/22 CLINICAL INDICATION: Osteopenia. COMPARISON: Previous BD dated 12/02/2018 and baseline BD dated 06/20/2010. TECHNIQUE: Using a [employer] DXA System (software version: 13.1) manufactured by [employer], dual-energy x-ray absorptiometry was performed of the lumbar spine and left hip. The images are of good technical quality. Summary results are attached. FINDINGS: AP SPINE L1-L3 (excluding L4): The data of L1-L4 has been changed to exclude the L4 vertebral body, because degenerative changes at this level may cause overestimation of lumbar spine density. Current: BMD 0.936 g/cm2, Z-score 0.3, T-score -1.9, osteopenia, 2.3% decrease from previous, 1.2% increase from baseline (<5% change is not significant). Prior: BMD 0.958 g/cm2. Baseline: BMD 0.925 g/cm2. LEFT FEMUR, NECK: Current: BMD 0.775 g/cm2, Z-score 0.4, T-score -1.9, osteopenia. Prior: BMD 0.808 g/cm2. Baseline: BMD 0.897 g/cm2. LEFT FEMUR, TOTAL: Current: BMD 0.759 g/cm2, Z-score 0.2, T-score -2.0, osteopenia, 9.0% decrease from previous, 16.1% decrease from baseline (<5% change is not significant). Prior: BMD 0.834 g/cm2. Baseline: BMD 0.905 g/cm2. IDENTIFIED RISK FACTORS: Early menopause, secondary osteoporosis, rheumatoid arthritis, glucocorticoids (chronic), thiazide. HISTORY OF FRACTURE: None listed. MEDICATIONS: Vitamin D, bisphosphonates. MM/XR DEXA axial skeleton IMPRESSION: 1. DIAGNOSIS: Osteopenia based on the lowest T-score value of -2.0 in the total femur applying World Health Organization criteria. 2. 10-YEAR FRACTURE RISK PREDICTION, FRAX: Major osteoporotic fracture (clinical spine, forearm, hip or shoulder) 24.4%. Hip fracture 8.6%. [facility] Medical History Left ovarian cyst PMR (polymyalgia rheumatica) Osteoporosis HTN (hypertension) Hyperlipidemia Lumbar spinal stenosis Piriformis syndrome of left side Lumbar degenerative disc disease Surgical History History of bunionectomy Hx of appendectomy Family History Son Substance use disorder Father No problems noted. Mother Hypertension Social History Household Members Other:: , 6 adult sons, grandchildren in [facility], [facility] Housing: House Patient Tobacco Use Status: Never used Tobacco e-Cigarette/Vaping Use: Never Used service: No Current occupational status: retired Cognitive needs: No Hearing needs: No Vision needs: Yes Physical Exam Vital Signs: Last Vital Signs Pulse 67 11/16/24 15:23 BP 148/72 H 11/16/24 15:23 Pulse Ox 96 11/16/24 15:23 Oxygen Delivery Method Room Air 11/16/24 15:23 BMI result Body Mass Index 21.7 Assessment & Plan Assessment & Plan (1) Osteoporosis: Comment: DEXA 03/2023, total femur T score -2.7 worsened(12.6 %) after 2 years of Fosamax, patient stopped Fosamax 12/2023, Reclast was prescribed but patient's insurance did not cover it, she declined taking Prolia because of possible side of effects, referred to Endo Code(s): M81.0 - Age-related osteoporosis without current pathological fracture Category: Medical Qualifiers: Osteoporosis type: age-related Presence of current pathological fracture: without current pathological fracture Qualified Code(s): M81.0 - Age-related osteoporosis without current pathological fracture Plan: 79-year-old female coming in today for initial evaluation of osteoporosis, diagnosed with osteoporosis in her 40s or 50s, based on bone density scan, her risk factors for osteoporosis include early menopause at the age of 38, with no HRT treatment, history of polymyalgia rheumatica, steroid use, petite physique, poor nutritional intake of calcium, and now her age as well. Most recent bone density scan 04/06/2023 showed T-score of-2.3 at the lumbar spine L1-L3, L4 excluded due to degenerative disc disease, 4.9% decrease from previous bone density in 2021. Showed osteoporosis of the hip with T-score at the left total femur-2.7 with a 12.6% decreased from bone density in 2021. T-score-2.4 at the left femoral neck. Some areas of her hip are as low as-3.6. Around the trochanter region. However it is reassuring that she has not had any fractures. When I go over all of her bone densities in the imaging system, I think mostly she has had osteopenia in her earlier years when she had bone densities as early as 2008, however she had elevated FRAX scores because of her risk factors. She was on Fosamax for 2-3 years in her 40s or 50s and then apparently was taken off it due to improved bone density. And then she was on Fosamax for 1-1/2 years between 2022 and 2023, however she lost around 12% of bone in her hip despite being on Fosamax between 2021 and 2023 which is why Fosamax was then stopped? Apparently the plan was to put her on Reclast but insurance did not approve and then she was apprehensive of the side effects of Prolia so she is now here to discuss further treatment options. I discussed conservative measures including adequate calcium intake, adequate vitamin D levels as well as the role of weightbearing exercises in general being good for bone health. She has SI joint pain, currently following with pain management with plans for a nerve block plus neurostimulator. Got steroid injection in October 2024. She had an x-ray of her sacral spine in May 2024 which identified a possible S5 fracture/displacement which might have been acute. She saw the spine surgeon in July 2024 and apparently the issue was mostly thought to be her SI joint for her current pain. She is going to be following with pain management for this. She is on vitamin-D 2000 units daily. Vitamin-D levels within good range from August 2024. She has also improved her nutritional intake r of calcium. Taking 1000 in supplements now. In addition to conservative management with calcium and vitamin D; I do believe she would benefit from antiresorptive therapy in terms of reducing future fracture risk. Today we again discussed the options of Fosamax and Reclast. I also discussed the option of Prolia however given that some of her T-scores are as low as -3.6 in the hip I think she would be a better candidate for a potent agent like Prolia. I do not think we need to jump to anabolic given no history of fractures. But I did discuss briefly that option with her as well. Secondary workup was unremarkable from August 2024. Patient is apprehensive of all of the options above and would not like to pursue treatment for now. She is especially apprehensive for any back pain or muscle aches and pains. At this time she would like to hold off on treatment. She would be due for repeat bone density in March 2025. She would like to rediscuss treatment once she has had that done. Plan: -continue vitamin-D 2000 units daily -incorporate 1000 mg of calcium between diet/supplement -fall precautions discussed -role of weight-bearing exercise/walking discussed -bone density ordered for March 2025 -follow up in May 2025 to discuss results and rediscuss treatment Plan I spent 30 minutes in reviewing the record, seeing the patient and documenting in the medical record. Orders: Orders XR DEXA axial skeleton 04/26/25 M81.0 - Age-related osteoporosis without current pathological fracture Coding Level of Care Code Est Pt Level 4 (87223) Diagnoses Age-related osteoporosis without current pathological fracture M81.0 Osteoporosis type: age-related Presence of current pathological fracture: without current pathological fracture Time Spent (min) 30
--- OUTSIDE RECORDS SUMMARY | 2024-11-16 16:15 | XMS_ITS | Patient Health Record ---
Author Organization [facility] Address [address] [facility] [address] [facility] [place] [address] Care Team Providers Care Fast Brim Pouncer Name Role Phone Maddy Suazo Primary Care [...] Status Risk Notes Problem Acquired hallux valgus (47994461) Hallux valgus (acquired), right foot (M20.11) Active confirmed Problem Acquired hallux valgus (90713816) Hallux valgus (acquired), left foot (M20.12) Active confirmed Problem Mononeuropathy of lower limb (921911824) Neuritis of left foot (G57.92) Active confirmed [...] Insured Coverage Start Date Coverage End Date [facility] [id number] [place] [phone] [id number] Julissa Blackman Self - patient is the [...]
--- OUTSIDE RECORDS SUMMARY | 2024-11-16 16:15 | XMS_ITS | Clinical Summary ---
Author Organization [facility] Address [address] [place] [phone] Phone Care Team Providers Care Christian Science Practitioner Name Role Phone Pcp, Unknown Primary Care [...] Medical Devices Not on file [place] [facility] [facility] [place] MEDICARE REPLACEMENT MEDICARE REPLACEMENT [place] MEDICARE REPLACEMENT MEDICARE REPLACEMENT MEDICARE REPLACEMENT [place] Care Teams Christian Science Practitioner Relationship Specialty Start Date End Date Pcp, Unknown PCP - General 10/29/21 Additional Source Comments The information contained in this document represents components of the legal health record. It is not the complete legal health record.[facility]
--- OUTSIDE RECORDS SUMMARY | 2024-11-16 16:15 | XMS_ITS | Encounter Summary ---
Author Organization [facility] Address [address] [place] [address] Care Team Providers Care Retort Cooler Name Role Phone Maddy Suazo MD Primary Care Provider [phone] [facility], Pcp Primary Care Provider [facility] Encounter Details Date Type Department Care Team Description 06/06/2016 Pt. Non Urgent Medical Question Adult Medicine [address] [id number] Maddy Suazo MD [address] [place] [id number] Social History Tobacco Use Types Packs/Day Years [...] on filedocumented in this encounter Care Teams Retort Cooler Relationship Specialty Start Date End Date Maddy Suazo MD [address] [place] [id number] PCP - General 10/19/00 08/01/21 [facility], Pcp [address] [place] [id number] PCP - General Internal Medicine 08/02/21 documented as of this encounter
--- OUTSIDE RECORDS SUMMARY | 2024-11-16 16:15 | XMS_ITS | Clinical Summary ---
Author Organization [facility] [address] [place] [address] Address [address] [place], [place] Phone Care Team Providers Care Weather Forecaster Name Role Phone Unavailable Primary Care Provider Unavailabl e Encounters Date Type Department Care Team Description 09/13/[address] [phone] Flynn Rust MD Referral from Last 3 Months Surgical History Surgery Date Site/Laterality Comments APPENDECTOMY 1950 PROCEDURE: OK APPENDECTOMY OTHER SURGICAL HISTORY 03/2020 PROCEDURE: MAMMOGRAM COLONOSCOPY 2002 PROCEDURE: OK COLONOSCOPY STOMA DX INCLUDING COLLJ SPEC SPX [...]
== END 2024-11-16 16:03 | disposition home or self-care (01) ==
LOC: HO.ENCR 15:22
PROVIDERS: PCP Internal Medicine; Visit Provider Student in an Organized Health Care Education/Training Program
DX: M81.0 Age-related osteoporosis without current pathological fracture (principal)
CPT/HCPCS: 99214

== ENCOUNTER → 2024-11-16 15:21 | Outpatient (BNVA) | payer MEDICARE, SELFPAY | PROVIDERS: PCP Internal Medicine; Visit Provider Student in an Organized Health Care Education/Training Program | DX: M81.0 Age-related osteoporosis without current pathological fracture (principal) | CPT/HCPCS: 99212 ==

== ENCOUNTER 2024-12-01 10:04 | Outpatient (AMB) | payer MEDICARE, SELFPAY ==
--- OUTSIDE RECORDS SUMMARY | 2024-06-20 04:00 | XMS_ITS ---
Author Organization [facility] Address [address] [place] [id number] Care Team Providers Care Painter Helper Spray Name Role Phone Talha SAM, Johanna Primary Care Provider Michaela Verma [phone] Encounters Encounter Location Date Provider Diagnosis [address] [address] 06/20/2024 Michaela Acosta Plan Of Treatment Next Appt Details Provider Name:Michaela Beck Dave , 12/19/2024 08:30:00 AM, [address] [place] [address], [phone], Provider Name:Michaela Beck Dave , 04/13/2025 08:00:00 AM, [address] [place] [address], [phone], Progress Notes * RHIANNAGILLESBraden Brockt PDOB:[birth year] (79 yo F)Acc No.[id number]:06/20/2024 Progress Note Patient: Julissa BORJA Provider: Cristiane Acosta DPM :1945 A ge:79 Y S ex:Female Date:06/20/2024 Address:[address] [place] Pcp:Johanna Palencia MD Subjective: * Chief Complaints: [...] 0 06/20/2024 Generated for Sera hi/Lucas/Mac on: 0 12/01/2024 11:17 AM EDT
--- NOTE | 2024-12-01 10:07 | MHC.OFFVIS ---
Vital Signs 12/01/24 10:08 Height 5 ft 2 in Weight 115 lb 2 oz BMI 21.1 BP 186/74 H Blood Pressure Location Rt brachial Position Sitting Pulse 107 H Pulse Source Monitor Pulse Oximetry (%) 97 Oxygen Delivery Method Room Air Intake Visit Reasons: S/P Left L3-L4 parasagittal interlaminar HORACE Allergies codeine Adverse Reaction (Unknown, Verified 12/01/24 10:11) Hives sulfamethoxazole Adverse Reaction (Unknown, Verified 12/01/24 10:11) Unknown trimethoprim Adverse Reaction (Unknown, Verified 12/01/24 10:11) Unknown lisinopril Adverse Reaction (Verified 12/01/24 10:11) cough Penicillins Adverse Reaction (Verified 12/01/24 10:11) rash HPI Comments Details: The patient is an 79-year-old female presenting for follow up with left-sided radiculopathy with neurogenic claudication. She underwent a left parasagittal interlaminar L4-L5 epidural steroid injection on November 03, 2024, performed by Dr. Doll. The patient has significant ligament thickening at L4-L5. The patient reports that her symptoms include pain radiating to the left front of the leg and a little on the side, which has improved since the injection but still persists. She experiences pain when bending or reaching above her head, but twisting is less problematic. Walking has improved, with the patient now able to walk for at least 20 minutes, compared to 5 or 10 minutes before the injection. She reports her pain ranges 1-3/10 with activities and walking since injection. The patient has a history of osteoporosis, primarily affecting her femur, and she is currently taking calcium and vitamin D supplements as recommended by her Business Administration Instructor. She has been advised to continue with weight-bearing exercises and walking to manage her osteoporosis. Patient is hesitant to start Reclast due to potential side effects and has another bone scheduled for March 2025. Past Procedures: 11/03/24: Left L4-L5 parasagittal interlaminar HORACE-80% ongoing pain relief 10/20/24: Left Diagnostic SI joint injection-0% pain relief PRIOR: The patient is an 79-year-old female presenting with back and leg pain for follow-up on lumbar spine MRI results. The MRI revealed a significant severe spinal stenosis at L4-L5 due to advanced facet joint arthritis. Additionally, there is anterolisthesis with moderate right and mild left foraminal narrowing at L4, with the right L4 nerve being abutted. The patient reports that the pain is present in the lower back and radiates to the left buttock and into left lateral and anterior thigh and slightly below the left knee laterally. She denies pain extending to the calf or toes and notes difficulty bending and lifting objects. The pain is exacerbated by bending and lifting, and she experiences significant discomfort after walking for about 10 minutes. The MRI also identified a sacral Tarlov cyst measuring 3 cm, causing chronic mild pressure and erosion of S2. - Onset: Chronic back and leg pain - Quality: Radiating pain to the left leg, particularly the front - Exacerbating factors: Bending, lifting, and walking for more than 10 minutes - Relieving factors: None mentioned - Interference: Difficulty bending, lifting, and standing for prolonged periods - Affect: Pain impacts daily activities and mobility - Analgesia: Epidural steroid injection planned - Adverse Effects: None reported - Activities of Daily Living: Limited by pain, especially walking and standing - Aberrant Drug Related Behaviors: None reported PRIOR: The patient is an 79-year-old female presenting with follow-up after a left diagnostic sacroiliac joint injection. The injection was intended to relieve pain and confirm the source of pain, which was suspected to be from the sacroiliac joint. However, the patient reports injection did not provide relief. She continues to endorse left sided low back pain with radiation into her left buttock and left thigh with associated heaviness, burning and tingling. The patient has a history of arthritic back pain and significant spinal stenosis at L3-L4, which has been confirmed through imaging. The spinal stenosis is associated with a herniated disc and hypertrophied ligament, contributing to her symptoms. The patient experiences pain primarily in the buttock region and left leg, which is exacerbated by walking and relieved by leaning forward. The patient also has osteoporosis, which complicates her treatment options. We discussed a half-dose epidural steroid L3-L4 injection due to her osteoporosis. Additionally, the patient has Tarlov cysts, which are not believed to be the primary source of her pain. Denies any recent cough, cold, infection, fever or any significant changes in medical history since last office visit. Past Procedures: 10/20/24: Left Diagnostic SI joint injection-0% pain relief PRIOR: The patient is an 79-year-old female presenting with sacroiliac joint dysfunction. She experiences persistent pain, primarily in the left buttock, which is aggravated by prolonged standing and walking. The pain is characterized as sharp and debilitating, severely impacting her daily activities, as transitioning positions significantly increases her discomfort. Historically, the patient delivered six children vaginally, which may have contributed to her SI joint dysfunction. Additionally, she is diagnosed with osteoporosis, limiting her treatment options, as she was declared not a surgical candidate due to poor bone quality. Despite being on medications like Celebrex and Aleve, the patient continues to experience significant pain, affecting her overall quality of life. [facility] evaluation Regan Rodrigez PA-C 08/05/24: Impression: 79-year-old female presents for evaluation of a left buttock pain going into her left posterior thigh. 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 They are just an incidental anatomical variant and I can see from some of the bone scalloping that these have been with her for probably decades. They generally do not cause pain, she has no neurological complaints related to them and do not need any specific follow-up at her age. She also has a spondylolisthesis at L3-4 but has no centralized back pain. There is stenosis in this region as well, but she does not have classic stenosis pain that is aggravated by walking and better when she sits down. It sounds to me like this is a SI joint inflammation based on the pain with standing and sitting and turning over at night. These are fairly classic. She also had 6 vaginal deliveries, and is well-known that SI joint dysfunction can be associated with multiple pregnancies. Her x-rays also show significant sclerosis in the SI joints. It might be worth doing something like a lateral branch block just to see if this is where the pain is coming from. I do not think she would be a candidate ultimately for SI joint fusion because of the poor bone quality. Maybe she could get some kind of neurostimulator over the SI joint if the injection helps her. I will leave this up to you. I did recommend she talk with her PCP also about considering Celebrex. PRIOR: The patient is a very pleasant 79-year-old female presenting with chronic lower back and bilateral buttock pain. Denies any trauma, injury or falls. The pain has been persistent for several years, primarily localized in the lower back and medial buttocks. This discomfort intensifies with prolonged standing or walking, necessitating the use of cushioning support for pain mitigation. Her condition is complicated by osteoporosis, which contributes to the ongoing pain issues and limits the use of cortisone injections for back and joint pain. She was on Fosamax for 2 years and recently was prescribed Prolia injections which patient declined due to potential side effects. Patient reports she takes Vitamin D3, performs regular home exercise and eats daily yogurt but is interested to trial another medication for osteoporosis with minimal side effects. Will consider Endocrinology evaluation for further management of osteoporosis. Patient reports yolanda was diagnosed with Polymyalgia Rheumatica in 2020 and underwent prednisone treatment for eight months. Despite discontinuation of Fosamax and Prolia injections, osteoporosis persists, prominently affecting her left hip with prior imaging indicating significant bone density reduction. Her osteoarthritis and a history of knee bursitis have required cortisone interventions, especially on the left side, which has provided transient pain relief. Patient is interested in gel injections and plans to follow up with her provider at [facility] for this. - Onset: Several years ago, starting around 2020 - Location: Chronic lower back and bilateral buttocks pain, predominantly left - Radiation: Occasionally to the left calf, rarely to heel or toes - Quality: Sharp, burning, tingling, aching, dull, heavy, sore, pulling - Severity: Significant, worsens with standing, walking, climbing stairs and incline exercises like squats - Aggravating Factors: Prolonged standing, sitting on hard surfaces, walking, squatting exercises, climbing stairs - Alleviating Factors: Using a cushioning support pillow while sitting, gel injections planned for knee pain relief - Interference: Daily living activities, especially sitting or sustained physical exertion like standing in line or maintaining exercise routines. Affects her sleep when changing positioning from side to side. - Affect: Pain impacts mood, sleep, ADLs, causing distress when engaging in physical activity or sitting - Analgesia: Currently using Tylenol 650 mg as needed; pain remains significant when performing activities - Adverse Effects: None reported from current regimen. - Activities of Daily Living: Pain mainly inhibits lengthy standing, sitting, walking, and squat exercises; uses cushion for sitting - Aberrant Drug Related Behaviors: None reported PFSH Medical History Left ovarian cyst PMR (polymyalgia rheumatica) Osteoporosis HTN (hypertension) Hyperlipidemia Lumbar spinal stenosis Piriformis syndrome of left side Lumbar degenerative disc disease Surgical History History of bunionectomy Hx of appendectomy Family History Son Substance use disorder Father No problems noted. Mother Hypertension Social History Household Members Other:: , 6 adult sons, grandchildren in [place], [facility] Housing: House Patient Tobacco Use Status: Never used Tobacco e-Cigarette/Vaping Use: Never Used service: No Current occupational status: retired Cognitive needs: No Hearing needs: No Vision needs: Yes Review of Systems Const Details: - Musculoskeletal: Reports pain radiating to the left front of the leg and side. Denies pain on twisting. - Neurological: Reports neurogenic claudication and left>right radiculopathy. Denies bladder or bowel dysfunction or saddle anesthesia. -General: Denies any recent cough, cold, infection, fever or any significant changes in medical history since last office visit. All systems reviewed & are unremarkable except as noted in HPI and below Physical Exam Vital Signs: BMI result Body Mass Index 21.1 General: Appears afebrile. Alert and oriented. Mood and affect appropriate. Follows and participates in conversation appropriately. Respiratory effort is unlabored. No cough. Able to transition from sit to stand unassisted. Ambulates with bilaterally normal heel strike and toe off, with pain increase in LLE. General: Yes no CVA tenderness Back/Spine/Pelvis Other: Limited lumbar ROM due to pain. Lumbar extension with axial rotations and bending and leaning forward reproduces mild to moderate pain. Demonstrates 5/5 right and 4/5 left strength of quadriceps bilaterally as well as flexion/dorsiflexion of bilateral feet against resistance. 2+ pedal pulses bilaterally. Straight leg rise with dorsiflexion positive on the left. Diminished patellar and achilles reflexes bilaterally. Facet loading test positive bilaterally. Ramakrishna?s, Pelvic compression and Stinchfield tests are positive bilaterally, left>right. No groin pain with I/E hip rotations. Valsalva maneuver is positive. Back: no CVA tenderness Cervical Spine: cervical ROM normal, loss of normal cervical lordosis and No Cervical spine tenderness Thoracic/Lumbar Spine: thoracic and lumbar spine normal to inspection, No Thoracic/lumbar spine scar(s), Lasegue's sign positive on the left and localized, pain with thoraco-lumbar ROM, paraspinal muscle tenderness on the left greater than right, thoraco-lumbar ROM limited, No thoracic spinal tenderness and lumbar spinal tenderness at L3, at L4 and at L5 Pelvis: buttock tenderness on the left Sacroiliac joints: bilaterally (mild) tender to palpation Results Reviewed Results Reviewed: MRI LUMBAR SPINE WITHOUT CONTRAST at [facility] 10/26/24 CLINICAL INFORMATION: Spondylolisthesis, perineural cyst and spinal stenosis. Chronic low back and left gluteal pain. TECHNICAL INFORMATION: 1. Sagittal and axial T1. 2. Sagittal and axial T2. 3. Sagittal STIR. SEDATION: None. COMPARISON: No existing relevant imaging immediately accessible. INTERPRETATION: Conus shows normal tapering and intrinsic signal, termination at T11-12. No spinal canal masses. Transitional lumbosacral junction with partially lumbarized S1 the right. There is 5 mm degenerative anterolisthesis at L4-5 with localized Modic type I discogenic endplate reaction and to the left. Remainder of endplates intact, vertebral body heights preserved. Marrow signal mildly heterogeneous throughout column. Sharply circumscribed 3.0 x 2.4 x 1.7 cm Tarlov cyst seen in the sacral spinal canal to the right with mild, chronic pressure erosion of subjacent S2 segment. L5-S1: Disc height loss with partially mineralized disc, left facet joint overgrowth and ankylosis. No posterior disc contour abnormality or significant central canal narrowing. Neural foramina mildly stenotic. L4-5: Moderate disc degeneration with grade I anterolisthesis is due to advanced facet joint arthrosis. Severe trefoil spinal canal and moderate right/mild left biforaminal narrowing. Exiting right L4 nerve abutted. 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 L3-4 and L2-3: Mild disc degeneration with posterior bulges, ligamentous hypertrophy and minimal facet joint overgrowth. Mild spinal canal and neural foraminal stenoses at both levels. No evident neural impingement. L1-2 and T12-1: Mild disc degeneration. No posterior disc protrusion, significant spinal canal or foraminal narrowing. No prevertebral/paraspinous soft tissue masses or collections. Included pelvis intact and marrow signal normal. Superior portions of sacroiliac joints show no effusions, subarticular edema or sclerosis. Gallstones noted. CONCLUSION: 1. Transitional lumbosacral junction with L5-S1 segmental ankylosis. 2. L4-5, severe spinal stenosis due to advanced facet joint arthrosis anterolisthesis. Moderate right/mild left biforaminal narrowing with abutted exiting right L4 nerve. 3. L2-3 and L3-4, mild spinal canal and biforaminal stenoses due to bulging discs and facet overgrowth. 4. 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 5. Gallstones. XR LUMBAR SPINE 3 VIEWS 01/07/24 CLINICAL INFORMATION: Essential (primary) hypertension, PT states arthritis I10. FINDINGS: There is mild to moderate anterolisthesis of L3 on L4 and mild anterolisthesis of L4 on L5. Alignment is otherwise unremarkable. Lumbar vertebral body heights are maintained. There is moderate to severe narrowing of the L4/5 and L5/S1 disc space heights. There are degenerative changes of the posterior elements of the lower lumbar spine. Vascular calcifications noted. Calcified densities in the right upper abdomen are most suggestive of gallstones. IMPRESSION: Moderate to severe degenerative changes of the lower lumbar spine. No compression deformity. DEXA axial skeleton 04/16/23 IMPRESSION: 1. DIAGNOSIS: Osteoporosis based on the lowest T-score value of -2.7 in the total femur applying World Health Organization criteria. XR BILATERAL HIPS WITH AP PELVIS 06/23/24 FINDINGS: Bony pelvis is intact. Sclerosis and the sacroiliac joints, bilaterally. Spondylosis L4-5 and L5-S1. No acute cortical disruption or malalignment in either hip. No lytic or blastic lesions. Osteopenia versus osteoporosis. IMPRESSION: No acute fracture or dislocation. Osteopenia versus osteoporosis. Multilevel lower lumbar spondylosis. XR SACRUM AND COCCYX 06/23/24 CLINICAL INFORMATION: M81.0 - Age-related osteoporosis without current pathological fracture COMPARISON: Correlation made with lumbar spine x-ray 01/07/2024. TECHNIQUE: 2 views of the sacrum and 2 views of the coccyx were obtained. FINDINGS: There is a cortical step-off seen at the S5 level, just above the coccyx, suggestive of fracture. This may be acute. No additional fractures seen. Normal-appearing coccyx. Extensive degenerative changes of the lower lumbar spine with partial sacralization of the L5 vertebral body. Moderate arthritis seen in both SI joints. Sacral arches appear intact. Mild hip joint arthritis noted bilaterally. Soft tissues appear normal aside from vascular calcifications. IMPRESSION: 1. Possibly acute mildly displaced fracture at the S5 level, just above the coccyx. 2. Chronic degenerative changes as discussed. MR pelvis wo con 07/10/24 CLINICAL HISTORY: M53.3 - Sacrococcygeal disorders, not elsewhere classified Examination: MRI pelvis without intravenous contrast Comparison: None Findings: Incidental Tarlov cysts S2 measuring 3 x 2.3 cm. Mild degenerative spondylolisthesis grade 1 L4-5 suspect a rudimentary S1 /2 disc. No bone marrow edema or bony destructive processes. No sacroiliitis or ankylosis. No avascular necrosis. Normal congruence E of the femoroacetabular joints. Symphysis pubis and pubic rami intact. Postmenopausal uterine atrophy cyst with a equivocal septations left ovary measuring 2.8 x 2.6 x 2.0 cm. No endometrial thickening. Normal distention of the urinary bladder. Impression: 1. SI joints and sacrococcygeal joint intact 2. Tarlov cyst S2 on the right]. Degenerative spondylo listhesis L4-5. Significant spinal stenosis at this level correlate with a dedicated MRI lumbar spine. Suspect rudimentary disc S1-S2 3. Cyst with probable septations right ovary correlate with pelvic sonogram in a postmenopausal female Assessment & Plan Assessment & Plan (1) Chronic SI joint pain: Code(s): M53.3 - Sacrococcygeal disorders, not elsewhere classified; G89.29 - Other chronic pain Category: Medical (2) Lumbar spondylosis: Code(s): M47.816 - Spondylosis without myelopathy or radiculopathy, lumbar region Category: Medical (3) Lumbar degenerative disc disease: Code(s): M51.369 - Other intervertebral disc degeneration, lumbar region without mention of lumbar back pain or lower extremity pain Category: Medical (4) Lumbar spinal stenosis: Comment: L spine XR 12/2023 consistent with lumbar spinal and pelvic MRI 05/2024 normal SI joints degenerative spondylolisthesis at the L4-5 level, established with [facility] and referred to spinal surgeon 07/2024 Code(s): M48.061 - Spinal stenosis, lumbar region without neurogenic claudication Category: Medical Plan The plan includes proceeding with a minimally invasive lumbar decompression procedure at L4-L5 to address the ligamentum flavum hypertrophy and alleviate symptoms of neurogenic claudication and radiculopathy. Schedule Bilateral L4-L5 MILD with sedation and fluoroscopy procedure to start with given significant LF hypertrophy at these levels and symptoms of neurogenic claudication/radiculopathy. Discussed the risks and benefits of the procedure with the patient in detail. In terms of osteoporosis management, the patient is advised to continue calcium and vitamin D supplementation and engage in weight-bearing exercises as recommended by her Business Administration Instructor. A follow-up bone density scan is planned for March 2025 to assess the progression or improvement of osteoporosis. All questions and concerns have been answered and patient agreed with the treatment plan. Follow up after MILD and sooner as needed. Patient was informed and verbally consented to the use of an ambient scribe for clinic note documentation during this visit. Coding Level of Care Code Est Pt Level 4 (01852) Complex EM visit Add On G2211 Diagnoses Chronic SI joint pain M53.3; G89.29 Lumbar spondylosis M47.816 Lumbar degenerative disc disease M51.369 Lumbar spinal stenosis M48.061
[2024-12-01 10:08] VITALS: BP 186/74; PULSE 107; O2SAT 97; BMI 21.1
--- OUTSIDE RECORDS SUMMARY | 2024-12-01 11:17 | XMS_ITS | Clinical Summary ---
Author Organization [facility] [address] [place] [address] [address] [place], [place] Phone Care Team Providers Care Web Marketing Assistant Name Role Phone Unavailable Primary Care Provider Unavailabl e Encounters Date Type Department Care Team Description 09/13/2024 Telephone [facility] [address] [place] [address] Flynn Rust MD from Last 3 Months Surgical History Surgery Date Site/Laterality Comments APPENDECTOMY 1950 PROCEDURE: [place] APPENDECTOMY OTHER SURGICAL HISTORY 03/2020 PROCEDURE: MAMMOGRAM COLONOSCOPY 2002 PROCEDURE: [place] COLONOSCOPY STOMA DX INCLUDING COLLJ SPEC SPX [...] 03/08/2022 Social Influencers of Health Screening 03/08/2022 Depression Screening 03/30/2024 COVID-19 Vaccine ( season) 2024 12/26/2020, 05/29/2020, 05/06/2020 Influenza Vaccine (#1) 2024 , 12/07/2019, 12/13/2017, [...]
--- OUTSIDE RECORDS SUMMARY | 2024-12-01 11:17 | XMS_ITS | Patient Health Record ---
Author Organization [facility] Address [address] [place] [address] [place] [address] Care Team Providers Care Medical Office Rep Name Role Phone Maddy Suazo Primary Care [...] Status Risk Notes Problem Acquired hallux valgus ([id number]) Hallux valgus (acquired), right foot (M20.11) Active confirmed Problem Acquired hallux valgus ([id number]) Hallux valgus (acquired), left foot (M20.12) Active confirmed Problem Mononeuropathy of lower limb ([id number]) Neuritis of left foot (G57.92) Active confirmed [...] Insured Coverage Start Date Coverage End Date [facility] [address] [place] [id number] Julissa Blackman Self - patient is the [...]
--- OUTSIDE RECORDS SUMMARY | 2024-12-01 11:17 | XMS_ITS | Clinical Summary ---
Author Organization [facility] Address [address] [place] [id number] Phone Care Team Providers Care It Quality Assurance Analyst Name Role Phone Pcp, Unknown Primary [...] Medical Devices Not on file [facility] [place] RE[place]AC[place] MEDICARE REPLACEMENT MEDICARE REPLACEMENT [employer] REPLACEMENT [employer] REPL[employer] MEDICARE REPLACEMENT MEDICARE REPLACEMENT MEDICARE REPLACEMENT [employer] MED[employer]ARE REPLACEMENT Care Teams It Quality Assurance Analyst Relationship Specialty Start Date End Date Pcp, Unknown PCP - General 10/29/21 Additional Source Comments The information contained in this document represents components of the legal health record. It is not the complete legal health record.[facility]
--- OUTSIDE RECORDS SUMMARY | 2024-12-01 11:17 | XMS_ITS | Patient Health Record ---
[facility] Organization [facility] Address [address] [place] [address] Care Team Providers Care Marketing Operations Intern Name Role Phone Johanna Palencia MD Primary Care Provider Unavaila Michaela Buenrostro Unavailable [phone] Allergies Allergen (clinical drug ingredient) Drug/Non Drug [...] Referring Provider Last Name Talha Referred Organization [facility] [place] Referred Provider Michaela Acosta Referred Address [address] [facility],[place], [place],[address], Referred Provider Specialty Podiatry Referral Priority Routine [...] Ordered Date Performed Result Body Sit e 30437-TDFTBLH NAIL, 6 OR MORE 02/22/2024 N/A 82198-LCMGEMZ NAIL, 6 OR MORE 09/19/2024 N/A Encounters Encounter Location Date [facility] [address] 02/22/2024 Michaela Black Tinea unguium B35.1 ; Pain in right toe(s) M79.674 ; Pain in left toe(s) M79.675 and Tinea pedis of both feet B35.3 [facility] [place] [address] [place] [address] 09/19/2024 Michaela Black Tinea unguium B35.1 ; [...] Treatment Pending Test Test Name Order Date [id number] NAIL, 6 OR MORE 12/16/2021 72415-PLWWLEF NAIL, 6 OR MORE 10/22/2023 [id number]-HRYIRWJ NAIL, 6 OR MORE 02/22/2024 [id number] NAIL, 6 OR MORE 09/19/2024 67389, G1564-BSUAB/INJECT, JOINT/BURSA 1 05/06/2022 11871- Removal of Foreign Body, Subcut 0 10/22/2023 Next Appt Details Provider Name:Michaela Acosta , 12/19/2024 08:30:00 AM, [address] [place] [address], [phone], Provider Name:Michaela Acosta , 04/13/2025 08:00:00 AM, [address] [place] [address], [phone], Insurance Providers Payer Name Payer Address Payer Phone Subscriber Number Group Number Insured Name Patient Relationship to Insured Coverage Start Date Coverage End Date [facility] [address] [place] [phone] [id number] Julissa Blackman Self - patient is the [...]
== END 2024-12-01 10:48 | disposition home or self-care (01) ==
LOC: HO.PMC 10:05
PROVIDERS: PCP Internal Medicine; Visit Provider Nurse Practitioner Family
DX: M53.3 Sacrococcygeal disorders, not elsewhere classified (principal); G89.29 Other chronic pain; M47.816 Spondylosis without myelopathy or radiculopathy, lumbar region; M51.369 Other intervertebral disc degeneration, lumbar region without mention of lumbar back pain or lower extremity pain; M48.061 Spinal stenosis, lumbar region without neurogenic claudication
CPT/HCPCS: 99214; G2211

== ENCOUNTER → 2024-12-01 10:04 | Outpatient (BNVA) | payer MEDICARE, SELFPAY | PROVIDERS: PCP Internal Medicine; Visit Provider Nurse Practitioner Family | DX: M53.3 Sacrococcygeal disorders, not elsewhere classified (principal); G89.29 Other chronic pain; M81.0 Age-related osteoporosis without current pathological fracture; M47.816 Spondylosis without myelopathy or radiculopathy, lumbar region; M48.061 Spinal stenosis, lumbar region without neurogenic claudication; M51.369 Other intervertebral disc degeneration, lumbar region without mention of lumbar back pain or lower extremity pain | CPT/HCPCS: 99212 ==

== ENCOUNTER 2025-01-23 08:37 | Outpatient (REF) | payer MEDICARE, SELFPAY ==
--- OUTSIDE RECORDS SUMMARY | 2024-06-20 04:00 | XMS_ITS ---
Author Organization [facility] Address [address] [place] [address] Care Team Providers Care Cylinder Dyer Name Role Phone Talha SAM, Johanna Primary Care Provider Michaela Verma [phone] Encounters Encounter Location Date Provider Diagnosis [facility] [address] [place] [address] 06/20/2024 Michaela Acosta Plan Of Treatment Next Appt Details Provider Name:Michaela Beck Dave , 04/13/2025 08:00:00 AM, [address] [place], [address], Progress Notes * JESUS Julissa PDOB:[birth year] (79 yo F)Acc No.[id number]:06/20/2024 Progress Note Patient: Cristiane SCHWARZJulissa LIEBERMAN Santiago Provider: Cristiane Acosta DPM :1945 A ge:79 Y S ex:Female Date:06/20/2024 Address:[address] [place] Pcp:Johanna Palencia MD Subjective: * Chief Complaints: [...] DPM Date: 0 06/20/2024 Generated for Sera hi/Lucas/Codiitting on: 1 09:03 AM EDT
--- OUTSIDE RECORDS SUMMARY | 2025-01-23 09:03 | XMS_ITS | Patient Health Record ---
Author Organization [facility] Address [address] [facility] [address] [facility] [place] [address] Care Team Providers Care Trades Helper Name Role Phone Maddy Suazo Primary Care [...] Status Risk Notes Problem Acquired hallux valgus (46961509) Hallux valgus (acquired), right foot (M20.11) Active confirmed Problem Acquired hallux valgus (73500469) Hallux valgus (acquired), left foot (M20.12) Active confirmed Problem Mononeuropathy of lower limb (801629778) Neuritis of left foot (G57.92) Active confirmed [...] Insured Coverage Start Date Coverage End Date [facility] [id number] [place] [id number] Julissa Blackman Self - patient is the [...]
--- OUTSIDE RECORDS SUMMARY | 2025-01-23 09:03 | XMS_ITS | Clinical Summary ---
Author Organization [facility] Address [address] [place] [phone] Phone Care Team Providers Care Aircraft Cleaner Name Role Phone Pcp, Unknown Primary Care [...] Medical Devices Not on file Insurance [facility] [place] [employer] RE[place]AC[place] MEDICARE REPLACEMENT MEDICARE REPLACEMENT [place] MED[employer]ARE REPLACEMENT [place] MED[employer]ARE REPLAC[place] MEDICARE REPLACEMENT MEDICARE REPLACEMENT MEDICARE REPLACEMENT [place] MEDICARE REPLACEMENT Care Teams Aircraft Cleaner Relationship Specialty Start Date End Date Pcp, Unknown PCP - General 10/29/21 Additional Source Comments The information contained in this document represents components of the legal health record. It is not the complete legal health record.[facility]
--- OUTSIDE RECORDS SUMMARY | 2025-01-23 09:03 | XMS_ITS | Clinical Summary ---
Author Organization [place] [id number] Address [address] [place] [phone] Phone Care Team Providers Care Structural Metal Fabricator Apprentice Name Role Phone Unavailable Primary Care Provider Unavailabl e Surgical History Surgery Date Site/Laterality Comments APPENDECTOMY 1950 PROCEDURE: [place] APPENDECTOMY OTHER SURGICAL HISTORY 03/2020 PROCEDURE: MAMMOGRAM COLONOSCOPY 2002 PROCEDURE: [place] COLONOSCOPY STOMA DX INCLUDING COLLJ SPEC SPX [...]
--- OUTSIDE RECORDS SUMMARY | 2025-01-23 09:03 | XMS_ITS | Patient Health Record ---
Author Organization [facility] Address [address] [place] [address] Care Team Providers Care Steam Drier Tender Name Role Phone Johanna Palencia MD Primary Care Provider Unavaila ble Michaela Acosta Unavailable [phone] Allergies Allergen (clinical drug ingredient) Drug/Non Drug [...] Johanna Referring Provider Last Name Talha Referred [facility] Referred Provider Michaela Acosta Referred Address [address] [facility],[place],[address], Referred Provider Specialty Podiatry Referral Priority Routine Medications Medication SIG (Take, Route, Frequency, Duration) Notes Start Date End Date Status Triamterene-HCTZ 37.5-25 MG TAKE ONE TABLET BY MOUTH EVERY MORNING Oral; Duration: 90 Not-Taking Acetaminophen PRN Active Ciclopirox Olamine 0.77 % 1 application Externally Once a day; Duration: 30 days 12/16/2021 Not-Taking Ciclopirox Olamine 0.77 % 1 application Externally Twice a day; Duration: 30 days Not-Takin g Ciclopirox 8 % 1 application Externally Once a day; Duration: 30 10/22/2023 Not-Taking Simvastatin 20 MG Oral; Duration: 90 Active Vitamin D3 50 MCG (1999 [place]) 1 capsule Orally Once a day; Duration: 30 day(s) Active Fluticasone Propionate 50 MCG/ACT Nasal; Duration: 30 Active Losartan Potassium 25 MG Oral; Duration: 90 Active Hydrocortisone 2.5 % 1 application Externally to affected areas of itching irritated skin on foot/feet Twice a day; Duration: 30 days Active Eucerin . as directed External ly Apply Twice a day to Feet; Duration: 30 days 09/19/2024 Active Fish Oil Not-Taking Immunizations Vaccine Route Administration Date Status Comme nts Influenza Unknown 11/29/2023 Administered Social History Tobacco Use: Social History Observation Description Date Details (start date - stop date) Never Smoker NA - NA Alcohol Screen Question Answer Notes Did you have a drink containing alcohol in the p ast year? No Points 0 Interpretation Negative Tobacco use other than smoking: Question Answer Notes Are you an other tobacco user? No Tobacco Control (Standard) Question Answer Notes Tobacco use: Nonsmoker Additional Findings: Tobacco non-user Current no nsmoker AUDIT-C (Standard) Question Answer Notes Did you have a drink containing alcohol in the p ast year? 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 Vital Signs Blood pressure diastolic 70 mm Hg 12/19/2024 Height 5ft 2'' in 12/19/2024 Blood pressure systolic 130 mm Hg 12/19/2024 Weight 115 lbs 12/19/2024 BMI 21.03 kg/m2 12/19/2024 Procedures Procedure Date Ordered Date Performed Result Body Sit e 22329-ITKSXUW NAIL, 6 OR MORE 02/22/2024 N/A 81515-YYADHSF NAIL, 6 OR MORE 09/19/2024 N/A 87416-IEGRKKD NAIL, 6 OR MORE 12/19/2024 N/A Encounters Encounter Location Date Provider Diagnosis [facility] [address] [address] 02/22/2024 Michaela Black Tinea unguium B35.1 ; Pain in right toe(s) M79.674 ; Pain in left toe(s) M79.675 and Tinea pedis of both feet B35.[address] [address] 09/19/2024 Michaela Black Tinea unguium B35.1 ; [...] and Fat pad atrophy of foot L90.[address] [address] 12/19/2024 Michaela Black Tinea unguium B35.1 ; Neuritis M79.2 ; Pain in right toe(s) M79.674 ; Pain in left toe(s) M79.675 ; Dermatitis L30.9 ; Fat pad atrophy of foot L90.9 ; Hallux valgus of left foot M20.12 and Hallux limitus of left foot M20.5X2 Assessments Encounter Date Diagnosis (ICD Code) Assessment Notes Treatment Notes Treatment Clinical Notes Section Notes 02/22/2024 Tinea unguium (ICD-10 - B35.1) 02/22/2024 Pain in right toe(s) (ICD-10 - M79.674) 09/19/2024 Metatarsalgia, right foot (ICD-10 - M77.41) 09/19/2024 Tinea unguium (ICD-10 - B35.1) 12/19/2024 Tinea unguium (ICD-10 - B35.1) 12/19/2024 Neuritis (ICD-10 - M79.2) 12/19/2024 Pain in right toe(s) (ICD-10 - M79.674) 09/19/2024 Pain in right toe(s) (ICD-10 - M79.674) 02/22/2024 Pain in left toe(s) (ICD-10 - M79.675) 02/22/2024 Tinea pedis of both feet (ICD-10 - B35.3) 09/19/2024 Pain in left toe(s) (ICD-10 - M79.675) 12/19/2024 Pain in left toe(s) (ICD-10 - M79.675) 09/19/2024 Pain in right foot (ICD-10 - M79.671) 12/19/2024 Dermatitis (ICD-10 - L30.9) 12/19/2024 Fat pad atrophy of foot (ICD-10 - L90.9) 09/19/2024 Pain in right ankle and joints of right foot (ICD-10 - M25.571) 12/19/2024 Hallux valgus of left foot (ICD-10 - M20.12) 09/19/2024 Bursitis of intermetatarsal bursa of right foot (ICD-10 - M77.51) 12/19/2024 Hallux limitus of left foot (ICD-10 - M20.5X2) 09/19/2024 Dermatitis (ICD-10 - L30.9) 09/19/2024 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 (ICD-10 - M21.6X1) 09/19/2024 Fat pad atrophy of foot (ICD-10 - L90.9) Plan Of Treatment Pending Test Test Name Order Date [id number] NAIL, 6 OR MORE 12/16/2021 36730-HEIZNYY NAIL, 6 OR MORE 10/22/2023 11582-IZOYDHH NAIL, 6 OR MORE 02/22/2024 44010-UHSLYDU NAIL, 6 OR MORE 09/19/2024 93143-[id number] NAIL, 6 OR MORE 12/19/2024 55967, Q1802-MZOIH/INJECT, JOINT/BURSA 1 05/06/2022 93904- Removal of Foreign Body, Subcut 0 10/22/2023 Next Appt Details Provider Name:Michaela Acosta , 04/13/2025 08:00:00 AM, [address] [place], [address], Insurance Providers Payer Name Payer Address Payer Phone Subscriber Number Group Number Insured Name Patient Relationship to Insured Coverage Start Date Coverage End Date [facility] [address] [place] [phone] [id number] Julissa Blackman Self - patient is the [...]
[2025-01-23 10:27] LABS: MANUAL DIFF FLAG NO
[2025-01-23 10:50] LABS: Hematocrit 40.8 % (37.0-47.0); Hemoglobin 13.3 g/dl (12.0-16.0); Imm Gran Abs Auto 0.02 X10*3/uL (0.00-0.03); Imm Gran Pct Auto 0.4 % (0.0-0.4); Lymphocytes Absolute Auto 1.5 X10*3/uL (1.2-4.9); Mean Corpuscular HGB Conc 32.6 g/dl (31.0-35.0); Mean Corpuscular Hemoglobin 29.6 pg (27.0-33.0); Mean Corpuscular Volume 90.7 fL (80.0-98.0); NRBC Abs Auto 0.000 X10*3/uL (0.0-0.012); NRBC Pct Auto 0.0 /100WBC (0.0-0.2); Platelet Count 195 X10*3/uL (160-400); Red Blood Count 4.50 X10*6/uL (4.20-5.50); White Blood Count 5.3 X10*3/uL (4.8-10.8)
[2025-01-23 11:02] LABS: Alanine Aminotransferase 21 U/L (0-31); Albumin Level 4.8 g/dL (3.5-5.0); Alkaline Phosphatase 54 U/L (39-117); Anion Gap 13 (12-20); Aspartate Amino Transferase 28 U/L (5-31); Blood Urea Nitrogen 12 mg/dL (9-16); Calcium 9.4 mg/dL (8.4-10.2); Carbon Dioxide 26 mmol/L (22-29); Chloride 109 mmol/L (96-108); Cholesterol 193 mg/dL (<200); Estimated Glomerular Filt Rate > 60; HDL Cholesterol 62 mg/dL (>40); Potassium 3.8 mmol/L (3.3-5.1); Sodium 144 mmol/L (135-145); Total Protein 6.9 g/dL (6.5-8.0); Triglycerides 148 mg/dL (<150)
== END 2025-01-23 08:38 | disposition home or self-care (01) ==
LOC: HO.HMGCLDS 08:37
PROVIDERS: PCP Internal Medicine; Visit Provider Internal Medicine
DX: E78.5 Hyperlipidemia, unspecified (principal); I10 Essential (primary) hypertension; E55.9 Vitamin D deficiency, unspecified; G57.02 Lesion of sciatic nerve, left lower limb
CPT/HCPCS: 36415; 80053; 80061; 82306; 85025

== ENCOUNTER 2025-02-03 10:01 | Outpatient (AMB) | payer MEDICARE, SELFPAY ==
--- OUTSIDE RECORDS SUMMARY | 2024-06-20 03:00 | XMS_ITS ---
Author Organization [facility] Address [address] [place] [address] Care Team Providers Care Geospatial Program Management Officer Name Role Phone Talha SAM, Johanna Primary Care Provider Michaela Verma [phone] Encounters Encounter Location Date Provider Diagnosis [facility] [address] [place] [address] 06/20/2024 Michaela Acosta Plan Of Treatment Next Appt Details Provider Name:Michaela Beck Dave , 04/13/2025 08:00:00 AM, [address] [place], [address], Progress Notes * RHIANNAMIO Julissa PDOB:[birth year] (79 yo F)Acc No.[id number]:06/20/2024 Progress Note Patient: Cristiane SCHWARZMIO Julissa Santiago Provider: Cristiane Acosta DPM :1945 A ge:79 Y S ex:Female Date:06/20/2024 Address:[address] [place] Pcp:Johanna Palencia MD Subjective: * Chief Complaints: * * Medical History: Objective: * Vitals: Assessment: Plan: * Treatment: * Images: * The named appointment provid er may or may not be the originator of this progress note, and it is not deemed complete until electronically signed by the appointment provider. Sign off status: Pending * Provider: Cristiane Acosta DPM Date: 06/20/2024 Generated for Sera hi/Lucas/Mac on: 1 04/05/2024 11:49 AM EST
[2025-02-03 10:07] VITALS: BP 130/80; PULSE 76; RESP 16; TEMP 36.4; O2SAT 99; BMI 21.6
--- NOTE | 2025-02-03 10:07 | A.OFFPC_ITS ---
Vital Signs 02/03/25 10:07 Height 5 ft 2 in Weight 118 lb BMI 21.6 BP 130/80 Blood Pressure Location Lt brachial Position Sitting Respiration 16 Pulse 76 Pulse Source Pulse Oximeter Temp 97.6 F Temp Source Oral Pulse Oximetry (%) 99 Oxygen Delivery Method Room Air Intake Visit Reasons: Annual PE Intake Note: Pt is here today for PE. Allergies codeine Adverse Reaction (Unknown, Verified 02/03/25 10:22) Hives sulfamethoxazole Adverse Reaction (Unknown, Verified 02/03/25 10:22) Unknown trimethoprim Adverse Reaction (Unknown, Verified 02/03/25 10:22) Unknown lisinopril Adverse Reaction (Verified 02/03/25 10:22) cough Penicillins Adverse Reaction (Verified 02/03/25 10:22) rash Medication List - Last Reconciled 02/03/25 by Johanna Palencia MD acetaminophen ER 1,300 mg PO Q12H cholecalciferol (vitamin D3) 50 mcg PO DAILY fluticasone propionate 50 mcg/actuation 1 spray intranasal DAILY gabapentin 100 mg PO BID ipratropium bromide 2 sprays intranasal BID losartan 100 mg PO DAILY simvastatin 20 mg PO BEDTIME triamterene 50 mg PO DAILY Tobacco use date assessed: 02/03/25 Fall risk assessment: No Falls in past year Last assessed Fall Risk: 02/03/25 Dental Screening Dental Screen Date: 08/03/24 HPI Annual PE HPI Details Patient presents for the physical. She complains of chronic lower back pain and left buttock pain worse when walking. She has been treated pain management and spine Medicine and is scheduled to have MILD procedure for spinal stenosis in 2 weeks. [facility] Medical History Left ovarian cyst PMR (polymyalgia rheumatica) Osteoporosis HTN (hypertension) Hyperlipidemia Lumbar spinal stenosis Piriformis syndrome of left side Lumbar degenerative disc disease Surgical History History of bunionectomy Hx of appendectomy Family History Son Substance use disorder Father No problems noted. Mother Hypertension Social History Household Members Other:: , 6 adult sons, grandchildren in [place], [facility] Housing: House Patient Tobacco Use Status: Never used Tobacco e-Cigarette/Vaping Use: Never Used service: No Current occupational status: retired Cognitive needs: No Hearing needs: No Vision needs: Yes Questionnaire Thrive Questionnaire Date Thrive assessed: 07/28/24 I am a: Patient What is your living situation today?: I have a steady place to live Within the past 12 months, did the food you bought not last and you didn't have the money to get more?: Never true Within the past 12 months, did you worry whether your food would run out before you got money to buy more?: Never true Do you have trouble paying for medicines?: No Do you have trouble getting transportation to medical appointments?: No Do you have trouble paying your heating and electricity bill?: No Do you have trouble taking care of your child, family member or friend?: No Do you have trouble with day-to-day activities such as bathing, preparing meals, shopping, managing finances, etc.?: No Are you currently unemployed and looking for a job?: No Are you interested in more education?: No Please select the resources that you would like help with: None Currently or been in a relationship where the following occur: No concerns reported THRIVE Score: 0 STEPHANIE-7 AMB Questionnaire STEPHANIE-7 Date STEPHANIE - 7 assessed: 08/03/24 Source: Developed by Drs. Lowell Hinton, Annmarie Hooker, Nicola Ballard and colleagues, with an educational betty from [employer] Review of Systems Const All systems reviewed & are unremarkable except as noted in HPI and below Eyes Reports no additional complaints ENT Reports no additional complaints Card Reports no additional complaints Resp Reports no additional complaints GI Reports no additional complaints Reports no additional complaints Physical exam (Primary Care) Vital Signs: Last Vital Signs Temp 97.6 F 02/03/25 10:07 Pulse 76 02/03/25 10:07 Resp 16 02/03/25 10:07 BP 130/80 02/03/25 10:07 Pulse Ox 99 02/03/25 10:07 Oxygen Delivery Method Room Air 02/03/25 10:07 BMI result Body Mass Index 21.6 Tobacco/Smoking Status: Tobacco use Status Tobacco use date assessed 02/03/25 02/03/25 10:23 Patient Tobacco Use Status Never used Tobacco 02/03/25 10:07 e-Cigarette/Vaping Use Never Used 02/03/25 10:07 Thrive Assessment: Date of Thrive Assessment Date Thrive assessed 07/28/24 02/03/25 10:07 Currently or been in a relationship where the following occur: No concerns reported Const General: no acute distress HENMT Head: Yes normal to inspection Ears: TM's normal bilaterally Mouth: Normal oral and palatal mucosa present Throat: Yes posterior oropharynx normal Eyes General: appearance normal, both eyes and all related structures Neck Neck: Yes no lymphadenopathy and Yes supple Resp Effort & Inspection: normal respiratory effort Auscultation: clear to auscultation bilaterally Cardio Rhythm: regular rhythm Heart sounds: S1 normal heart sound present and S2 normal heart sound present GI Inspection: Yes normal to inspection Palpation (GI): Soft to palpation Percussion: Yes normal to percussion Auscultation: normal bowel sounds Coding Level of Care Code Est Pt Prev Care >65y(15577) Diagnoses HTN (hypertension) I10 Hyperlipidemia E78.5 Age-related osteoporosis without current pathological fracture M81.0 Osteoporosis type: age-related Presence of current pathological fracture: without current pathological fracture PMR (polymyalgia rheumatica) M35.3 Annual physical exam Z00.00 Lumbar spinal stenosis M48.061 Assessment & Plan Assessment & Plan (1) HTN (hypertension): Code(s): I10 - Essential (primary) hypertension Category: Medical Plan: Continue losartan and triamterene (2) Hyperlipidemia: Code(s): E78.5 - Hyperlipidemia, unspecified Category: Medical Plan: Continue statin (3) Osteoporosis: Comment: DEXA 03/2023, total femur T score -2.7 worsened(12.6 %) after 2 years of Fosamax, patient stopped Fosamax 12/2023, Reclast was prescribed but patient's insurance did not cover it, she declined taking Prolia because of possible side of effects, referred to Endo Code(s): M81.0 - Age-related osteoporosis without current pathological fracture Category: Medical Qualifiers: Osteoporosis type: age-related Presence of current pathological fracture: without current pathological fracture Qualified Code(s): M81.0 - Age- related osteoporosis without current pathological fracture Plan: Patient has been evaluated by cash applications representative and is contemplating starting Prolia injections after her back procedure (4) PMR (polymyalgia rheumatica): Comment: f/u with rheumatology, in remission Code(s): M35.3 - Polymyalgia rheumatica Category: Medical Plan: Follow-up by Rheumatology in remission (5) Annual physical exam: Code(s): Z00.00 - Encounter for general adult medical examination without abnormal findings Category: Medical Plan: Well-balanced diet regular physical activity discussed with the patient. Follow-up in 6 months with a fasting labs before (6) Lumbar spinal stenosis: Comment: L spine XR 12/2023 consistent with lumbar spinal and pelvic MRI 05/2024 normal SI joints degenerative spondylolisthesis at the L4-5 level, established with [facility] and referred to spinal surgeon 07/2024 Code(s): M48.061 - Spinal stenosis, lumbar region without neurogenic claudication Category: Medical Plan: Patient is scheduled for MILD procedure with [facility], she will start low dose of gabapentin 100 mg twice a day and the dose can be increased as patient tolerate Medications: New gabapentin 100 mg PO BID 60 caps 1RF
--- OUTSIDE RECORDS SUMMARY | 2025-02-03 11:48 | XMS_ITS | Continuity of Care Document ---
Author Organization [place] - [facility], [facility] Address [address] [place] [address] Care Team Providers Care Manager Loss Prevention Name Role Phone AUTUMNRUBENS MCDONNELL Primary Care Provider Assessment No assessment recorded. Plan of Treatment Reminders Order Date Submit Date Provider Last Modified By Organization Details Last Modified Time Details Appointments Establish ed 15 2025 09:00A M JUS CASANOVA MD Not available Not available Not available Lab None recorded. Referral None recorded. Procedures None recorded. Surgeries None recorded. Imaging US, thyroid 2024 025 [facility] [place], [address] [facility] [address], [place], [address], 02/03/2025 04:11:48 Medication Orders ipratropi um bromide 21 mcg (0.03 %) nasal spray 2024 025 [facility], [address] [place], [address], 01/20/2025 10:12:13 Patient TargetsNo targets recorded. Patient InstructionsNo instructions recorded. Reason for Referral None Reported. Problems Name Problem SNOMED Code Status Onset Date Resolution Date Notes Provider Name and Address Organization Details Recorded Time Chronic cough 76653882 Completed 202110/30/2023 Chronic cough; Note: Date Diagnose d: 08/05/2021 9:43 AM (R05.3) Not Available [facility] 02:36:10 Non-toxi c uninodul ar goiter 297141190 Active 2021 Nontoxic single thyroid nodule; Note: Date Diagnose d: 08/05/2021 9:43 AM (E04.1) Not Available [facility] 4 02:36:15 Chronic rhinitis 10148696 Active 2021 Chronic rhinitis ; Note: Date Diagnose d: 08/05/2021 9:43 AM (J30.89) Not Available [facility] 4 02:36:07 Generali zed enlarged lymph nodes 693612356 Active 2021 Lymphade nopathy NOS; Note: Date Diagnose d: 2 12:44 PM (R59.1) Not Available [facility] 4 02:36:15 Thyroid nodule 678741002 Active 2023 JUS CASANOVA MD [address] [place] [address], [place], [address] , [place] - [facility] 14:02:16 Problem Notes None recorded. Procedures Surgical History Date Name Laterality Status Provider Name and Address Organization Details Recorded Time Appendectomy completed Sarah Pinon [place] - [facility] 01/15/2024 16:00:00 excision of bunion completed Sarah Pinon [place] - [facility] 01/15/2024 16:00:05 Imaging Results None recorded. Procedure Notes None recorded. Medical Equipment None Reported. Allergies Allergen ID Allergen Name Allergen Category Reaction Reaction Severity Criticality Documentation Date Start Date Code Code System Note Provider Name and Address Organization Details Recorded Time 19305 Product containin g penicilli n (product) medicatio n other Not available Not available 08/11/2023 07740 8001 SNOMED React ion: other react ion, Unkno wn; Not Available Critical access hospital 00:58:45 96026 lisinopri l medicatio n other Not available Not available 08/11/2023 63095 RxNorm React ion: other react ion, Unkno wn; Not Available Critical [facility] hospital 4 00:58:52 63429 codeine medicatio n other Not available Not available 08/11/2023 2670 RxNorm React ion: other react ion, Unkno wn; Not Available [facility] 4 00:58:53 Medications Name Sig [...] completed Not Available Not Available Not Available triamcino lone acetonide 0.1 % topical cream APPLY TO SCALP TWO TIMES DAILY NEEDED FOR FLARES active Not Available Not Available No t Available ciclopiro x 8 % topical solution [...] mg tablet 01/14 completed Medicati on ID: [id number] B rand Name: triamter darshana-hydr ochlorot hiazid S end Method: E-Prescr ibed Sub s Allowed: subs OK Speci al Instruct ion: TAKE ONE TABLET BY MOUTH EVERY DAY Medi cationGe nericNam e: triamter darshana-hydr ochlorot hiazid Not Available Not Available Not Available hydrocort isone 2.5 % topical cream APPLY TO AFFECTED AREA S) OF ITCHING/ IRRITATE D SKIN ON FOOT/FEE T TWO TIMES A DAY active Not Available Not Available No t Available celecoxib 100 mg capsule TAKE ONE CAPSULE BY MOUTH TWICE A DAY NEEDED FOR PAIN .TAKE WITH FOOD AND FULL GLASS OF WATER.AV OID ALEVE WHILE TAKING THIS. active Not Available Not Available No t Available losartan 100 mg tablet TAKE ONE TABLET BY MOUTH EVERY DAY active Not Available Not Available No t Available fluticaso ne propionat e 50 mcg/actua tion nasal spray,batsheva pension 2 puff 2021 active Medicati on ID: [id number] D uration Value: 30 Prescri bed By Name: Jus davila MD Brand Name: fluticas one propiona te Send Method: E-Prescr ibed Sub s Allowed: subs OK Medic ationGen ericName : fluticas one propiona te Not Available Not Available Not Available sodium fluoride 1.1 % dental gel AFTER BRUSHING WITH TOOTHPAS TE, APPY A THIN RIBBON OF GEL TO A TOOTHBRU SH AT BEDTIME, BRUSH FOR 1 MINUTE active Not Available Not Available No t Available dicyclomi ne 10 mg capsule TAKE ONE CAPSULE BY MOUTH THREE TIMES A DAY 01/14 completed Not Available Not Available Not Available ipratropi um bromide 21 mcg (0.03 %) nasal spray [place] 2 sprays twice a day by intranas al route for 90 days. 2024 active Not Available Not Available Not Avai lable neomycin 3.5 mg/g-poly myxin B 10,000 unit/g-de xameth 0.1 % eye oint APPLY ALONG THE LOWER EYELIDS OF BOTH EYES AT BEDTIME EVERY OTHER NIGHT 01/14 completed Not Available Not Available Not Available ciclopiro x 0.77 % topical cream APPLY TOPICALL Y TWICE A DAY 01/14 completed Not Available Not Available Not Available Vitals Date Recorded Body height Body mass index (BMI) Body weight Provider Name and Address Organization Details Last Updated DateTime 01/20/2025 157.48 cm 21.2 kg/m2 62957.71 g [facility] [address] [facility],[address], [address], [place] - [facility] 01/20/2025 09:58:26 Social History None recorded. Functional Status None recorded. Mental Status None recorded. Family History Nothing Reported. Medical History Condition Response Hypertension Y High Cholesterol Y Gynecological HistoryNo gynecological history recorded. Obstetrics History GPAL:G 0 P 0 0 0 0 Past Encounters Encounter ID Performer Location Encounter Start Date Encounter Closed Date Diagnosis/Indication Diagnosis SNOMED-CT Code Diagnosis ICD10 Code Diagnosis IMO Codes Diagnosis Note [id number] JUS CASANOVA MD [facility] [address] [address] 01/20/2025 09:50:49 01/20/2025 10:16:19 Non-toxic uninodular goiter 790043029 E04.1 No palpable nodules. Updated US ordered. Follow up in a year. Chronic rhinitis 0150163 6 J31.0 Continue ipratropiu m. Health Concerns Section Related Observation LastModified by Organization Detai ls LastModified Time None Recorded Concern Status LastModified by Organization Details LastModified Time None Recorded Payers Encounter Date Sequence Insurance Name Policy Number Policy Baer Covered Member ID Baer Member ID Guarantor Name 01/20/2025 1 [facility] (HMO) Julissa Theroux [id number] Julissa Theroux Notes Date Note Type Note Provider Name and Address Organization Details Recorded Time 01/20/2025 text/html 79-year-old female here for routine follow-up. She has chronic rhinitis for which she uses ipratropium which has been helpful.She gets routine ultrasounds for multiple nodules. Most recent thyroid ultrasound in August 2023 showed right upper lobe nodule 0.8 cm TR 5, right isthmus nodule 0.6 cm TR 5, and 1.3 cm left mid lobe TR 4. These are all fairly stable. JUS CASANOVA MD [address] [place] [address], [address], [facility] - [facility] 01/20/2025 10:15:11 OBGyn Episode No OBEpisode recorded.
--- OUTSIDE RECORDS SUMMARY | 2025-02-03 11:48 | XMS_ITS | Patient Health Record ---
Author Organization [facility] Address [address] [place] [address] Care Team Providers Care Cnc Technician Name Role Phone Johanna Palencia MD Primary Care Provider Unavaila ble Michaela Acosta Unavailable [phone] Allergies Allergen (clinical drug ingredient) Drug/Non Drug [...] Johanna Referring Provider Last Name Talha Referred [facility] Referred Provider Michaela Acosta Referred Address [address] [facility],[place],[address], Referred Provider Specialty Podiatry Referral Priority Routine [...] Notes Problem Hallux valgus of left foot (4310213176) Hallux valgus of left foot (M20.12) Active confirmed 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 Vital Signs Blood pressure diastolic 70 mm Hg 12/19/2024 Height 5ft 2'' in 12/19/2024 Blood pressure systolic 130 mm Hg 12/19/2024 Weight 115 lbs 12/19/2024 BMI 21.03 kg/m2 12/19/2024 Procedures Procedure Date Ordered Date Performed Result Body Sit e 03907-ILBGYRS NAIL, 6 OR MORE 02/22/2024 N/A 77447-FXEOJLN NAIL, 6 OR MORE 09/19/2024 N/A 52802-FOGYYQD NAIL, 6 OR MORE 12/19/2024 N/A Encounters Encounter Location Date Provider Diagnosis [facility] [address] [address] 02/22/2024 Michaela Black Tinea unguium B35.1 ; Pain in right toe(s) M79.674 ; Pain in left toe(s) M79.675 and Tinea pedis of both feet B35.[address] [address] 09/19/2024 Michaela Black Tinea unguium B35.1 ; [...] and Fat pad atrophy of foot L90.[address] [address] 12/19/2024 Michaela Black Tinea unguium B35.1 ; [...] Treatment Pending Test Test Name Order Date 31114-HPILJCC NAIL, 6 OR MORE 12/16/2021 68294-XEVYCKD NAIL, 6 OR MORE 10/22/2023 35015-UVUNOUN NAIL, 6 OR MORE 02/22/2024 04087-RAQCRDL NAIL, 6 OR MORE 09/19/2024 98474-AFHYVUB NAIL, 6 OR MORE 12/19/2024 29708, U8696-POHAU/INJECT, JOINT/BURSA 1 05/06/2022 18675- Removal of Foreign Body, Subcut 0 10/22/2023 Next Appt Details Provider Name:Michaela Acosta , 04/13/2025 08:00:00 AM, [address] [place], [address], Insurance Providers Payer Name Payer Address Payer Phone Subscriber Number Group Number Insured Name Patient Relationship to Insured Coverage Start Date Coverage End Date [facility] [address] [place] [phone] [id number] Julissa Blackman Self - patient is the [...]
--- OUTSIDE RECORDS SUMMARY | 2025-02-03 11:48 | XMS_ITS | Clinical Summary ---
Author Organization [place] [id number] [facility] Address [address] [place] [address] Phone Care Team Providers Care Pin Setter Name Role Phone Unavailable Primary Care Provider Unavailabl e Surgical History Surgery Date Site/Laterality Comments APPENDECTOMY 1950 PROCEDURE: NE APPENDECTOMY OTHER SURGICAL HISTORY 03/2020 PROCEDURE: MAMMOGRAM COLONOSCOPY 2002 PROCEDURE: NE COLONOSCOPY STOMA DX INCLUDING COLLJ SPEC SPX [...]
--- OUTSIDE RECORDS SUMMARY | 2025-02-03 11:49 | XMS_ITS | Patient Health Record ---
Author Organization [facility] Address [address] [facility] [address] [facility] [place] [address] Care Team Providers Care Lifter/Driver Name Role Phone Maddy Suazo Primary Care [...] Status Risk Notes Problem Acquired hallux valgus (39857621) Hallux valgus (acquired), right foot (M20.11) Active confirmed Problem Acquired hallux valgus (20478171) Hallux valgus (acquired), left foot (M20.12) Active confirmed Problem Mononeuropathy of lower limb (655596555) Neuritis of left foot (G57.92) Active confirmed [...] Insured Coverage Start Date Coverage End Date [facility] [address] [place] [id number] Julissa Blackman Self - patient is the [...]
--- OUTSIDE RECORDS SUMMARY | 2025-02-03 11:49 | XMS_ITS | Data Portability ---
Author Organization [place] - [facility], Allergy Address [address] [address] Care Team Providers Care Toolroom Helper Name Role Phone [place] PRITCHARDANNA Primary Care Provider [phone] Assessment No assessment recorded. Plan of Treatment Reminders Order Date Submit Date Provider Last Modified By Organization Details Last Modified Time Details Appointments Establish ed 15 2025 09:00A M JUS CASANOVA MD Not available Not available Not available Lab None recorded. Referral None recorded. Procedures None recorded. Surgeries None recorded. Imaging US, thyroid 2024 025 [facility] [place], [address] [facility], [facility] [address], [place], [address], 02/03/2025 04:11:48 Medication Orders ipratropi um bromide 21 mcg (0.03 %) nasal spray 2024 025 [facility], [address] [place], [address], 01/20/2025 10:12:13 ipratropi um bromide 21 mcg (0.03 %) nasal spray 2023 024 [facility], [address] [place], [address], 01/15/2024 16:26:57 Patient TargetsNo targets recorded. Patient InstructionsNo instructions recorded. Reason for Referral None Reported. Problems Name Problem SNOMED Code Status Onset Date Resolution Date Notes Provider Name and Address Organization Details Recorded Time Chronic cough 97506120 Completed 202110/30/2023 Chronic cough; Note: Date Diagnose d: 08/05/2021 9:43 AM (R05.3) Not Available [facility] 4 02:36:10 Non-toxi c uninodul ar goiter 515684151 Active 2021 Nontoxic single thyroid nodule; Note: Date Diagnose d: 08/05/2021 9:43 AM (E04.1) Not Available [facility] 4 02:36:15 Chronic rhinitis 42984637 Active 2021 Chronic rhinitis ; Note: Date Diagnose d: 08/05/2021 9:43 AM (J30.89) Not Available [facility] 4 02:36:07 Generali zed enlarged lymph nodes 258970343 Active 2021 Lymphade nopathy NOS; Note: Date Diagnose d: 12:44 PM (R59.1) Not Available [facility] 4 02:36:15 Thyroid nodule 509209628 Active 2023 JUS CASANOVA MD [address] [place] [address], [address] [facility] [place] - [facility] 14:02:16 Problem Notes None recorded. Procedures Surgical History Date Name Laterality Status Provider Name and Address Organization Details Recorded Time Appendectomy completed Sarah Pinon [place] - [facility] 01/15/2024 16:00:00 excision of bunion completed Sarah Pinon [facility] 01/15/2024 16:00:05 Imaging Results None recorded. Procedure Notes None recorded. Medical Equipment None Reported. Allergies Allergen ID Allergen Name Allergen Category Reaction Reaction Severity Criticality Documentation Date Start Date Code Code System Note Provider Name and Address Organization Details Recorded Time 86914 Product containin g penicilli n (product) medicatio n other Not available Not available 08/11/2023 15489 8001 SNOMED React ion: other react ion, Unkno wn; Not Available [facility] 4 00:58:45 99524 lisinopri l medicatio n other Not available Not available 08/11/2023 10162 RxNorm React ion: other react ion, Unkno wn; Not Available [facility] 4 00:58:52 06098 codeine medicatio n other Not available Not available 08/11/2023 2670 RxNorm React ion: other react ion, Unkno wn; Not Available [facility] 4 00:58:53 Medications Name Sig Start [...] mg tablet 01/14 completed Medicati on ID: [id number] B rand Name: triamter darshana-hydr ochlorot hiazid [...] 2 puff 2021 active Medicati on ID: [id number] D uration Value: 30 Prescri bed By [...] bromide 21 mcg (0.03 %) nasal spray [place] 2 sprays twice a day by intranas [...] Details Last Updated DateTime 01/15/2024 157.48 cm 77308.16 g Sarah Pinon [place] [facility] 01/15/2024 15:58:42 Date Recorded Body height Body mass index (BMI) Body weight Provider Name and Address Organization Details Last Updated DateTime 01/20/2025 157.48 cm 21.2 kg/m2 90753.71 g KELLY SELINA, RMA [address] [facility] [address], [place], [address], [place] - [facility] 01/20/2025 09:58:26 Social History None recorded. [...] ICD10 Code Diagnosis IMO Codes Diagnosis Note [id number] JUS CASANOVA MD [facility] [address] [address] 01/15/2024 15:43:20 01/15/2024 16:31:45 Chronic rhinitis 94871819 J31.0 Ipratropiu m has been renewed. For the dryness, I recommende d some saline gel to the anterior nares at bedtime and saline as needed. Non-toxic uninodular goiter 877928998 E04.1 We reviewed ultrasound findings. Follow-up in a year. [id number] JUS CASANOVA MD [facility] [address] [address] 01/20/2025 09:50:49 01/20/2025 10:16:19 Non-toxic uninodular goiter 418355602 E04.1 No palpable nodules. Updated US ordered. Follow up in a year. Chronic rhinitis 8305186 6 J31.0 Continue ipratropiu m. Health Concerns Section Related Observation LastModified by Organization Detai ls LastModified Time None Recorded Concern Status LastModified by Organization Details LastModified Time None Recorded Advance Directives Directive None Recorded Payers Insurance Date Sequence Insurance Name Policy Number Policy Baer Covered Member ID Bare Member ID Guarantor Name 01/15/2024 1 [facility] [id number] Julissa Theroux 01/23/2025 1 [facility] C[facility] (HMO) Julissa Blackman [id number] Julissa Blackman Notes Date Note Type Note Provider Name and Address Organization Details Recorded Time 01/15/2024 text/html 78-year-old female here for routine follow-up. She has [...] are all fairly stable JUS CASANOVA MD [address] [place] [address],[address], [address], [place] - [facility] 01/16/2024 07:17:16 01/20/2025 text/html 79-year-old female here for routine [...] are all fairly stable. JUS CASANOVA MD [address] [place] [address],[address], [address], [place] - [facility] 01/20/2025 10:15:11 OBGyn Episode No OBEpisode recorded.
--- OUTSIDE RECORDS SUMMARY | 2025-02-03 11:49 | XMS_ITS | Clinical Summary ---
Author Organization [facility] Address [address] [place] [phone] Phone Care Team Providers Care Tree Puller Name Role Phone Pcp, Unknown Primary Care [...] Not on file [facility] RE[place]AC[place] MEDICARE REPLACEMENT MEDICARE REPLACEMENT [employer] MEDICARE REPLACEMENT [employer]ARE REPLACEMENT MEDICARE REPLACEMENT MEDICARE REPLACEMENT MEDICARE REPLACEMENT [employer] MEDICARE REPLACEMENT Care Teams Tree Puller Relationship Specialty Start Date End Date Pcp, Unknown PCP - General 10/29/21 Additional Source Comments The information contained in this document represents components of the legal health record. It is not the complete legal health record.[facility]
== END 2025-02-03 11:07 | disposition home or self-care (01) ==
LOC: HO.HMCC 10:02
PROVIDERS: PCP Internal Medicine; Visit Provider Internal Medicine
DX: Z00.00 Encounter for general adult medical examination without abnormal findings (principal); I10 Essential (primary) hypertension; E78.5 Hyperlipidemia, unspecified; M81.0 Age-related osteoporosis without current pathological fracture; M35.3 Polymyalgia rheumatica; M48.061 Spinal stenosis, lumbar region without neurogenic claudication

== ENCOUNTER → 2025-02-03 10:01 | Outpatient (BNVA) | payer MEDICARE, SELFPAY | PROVIDERS: PCP Internal Medicine; Visit Provider Internal Medicine | DX: Z00.00 Encounter for general adult medical examination without abnormal findings (principal); M54.50 Low back pain, unspecified; I10 Essential (primary) hypertension; E78.5 Hyperlipidemia, unspecified; M81.0 Age-related osteoporosis without current pathological fracture; M35.3 Polymyalgia rheumatica; M48.061 Spinal stenosis, lumbar region without neurogenic claudication | CPT/HCPCS: 99397 ==

== ENCOUNTER 2025-02-22 11:21 | Day surgery (SDC) | payer MEDICARE, SELFPAY ==
--- OUTSIDE RECORDS SUMMARY | 2024-06-20 03:00 | XMS_ITS ---
Author Organization [facility] Address [address] [place] [address] Care Team Providers Care Elevator Examiner And Adjuster Name Role Phone Talha SAM, Johanna Primary Care Provider Michaela Verma [phone] Encounters Encounter Location Date Provider Diagnosis [facility] [address] [place] [address] 06/20/2024 Michaela Acosta Plan Of Treatment Next Appt Details Provider Name:Michaela Beck Dave , 04/13/2025 08:00:00 AM, [address] [place], [address], Progress Notes * RHIANNAMIO Julissa PDOB:[birth year] (79 yo F)Acc No.[id number]:06/20/2024 Progress Note Patient: Cristiane SCHWARZJulissa LIEBERMAN Santiago Provider: Cristiane Acosta DPM :1945 A ge:79 Y S ex:Female Date:06/20/2024 Address:[address] [place] Pcp:Johanna Palencia MD Subjective: * Chief Complaints: * * Medical History: Objective: * Vitals: Assessment: Plan: * Treatment: * Images: * The named appointment provid er may or may not be the originator of this progress note, and it is not deemed complete until electronically signed by the appointment provider. Sign off status: Pending * Provider: Cristiane Acosta DPM Date: 0 06/20/2024 Generated for Sera hi/Lucas/Mac on: 1 04/11/2024 02:42 PM EST
--- OUTSIDE RECORDS SUMMARY | 2025-02-09 14:42 | XMS_ITS | Patient Health Record ---
Author Organization [facility] Address [address] [place] [address] Care Team Providers Care Die Operator Name Role Phone Johanna Palencia MD Primary Care Provider Unavaila Michaela Buenrostro Unavailable [phone] Allergies Allergen (clinical drug ingredient) Drug/Non Drug [...] Referring Provider Last Name Talha Referred Organization [facility] Referred Provider Michaela Acosta Referred Address [address] [facility],[place],[address], Referred Provider Specialty Podiatry Referral Priority Routine Diagnosis 1 Plantar fat pad atro phy of right foot (M21.6X1) Diagnosis 2 Hallux valgus of lef t foot (M20.12) Diagnosis 3 Pain in left toe(s) (M79.675) Diagnosis 4 Pain in right toe(s) (M79.674) Diagnosis 5 Tinea unguium (B35.1 ) Diagnosis 6 Tinea pedis of both feet (B35.3) Diagnosis 7 Dermatitis (L30.9) Diagnosis 8 Primary osteoarthrit is, left ankle and foot (M19.072) Diagnosis 9 Neuralgia and neurit is, unspecified (M79.2) Diagnosis 10 Fat pad 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) Diagnosis 11 Metatarsalgia, right foot (M77.41) Referring Provider First Name Johanna [facility]erring [facility] Referred Provider Michaela Acosta Referred Address [address] [facility] [place],[address],[place] Referred Provider Specialty Podiatry Referral Priority Routine [...] Problem Status W/U Status Risk Notes Problem Localized, primary osteoarthritis of the ankle and/or foot (017939245) Primary osteoarthrit is, left ankle and foot (M19.072) Active confirmed Problem Hallux valgus of left foot (8203542751) Hallux valgus of left foot (M20.12) Active confirmed 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 Vital Signs Blood pressure diastolic 70 mm Hg 12/19/2024 Height 5ft 2'' in 12/19/2024 Blood pressure systolic 130 mm Hg 12/19/2024 Weight 115 lbs 12/19/2024 BMI 21.03 kg/m2 12/19/2024 Procedures Procedure Date Ordered Date Performed Result Body Sit e 15847-ZKWUAPH NAIL, 6 OR MORE 02/22/2024 N/A 34777-DXJQNOK NAIL, 6 OR MORE 09/19/2024 N/A 68604-IPETQVO NAIL, 6 OR MORE 12/19/2024 N/A Encounters Encounter Location Date Provider Diagnosis [address] [address] 02/22/2024 Michaela Black Tinea unguium B35.1 ; Pain in right toe(s) M79.674 ; Pain in left toe(s) M79.675 and Tinea pedis of both feet B35.[address] [address] 09/19/2024 Michaela Black Tinea unguium B35.1 ; [...] and Fat pad atrophy of foot L90.9 [facility] [address] 12/19/2024 Michaela Black Tinea unguium B35.1 ; [...] Treatment Pending Test Test Name Order Date 04055-ZQVLBTJ NAIL, 6 OR MORE 12/16/2021 76869-GWACZTT NAIL, 6 OR MORE 10/22/2023 32407-HZAMOAK NAIL, 6 OR MORE 02/22/2024 91558-VSZZKKT NAIL, 6 OR MORE 09/19/2024 69512-SAMQPTF NAIL, 6 OR MORE 12/19/2024 40945, Z5681-QXWRS/INJECT, JOINT/BURSA 1 05/06/2022 87468- Removal of Foreign Body, Subcut 0 10/22/2023 Next Appt Details Provider Name:Michaela Acosta , 04/13/2025 08:00:00 AM, [address] [place] [address], [address], Insurance Providers Payer Name Payer Address Payer Phone Subscriber Number Group Number Insured Name Patient Relationship to Insured Coverage Start Date Coverage End Date [facility] [address] [place] [phone] [id number] Julissa Blackman Self - patient is the [...]
--- OUTSIDE RECORDS SUMMARY | 2025-02-09 14:42 | XMS_ITS | Clinical Summary ---
Author Organization [place] [id number] [facility] Address [address] [place] [address] Phone Care Team Providers Care Head Athletic Trainer Name Role Phone Unavailable Primary Care Provider Unavailabl e Surgical History Surgery Date Site/Laterality Comments APPENDECTOMY 1950 PROCEDURE: PA APPENDECTOMY OTHER SURGICAL HISTORY 03/2020 PROCEDURE: MAMMOGRAM COLONOSCOPY 2002 PROCEDURE: PA COLONOSCOPY STOMA DX INCLUDING COLLJ SPEC SPX [...]
--- OUTSIDE RECORDS SUMMARY | 2025-02-09 14:42 | XMS_ITS | Continuity of Care Document ---
Author Organization [place] - [facility], [facility] Address [address] [place] [address] Care Team Providers Care Packaging Coordinator Name Role Phone AUTUMNRUBENS MCDONNELL Primary Care Provider [phone] Assessment No assessment recorded. Plan of Treatment Reminders Order Date Submit Date Provider Last Modified By Organization Details Last Modified Time Details Appointments Establish ed 15 2025 09:00A M JUS CASANOVA MD Not available Not available Not available Lab None recorded. Referral None recorded. Procedures None recorded. Surgeries None recorded. Imaging US, thyroid 2024 025 [place] [facility], [address] [facility] [address], [place], [address], 02/03/2025 04:11:48 Medication Orders ipratropi um bromide 21 mcg (0.03 %) nasal spray 2024 025 [place] [facility], [address] [place], [address], 01/20/2025 10:12:13 Patient TargetsNo targets recorded. Patient InstructionsNo instructions recorded. Reason for Referral None Reported. Problems Name Problem SNOMED Code Status Onset Date Resolution Date Notes Provider Name and Address Organization Details Recorded Time Chronic cough 91019018 Completed 202110/30/2023 Chronic cough; Note: Date Diagnose d: 08/05/2021 9:43 AM (R05.3) Not Available [facility] 02:36:10 Non-toxi c uninodul ar goiter 354674440 Active 2021 Nontoxic single thyroid nodule; Note: Date Diagnose d: 08/05/2021 9:43 AM (E04.1) Not Available [facility] 4 02:36:15 Chronic rhinitis 88580292 Active 2021 Chronic rhinitis ; Note: Date Diagnose d: 08/05/2021 9:43 AM (J30.89) Not Available [facility] 4 02:36:07 Generali zed enlarged lymph nodes 637412359 Active 2021 Lymphade nopathy NOS; Note: Date Diagnose d: 2 12:44 PM (R59.1) Not Available [facility] 4 02:36:15 Thyroid nodule 007004076 Active 2023 JUS CASANOVA MD [address] [place] [address], [place], [address] , [place] - [facility] 14:02:16 Problem Notes None recorded. Procedures Surgical History Date Name Laterality Status Provider Name and Address Organization Details Recorded Time Appendectomy completed Sarah Pinon [place] - [facility] 01/15/2024 16:00:00 excision of bunion completed Sarah Pinon [place] - [facility] 01/15/2024 16:00:05 Imaging Results None recorded. Procedure Notes None recorded. Medical Equipment None Reported. Allergies Allergen ID Allergen Name Allergen Category Reaction Reaction Severity Criticality Documentation Date Start Date Code Code System Note Provider Name and Address Organization Details Recorded Time 54252 Product containin g penicilli n (product) medicatio n other Not available Not available 08/11/2023 08350 8001 SNOMED React ion: other react ion, Unkno wn; Not Available [facility] 00:58:45 84668 lisinopri l medicatio n other Not available Not available 08/11/2023 64747 RxNorm React ion: other react ion, Unkno wn; Not Available [facility] 4 00:58:52 03215 codeine medicatio n other Not available Not available 08/11/2023 2670 RxNorm React ion: other react ion, Unkno wn; Not Available [facility] 4 00:58:53 Medications Name Sig [...] mg tablet 01/14 completed Medicati on ID: [id number] B rand Name: triamter darshana-hydr ochlorot hiazid [...] 2 puff 2021 active Medicati on ID: [id number] D uration Value: 30 Prescri bed By [...] bromide 21 mcg (0.03 %) nasal spray [place] 2 sprays twice a day by intranas [...] Updated DateTime 01/20/2025 157.48 cm 21.2 kg/m2 30214.[address] [facility] [address] [facility],[address], [address], [place] - [facility] 01/20/2025 09:58:26 Social History None recorded. Functional [...] ICD10 Code Diagnosis IMO Codes Diagnosis Note [id number] JUS CASANOVA MD [facility] [address] [address] 01/20/2025 09:50:49 01/20/2025 10:16:19 Non-toxic uninodular goiter [id number] E04.1 No palpable nodules. Updated US ordered. Follow up in a year. Chronic rhinitis 4270037 6 J31.0 Continue ipratropiu m. Health Concerns Section Related Observation LastModified by Organization Detai ls LastModified Time None Recorded Concern Status LastModified by Organization Details LastModified Time None Recorded Payers Encounter Date Sequence Insurance Name Policy Number Policy Baer Covered Member ID Baer Member ID Guarantor Name 01/20/2025 1 [facility] CARE PLAN (HMO) Julissa Theroux [id number] Julissa Theroux Notes Date Note Type Note [...] are all fairly stable. JUS CASANOVA MD [address] [place] [address], [address], [facility] - [facility] 01/20/2025 10:15:11 OBGyn Episode No OBEpisode recorded.
--- OUTSIDE RECORDS SUMMARY | 2025-02-09 14:42 | XMS_ITS | Patient Health Record ---
Author Organization [facility] Address [address] [facility] [address] [facility] [place] [place] [address] Care Team Providers Care Traffic Maintenance Officer Name Role Phone Maddy Suazo Primary Care [...] Status Risk Notes Problem Acquired hallux valgus (96154213) Hallux valgus (acquired), right foot (M20.11) Active confirmed Problem Acquired hallux valgus (27456633) Hallux valgus (acquired), left foot (M20.12) Active confirmed Problem Mononeuropathy of lower limb (178058943) Neuritis of left foot (G57.92) Active confirmed [...] Insured Coverage Start Date Coverage End Date [facility] [id number] [place] [id number] Julissa Blackman Self - patient is the [...]
--- OUTSIDE RECORDS SUMMARY | 2025-02-09 14:43 | XMS_ITS | Data Portability ---
Author Organization [place] - [facility], Allergy Address [address] [address] Care Team Providers Care Human Factors Specialist Name Role Phone [place] PRITCHARDANNA Primary Care Provider Assessment No assessment recorded. Plan of Treatment Reminders Order Date Submit Date Provider Last Modified By Organization Details Last Modified Time Details Appointments Establish ed 15 2025 09:00A M JUS CASANOVA MD Not available Not available Not available Lab None recorded. Referral None recorded. Procedures None recorded. Surgeries None recorded. Imaging US, thyroid 2024 025 [place] [place], [address] [facility], [place], [address], 02/03/2025 04:11:48 Medication Orders ipratropi um bromide 21 mcg (0.03 %) nasal spray 2024 025 [employer] [facility], [address] [place], [address], 01/20/2025 10:12:13 ipratropi um bromide 21 mcg (0.03 %) nasal spray 2023 024 [place], [address] [place], [address], 01/15/2024 16:26:57 Patient TargetsNo targets recorded. Patient InstructionsNo instructions recorded. Reason for Referral None Reported. Problems Name Problem SNOMED Code Status Onset Date Resolution Date Notes Provider Name and Address Organization Details Recorded Time Chronic cough 81596199 Completed 202110/30/2023 Chronic cough; Note: Date Diagnose d: 08/05/2021 9:43 AM (R05.3) Not Available [facility] 4 02:36:10 Non-toxi c uninodul ar goiter 411602933 Active 2021 Nontoxic single thyroid nodule; Note: Date Diagnose d: 08/05/2021 9:43 AM (E04.1) Not Available [facility] 4 02:36:15 Chronic rhinitis 04839202 Active 2021 Chronic rhinitis ; Note: Date Diagnose d: 08/05/2021 9:43 AM (J30.89) Not Available [facility] 4 02:36:07 Generali zed enlarged lymph nodes 325657583 Active 2021 Lymphade nopathy NOS; Note: Date Diagnose d: 12:44 PM (R59.1) Not Available [facility] 4 02:36:15 Thyroid nodule 003235794 Active 2023 JUS CASANOVA MD [address] [place] [address], [address] [facility] [place] - [facility] 14:02:16 Problem Notes None recorded. Procedures Surgical History Date Name Laterality Status Provider Name and Address Organization Details Recorded Time Appendectomy completed Sarah Pinon [place] - [facility] 01/15/2024 16:00:00 excision of bunion completed Sarah Pinon [facility] 01/15/2024 16:00:05 Imaging Results None recorded. Procedure Notes None recorded. Medical Equipment None Reported. Allergies Allergen ID Allergen Name Allergen Category Reaction Reaction Severity Criticality Documentation Date Start Date Code Code System Note Provider Name and Address Organization Details Recorded Time 30805 Product containin g penicilli n (product) medicatio n other Not available Not available 08/11/2023 66716 8001 SNOMED React ion: other react ion, Unkno wn; Not Available [facility] 4 00:58:45 45525 lisinopri l medicatio n other Not available Not available 08/11/2023 90452 RxNorm React ion: other react ion, Unkno wn; Not Available [facility] 4 00:58:52 61869 codeine medicatio n other Not available Not [...] mg tablet 01/14 completed Medicati on ID: [id number] B rand Name: triamter darshana-hydr ochlorot hiazid [...] 2 puff 2021 active Medicati on ID: [id number] D uration Value: 30 Prescri bed By [...] bromide 21 mcg (0.03 %) nasal spray [place] 2 sprays twice a day by intranas [...] Details Last Updated DateTime 01/15/2024 157.48 cm 26203.16 g Sarah Pinon [place] - [facility] 01/15/2024 15:58:42 Date Recorded Body height Body mass index (BMI) Body weight Provider Name and Address Organization Details Last Updated DateTime 01/20/2025 157.48 cm 21.2 kg/m2 57063.71 g KELLY SELINA, RMA [address] [facility] [address], [place], [address], [place] - [facility] 01/20/2025 09:58:26 Social History None recorded. Functional [...] ICD10 Code Diagnosis IMO Codes Diagnosis Note [id number] JUS CASANOVA MD [facility] of [address] [address] 01/15/2024 15:43:20 01/15/2024 16:31:45 Chronic rhinitis 17861272 J31.0 Ipratropiu m has been renewed. For the dryness, I recommende d some saline gel to the anterior nares at bedtime and saline as needed. Non-toxic uninodular goiter 422220549 E04.1 We reviewed ultrasound findings. Follow-up in a year. [id number] JUS CASANOVA MD [facility] of [address] [address] 01/20/2025 09:50:49 01/20/2025 10:16:19 Non-toxic uninodular goiter 296396267 E04.1 No palpable nodules. Updated US ordered. Follow up in a year. Chronic rhinitis 3939919 6 J31.0 Continue ipratropiu m. Health Concerns Section Related Observation LastModified by Organization Detai ls LastModified Time None Recorded Concern Status LastModified by Organization Details LastModified Time None Recorded Advance Directives Directive None Recorded Payers Insurance Date Sequence Insurance Name Policy Number Policy Baer Covered Member ID Baer Member ID Guarantor Name 01/15/2024 1 [facility] [id number] Julissa Theroux 01/23/2025 1 [facility] CARE PLAN (HMO) Julissa Blackman [id number] Julissa Blackman Notes Date Note Type Note [...] all fairly stable JUS CASANOVA MD [address] [place] [address],[address], [address], [place] - [facility] 01/16/2024 07:17:16 01/20/2025 text/html 79-year-old female here [...] are all fairly stable. JUS CASANOVA MD [address] [place] [address],[address], [address], [place] - [facility] 01/20/2025 10:15:11 OBGyn Episode No OBEpisode recorded.
--- OUTSIDE RECORDS SUMMARY | 2025-02-09 14:43 | XMS_ITS | Clinical Summary ---
Author Organization [facility] Address [address] [place] [phone] Phone Care Team Providers Care Development Officer Name Role Phone Pcp, Unknown Primary Care [...] Medical Devices Not on file Insurance [facility] [place] MED[place] RE[place]AC[place] MEDICARE REPLACEMENT MEDICARE REPLACEMENT [place] MED[place] REPLACEMENT [place] [employer] RE[employer] MEDICARE REPLACEMENT MEDICARE REPLACEMENT MEDICARE REPLACEMENT [place] MEDICARE REPLACEMENT Care Teams Development Officer Relationship Specialty Start Date End Date Pcp, Unknown PCP - General 10/29/21 Additional Source Comments The information contained in this document represents components of the legal health record. It is not the complete legal health record.[facility]
[2025-02-20 08:03] VITALS: BMI 21.0
--- NOTE | ~2025-02-22 | FL_ITS ---
EXAMINATION: XR FLUOROSCOPY WITH IMAGES CLINICAL INFORMATION: L4-5 mild COMPARISON: None available. TECHNIQUE: Fluoroscopy time: 12 minutes DAP: 243 mGycm2 Images: 5 FINDINGS: Fluoroscopy provided in the operating room. Multiple images obtained in the operating room during spinal surgery. FL/FL guidance in OR IMPRESSION: Fluoroscopy provided in the operating room. See surgical report for details. Electronically signed by: Jamar Muñoz MD 02/24/2025 03:32 PM [facility]
[2025-02-22 11:58] VITALS: BMI 21.2
[2025-02-22 12:05] VITALS: BP 165/73; PULSE 91; RESP 16; TEMP 36.9; O2SAT 98
--- NOTE | 2025-02-22 12:05 | HO.ANESPROP2 ---
Documented by User: Melissa Tanner NP 02/21/25 08:51 HPI - Anesthesia Eval Consult details Narrative: 79yo F for L4-L5 Minimally Invasive Lumbar Decompression PMFSH Active Problems Active Problems: All Active Problems Lumbar radicular pain (Acute) Lumbar spondylosis (Acute) Chronic SI joint pain (Acute) Left ovarian cyst (Acute) Piriformis syndrome of left side (Acute) Lumbar spinal stenosis (Acute) Tarlov cyst (Acute) Lumbar degenerative disc disease (Acute) Spondylolisthesis, lumbar region (Acute) Coccydynia (Acute) Osteoporosis (Acute) Diarrhea (Acute) Vitamin D deficiency (Acute) Anxiety (Acute) Alopecia (Acute) Chest pain (Acute) PMR (polymyalgia rheumatica) (Acute) Knee pain, left (Acute) Hyperlipidemia (Acute) HTN (hypertension) (Acute) Annual physical exam (Acute) Postmenopausal (Acute) Past Medical History Medical History Left ovarian cyst PMR (polymyalgia rheumatica) Osteoporosis HTN (hypertension) Hyperlipidemia Lumbar spinal stenosis Piriformis syndrome of left side Lumbar degenerative disc disease Family History Family History Son Substance use disorder Father No problems noted. Mother Hypertension Surgical History Surgical History (Updated 02/22/25 @ 11:49 by Amina Seay RN) H/O colonoscopy History of bunionectomy Hx of appendectomy Social History Social History Household Members Other:: , 6 adult sons, grandchildren in [facility], [facility] Housing: House Patient Tobacco Use Status: Never used Tobacco e-Cigarette/Vaping Use: Never Used Use of substances other than those prescribed or required for medical reasons: No Are you DNR?: No Advance Directives: No Advance Directives Information Provided: Yes Patient : No : No service: No Current occupational status: retired Cognitive needs: No Hearing needs: No Vision needs: Yes Meds Allergies Allergy/AdvReac Type Severity Reaction Status Date / Time codeine AdvReac Unknown Hives Verified 02/03/25 10:22 sulfamethoxazole AdvReac Unknown Unknown Verified 02/03/25 10:22 trimethoprim AdvReac Unknown Unknown Verified 02/03/25 10:22 lisinopril AdvReac cough Verified 02/03/25 10:22 Penicillins AdvReac rash Verified 02/03/25 10:22 Home Medications ?Medication ?Instructions ?Recorded ?Confirmed ?Last Taken ?Type cholecalciferol (vitamin D3) 50 50 mcg PO DAILY 01/16/23 02/20/25 Unknown History mcg (2,000 unit) capsule fluticasone propionate 50 1 spray intranasal DAILY 01/16/23 02/20/25 Unknown History mcg/actuation nasal spray,suspension acetaminophen 650 mg 1,300 mg PO Q12H 06/23/24 02/20/25 Unknown History tablet,extended release ipratropium bromide 21 mcg (0.03 2 spray intranasal BID 10/24/24 02/20/25 Unknown History %) nasal spray Exam Height,Weight and Vital Signs: Height 5 ft 2 in Weight 52.163 kg Pertinent Lab Results Pertinent Lab Results: Laboratory Tests 01/23/25 08:41 WBC 5.3 Hgb 13.3 Hct 40.8 Plt Count 195 Sodium 144 Potassium 3.8 Chloride 109 H Carbon Dioxide 26 BUN 12 Creatinine 0.68 Assessment and Plan Assessment Anesthesia Assessment: Chart Reviewed Documented by User: Ekaterina Reyes DO 02/22/25 12:09 [facility] Past Medical History Medical History Left ovarian cyst PMR (polymyalgia rheumatica) Osteoporosis HTN (hypertension) Hyperlipidemia Lumbar spinal stenosis Piriformis syndrome of left side Lumbar degenerative disc disease Family History Family History Son Substance use disorder Father No problems noted. 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[facility], execise Housing: House Patient Tobacco Use Status: Never used Tobacco e-Cigarette/Vaping Use: Never Used Use of substances other than those prescribed or required for medical reasons: No Are you DNR?: No Advance Directives: No Advance Directives Information Provided: Yes Patient : No : No service: No Current occupational status: retired Cognitive needs: No Hearing needs: No Vision needs: Yes Meds Allergies Allergy/AdvReac Type Severity Reaction Status Date / Time codeine AdvReac Unknown Hives Verified 02/03/25 10:22 sulfamethoxazole AdvReac Unknown Unknown Verified 02/03/25 10:22 trimethoprim AdvReac Unknown Unknown Verified 02/03/25 10:22 lisinopril AdvReac cough Verified 02/03/25 10:22 Penicillins AdvReac rash Verified 02/03/25 10:22 Home Medications ?Medication ?Instructions ?Recorded ?Confirmed ?Last Taken ?Type cholecalciferol (vitamin D3) 50 50 mcg PO DAILY 01/16/23 02/20/25 Unknown History mcg (2,000 unit) capsule fluticasone propionate 50 1 spray intranasal DAILY 01/16/23 02/20/25 Unknown History mcg/actuation nasal spray,suspension acetaminophen 650 mg 1,300 mg PO Q12H 06/23/24 02/20/25 Unknown History tablet,extended release ipratropium bromide 21 mcg (0.03 2 spray intranasal BID 10/24/24 02/20/25 Unknown History %) nasal spray Exam Exam Date and Time: 02/22/25 1205 Height,Weight and Vital Signs: Height 5 ft 2 in Weight 52.163 kg Height 5 ft 2 in Weight 52.6 kg Airway Mallampati Class: I TM Dist: >3cm Neck ROM: Full Loose/Missing/Broken Teeth: No (patient denies any loose or broken teeth) Heart: S1S2 Lungs: CTAB Assessment and Plan Assessment Anesthesia Assessment: Anesthesia Plan Discussed and Chart Reviewed Final Anesthetic Review Family History of Problems with Anesthesia: No History of Problems with Anesthesia: No NPO: Yes ASA Class: II Final Preanesthetic Review: No Changes in Pt Med Stat, Meds/Allgs Chart Reviewed, Consent Obtained/Reviewed and Anes Risks/Benef Reviewed Patient Risk: Low Procedure Risk: Low Anesthetic Plan Anesthetic Plan: MAC: and Agree w/ Assess. and Plan Disposition: Standard PACU
[2025-02-22] MEDS: Lactated Ringers 1,000 ML 100 ML IVCONT (12:19)
--- NOTE | 2025-02-22 12:58 | MHC.SHP ---
Pre-Procedural Eval Section A - 24 Hr Update-Section A only Date of Service: 02/22/25 The patient is an INPATIENT: No Changes since office visit: Yes Patient answered all questions The patient has been examined within 24 hours of the surgical procedure. The History & Physical has been completed within 30 days and I have reviewed it.: No Section B - Complete if H&P > 30 days Chief Complaint: Spinal stenosis, lumbar region without neurogenic Relevant Family History (Specify if Yes): No Relevant Social History: None Present Medications: see Short Stay Collaborative assessment Medical History: No relevant PMH History of Previous Operations: No relevant previous surgery Allergies: Allergies Allergy/AdvReac Type Severity Reaction Status Date / Time codeine AdvReac Unknown Hives Verified 02/03/25 10:22 sulfamethoxazole AdvReac Unknown Unknown Verified 02/03/25 10:22 trimethoprim AdvReac Unknown Unknown Verified 02/03/25 10:22 lisinopril AdvReac cough Verified 02/03/25 10:22 Penicillins AdvReac rash Verified 02/03/25 10:22 Review of Systems Sugical H&P ROS: Negative: Constitution, Cardiovascular and Respiratory Exam Surgical H&P Exam: Normal: HEENT, Normal: Heart and Normal: Lungs Plan Diagnosis/Plan: Unchanged I have reviewed the history and physical and performed a pertinent physical examination on my patient. No changes have occurred unless specified. Time Spent With Patient Time: Total time managing care of this patient today ____ minutes.
[2025-02-22 13:38] LABS: MRSA Nasal PCR NEGATIVE (Negative); SA Nasal PCR NEGATIVE (Negative)
--- NOTE | 2025-02-22 14:04 | PM.OP ---
Brief Operative Note Date of Service: 02/22/25 Pre-op diagnosis: Lumbar spinal stenosis with neurogenic claudication Post-op diagnosis: same Procedure: Minimally invasive lumbar decompression, L4-5 Surgeon: Joe Doll MD Anesthesia: MAC Was an Compensation Agent used for this Procedure?: No Estimated blood loss (mL): 5 Pathology: none sent Condition: stable Disposition: PACU
[2025-02-22 14:05] VITALS: BP 108/64; PULSE 80; RESP 12; TEMP 36.1; O2SAT 97
--- NOTE | 2025-02-22 14:05 | W.PM.OPN ---
Operative Note Operative Note Date of Service: 02/22/25 Narrative: Preoperative diagnosis: Lumbar spinal stenosis with neurogenic claudication Postoperative diagnosis same Minimally Invasive Lumbar Decompression, Bilateral, L-4/5 After informed consent, patient was brought to the operating room. The patient was placed in the prone position in the fluoroscopy suite with blankets (bolster) under the hips to assist with reversing lordosis of the spine. Following IV sedation and antibiotic administration, the patient was prepped and draped in my usual standard fashion. Time-out was performed to confirm site and level of intervention. Ample amounts of local anesthetic were used to anesthetize the skin and deep facial planes after topographical landmarks were identified. Procedural safety barriers were established by utilizing a contralateral oblique (OSEI) view to visualize the ventral interlaminar line (VILL). Instruments remained posterior to the VILL during the percutaneous lumbar decompression procedure. A small midline incision was made with a sharp scalpel blade, and a trocar with portal was inserted percutaneously under fluoroscopic guidance to contact the lamina indicated. The trocar and portal were tugged to the right side to approach the right interlaminar space first. A bone auger was used to create a channel through the calcified ligaments through access the interlaminar region. A bone-sculpting rongeur was inserted to remove adequate amounts of lamina (laminotomy) from the superior surface of the inferior operative lamina site and from the inferior aspect of the lamina above it. The laminotomy created a passage for the tissue sculpting instrument used in debulking the ligamentum flavum. The ligamentum flavum was debulked until diminished returns. A similar procedure was performed on the contralateral side. There were no complications or difficulties noted with these procedures. Upon completion of the procedure, instruments were removed, hemostasis was achieved by direct pressure, and wound closure was performed with dermabond and steristrips. The patient tolerated the procedure well. Upon transferring the patient to the recovery room, the patient?s vital signs remained stable and without any neurologic deficits. The patient was discharged with instructions to rest, continue with ice, and to demonstrate progressive mobility. The patient was given a follow-up exam time and date along with instructions and contact information for any questions or concerns. The patient is to be followed up in the office for further evaluation and treatment, as deemed appropriate and necessary, and for any concerns regarding the procedure.
[2025-02-22 14:20] VITALS: BP 116/45; PULSE 89; RESP 12; TEMP 36.2; O2SAT 98
== END 2025-02-22 14:47 | disposition home or self-care (01) ==
PROVIDERS: Registered Nurse Emergency; PCP Internal Medicine; Visit Provider Internal Medicine
PROC: (CPT 0275T; principal; 2025-02-22 12:50)
DX: M48.062 Spinal stenosis, lumbar region with neurogenic claudication (principal); M54.50 Low back pain, unspecified; G89.29 Other chronic pain; M79.605 Pain in left leg; R20.0 Anesthesia of skin; R26.2 Difficulty in walking, not elsewhere classified; M35.3 Polymyalgia rheumatica; M53.3 Sacrococcygeal disorders, not elsewhere classified; M81.0 Age-related osteoporosis without current pathological fracture; G57.02 Lesion of sciatic nerve, left lower limb; G96.191 Perineural cyst; I10 Essential (primary) hypertension; E78.5 Hyperlipidemia, unspecified; Z79.899 Other long term (current) drug therapy; Z88.0 Allergy status to penicillin; Z88.2 Allergy status to sulfonamides; Z88.5 Allergy status to narcotic agent; Z88.8 Allergy status to other drugs, medicaments and biological substances; Z98.890 Other specified postprocedural states
CPT/HCPCS: 0275T; 87640; 87641; C1889; J0736; J2003; J2704; J3010

== ENCOUNTER → 2025-02-22 11:21 | Outpatient (BNV) | payer MEDICARE, SELFPAY | PROVIDERS: PCP Internal Medicine; Visit Provider Internal Medicine | DX: M48.062 Spinal stenosis, lumbar region with neurogenic claudication (principal); Z00.6 Encounter for examination for normal comparison and control in clinical research program | CPT/HCPCS: 0275T ==

== ENCOUNTER 2025-03-07 13:05 | Outpatient (AMB) | payer MEDICARE, SELFPAY ==
--- OUTSIDE RECORDS SUMMARY | 2024-06-20 03:00 | XMS_ITS ---
Author Organization [facility] Address [address] [place] [address] Care Team Providers Care Veterans' Coordinator Name Role Phone Talha SAM, Johanna Primary Care Provider Michaela Verma [phone] Encounters Encounter Location Date Provider Diagnosis [facility] [address] [place] [address] 06/20/2024 Michaela Acosta Plan Of Treatment Next Appt Details Provider Name:Michaela Beck Dave , 04/13/2025 08:00:00 AM, [address] [place], [address], Progress Notes * RHIANNAGILLESVinod Julissa PDOB:[birth year] (79 yo F)Acc No.[id number]:06/20/2024 Progress Note Patient: Cristiane SCHWARZMIOYeimiJulissa Santiago Provider: Cristiane Acosta DPM :1945 A ge:79 Y S ex:Female Date:06/20/2024 Address:[address] [place] Pcp:Johanna Palencia MD Subjective: * Chief Complaints: [...] 06/20/2024 Generated for Sera hi/Lucas/Mac on: 1 05/08/2024 05:15 PM EST
--- NOTE | 2025-03-07 13:08 | A.OFFVIS_ITS ---
Vital Signs 03/07/25 13:12 Height 5 ft 2 in Weight 116 lb BMI 21.2 BP 179/82 H Blood Pressure Location Lt brachial Position Sitting Pulse 70 Pulse Source Pulse Oximeter Pulse Oximetry (%) 100 Oxygen Delivery Method Room Air Intake Visit Reasons: S/p L4-L5 MILD 02/22/25 Intake Note: Pain today 5/10 Precision Assembly Inspector Required: No Accompanied by: Family/Other Allergies transparent dressing (Tegaderm) Allergy (Severe, Verified 03/08/25 14:02) Rash codeine Adverse Reaction (Unknown, Verified 03/07/25 13:13) Hives sulfamethoxazole Adverse Reaction (Unknown, Verified 03/07/25 13:13) Unknown trimethoprim Adverse Reaction (Unknown, Verified 03/07/25 13:13) Unknown lisinopril Adverse Reaction (Verified 03/07/25 13:13) cough Penicillins Adverse Reaction (Verified 03/07/25 13:13) rash HPI Comments Details: The patient is an 79 year old female presenting for a post-operative visit two weeks after an L4-L5 minimally invasive lumbar decompression (MILD) procedure performed on 02/22/25 for a history of significant lumbar spinal stenosis with neurogenic claudication and ligamentum flavum thickening. Prior to this procedure, she underwent a left parasagittal interlaminar L4-L5 epidural steroid injection in October, which provided good temporary symptom relief, improving her walking tolerance from 5-10 minutes to 20 minutes. She has also had a prior sacroiliac joint injection which provided no relief. Since the MILD procedure, the patient reports her walking tolerance is now about 15 minutes before she experiences horrible back pain. She notes her back pain has not improved, while the left leg pain may have slightly improved. She also developed an itchy rash on her lower back, which she first noticed after the surgical tegaderm bandage fell off. She remains very active despite the pain and finds that heat helps alleviate her symptoms. She sleeps well but reports difficulty rolling over from side to side in bed. Denies any recent cough, cold, infection, fever or any significant changes in medical history since last office visit. Pain Description - Onset and Timing: The patient reports post-operative pain two weeks after her procedure. - Quality and Character: Pain is described as horrible and sharp, at times aching and sore, with a pulling sensation. - Severity: Current pain is rated at 5/10. - Location: The pain is located across the lower back, in the left buttock, and the left thigh. - Exacerbating Factors: Pain is worsened by walking for about 15 minutes and by leaning backwards. - Relieving Factors: Pain is relieved by stopping to stand still and by leaning forward. - Associated Symptoms: The patient denies leg heaviness, stiffness, numbness, or tingling. Pain Management - Analgesia: Current pain level is 5/10. - Activities of Daily Living: The patient's walking is limited to approximately 15 minutes due to pain. - Affect: The patient expresses a desire to be active and is frustrated by her limitations. - Adverse Effects: The patient developed an itchy rash on her back, suspected to be an allergic reaction to the surgical dressing. - Aberrant Drug-Related Behaviors: The patient reports she did not fill a pain medication prescription from her primary doctor, as she wanted to assess the procedure's effectiveness without masking symptoms. Past Procedures: 02/22/25: L4-L5 MILD procedure-minimal pain relief 11/03/24: Left L4-L5 parasagittal interlaminar HORACE-80% ongoing pain relief 10/20/24: Left Diagnostic SI joint injection-0% pain relief PFSH Medical History Left ovarian cyst PMR (polymyalgia rheumatica) Osteoporosis HTN (hypertension) Hyperlipidemia Lumbar spinal stenosis Piriformis syndrome of left side Lumbar degenerative disc disease Surgical History H/O colonoscopy History of bunionectomy Hx of appendectomy Family History Son Substance use disorder Father No problems noted. Mother Hypertension Social History Household Members Other:: , 6 adult sons, grandchildren in [place], [facility] Housing: House Patient Tobacco Use Status: Never used Tobacco e-Cigarette/Vaping Use: Never Used service: No Current occupational status: retired Cognitive needs: No Hearing needs: No Vision needs: Yes Review of Systems Narrative - Integumentary: Reports an itchy rash on her lower back due to tegaderm dressing post MILD procedure. - Musculoskeletal: Reports lower back pain, left buttock pain, and left thigh pain, which is sharp and aching. - Neurological: Denies numbness or tingling, bladder or bowel dysfunction or saddle anesthesia. Const All systems reviewed & are unremarkable except as noted in HPI and below Physical Exam Vital Signs: Last Vital Signs Pulse 70 03/07/25 13:12 BP 179/82 H 03/07/25 13:12 Pulse Ox 100 03/07/25 13:12 Oxygen Delivery Method Room Air 03/07/25 13:12 BMI result Body Mass Index 21.2 General: Appears afebrile. Alert and oriented. Mood and affect appropriate. Follows and participates in conversation appropriately. Respiratory effort is unlabored. No cough. Able to transition from sit to stand unassisted. Frequently adjusting sitting positions to lean away from left side to relieve left buttock pain. Ambulates with bilaterally normal heel strike and toe off, with pain increase in LLE. General: Yes no CVA tenderness Back/Spine/Pelvis Other: Limited lumbar ROM due to pain. Lumbar extension with axial rotations and bending and leaning forward reproduces mild to moderate pain. Demonstrates 5/5 right and 4/5 left strength of quadriceps bilaterally as well as flexion/dorsiflexion of bilateral feet against resistance. 2+ pedal pulses bilaterally. Straight leg rise with dorsiflexion positive on the left. Diminished patellar and achilles reflexes bilaterally. Facet loading test p ositive bilaterally. Ramakrishna?s, Pelvic compression and Stinchfield tests are positive on the left. Moderate to severe TTP over left Piriformis muscle. No groin pain with I/E hip rotations. Valsalva maneuver is positive. A pruritic rash is present on the lower back. No dressing present, small incision open to air, dry, intact, mild redness noted, no swelling, no pathological discharge. Area was cleansed with Chloraprep, applied Bacitracin and covered it with gauze and bandaid dressing. Back: no CVA tenderness Cervical Spine: cervical ROM normal, loss of normal cervical lordosis and No Cervical spine tenderness Thoracic/Lumbar Spine: thoracic and lumbar spine normal to inspection, No Thoracic/lumbar spine scar(s), Lasegue's sign positive on the left and localized, pain with thoraco-lumbar ROM, paraspinal muscle tenderness on the left greater than right, thoraco-lumbar ROM limited, No thoracic spinal ten derness and lumbar spinal tenderness at L3, at L4 and at L5 Pelvis: buttock tenderness on the left Sacroiliac joints: on the right nontender and on the left tender to palpation Extrem General: Yes capillary refill normal, Yes no clubbing, cyanosis or edema and Yes no calf tenderness Results Reviewed Results Reviewed: MRI LUMBAR SPINE WITHOUT CONTRAST at [facility] 10/26/24 CLINICAL INFORMATION: Spondylolisthesis, perineural cyst and spinal stenosis. Chronic low back and left gluteal pain. TECHNICAL INFORMATION: 1. Sagittal and axial T1. 2. Sagittal and axial T2. 3. Sagittal STIR. SEDATION: None. COMPARISON: No existing relevant imaging immediately accessible. INTERPRETATION: Conus shows normal tapering and intrinsic signal, termination at T11-12. No spinal canal masses. Transitional lumbosacral junction with partially lumbarized S1 the right. There is 5 mm degenerative anterolisthesis at L4-5 with localized Modic type I discogenic endplate reaction and to the left. Remainder of endplates intact, vertebral body heights preserved. Marrow signal mildly heterogeneous throughout column. Sharply circumscribed 3.0 x 2.4 x 1.7 cm Tarlov cyst seen in the sacral spinal canal to the right with mild, chronic pressure erosion of subjacent S2 segment. L5-S1: Disc height loss with partially mineralized disc, left facet joint overgrowth and ankylosis. No posterior disc contour abnormality or significant central canal narrowing. Neural foramina mildly stenotic. L4-5: Moderate disc degeneration with grade I anterolisthesis is due to advanced facet joint arthrosis. Severe trefoil spinal canal and moderate right/mild left biforaminal narrowing. Exiting right L4 nerve abutted. 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 L3-4 and L2-3: Mild disc degeneration with posterior bulges, ligamentous hypertrophy and minimal facet joint overgrowth. Mild spinal canal and neural foraminal stenoses at both levels. No evident neural impingement. L1-2 and T12-1: Mild disc degeneration. No posterior disc protrusion, significant spinal canal or foraminal narrowing. No prevertebral/paraspinous soft tissue masses or collections. Included pelvis intact and marrow signal normal. Superior portions of sacroiliac joints show no effusions, subarticular edema or sclerosis. Gallstones noted. CONCLUSION: 1. Transitional lumbosacral junction with L5-S1 segmental ankylosis. 2. L4-5, severe spinal stenosis due to advanced facet joint arthrosis anterolisthesis. Moderate right/mild left biforaminal narrowing with abutted exiting right L4 nerve. 3. L2-3 and L3-4, mild spinal canal and biforaminal stenoses due to bulging discs and facet overgrowth. 4. 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 5. Gallstones. XR LUMBAR SPINE 3 VIEWS 01/07/24 CLINICAL INFORMATION: Essential (primary) hypertension, PT states arthritis I10. FINDINGS: There is mild to moderate anterolisthesis of L3 on L4 and mild anterolisthesis of L4 on L5. Alignment is otherwise unremarkable. Lumbar vertebral body heights are maintained. There is moderate to severe narrowing of the L4/5 and L5/S1 disc space heights. There are degenerative changes of the posterior elements of the lower lumbar spine. Vascular calcifications noted. Calcified densities in the right upper abdomen are most suggestive of gallstones. IMPRESSION: Moderate to severe degenerative changes of the lower lumbar spine. No compression deformity. DEXA axial skeleton 04/16/23 IMPRESSION: 1. DIAGNOSIS: Osteoporosis based on the lowest T-score value of -2.7 in the total femur applying World Health Organization criteria. XR BILATERAL HIPS WITH AP PELVIS 06/23/24 FINDINGS: Bony pelvis is intact. Sclerosis and the sacroiliac joints, bilaterally. Spondylosis L4-5 and L5-S1. No acute cortical disruption or malalignment in either hip. No lytic or blastic lesions. Osteopenia versus osteoporosis. IMPRESSION: No acute fracture or dislocation. Osteopenia versus osteoporosis. Multilevel lower lumbar spondylosis. XR SACRUM AND COCCYX 06/23/24 CLINICAL INFORMATION: M81.0 - Age-related osteoporosis without current pathological fracture COMPARISON: Correlation made with lumbar spine x-ray 01/07/2024. TECHNIQUE: 2 views of the sacrum and 2 views of the coccyx were obtained. FINDINGS: There is a cortical step-off seen at the S5 level, just above the coccyx, suggestive of fracture. This may be acute. No additional fractures seen. Normal-appearing coccyx. Extensive degenerative changes of the lower lumbar spine with partial sacralization of the L5 vertebral body. Moderate arthritis seen in both SI joints. Sacral arches appear intact. Mild hip joint arthritis noted bilaterally. Soft tissues appear normal aside from vascular calcifications. IMPRESSION: 1. Possibly acute mildly displaced fracture at the S5 level, just above the coccyx. 2. Chronic degenerative changes as discussed. MR pelvis wo con 07/10/24 CLINICAL HISTORY: M53.3 - Sacrococcygeal disorders, not elsewhere classified Examination: MRI pelvis without intravenous contrast Comparison: None Findings: Incidental Tarlov cysts S2 measuring 3 x 2.3 cm. Mild degenerative spondylolisthesis grade 1 L4-5 suspect a rudimentary S1 /2 disc. No bone marrow edema or bony destructive processes. No sacroiliitis or ankylosis. No avascular necrosis. Normal congruence E of the femoroacetabular joints. Symphysis pubis and pubic rami intact. Postmenopausal uterine atrophy cyst with a equivocal septations left ovary measuring 2.8 x 2.6 x 2.0 cm. No endometrial thickening. Normal distention of the urinary bladder. Impression: 1. SI joints and sacrococcygeal joint intact 2. Tarlov cyst S2 on the right]. Degenerative spondylo listhesis L4-5. Significant spinal stenosis at this level correlate with a dedicated MRI lumbar spine. Suspect rudimentary disc S1-S2 3. Cyst with probable septations right ovary correlate with pelvic sonogram in a postmenopausal female Assessment & Plan Assessment & Plan (1) Spondylolisthesis, lumbar region: Code(s): M43.16 - Spondylolisthesis, lumbar region Category: Medical (2) Lumbar degenerative disc disease: Code(s): M51.369 - Other intervertebral disc degeneration, lumbar region without mention of lumbar back pain or lower extremity pain Category: Medical (3) Lumbar spinal stenosis: Comment: L spine XR 12/2023 consistent with lumbar spinal and pelvic MRI 05/2024 normal SI joints degenerative spondylolisthesis at the L4-5 level, established with [place] pain management and referred to spinal surgeon 07/2024 Code(s): M48.061 - Spinal stenosis, lumbar region without neurogenic claudication Category: Medical (4) Piriformis syndrome of left side: Code(s): G57.02 - Lesion of sciatic nerve, left lower limb Category: Medical (5) Lumbar spondylosis: Code(s): M47.816 - Spondylosis without myelopathy or radiculopathy, lumbar region Category: Medical (6) Lumbar radicular pain: Code(s): M54.16 - Radiculopathy, lumbar region Category: Medical (7) Chronic SI joint pain: Code(s): M53.3 - Sacrococcygeal disorders, not elsewhere classified; G89.29 - Other chronic pain Category: Medical Plan The patient is two weeks post-op from a mild procedure at L4-L5 and reports persistent back and buttock pain with no improvement in walking endurance. The pain did not improve with a prior SI joint injection but showed temporary improvement with an L4-L5 epidural steroid injection. Today's physical examination is notable for left buttock pain with the FREEDOM test and point tend erness over the piriformis muscle, suggesting piriformis syndrome as a likely etiology of her current symptoms as well as chronic SI joint pain. Given these findings, the plan is to schedule a diagnostic left diagnostic piriformis muscle injection with local and US guidance.Expectations, risks and benefits were reviewed. Patient is aware she will be contacted to schedule this procedure. For the post-procedural rash, it is identified as an allergic reaction to the Tegaderm dressing, and this allergy will be documented in her chart. She is advised to keep the area clean, avoid scratching, and may apply Benadryl cream as it was previously helpful for her. All questions and concerns have been answered and patient agreed with the treatment plan. Follow up after injection and sooner as needed. Patient was informed and verbally consented to the use of an ambient scribe for clinic note documentation during this visit. Coding Level of Care Code Est Pt Level 3 (35329) Diagnoses Spondylolisthesis, lumbar region M43.16 Lumbar degenerative disc disease M51.369 Lumbar spinal stenosis M48.061 Piriformis syndrome of left side G57.02 Lumbar spondylosis M47.816 Lumbar radicular pain M54.16 Chronic SI joint pain M53.3; G89.29
[2025-03-07 13:12] VITALS: BP 179/82; PULSE 70; O2SAT 100; BMI 21.2
--- OUTSIDE RECORDS SUMMARY | 2025-03-07 17:14 | XMS_ITS | Clinical Summary ---
Author Organization [place] [id number] [facility] Address [address] [place] [phone] Phone Care Team Providers Care Group Tester Name Role Phone Unavailable Primary Care Provider Unavailabl e Surgical History Surgery Date Site/Laterality Comments APPENDECTOMY 1950 PROCEDURE: TN APPENDECTOMY OTHER SURGICAL HISTORY 03/2020 PROCEDURE: MAMMOGRAM COLONOSCOPY 2002 PROCEDURE: TN COLONOSCOPY STOMA DX INCLUDING COLLJ SPEC SPX [...] Orientation Not on file Plan of Treatment Health Maintenance Due Date [...]
--- OUTSIDE RECORDS SUMMARY | 2025-03-07 17:14 | XMS_ITS | Patient Health Record ---
[facility] Address [address] [place] [address] Care Team Providers Care Organic Section Technical Lead Name Role Phone Johanna Palencia MD Primary Care Provider Unavaila Michaela Buenrostro Unavailable [phone] Allergies Allergen (clinical drug ingredient) Drug/Non Drug [...] Referring Provider Last Name Talha Referred Organization [facility] Referred Provider Michalea Acosta Referred Address [address] [facility],[place], [place],[address], Referred Provider Specialty Podiatry Referral Priority Routine [...] First Name Johanna Referring Provider [facility] Referred [facility] Referred Provider Michaela Acosta Referred Address [address] [facility] [place],[address] Referred Provider Specialty Podiatry Referral Priority Routine [...] primary osteoarthritis of the ankle and/or foot ([id number]) Primary osteoarthrit is, left ankle and foot (M19.072) Active confirmed Problem Hallux valgus of left foot (1042887608) Hallux valgus of left foot (M20.12) Active confirmed 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 Vital Signs Blood pressure diastolic 70 mm Hg 12/19/2024 Height 5ft 2'' in 12/19/2024 Blood pressure systolic 130 mm Hg 12/19/2024 Weight 115 lbs 12/19/2024 BMI 21.03 kg/m2 12/19/2024 Procedures Procedure Date Ordered Date Performed Result Body Sit e 16964-XQVIWCG NAIL, 6 OR MORE 09/19/2024 N/A [id number] NAIL, 6 OR MORE 12/19/2024 N/A Encounters Encounter Location Date Provider Diagnosis [facility] [address] 09/19/2024 Michaela Black Tinea unguium B35.1 ; [...] Fat pad atrophy of foot L90.9 [facility] [address] 12/19/2024 Michaela Black Tinea unguium B35.1 ; Neuritis M79.2 ; Pain in right toe(s) M79.674 ; Pain in left toe(s) M79.675 ; Dermatitis L30.9 ; Fat pad atrophy of foot L90.9 ; Hallux valgus of left foot M20.12 and Hallux limitus of left foot M20.5X2 Assessments Encounter Date Diagnosis (ICD Code) Assessment Notes Treatment Notes Treatment Clinical Notes Section Notes 09/19/2024 Metatarsalgia, right foot (ICD-10 - M77.41) 09/19/2024 Tinea unguium (ICD-10 - B35.1) 12/19/2024 Tinea unguium (ICD-10 - B35.1) 12/19/2024 Neuritis (ICD-10 - M79.2) 12/19/2024 Pain in right toe(s) (ICD-10 - M79.674) 09/19/2024 Pain in right toe(s) (ICD-10 - M79.674) 09/19/2024 Pain in left toe(s) (ICD-10 - [...] Treatment Pending Test Test Name Order Date [id number] NAIL, 6 OR MORE 12/16/2021 [id number] NAIL, 6 OR MORE 10/22/2023 82815-[id number] NAIL, 6 OR MORE 02/22/2024 15810-KDCJPRQ NAIL, 6 OR MORE 09/19/2024 86023-[id number] NAIL, 6 OR MORE 12/19/202498322, A1466-BYRDN/INJECT, JOINT/BURSA 1 05/06/2022 21062- Removal of Foreign Body, Subcut 0 10/22/2023 Next Appt Details Provider Name:Michaela Acosta , 04/13/2025 08:00:00 AM, [address] [place] [address], [phone], Insurance Providers Payer Name Payer Address Payer Phone Subscriber Number Group Number Insured Name Patient Relationship to Insured Coverage Start Date Coverage End Date [facility] [address] [place] [phone] [id number] Julissa Blackman Self - patient is the [...]
--- OUTSIDE RECORDS SUMMARY | 2025-03-07 17:15 | XMS_ITS | Clinical Summary ---
Author Organization [facility] Address [address] [place] [phone] Phone Care Team Providers Care Virtualization Consultant Name Role Phone Pcp, Unknown Primary Care [...] Medical Devices Not on file Insurance [facility] [place] MED[place] REPLACEMENT MEDICARE REPLACEMENT MEDICARE REPLACEMENT ANCRAMDALE MEDICARE REPLACEMENT ANCRAMDALE MEDICARE REPLACEMENT MEDICARE REPLACEMENT MEDICARE REPLACEMENT MEDICARE REPLACEMENT ANCRAMDALE MEDICARE REPLACEMENT Care Teams Virtualization Consultant Relationship Specialty Start Date End Date Pcp, Unknown PCP - General 10/29/21 Additional Source Comments The information contained in this document represents components of the legal health record. It is not the complete legal health record.[facility]
--- OUTSIDE RECORDS SUMMARY | 2025-03-07 17:15 | XMS_ITS | Patient Health Record ---
Author Organization [facility] Address [address] [facility] [address] [facility] [place] [address] Care Team Providers Care Gaming Department Head Name Role Phone Maddy Suazo Primary Care [...] Status Risk Notes Problem Acquired hallux valgus (09942789) Hallux valgus (acquired), right foot (M20.11) Active confirmed Problem Acquired hallux valgus (45026084) Hallux valgus (acquired), left foot (M20.12) Active confirmed Problem Mononeuropathy of lower limb (386070952) Neuritis of left foot (G57.92) Active confirmed [...] Insured Coverage Start Date Coverage End Date [facility] [id number] [place] [id number] Julissa Blackman Self - patient is the [...]
== END 2025-03-07 13:39 | disposition home or self-care (01) ==
LOC: HO.PMC 13:06
PROVIDERS: PCP Internal Medicine; Visit Provider Nurse Practitioner Family
DX: M43.16 Spondylolisthesis, lumbar region (principal); M51.369 Other intervertebral disc degeneration, lumbar region without mention of lumbar back pain or lower extremity pain; M48.061 Spinal stenosis, lumbar region without neurogenic claudication; G57.02 Lesion of sciatic nerve, left lower limb; M47.816 Spondylosis without myelopathy or radiculopathy, lumbar region; M54.16 Radiculopathy, lumbar region; M53.3 Sacrococcygeal disorders, not elsewhere classified; G89.29 Other chronic pain
CPT/HCPCS: 99213

== ENCOUNTER → 2025-03-07 13:05 | Outpatient (BNVA) | payer MEDICARE, SELFPAY | PROVIDERS: PCP Internal Medicine; Visit Provider Nurse Practitioner Family | DX: M43.16 Spondylolisthesis, lumbar region (principal); M51.16 Intervertebral disc disorders with radiculopathy, lumbar region; M48.061 Spinal stenosis, lumbar region without neurogenic claudication; M47.26 Other spondylosis with radiculopathy, lumbar region; G57.02 Lesion of sciatic nerve, left lower limb; M53.3 Sacrococcygeal disorders, not elsewhere classified; L76.82 Other postprocedural complications of skin and subcutaneous tissue; G89.29 Other chronic pain | CPT/HCPCS: 99212 ==